=== PATIENT | male | born 1945 | race Caucasian/White ===

== ENCOUNTER 2017-08-03 06:19 | Emergency (ER) | payer OTHER, BC ==
[2017-08-03 07:06] LABS: Absolute Lymphocytes (CBC) 1.3 K/uL (0.7-4.9); Absolute Monocytes 0.6 K/uL (0.1-1.3); Basophils % 0.4 % (0-1.3); Eosinophils % 2.1 % (0-4.4); Hematocrit 41.9 % (39.6-49.0); Lymphocytes % 26.2 % (15.3-44.8); MCH 31.2 pg (27.0-35.0); MCV 92.3 fL (80-100); Monocytes % 11.9 % (3.3-12.3); RBC Red Blood Cell Count 4.54 M/uL (4.33-5.43)
[2017-08-03 07:08] LABS: Protime INR 0.91
--- NOTE | 2017-08-03 08:28 | RAD REPORT ---
EXAM DESCRIPTION: RAD - Chest Single View - 08/03/2017 8:22 am CLINICAL HISTORY: Shortness of breath. COMPARISON: None. FINDINGS: Portable technique limits examination quality. Emphysematous changes are present throughout the lungs. Post surgical changes are present in the righ t lower lobe. The heart is normal in size. No displaced fractures. IMPRESSION: Prominent COPD.
[2017-08-03 08:39] LABS: Potassium 4.1 mEq/L (3.6-5.0)
[2017-08-03 08:44] LABS: Bilirubin Total 0.5 mg/dL (0.3-1.2); Magnesium 1.8 mg/dL (1.8-2.5); Protein, Total 8.1 g/dL (6.0-8.3)
[2017-08-03 08:45] LABS: Bilirubin Direct 0.1 mg/dL (0-0.2)
[2017-08-03 08:53] LABS: Urine Blood NEGATIVE (NEG); Urine Glucose NEGATIVE (NEG); Urine Protein NEGATIVE (NEG); Urine pH 5.5 (5.0-7.0)
--- NOTE | 2017-08-03 09:12 | RAD REPORT ---
EXAM DESCRIPTION: CT - Chest For Pe Angio - 08/03/2017 9:02 am CLINICAL HISTORY: Chest pain. Shortness of breath COMPARISON: Recent chest radiograph. TECHNIQUE: CT angiogram of the pulmonary arteries was performed with MIP. All CT scans are performed using dose optimization technique as appropriate and may include automated exposure control or mA/KV adjustment according to patient size. FINDINGS: No evidence of pulmonary thromboembolism. No acute aortic finding demonstrated. The lungs are mildly emphysematous but clear. Postsurgical changes are present inferior right lung. No significant pericardial or pleural fluid. No concerning bony finding. IMPRESSION: No evidence of pulmonary thromboembolism. COPD.
--- NOTE | 2017-08-03 09:43 | ER ---
Nurse's Notes [facility] Name: Fredi Barth Age: 72 yrs Sex: Male : 1945 Arrival Date: 08/03/2017 Time: 06:20 Bed 5 Private MD: Diagnosis: Cardiac arrhythmia, unspecified Presentation: 08/03 06:20 Presenting complaint: Patient states: that he woke up at 0400 with irregular heart fc rate. Also having shortness of breath which is normal for him. Denies any nausea or vomiting. Took bp at home and it was 118/86. Transition of care: patient was not received from another setting of care. Onset of symptoms was August 03, 2017 at 04:00. Initial Sepsis Screen: Does the patient meet any 2 criteria? HR > 90 bpm. Yes Does the patient have a suspected source of infection? No. Patient's initial sepsis screen is negative. Care prior to arrival: Medication(s) given: Coreg 12.5 mg at 0600. 06:20 Method Of Arrival: Wheelchair fc 06:20 Acuity: PHYLLIS 2 fc Historical: - Allergies: 06:39 hydrocodone; fc - Home Meds: 06:39 Coreg 25 mg Oral tab 1 tab 2 times per day [Active]; tylenol 500 mg twice a day fc [Active]; Co Q-10 oral oral daily [Active]; Vitamin D Oral daily [Active]; Probiotic oral oral daily [Active]; Nexium 40 mg Oral cpDR 1 cap once daily [Active]; - PMHx: 06:39 Atrial Fib; COPD; Cancer, Lung; Hypertension; GERD; Sjogren's syndrome; fc - PSHx: 06:39 lung surg to remove cancer; abd surg; fc - Immunization history:: Last tetanus immunization: unknown. - Social history:: Smoking status: Patient/guardian denies using tobacco. Screenin:20 Abuse screen: Denies threats or abuse. Nutritional screening: No deficits noted. fc Tuberculosis screening: No symptoms or risk factors identified. Fall Risk None identified. Assessment: 06:46 General: Appears in no apparent distress. comfortable, Behavior is calm, cooperative, tl2 appropriate for age. Pain: Denies pain. Neuro: Level of Consciousness is awake, alert, obeys commands, Oriented to person, place, time, situation. Cardiovascular: Reports mild mid sternal chest discomfort, states, "It just doesn't feel right". Respiratory: Airway is patent Respiratory effort is even, unlabored, Respiratory pattern is regular, symmetrical, Breath sounds are clear bilaterally. Denies shortness of breath. GI: No signs and/or symptoms were reported involving the gastrointestinal system. : No signs and/or symptoms were reported regarding the genitourinary system. Derm: Skin is pink, warm \\T\\ dry. 06:48 Pain: Pain began 3 hours ago. tl2 07:00 Reassessment: Patient appears in no apparent distress at this time. Patient and/or sg family updated on plan of care and expected duration. Pain level reassessed. Patient is alert, oriented x 3, equal unlabored respirations, skin warm/dry/pink. pt encouraged to remain in the bed, strict bed rest, pt educated on reasons behind the need for strict bed rest, pt stated understanding. 07:00 Pain: Pain does not radiate. sg 08:30 Reassessment: Patient appears in no apparent distress at this time. Patient and/or sg family updated on plan of care and expected duration. Pain level reassessed. Patient is alert, oriented x 3, equal unlabored respirations, skin warm/dry/pink. pt requesting to walk to the restroom, more education provided on the need for strict bed rest, pt stated understanding, pt requesting to go to the restroom. pt ambulatory to the ER restroom and back into bed, will continue to monitor. 08:30 Reassessment: pt reports " i forgot to tell the docotor that i took a unasym last sg night.". 08:48 Reassessment: pt and pt requesting something to eat, pt encouraged to remain NPO sg until all testing is completed, awaiting the blood work prior to having the CT scan, pt stated understanding, pt stated understanding, pt remains on monitors, no new orders received at this time, pt remains strict bed rest. 09:20 Reassessment: Patient appears in no apparent distress at this time. Patient and/or sg family updated on plan of care and expected duration. Pain level reassessed. Patient is alert, oriented x 3, equal unlabored respirations, skin warm/dry/pink. awaiting a CT scan results at this time, pt cardiac rhythm noted to be Sinus Rhythm at this time, Varun HAAS notified, ordered repeat EKG Patient states feeling better. Patient states symptoms have improved. Vital Signs: 06:20 BP 165 / 111; Pulse 130; Resp 20; Temp 97.7(O); Pulse Ox 97% on R/A; Weight 112.49 kg fc (R); Height 6 ft. 2 in. (187.96 cm) (R); Pain 0/10; 08:13 BP 117 / 77; Pulse 135; Resp 18; Pulse Ox 98% on R/A; sg 09:26 BP 131 / 92; Pulse 70; Resp 13; Pulse Ox 96% on R/A; tw2 06:20 Body Mass Index 31.84 (112.49 kg, 187.96 cm) fc 08:13 varun HAAS notified of vital signs sg Vitals: 06:46 Cardiac Rhythm Assessment Sinus tach. tl2 09:30 Cardiac Rhythm Assessment Sinus rhythm. sg ED Course: 06:20 Patient arrived in ED. ds1 06:20 Arm band placed on Patient placed in an exam room, on a stretcher. fc 06:20 Patient has correct armband on for positive identification. Placed in gown. Bed in low fc position. Call light in reach. printer maintainer on. Pulse ox on. NIBP on. 06:20 Patient maintains SpO2 saturation greater than 95% on room air. fc 06:29 [facility]. jr8 06:29 Sumeet Harkins MD is Attending Physician. jr8 06:30 EKG done, by ED staff, reviewed by Varun HAAS. fc 06:34 Triage completed. fc 06:46 Inserted saline lock: 20 gauge in left antecubital area, using aseptic technique. Blood tl2 collected. 07:10 Artis Justice, RN is Primary Nurse. sg 08:22 XRAY Chest (1 view) In Process Unspecified. EDMS 08:56 CT completed. Patient tolerated procedure well. Patient moved to CT via stretcher. vr Patient moved back from CT. 09:02 CT Chest For PE Angio In Process Unspecified. EDMS 09:08 Patient moved back from CT. sg 09:34 EKG done, by ict help desk technician. reviewed by Varun HAAS Repeat EKG. at1 09:42 Adeel Hull MD is Referral Physician. jr8 09:45 No provider procedures requiring assistance completed. IV discontinued, intact, sg bleeding controlled, No redness/swelling at site. Pressure dressing applied, IV d/c'd by watershed tender Leena. Administered Medications: No medications were administered Outcome: 09:42 Discharge ordered by MD. grider 09:48 Discharged to home ambulatory, with family. 09:48 Condition: good 09:48 Discharge instructions given to patient, Instructed on discharge instructions, follow up and referral plans. safety practices, Demonstrated understanding of instructions, follow-up care. 09:51 Patient left the ED. iw Signatures: Dispatcher [employer] EDArtis Alves, RN RN sg Carla Tavarez, RN RN Naz Jaramillo ds1 Leeann Holder, RN RN iw Noreen Tadeo Josh, PA PA jr8 gonzales, Amanda, lap machine tender EKG Tat1 Carlita Phillips RN RN tw2 Ila Quiroga RN RN tl2
--- NOTE | 2017-08-03 09:43 | EDPHYS ---
Physician Documentation [facility] Name: Fredi Barth Age: 72 yrs Sex: Male : 1945 Arrival Date: 08/03/2017 Time: 06:20 Bed 5 Private MD: ED Physician Sumeet Harkins HPI: 08/03 07:49 This 72 yrs old Male presents to ER via Wheelchair with complaints of jr8 Irregular Pulse. 07:49 The patient presents with a history of heart racing. Context: The symptoms occur at jr8 rest. Onset: The symptoms/episode began/occurred acutely, today. Duration: The patient or guardian reports a single episode, that is still ongoing. Modifying factors: The symptoms are aggravated by nothing. The symptoms are alleviated by nothing. Associated signs and symptoms: Pertinent positives: SOB. Severity of symptoms: At their worst the symptoms were moderate in the emergency department the symptoms are unchanged. It is unknown whether or not the patient has had similar symptoms in the past. The patient has not recently seen a physician. Stated that he has history of atrial fibrillation. Started to feel heart race this morning. Though it may be his atrial fib coming back again. Had not had an episode in a few years. Had chemical cardioversion previously for the arrhythmia . Historical: - Allergies: 06:39 hydrocodone; fc - Home Meds: 06:39 Coreg 25 mg Oral tab 1 tab 2 times per day [Active]; tylenol 500 mg twice a day fc [Active]; Co Q-10 oral oral daily [Active]; Vitamin D Oral daily [Active]; Probiotic oral oral daily [Active]; Nexium 40 mg Oral cpDR 1 cap once daily [Active]; - PMHx: 06:39 Atrial Fib; COPD; Cancer, Lung; Hypertension; GERD; Sjogren's syndrome; fc - PSHx: 06:39 lung surg to remove cancer; abd surg; fc - Immunization history:: Last tetanus immunization: unknown. - Social history:: Smoking status: Patient/guardian denies using tobacco. ROS: 07:49 Eyes: Negative for injury, pain, redness, and discharge, ENT: Negative for injury, jr8 pain, and discharge, Neck: Negative for injury, pain, and swelling, Abdomen/GI: Negative for abdominal pain, nausea, vomiting, diarrhea, and constipation, Back: Negative for injury and pain, MS/Extremity: Negative for injury and deformity, Skin: Negative for injury, rash, and discoloration, Neuro: Negative for headache, weakness, numbness, tingling, and seizure. 07:49 Cardiovascular: Positive for palpitations, Negative for chest pain, edema, orthopnea, paroxysmal nocturnal dyspnea. 07:49 Respiratory: Positive for shortness of breath, Negative for cough, dyspnea on exertion, hemoptysis, orthopnea, pleurisy, sputum production, wheezing. Exam: 07:49 Eyes: Pupils equal round and reactive to light, extra-ocular motions intact. Lids and jr8 lashes normal. Conjunctiva and sclera are non-icteric and not injected. Cornea within normal limits. Periorbital areas with no swelling, redness, or edema. ENT: Nares patent. No nasal discharge, no septal abnormalities noted. Tympanic membranes are normal and external auditory canals are clear. Oropharynx with no redness, swelling, or masses, exudates, or evidence of obstruction, uvula midline. Mucous membranes moist. Neck: Trachea midline, no thyromegaly or masses palpated, and no cervical lymphadenopathy. Supple, full range of motion without nuchal rigidity, or vertebral point tenderness. No Meningismus. Respiratory: Lungs have equal breath sounds bilaterally, clear to auscultation and percussion. No rales, rhonchi or wheezes noted. No increased work of breathing, no retractions or nasal flaring. Abdomen/GI: Soft, non-tender, with normal bowel sounds. No distension or tympany. No guarding or rebound. No evidence of tenderness throughout. Back: No spinal tenderness. No costovertebral tenderness. Full range of motion. Skin: Warm, dry with normal turgor. Normal color with no rashes, no lesions, and no evidence of cellulitis. MS/ Extremity: Pulses equal, no cyanosis. Neurovascular intact. Full, normal range of motion. Neuro: Awake and alert, GCS 15, oriented to person, place, time, and situation. Cranial nerves II-XII grossly intact. Motor strength 5/5 in all extremities. Sensory grossly intact. Cerebellar exam normal. Normal gait. 07:49 Cardiovascular: Rate: tachycardic, Rhythm: regular, Pulses: Pulses are 2+ in right radial artery and left radial artery. Heart sounds: normal, normal S1and S2, no S3 or S4, no murmur, no rub, no gallop, Edema: is not appreciated, JVD: is not appreciated. Vital Signs: 06:20 BP 165 / 111; Pulse 130; Resp 20; Temp 97.7(O); Pulse Ox 97% on R/A; Weight 112.49 kg fc (R); Height 6 ft. 2 in. (187.96 cm) (R); Pain 0/10; 08:13 BP 117 / 77; Pulse 135; Resp 18; Pulse Ox 98% on R/A; sg 09:26 BP 131 / 92; Pulse 70; Resp 13; Pulse Ox 96% on R/A; tw2 06:20 Body Mass Index 31.84 (112.49 kg, 187.96 cm) 08:13 pierre HAAS notified of vital signs MDM: 06:29 Patient medically screened. 8 09:40 Data reviewed: vital signs, nurses notes, lab test result(s), EKG, radiologic studies, [facility] CT scan, plain films, and as a result, I will discharge patient. Data interpreted: Pulse oximetry: on room air is 96 %. Interpretation: normal. Counseling: I had a detailed discussion with the patient and/or guardian regarding: the historical points, exam findings, and any diagnostic results supporting the discharge/admit diagnosis, lab results, radiology results, the need for outpatient follow up, a battery charger, to return to the emergency department if symptoms worsen or persist or if there are any questions or concerns that arise at home. ED course: Patient auto converted from arrhythmia earlier. Suspected maybe 2:1 aflutter vs unspecified tachycardia. Will see battery charger this week for f/u. To come back if worse . 08/03 06:40 Order name: Basic Metabolic Panel; Complete Time: 08:50 08/03 06:40 Order name: BNP; Complete Time: 07:31 08/03 06:40 Order name: CBC with Diff; Complete Time: 07:13 08/03 06:40 Order name: LFT's; Complete Time: 08:50 08/03 06:40 Order name: Magnesium; Complete Time: 08:50 08/03 06:40 Order name: PT-INR; Complete Time: 07:19 08/03 06:40 Order name: Ptt, Activated; Complete Time: 07:19 08/03 06:40 Order name: Troponin (emerg Dept Use Only); Complete Time: 07:19 08/03 06:40 Order name: XRAY Chest (1 view); Complete Time: 08:31 08/03 06:40 Order name: EKG; Complete Time: 06:41 08/03 06:40 Order name: Cardiac monitoring; Complete Time: 06:42 08/03 06:40 Order name: DD; Complete Time: 07:19 08/03 08:38 Order name: Urine Dipstick--Ancillary (enter results); Complete Time: 08:58 08/03 08:46 Order name: CT Chest For PE Angio; Complete Time: 09:15 08/03 06:40 Order name: EKG - Nurse/Tech; Complete Time: 06:42 08/03 06:40 Order name: IV Saline Lock; Complete Time: 06:42 08/03 06:40 Order name: Labs collected and sent; Complete Time: 06:42 08/03 06:40 Order name: O2 Per Protocol; Complete Time: 06:42 08/03 06:40 Order name: O2 Sat Monitoring; Complete Time: 06:42 08/03 06:40 Order name: Urine Dipstick-Ancillary (obtain specimen); Complete Time: 08:43 jr8 Administered Medications: No medications were administered Disposition: 08/03/17 09:42 Discharged to Home. Impression: Cardiac arrhythmia, unspecified. - Condition is Stable. - Discharge Instructions: Atrial Fibrillation, Palpitations. - Medication Reconciliation Form, Thank You Letter, Antibiotic Education, Prescription Opioid Use form. - Follow up: Adeel Hull MD; When: Today; Reason: Recheck today's complaints, Continuance of care, Re-evaluation by your physician. - Problem is new. - Symptoms have improved. Addendum: 08/07/2017 21:30 Co-signature as Attending Physician, Sumeet Harkins MD. g s Signatures: Dispatcher [employer] EDMS Carla Tavarez RN RN fc Williams, Irene, RN RN iw Roszak, Josh, WALDO PA jr8 Sumeet Harkins MD MD
--- NOTE | 2017-08-03 12:56 | EKG ---
Test Date: 2017-08-03 Test Time: 06:30:06 Equity Director: JOHNATHON MEASUREMENT RESULTS: Intervals: Rate: 130 NJ: 208 QRSD: 78 QT: 286 QTc: 420 Higden: P: NJ: 208 QRS: 21 T: 58 INTERPRETIVE STATEMENTS: Sinus tachycardia Otherwise normal ECG Compared to ECG 10/18/2010 00:35:23 Sinus rhythm no longer present Electronically Signed On 08-03-17 12:55:35 CDT by Parish Avery
--- NOTE | 2017-08-03 12:56 | EKG ---
Test Date: 2017-08-03 Test Time: 09:18:40 Rattle Leak And Squeak Repairer: MY MEASUREMENT RESULTS: Intervals: Rate: 67 MO: 168 QRSD: 80 QT: 380 QTc: 401 [place]: P: 46 MO: 168 QRS: 5 T: 61 INTERPRETIVE STATEMENTS: Normal sinus rhythm Normal ECG Compared to ECG 08/03/2017 06:30:06 Sinus tachycardia no longer present Electronically Signed On 08-03-17 12:55:20 CDT by Parish Avery
== END 2017-08-03 09:51 | disposition home or self-care (01) ==
LOC: ER 06:19
DX: I49.9 Cardiac arrhythmia, unspecified (principal); I10 Essential (primary) hypertension; I48.91 Unspecified atrial fibrillation; Z85.118 Personal history of other malignant neoplasm of bronchus and lung
CPT/HCPCS: 36415; 71045; 71275; 80048; 80076; 81003; 83735; 83880; 84484; 85025; 85379; 85610; 85730; 93005 ×2; 99285; Q9967

== ENCOUNTER 2020-02-12 02:07 | Emergency (ER) | payer OTHER, BC ==
--- OUTSIDE RECORDS SUMMARY | 2020-02-12 02:09 | XMS REPORT | Continuity of Care Document ---
:1945 Author Organization [facility] t Address [address] [place] [address] [place] [id number] Care Team Providers Name Role Phone APOLONIA SINHA Primary Care Physician Unavailable Yao MICHAEL Attending Clinician Unavailable Payers Payer Name Policy Type Policy Number Effective Date Expiration Date S emma MEDICARE PART A [id number] 2008 AND B 00:00:00 [place] P[place] POS [id number] 2015 00:00:00 Problems This patient has no known problems. Allergies, Adverse Reactions, Alerts This patient has no known allergies or adverse reactions. Medications This patient has no known medications. Vital Signs Vital Name Observation Time Observation Value Comments Source WEIGHT 2020-01-20 13:05:00 112.8 kg Procedures This patient has no known procedures. Encounters Start End Encounter Admission Attending Care Care Encounter Source Date/Time Date/Time Type Type Clinicians Facility Department ID 2020-01-20 2020-01-20 Outpatient KARLO MICHAEL MDA ESTEFANI [id number] 07:46:39 23:59:00 ROSLYN beard 2020-01-20 2020-01-20 Outpatient KARLO MICHAEL MDA MDA [id number] 07:46:09 23:59:00 ROSLYN Sahaers o n 2020-01-20 2020-01-20 Outpatient KARLO MICHAEL MDA MDA [id number] 11:08:10 16:44:09 ROSLYN Sahaers o kisha 2015-10-12 2015-10-12 Outpatient KARLO MICHAEL MDA MDA [id number] 09:39:22 15:03:47 ROSLYN Sahaers o n Results This patient has no known results.
[2020-02-12] MEDS ORDERED: LABETALOL 20 MG/4ML SYRINGE IV ONE (02:59)
[2020-02-12] MEDS ORDERED: cloNIDine HCL 0.1 MG TAB ONE (03:09)
--- NOTE | 2020-02-12 05:01 | EDPHYS ---
Physician Documentation [facility] Name: Fredi Barth Age: 74 yrs Sex: Male : 1945 Arrival Date: 02/12/2020 Time: 02:13 Bed 17 Private MD: ED Physician Gerardo Ulrich HPI: 02/11 02:39 This 74 yrs old Male presents to ER via Ambulatory with complaints of High pkl Blood Pressure. 02:39 Onset: The symptoms/episode began/occurred yesterday. Associated signs and symptoms: pkl The patient has no apparent associated signs or symptoms. Historical: - Allergies: 02: HYDROCODONE; - Home Meds: : Coreg 25 mg Oral tab 1 tab 2 times per day [Active]; Co Q-10 Oral daily [Active]; wh Probiotic Oral daily [Active]; Vitamin D Oral daily [Active]; Famotidine Oral [Active]; - PMHx: 02:29 Atrial Fib; Cancer, Lung; COPD; GERD; Hypertension; Sjogren's Syndrome; - PSHx: 02: Lung Surgery; - Immunization history:: Adult Immunizations not up to date. - Social history:: Smoking status: Patient/guardian denies using. ROS: 02:39 Eyes: Negative for injury, pain, redness, and discharge, ENT: Negative for injury, pkl pain, and discharge, Neck: Negative for injury, pain, and swelling, Cardiovascular: Negative for chest pain, palpitations, and edema, Respiratory: Negative for shortness of breath, cough, wheezing, and pleuritic chest pain, Abdomen/GI: Negative for abdominal pain, nausea, vomiting, diarrhea, and constipation, Back: Negative for injury and pain, : Negative for injury, bleeding, discharge, and swelling, MS/Extremity: Negative for injury and deformity, Skin: Negative for injury, rash, and discoloration, Neuro: Negative for headache, weakness, numbness, tingling, and seizure. Exam: 02:39 Head/Face: Normocephalic, atraumatic. Eyes: Pupils equal round and reactive to light, pkl extra-ocular motions intact. Lids and lashes normal. Conjunctiva and sclera are non-icteric and not injected. Cornea within normal limits. Periorbital areas with no swelling, redness, or edema. ENT: Nares patent. No nasal discharge, no septal abnormalities noted. Tympanic membranes are normal and external auditory canals are clear. Oropharynx with no redness, swelling, or masses, exudates, or evidence of obstruction, uvula midline. Mucous membranes moist. Neck: Trachea midline, no thyromegaly or masses palpated, and no cervical lymphadenopathy. Supple, full range of motion without nuchal rigidity, or vertebral point tenderness. No Meningismus. Chest/axilla: Normal chest wall appearance and motion. Nontender with no deformity. No lesions are appreciated. Cardiovascular: Regular rate and rhythm with a normal S1 and S2. No gallops, murmurs, or rubs. Normal PMI, no JVD. No pulse deficits. Respiratory: Lungs have equal breath sounds bilaterally, clear to auscultation and percussion. No rales, rhonchi or wheezes noted. No increased work of breathing, no retractions or nasal flaring. Abdomen/GI: Soft, non-tender, with normal bowel sounds. No distension or tympany. No guarding or rebound. No evidence of tenderness throughout. Back: No spinal tenderness. No costovertebral tenderness. Full range of motion. Skin: Warm, dry with normal turgor. Normal color with no rashes, no lesions, and no evidence of cellulitis. MS/ Extremity: Pulses equal, no cyanosis. Neurovascular intact. Full, normal range of motion. Neuro: Awake and alert, GCS 15, oriented to person, place, time, and situation. Cranial nerves II-XII grossly intact. Motor strength 5/5 in all extremities. Sensory grossly intact. Cerebellar exam normal. Normal gait. Vital Signs: 02:24 BP 207 / 104; Pulse 72; Resp 18; Temp 98.0; Pulse Ox 98% on R/A; Weight 107.95 kg; wh Height 6 ft. 2 in. (187.96 cm); 02:33 BP 193 / 97; Pulse 67; wh 02:45 BP 185 / 88; Pulse 69; wh 03:00 BP 184 / 93; Pulse 63; wh 03:15 BP 178 / 84; Pulse 59; wh 03:30 BP 158 / 83; Pulse 57; wh 03:45 BP 147 / 80; Pulse 59; wh 04:45 BP 129 / 69; Pulse 57; Resp 18; Pulse Ox 95% on R/A; wh 02:24 Body Mass Index 30.56 (107.95 kg, 187.96 cm) MDM: 02:17 Patient medically screened. pkl 04:57 Data reviewed: vital signs, nurses notes. ED course: Patient feeling better. Advised to pkl follow with PCP/ Gas Well Pumper in 2 to 3 days. To return if necessary. Patient understood instructions. 02/11 02:38 Order name: Saline Lock; Complete Time: 02:44 pkl Administered Medications: 02:56 Not Given (Physician Discretion): Trandate 20 mg IVP once; Over 2 minutes 02:58 Drug: cloNIDine 0.2 mg Route: PO; 05:00 Follow up: Response: No adverse reaction; Blood pressure is lowered Disposition: 02/12/20 05:00 Discharged to Home. Impression: Uncontrolled hypertension. - Condition is Stable. - Prescriptions for Clonidine 0.2 mg Oral Tablet - take 1 tablet by ORAL route every 12 hours; 30 tablet. - Medication Reconciliation Form, Thank You Letter, Antibiotic Education, Prescription Opioid Use form. - Follow up: Private Physician; When: 2 - 3 days; Reason: Re-evaluation by your physician. - Problem is new. - Symptoms have improved. Signatures: Gerardo Ulrich MD MD pk Dimitri Nicole Corrections: (The following items were deleted from the chart) 05:07 05:00 02/12/2020 05:00 Discharged to Home. Impression: Uncontrolled hypertension. Condition is Stable. Forms are Medication Reconciliation Form, Thank You Letter, Antibiotic Education, Prescription Opioid Use. Follow up: Private Physician; When: 2 - 3 days; Reason: Re-evaluation by your physician. Problem is new. Symptoms have improved. pkl
--- NOTE | 2020-02-12 05:01 | ER ---
Nurse's Notes [facility] [place] Name: Fredi Barth Age: 74 yrs Sex: Male : 1945 Arrival Date: 02/12/2020 Time: 02:13 Bed 17 Private MD: Diagnosis: Uncontrolled hypertension Presentation: 02/11 02:24 Chief complaint: Patient states: C/O uncontrolled high blood pressure x 2 days despite wh taking medicine. Pt states Hx of Abdominal Aortic Aneurysm and needs to control blood pressure. Pt denies chest pain or any other symptoms. Coronavirus screen: Client denies travel out of the [place] in the last 14 days. At this time, the client does not indicate any symptoms associated with coronavirus-19. Ebola Screen: Patient negative for fever greater than or equal to 101.5 degrees Fahrenheit, and additional compatible Ebola Virus Disease symptoms Patient denies exposure to infectious person. Initial Sepsis Screen: Does the patient meet any 2 criteria? No. Patient's initial sepsis screen is negative. Does the patient have a suspected source of infection? No. Patient's initial sepsis screen is negative. Risk Assessment: Do you want to hurt yourself or someone else? Patient reports no desire to harm self or others. Onset of symptoms was February 12, 2020. 02:24 Method Of Arrival: Ambulatory 02:24 Acuity: PHYLLIS 3 Historical: - Allergies: 02: HYDROCODONE; - Home Meds: Coreg 25 mg Oral tab 1 tab 2 times per day [Active]; Co Q-10 Oral daily [Active]; Probiotic Oral daily [Active]; Vitamin D Oral daily [Active]; Famotidine Oral [Active]; - PMHx: 02: Atrial Fib; Cancer, Lung; COPD; GERD; Hypertension; Sjogren's Syndrome; - PSHx: 02: Lung Surgery; - Immunization history:: Adult Immunizations not up to date. - Social history:: Smoking status: Patient/guardian denies using. Screenin: Abuse screen: Denies threats or abuse. Denies injuries from another. Nutritional screening: No deficits noted. Tuberculosis screening: No symptoms or risk factors identified. Fall Risk None identified. Assessment: 02: General: Appears in no apparent distress. Behavior is calm, cooperative, appropriate for age. Pain: Denies pain. Neuro: Level of Consciousness is awake, alert, obeys commands, Oriented to person, place, time, situation, Appropriate for age. Cardiovascular: Capillary refill < 3 seconds. Respiratory: Airway is patent Respiratory effort is even, unlabored, Respiratory pattern is regular, symmetrical. GI: Abdomen is flat, non-distended. : No signs and/or symptoms were reported regarding the genitourinary system. EENT: No signs and/or symptoms were reported regarding the EENT system. Derm: Skin is intact, is healthy with good turgor, Skin is pink, warm \T\ dry. normal. Musculoskeletal: Circulation, motion, and sensation intact. 03:47 Reassessment: Patient appears in no apparent distress at this time. No changes from previously documented assessment. Patient and/or family updated on plan of care and expected duration. Pain level reassessed. Patient is alert, oriented x 3, equal unlabored respirations, skin warm/dry/pink. MD at bedside explaining POC. 04:59 Reassessment: Patient appears in no apparent distress at this time. Patient and/or family updated on plan of care and expected duration. Pain level reassessed. Patient is alert, oriented x 3, equal unlabored respirations, skin warm/dry/pink. Vital Signs: 02:24 BP 207 / 104; Pulse 72; Resp 18; Temp 98.0; Pulse Ox 98% on R/A; Weight 107.95 kg; Height 6 ft. 2 in. (187.96 cm); 02:33 BP 193 / 97; Pulse 67; 02:45 BP 185 / 88; Pulse 69; 03:00 BP 184 / 93; Pulse 63; wh 03:15 BP 178 / 84; Pulse 59; wh 03:30 BP 158 / 83; Pulse 57; 03:45 BP 147 / 80; Pulse 59; wh 04:45 BP 129 / 69; Pulse 57; Resp 18; Pulse Ox 95% on R/A; wh 02:24 Body Mass Index 30.56 (107.95 kg, 187.96 cm) ED Course: 02:13 Patient arrived in ED. cl3 02:15 Dimitri Nicole is Primary Nurse. wh 02:17 Gerardo Ulrich MD is Attending Physician. pkl 02:26 Triage completed. wh 02:29 Arm band placed on right wrist. 02:30 Patient has correct armband on for positive identification. Placed in gown. Bed in low wh position. Call light in reach. Side rails up X 1. Pulse ox on. NIBP on. 02:45 Inserted saline lock: 20 gauge in right antecubital area, using aseptic technique. 05:00 No provider procedures requiring assistance completed. IV discontinued, intact, bleeding controlled, No redness/swelling at site. Administered Medications: 02:56 Not Given (Physician Discretion): Trandate 20 mg IVP once; Over 2 minutes 02:58 Drug: cloNIDine 0.2 mg Route: PO; 05:00 Follow up: Response: No adverse reaction; Blood pressure is lowered Outcome: 05:00 Discharge ordered by . sarah 05:06 Discharged to home ambulatory, with family. 05:06 Condition: stable 05:06 Discharge instructions given to patient, family, Instructed on discharge instructions, follow up and referral plans. medication usage, POC Demonstrated understanding of instructions, follow-up care, medications, POC Prescriptions given X 1. 05:07 Patient left the ED. Signatures: Gerardo Ulrich MD MD pkl [place], Winsy Harsh Alejandre cl3 Corrections: (The following items were deleted from the chart) 02:33 02:24 Chief complaint: Patient states: C/O uncontrolled high blood pressure since yesterday despite taking medicine. Pt states Hx of Abdominal Aortic Aneurysm and needs to control blood pressure. Pt denies chest pain or any other symptoms 03:49 03:47 Reassessment: Patient appears in no apparent distress at this time. No changes from previously documented assessment. Patient and/or family updated on plan of care and expected duration. Pain level reassessed. Patient is alert, oriented x 3, equal unlabored respirations, skin warm/dry/pink.
[2020-02-12 05:16] VITALS: TEMP 98
[2020-02-12 05:24] VITALS: BP 129/69; O2SAT 95
== END 2020-02-12 05:07 | disposition home or self-care (01) ==
LOC: ER 02:07
DX: I10 Essential (primary) hypertension (principal); J44.9 Chronic obstructive pulmonary disease, unspecified; I48.91 Unspecified atrial fibrillation; Z85.118 Personal history of other malignant neoplasm of bronchus and lung; Z88.5 Allergy status to narcotic agent
CPT/HCPCS: 99284

== ENCOUNTER 2021-01-19 04:30 | Inpatient (IN) | payer OTHER, BC ==
[2021-01-19 05:20] LABS: Absolute Lymphocytes (CBC) 1.4 K/uL (0.7-4.9); Basophils % 0.8 % (0-1.3); Hematocrit 38.8 % (39.6-49.0); Lymphocytes % 29.1 % (15.3-44.8); MPV 8.8 fL (7.6-11.3); RBC Red Blood Cell Count 4.05 M/uL (4.33-5.43)
[2021-01-19 05:21] LABS: Protime INR 1.48
[2021-01-19] MEDS ORDERED: METOPROLOL TARTRATE 5 MG/5 ML INJ IV ONE (05:33)
[2021-01-19] MEDS ORDERED: NA CHLORIDE 0.9% 1,000 ML ONE (05:33)
[2021-01-19 05:39] LABS: ALT/SGPT 21 U/L (12-78); AST/SGOT 23 U/L (15-37); Albumin 3.8 g/dL (3.4-5.0); Alkaline Phosphatase 102 U/L (45-117); BUN Blood Urea Nitrogen 16 mg/dL (7-18); Bicarbonate 27 mmol/L (21-32); Bilirubin Direct 0.1 mg/dL (0-0.2); Bilirubin Total 0.2 mg/dL (0.2-1.0); Glucose Level 128 mg/dL (74-106); Magnesium 2.2 mg/dL (1.8-2.4); NT PRO-BNP 355 pg/mL (<450); Protein, Total 8.1 g/dL (6.4-8.2); Sodium Level 137 mmol/L (136-145); Troponin (Emerg Dept Use Only) < 0.02 ng/mL (0.0-0.045)
--- NOTE | 2021-01-19 07:08 | EDPHYS ---
Physician Documentation [facility] Name: Fredi Barth Age: 75 yrs Sex: Male : 1945 Arrival Date: 01/19/2021 Time: 04:32 Bed 7 Private MD: ED Physician Bigg Valdez HPI: 01/19 05:08 This 75 yrs old Male presents to ER via Wheelchair with complaints of ma2 Irregular Pulse. 05:08 The patient presents with a history of irregular heart beat. Onset: The ma2 symptoms/episode began/occurred gradually, 1 hour(s) ago. Associated signs and symptoms: Pertinent negatives: fever, nausea, syncope, near-syncope, unusual stressors. Severity of symptoms: At their worst the symptoms were mild in the emergency department the symptoms are unchanged. The patient has not experienced similar symptoms in the past. Patient took Xarelto 30 minutes ago, takes Coreg and . Historical: - Allergies: 04:55 HYDROCODONE; df1 - Home Meds: 04:55 famotidine 40 mg oral tab 1 tab once daily [Active]; Coreg 12.5 mg oral tab 1 tab 2 df1 times per day [Active]; clonidine HCl 0.2 mg Oral tab 1 tab once daily [Active]; famotidine 10 mg Oral tab 1 tab once daily [Active]; Crestor 5 mg oral tab 1 tab once daily [Active]; xeralto 20 mg po daily daily [Active]; losartan 100 mg oral tab 1 tab once daily [Active]; - PMHx: 04:55 Atrial Fib; Cancer, Lung; COPD; GERD; Hypertension; Sjogren's Syndrome; radiation; df1 - PSHx: 04:55 ablation for afib; lung surgery x 3; df1 - Immunization history:: Adult Immunizations not up to date, Client reports having NOT received the Covid vaccine. Pneumococcal vaccine is up to date, Flu vaccine is not up to date. - Social history:: Smoking status: Patient denies any tobacco usage or history of. - Family history:: not pertinent. ROS: 05:08 Constitutional: Negative for fever, chills, and weight loss. ma2 05:08 All other systems are negative. Exam: 05:08 Constitutional: This is a well developed, well nourished patient who is awake, alert, ma2 and in no acute distress. Head/Face: Normocephalic, atraumatic. Eyes: Pupils equal round and reactive to light, extra-ocular motions intact. Lids and lashes normal. Conjunctiva and sclera are non-icteric and not injected. Cornea within normal limits. Periorbital areas with no swelling, redness, or edema. ENT: Nares patent. No nasal discharge, no septal abnormalities noted. Tympanic membranes are normal and external auditory canals are clear. Oropharynx with no redness, swelling, or masses, exudates, or evidence of obstruction, uvula midline. Mucous membranes moist. Neck: Trachea midline, no thyromegaly or masses palpated, and no cervical lymphadenopathy. Supple, full range of motion without nuchal rigidity, or vertebral point tenderness. No Meningismus. Chest/axilla: Normal chest wall appearance and motion. Nontender with no deformity. No lesions are appreciated. Cardiovascular: tachycardia rate and r afib on ekg,, with a normal S1 and S2. No gallops, murmurs, or rubs. Normal PMI, no JVD. No pulse deficits. Respiratory: Lungs have equal breath sounds bilaterally, clear to auscultation and percussion. No rales, rhonchi or wheezes noted. No increased work of breathing, no retractions or nasal flaring. Abdomen/GI: Soft, non-tender, with normal bowel sounds. No distension or tympany. No guarding or rebound. No evidence of tenderness throughout. Back: No spinal tenderness. No costovertebral tenderness. Full range of motion. Skin: Warm, dry with normal turgor. Normal color with no rashes, no lesions, and no evidence of cellulitis. MS/ Extremity: Pulses equal, no cyanosis. Neurovascular intact. Full, normal range of motion. Neuro: Awake and alert, GCS 15, oriented to person, place, time, and situation. Cranial nerves II-XII grossly intact. Motor strength 5/5 in all extremities. Sensory grossly intact. Cerebellar exam normal. Normal gait. Vital Signs: 04:53 BP 124 / 96; Pulse 152; Resp 20; Temp 98.2; Pulse Ox 98% on R/A; Weight 111.13 kg; df1 Height 6 ft. 2 in. (187.96 cm); Pain 2/10; 05:30 BP 97 / 67; Pulse 102; Resp 18; Pulse Ox 99% on R/A; Pain 0/10; wg 06:03 BP 89 / 54; Pulse 101; Resp 18; Pulse Ox 100% ; Pain 0/10; wg 06:18 BP 99 / 81; Pulse 106; Resp 18; Pulse Ox 99% on R/A; Pain 0/10; wg 06:33 BP 97 / 69; Pulse 86; Resp 18; Pulse Ox 97% on R/A; Pain 0/10; wg 07:00 BP 120 / 88; Pulse 121; Resp 18; Pulse Ox 97% on R/A; Pain 0/10; wg 04:53 Body Mass Index 31.46 (111.13 kg, 187.96 cm) df1 MDM: 04:52 Patient medically screened. ma2 05:08 Differential diagnosis: arrythmia, dehydration, stress disorder, afib rvr. ma2 07:06 Data reviewed: vital signs, nurses notes, EMS record. Counseling: I had a detailed ma2 discussion with the patient and/or guardian regarding: the historical points, exam findings, and any diagnostic results supporting the discharge/admit diagnosis, the presence of at least one elevated blood pressure reading (>120/80) during this emergency department visit, the need for further work-up and treatment in the hospital. Response to treatment: the patient's symptoms have markedly improved after treatment. 01/19 04:48 Order name: Basic Metabolic Panel; Complete Time: 05:56 em 01/19 04:48 Order name: CBC with Diff; Complete Time: 05:56 em 01/19 04:48 Order name: LFT's; Complete Time: 05:56 em 01/19 04:48 Order name: Magnesium; Complete Time: 05:56 em 01/19 04:48 Order name: NT PRO-BNP; Complete Time: 05:56 em 01/19 04:48 Order name: PT-INR; Complete Time: 05:56 em 01/19 04:48 Order name: Troponin (emerg Dept Use Only); Complete Time: 05:56 em 01/19 04:48 Order name: XRAY Chest (1 view); Complete Time: 19:12 em 01/19 07:11 Order name: Troponin I; Complete Time: 19:12 EDMS 01/19 07:37 Order name: COVID-19 : Document "Date of Symptom Onset" if Symptomatic. bd 01/19 08:30 Order name: CORONAVIRUS EDMS 01/19 09:27 Order name: SARS-COV-2 RT PCR; Complete Time: 19:12 EDMS 01/19 04:48 Order name: EKG; Complete Time: 04:49 em 01/19 04:48 Order name: Cardiac monitoring; Complete Time: 05:00 em 01/19 04:48 Order name: EKG - Nurse/Tech; Complete Time: 05:00 em 01/19 04:48 Order name: IV Saline Lock; Complete Time: 05:00 em 01/19 04:48 Order name: Labs collected and sent; Complete Time: 05:00 em 01/19 04:48 Order name: O2 Per Protocol; Complete Time: 05:00 em 01/19 04:48 Order name: O2 Sat Monitoring; Complete Time: 05:01 em 01/19 07:11 Order name: CONS Physician Consult EDMS 01/19 07:11 Order name: Regular; Complete Time: 19:47 EDMS 01/19 07:11 Order name: EKG Electrocardiogram; Complete Time: 19:47 EDMS 01/19 07:11 Order name: EKG Electrocardiogram; Complete Time: 19:47 EDMS Administered Medications: 05:14 Drug: Metoprolol 5 mg Route: IVP; Site: right forearm; 20:01 Follow up: Response: Other bc5 05:14 Drug: NS 0.9% 1000 ml Route: IV; Rate: 1 bolus; Infused Over: 30 mins; Site: right forearm; 20:01 Follow up: IV Status: Completed infusion; IV Intake: 1000ml bc5 05:59 Drug: NS 0.9% 1000 ml Route: IV; Rate: 1 bolus; Infused Over: 30 mins; Site: right forearm; 20:01 Follow up: IV Status: Completed infusion; IV Intake: 1000ml bc5 07:30 Drug: Sotalol 80 mg Route: PO; aa5 20:02 Follow up: Response: No adverse reaction bc5 Disposition Summary: 01/19/21 07:07 Hospitalization Ordered Hospitalization Status: Inpatient Admission ma2 Provider: Rustam Levin Condition: Stable ma2 Problem: new ma2 Symptoms: are unchanged ma2 Bed/Room Type: Standard [facility] Location: Telemetry/MedSurg (Inpatient)(01/19/21 20:34) bb Room Assignment: 230(01/19/21 20:34) james Diagnosis - Persistent atrial fibrillation - with tachycardia ma2 Discharge Instructions: - Discharge Summary Sheet Forms: - Medication Reconciliation Form ma2 - SBAR form Signatures: Dispatcher [employer] Gilberto Batista RN RN Moon Irby RN RN Aline Green RN RN aa5 Bigg Valdez MD MD or2 Suhas Goncalves RN wg Furlich, Dawn df1 Chanelle Johnson RN 5 Corrections: (The following items were deleted from the chart) 07:54 07:07 Telemetry/MedSurg (Inpatient) [facility] aa5 07:54 07:07 [facility] aa5 20:34 07:[address] [facility] ER HOLD aa5 bb 20:34 07:54 ERHOLD- aa5
--- NOTE | 2021-01-19 07:08 | ER ---
Nurse's Notes [facility] Name: Fredi Barth Age: 75 yrs Sex: Male : 1945 Arrival Date: 01/19/2021 Time: 04:32 Bed 7 Private MD: Diagnosis: Persistent atrial fibrillation-with tachycardia Presentation: 01/19 04:53 Chief complaint: Patient states: palpatations. Coronavirus screen: Vaccine status: df1 Patient reports being unvaccinated. Client denies travel out of the [place] in the last 14 days. At this time, the client does not indicate any symptoms associated with coronavirus-19. The client reports previous COVID testing was negative. Date of collection: July 2020. Ebola Screen: Patient negative for fever greater than or equal to 101.5 degrees Fahrenheit, and additional compatible Ebola Virus Disease symptoms Patient denies exposure to infectious person. Patient denies travel to an Ebola-affected area in the 21 days before illness onset. Initial Sepsis Screen: Does the patient meet any 2 criteria? No. Patient's initial sepsis screen is negative. Does the patient have a suspected source of infection? No. Patient's initial sepsis screen is negative. Risk Assessment: Do you want to hurt yourself or someone else? Patient reports no desire to harm self or others. Onset of symptoms was January 19, 2021 at 03:00. 04:53 Method Of Arrival: Wheelchair df1 04:53 Acuity: PHYLLIS 3 df1 05:01 Note Pt states woke up at 0300 today c/o palpitations and 2/10 head ache. Pt took df1 Xeralto, Clonidine and tylenol. Prior to this even, last Xeralto taken 01/01/21. No follow up since cardiac ablation in July 2020. Denies SOB, N, V, sweating, CP. Triage Assessment: 05:00 General: Appears in no apparent distress. Behavior is calm, cooperative. Pain: df1 Complains of pain in scalp Pain currently is 2 out of 10 on a pain scale. Cardiovascular: Reports palpitations, Rhythm is atrial fibrillation with rapid ventricular response. Historical: - Allergies: 04:55 HYDROCODONE; df1 - Home Meds: 04:55 famotidine 40 mg oral tab 1 tab once daily [Active]; Coreg 12.5 mg oral tab 1 tab 2 df1 times per day [Active]; clonidine HCl 0.2 mg Oral tab 1 tab once daily [Active]; famotidine 10 mg Oral tab 1 tab once daily [Active]; Crestor 5 mg oral tab 1 tab once daily [Active]; xeralto 20 mg po daily daily [Active]; losartan 100 mg oral tab 1 tab once daily [Active]; - PMHx: 04:55 Atrial Fib; Cancer, Lung; COPD; GERD; Hypertension; Sjogren's Syndrome; radiation; df1 - PSHx: 04:55 ablation for afib; lung surgery x 3; df1 - Immunization history:: Adult Immunizations not up to date, Client reports having NOT received the Covid vaccine. Pneumococcal vaccine is up to date, Flu vaccine is not up to date. - Social history:: Smoking status: Patient denies any tobacco usage or history of. - Family history:: not pertinent. Screenin:03 Abuse screen: Denies threats or abuse. Nutritional screening: No deficits noted. df1 Tuberculosis screening: No symptoms or risk factors identified. Fall Risk None identified. Assessment: 05:02 Pain: Complains of pain in chest Pain began gradually. Cardiovascular: Reports wg palpitations, Denies diaphoresis, nausea, shortness of breath, vomiting. Respiratory: No deficits noted. GI: No deficits noted. 05:04 Pain: Pain does not radiate. df1 05:30 Reassessment: Patient appears in no apparent distress at this time. Patient is alert, wg oriented x 3, equal unlabored respirations, skin warm/dry/pink. Pt states the palpitation feeling has subsided following the IV medication. Rate in the low 100's. Patient states feeling better. 06:01 Reassessment: BP in the 90's. Dr. Valdez requested 1L NS Bolus. Pt states he is wg feeling well. 07:00 Reassessment: Patient appears in no apparent distress at this time. No changes from wg previously documented assessment. Patient is alert, oriented x 3, equal unlabored respirations, skin warm/dry/pink. Patient states feeling better. Vital Signs: 04:53 BP 124 / 96; Pulse 152; Resp 20; Temp 98.2; Pulse Ox 98% on R/A; Weight 111.13 kg; df1 Height 6 ft. 2 in. (187.96 cm); Pain 2/10; 05:30 BP 97 / 67; Pulse 102; Resp 18; Pulse Ox 99% on R/A; Pain 0/10; wg 06:03 BP 89 / 54; Pulse 101; Resp 18; Pulse Ox 100% ; Pain 0/10; wg 06:18 BP 99 / 81; Pulse 106; Resp 18; Pulse Ox 99% on R/A; Pain 0/10; wg 06:33 BP 97 / 69; Pulse 86; Resp 18; Pulse Ox 97% on R/A; Pain 0/10; wg 07:00 BP 120 / 88; Pulse 121; Resp 18; Pulse Ox 97% on R/A; Pain 0/10; wg 04:53 Body Mass Index 31.46 (111.13 kg, 187.96 cm) df1 Vitals: 05:02 Cardiac Rhythm Assessment Atrial fibrillation. wg 06:03 Cardiac Rhythm Assessment Atrial fibrillation. ED Course: 04:32 Patient arrived in ED. bp1 04:52 Bigg Valdez MD is Attending Physician. ma2 04:55 Triage completed. df1 05:01 Basic Metabolic Panel Sent. wg 05:01 CBC with Diff Sent. wg 05:01 LFT's Sent. wg 05:01 Magnesium Sent. wg 05:01 NT PRO-BNP Sent. wg 05:01 PT-INR Sent. wg 05:01 Troponin (emerg Dept Use Only) Sent. wg 05:01 Inserted saline lock: 20 gauge in right forearm, using aseptic technique. wg 05:03 Patient maintains SpO2 saturation greater than 95% on room air. df1 05:03 Patient has correct armband on for positive identification. Placed in gown. Bed in low df1 position. Call light in reach. Side rails up X 1. Adult w/ patient. plastic sheeting cutter on. Pulse ox on. NIBP on. 05:05 Arm band placed on right wrist. df1 05:25 XRAY Chest (1 view) In Process Unspecified. EDMS 06:59 Suhas Goncalves, NIURKA is Primary Nurse. wg 07:07 Rustam Levin MD is Hospitalizing Provider. ma2 07:30 Patient admitted, IV remains in place. aa5 19:45 CORONAVIRUS Sent. bc5 20:00 COVID-19 : Document "Date of Symptom Onset" if Symptomatic. Sent. cw2 20:03 No provider procedures requiring assistance completed. bc5 Administered Medications: 05:14 Drug: Metoprolol 5 mg Route: IVP; Site: right forearm; 20:01 Follow up: Response: Other bc5 05:14 Drug: NS 0.9% 1000 ml Route: IV; Rate: 1 bolus; Infused Over: 30 mins; Site: right wg forearm; 20:01 Follow up: IV Status: Completed infusion; IV Intake: 1000ml bc5 05:59 Drug: NS 0.9% 1000 ml Route: IV; Rate: 1 bolus; Infused Over: 30 mins; Site: right wg forearm; 20:01 Follow up: IV Status: Completed infusion; IV Intake: 1000ml bc5 07:30 Drug: Sotalol 80 mg Route: PO; aa5 20:02 Follow up: Response: No adverse reaction bc5 Intake: 20:01 IV: 1000ml; Total: 1000ml. bc5 20:01 IV: 1000ml; Total: 2000ml. bc5 Outcome: 07:07 Decision to Hospitalize by Provider. ma2 07:30 Admitted to ER Hold. Please see [facility] for further documentation. aa5 07:30 Condition: stable aa5 07:30 Discharge instructions given to patient, significant other, Instructed on the need for admit, Demonstrated understanding of instructions. 21:33 Patient left the ED. 5 Signatures: Dispatcher [employer] Aline Mayo, RN RN Bigg Díaz MD MD ma2 Gretta Hsu Liam, RN Chanelle Johnson RN RN bc5 Antonina Rahman df1 Aashish Holder RN RN cw2
--- NOTE | 2021-01-19 07:33 | RAD REPORT ---
EXAM DESCRIPTION: RAD - Chest Single View - 01/19/2021 5:25 am CLINICAL HISTORY: CHEST PAIN COMPARISON: Portable July 2017 TECHNIQUE: AP portable chest image was obtained 01/19/2021 5:25 am . FINDINGS: Lung volumes are low accentuating a chronic interstitial lung pattern. This could mask ear ly interstitial edema or infiltrate. No focal consolidation or mass identifiable. Heart size is damian l with normal upper lobe vasculature. Pericardial fat pads are present. No measurable pleural effusio n and no pneumothorax. No acute bone finding. Resection of the right seventh rib again noted. No acut e aortic findings suspected. IMPRESSION: Chronic interstitial lung pattern accentuated by shallow inspiration. No focal consolidation or mass. Severity of chronic disease can mask early interstitial edema or infi ltrate.
[2021-01-19] MEDS ORDERED: SOTALOL HCL 80 MG TAB ONE ×2 (07:43→18:33)
[2021-01-19] MEDS ORDERED: ASPIRIN 81 MG CHEWABLE TABLET ONE (07:54)
[2021-01-19 08:14] VITALS: BMI 31.4
[2021-01-19] MEDS ORDERED: INFLUENZA VACCINE (for 6+ mo) 0.5 ML DOSE IMVAC ONE (09:00)
[2021-01-19] MEDS ORDERED: ASPIRIN EC 81 MG TAB PO SCH (09:00)
[2021-01-19] MEDS: ACETAMINOPHEN 325 MG TABLET PO PRN ×2 (13:10→18:55)
[2021-01-19] MEDS ORDERED: ACETAMINOPHEN 325 MG TABLET ONE ×2 (13:37→18:33)
--- NOTE | 2021-01-19 16:43 | EKG ---
Test Date: 2021-01-19 Test Time: 09:43:34 Manager Legal: JENNIFER MEASUREMENT RESULTS: Intervals: Rate: 63 [place]: 182 QRSD: 84 QT: 412 QTc: 421 [place]: P: 59 [place]: 182 QRS: 46 T: 71 INTERPRETIVE STATEMENTS: Normal sinus rhythm Normal ECG Compared to ECG 08/03/2017 09:18:40 No significant changes Electronically Signed On 01-19-21 16:42:37 CDT by Guy Kenyon
[2021-01-19] MEDS: SOTALOL HCL 80 MG TAB PO SCH (17:54)
[2021-01-19] MEDS: FAMOTIDINE 20 MG TAB PO SCH ×2 (18:00→21:34)
[2021-01-19] MEDS ORDERED: SOTALOL HCL 80 MG TAB PO ONE (18:00)
[2021-01-19] MEDS ORDERED: FAMOTIDINE 20 MG TAB ONE (18:33)
--- NOTE | 2021-01-19 21:07 | P.SSS ---
Patient History Date of Service: 01/19/21 Reason for admission: PALPITATIONS History of Present Illness: MR. TERRELL HAS A FIB BY HISTORY WHO HAD ABLATION A FEW MONTHS AGO. HE ALSO HAS LUNG CANCER HISTORY. HE HAS RAPID A FIB SINCE LAST NIGHT. HE REPORTS TO ER. THEY GAVE HIM METOPROLOL IV WITH NO HELP BUT AFTER I TALKED TO THEM- I ASEKD FOR BETAPACE AND HE CONVERETED TO SINUS RHYTHM IN A FEW HOURS. HE HAS TO STAY IN HOSPITAL FOR 3 DOSES AND HE CAN GO HOME IN AM. HE TOOK HIS XARELTO ONE DOSE THIS AM AT HOME. HE WILL FU WITH DR. SINHA. HIS HISTORY IS FOLLOWING. Benign hypertension [I10 (401.1)] 2018 Sjogren's disease [M35.00 (710.2) 0.4, 710.2] 2018 Munoz's esophagus [K22.70 (530.85)] 2018 Atrial fibrillation [I48.91 (427.31) 0.3] ABLATION. DR. DAMON. ABLATION. DR. DAMON. 2018 AA (aortic aneurysm) [I71.9 (441.9) 0.3] Last addressed: Never 3.6 CM. 3.6 CM. 2018 Inguinal hernia [K40.90 (550.90)] 2018 COPD (chronic obstructive pulmonary disease) [J44.9 (496) 0.3] 2018 Carotid bruit [R09.89 (785.9)] 30% L. DR SINHA. 30% L. DR SINHA. 2018 Chronic constipation [K59.09 (564.00)] 2019 Hiatal hernia [K44.9 (553.3)] 2019 B12 deficiency [E53.8 (266.2)] 2020 AAA (abdominal aortic aneurysm) [I71.4 (441.4) 0.3] Last addressed: Never 4.[address] SINHA 4.[address] 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 0.7] Last addressed: Never MD ELISABETH BARBER Allergies hydrocodone Allergy (Verified 01/19/21 07:55) Unknown Home Medications: Carvedilol [Coreg] 12.5 mg PO BID 01/19/21 Clonidine HCl [Catapres*] 0.2 mg PO DAILY 01/19/21 Famotidine 40 mg PO DAILY 01/19/21 Losartan Potassium 100 mg PO DAILY 01/19/21 Rivaroxaban [Xarelto] 20 mg PO DAILY 01/19/21 Rosuvastatin Calcium [Crestor] 5 mg PO DAILY 01/19/21 - Past Medical/Surgical History Has patient received pneumonia vaccine in the past: Yes -: A-fib -: Lung CA -: COPD -: GERD -: HTN -: Sjogren's Syndrome -: Radiation Therapy -: Heart Ablation -: Lung SX x 3 - Social History Smoking Status: Former smoker Physical Examination - Vital Signs Temperature: 97.9 F Blood Pressure: 122/61 Pulse: 58 Respirations: 16 Pulse Ox (%): 99 - Physical Exam General: Alert, In no apparent distress HEENT: Atraumatic, PERRLA, Mucous membr. moist/pink, EOMI, Sclerae nonicteric Neck: Supple, 2+ carotid pulse no bruit, No LAD, Without JVD or thyroid abnormality Respiratory: Clear to auscultation bilaterally, Normal air movement Cardiovascular: Irregular heart rate/rhythm (IN AM ABOUT 120 PER MIN.) Gastrointestinal: Normal bowel sounds, No tenderness Musculoskeletal: No tenderness Integumentary: No rashes Neurological: Normal gait, Normal speech, Normal strength at 5/5 x4 extr, Normal tone, Normal affect Lymphatics: No axilla or inguinal lymphadenopathy - Studies Laboratory Data (last 24 hrs) 01/19/21 04:55: PT 17.1 H, INR 1.48 01/19/21 04:55: WBC 4.90, Hgb 13.1 L, Hct 38.8 L, Plt Count 178 01/19/21 04:55: Sodium 137, Potassium 4.0, BUN 16, Creatinine 1.27, Glucose 128 H, Magnesium 2.2, Total Bilirubin 0.2, AST 23, ALT 21, Alkaline Phosphatase 102 - Diagnosis (Problem(s)) (1) Rapid atrial fibrillation Current Visit: Yes Status: Acute Plan: HE CONVERTED INTO SINUS RHYTHM. HE WILL GO HOME ON . WILL STOP COREG CONTINUE SOTALOL. CONTINUE XARELTO. FU WITH HIS [facility] DOCTOR. (2) Metastatic sarcoma to lung Current Visit: Yes Status: Acute Plan: MANAGED BY [facility]. (3) HTN (hypertension) Current Visit: Yes Status: Acute (4) Sjogren syndrome with inflammatory arthritis Current Visit: Yes Status: Acute - Disposition Disposition: ROUTINE DISCHARGE
[2021-01-20] MEDS: ACETAMINOPHEN 325 MG TABLET PO PRN (00:25)
[2021-01-20] MEDS: cloNIDine HCL 0.1 MG TAB PO SCH ×2 (00:38→09:00)
[2021-01-20] MEDS: SOTALOL HCL 80 MG TAB PO SCH (06:00)
[2021-01-20 06:15] LABS: Absolute Lymphocytes (CBC) 1.3 K/uL (0.7-4.9); Basophils % 0.5 % (0-1.3); Hematocrit 33.5 % (39.6-49.0); Lymphocytes % 30.6 % (15.3-44.8); MPV 8.5 fL (7.6-11.3); RBC Red Blood Cell Count 3.48 M/uL (4.33-5.43)
[2021-01-20 06:30] LABS: Potassium 4.7 mmol/L (3.5-5.1)
--- NOTE | 2021-01-20 08:26 | ECHO ---
HEIGHT: 6 ft 2 in WEIGHT: 245 lb 0 oz DATE OF STUDY: 01/19/[address]: Guy Kenyon MD 2-DIMENSIONAL: YES M.MODE: YES DOPPLER: YES COLOR FLOW: YES TDS: YES PORTABLE: DEFINITY: BUBBLE STUDY: DIAGNOSIS: ATRIAL FIBRILLATION CARDIAC HISTORY: CATHERIZATION: SURGERY: PROSTHETIC VALVE: PACEMAKER: MEASUREMENTS (cm) DIASTOLIC (NORMALS) SYSTOLIC (NORMALS) IVSd (0.6-1.2) LA Diam (1.9-4.0) LVEF 64% LVIDd (3.5-5.7) LVIDs (2.0-3.5) %FS % LVPWd (0.6-1.2) Ao Diam 2.6 (2.0-3.7) 2 DIMENSIONAL ASSESSMENT: RIGHT ATRIUM: NORMAL LEFT ATRIUM: NORMAL RIGHT VENTRICLE: NORMAL LEFT VENTRICLE: NORMAL TRICUSPID VALVE: NORMAL MITRAL VALVE: NORMAL PULMONIC VALVE: NORMAL AORTIC VALVE: NORMAL PERICARDIAL EFFUSION: NONE AORTIC ROOT: NORMAL LEFT VENTRICULAR WALL MOTION: NORMAL DOPPLER/COLOR FLOW: MILD TRICUSPID REGURGITATION. COMMENTS: ATRIAL FIBRILLATION. NORMAL LEFT VENTRICULAR SIZE AND FUNCTION. NO THROMBUS. NORMAL LEFT ATRIAL SIZE. TECHNOLOGIST: TAYE REYEZ
[2021-01-20 08:53] VITALS: O2SAT 92
[2021-01-20] MEDS ORDERED: RIVAROXABAN 20 MG TABLET PO SCH (09:00)
[2021-01-20] MEDS ORDERED: FAMOTIDINE 20 MG TAB PO SCH (09:00)
[2021-01-20] MEDS ORDERED: ROSUVASTATIN 10 MG TAB PO SCH (09:00)
[2021-01-20] MEDS ORDERED: RIVAROXABAN 10 MG TABLET PO SCH (09:00)
[2021-01-20] MEDS ORDERED: LOSARTAN POTASSIUM 50 MG TABLET PO SCH (09:00)
[2021-01-20] MEDS ORDERED: PNEUMOCOCCAL VACCINE 0.5 ML IMVAC ONE (10:00)
[2021-01-20 12:33] VITALS: BP 120/80; TEMP 97
--- NOTE | 2021-01-21 16:35 | CON ---
Date of Consultation: 01/19/2021 The patient admitted with atrial fibrillation, rapid ventricular response on 01/19/2021. History Of Present Illness: Mr. Barth is a 75-year-old. Has seen Dr. Hull and Jeannine in the [facility] for atrial fibrillation. He actually had an ablation approximately 6 months ago, but he comes in with rapid ventricular response. Dr. Levin has already put on Betapace 80 mg b.i.d. IN the past, ap parently has been taking amiodarone, but that was stopped, the patient does not know why. He is stil l in atrial fibrillation right now, rate is 110. No cardiac symptoms at this point. He denies any c hest pain, shortness of breath, nausea, vomiting, diaphoresis, PND, orthopnea, pedal edema, or syncop e. Past Medical History: Include atrial fibrillation, lung cancer, COPD, gastroesophageal reflux diseas e, hypertension, and Sjogren syndrome. Review of Systems: Negative. Social History: Negative. Family History: Negative. Medications: At home include Coreg, clonidine, Crestor, Xarelto, losartan, and Pepcid. Physical Examination: General: He was in no acute distress. Vital Signs: Stable. Atrial fibrillation at a rate of 111. HEENT: Negative. Neck: Supple. No bruit. Chest: Clear. Cardiac: Revealed atrial fibrillation. Abdomen: Benign. Extremities: Revealed no clubbing, cyanosis, or edema. Diagnostic Data: Fairly unremarkable except for his atrial fibrillation. Impression And Plan: Recurrent atrial fibrillation, status post failed ablation. I agree with sotal ol 80 b.i.d. Continue his Xarelto. Continue his Coreg and clonidine for his hypertension as well as losartan. We will continue his Crestor for his dyslipidemia and his Pepcid for the gastroesophageal reflux disease. His lung cancer seems to be stable at this point, although he has had 4 surgeries. He has chronic obstructive pulmonary disease that is fairly stable and controlled. We will see what the sotalol does. He will need to have 3 doses before he goes home. Hopefully, he will convert . I f his atrial fibrillation is not converted, we will consider a direct current cardioversion. TAY/JONA Voice ID: [id number] Report ID: [id number]
== END 2021-01-20 13:14 | disposition home or self-care (01) | DRG 310 ==
LOC: ER 04:30 → ERHOLD 07:08 → 2ND 20:40
PROVIDERS: ADMIT Internal Medicine; ATTEND Internal Medicine
DX: I48.91 Unspecified atrial fibrillation (principal); I10 Essential (primary) hypertension; M35.00 Sjogren syndrome, unspecified; J44.9 Chronic obstructive pulmonary disease, unspecified; K21.9 Gastro-esophageal reflux disease without esophagitis; E78.5 Hyperlipidemia, unspecified; Z85.118 Personal history of other malignant neoplasm of bronchus and lung; Z20.822 Contact with and (suspected) exposure to COVID-19
CPT/HCPCS: 36415; 71045; 80048; 80076; 83735; 83880; 84484; 85025; 85610; 93005; 93306; 96361; 96374; 99285; J7030; U0003

== ENCOUNTER 2021-12-23 11:08 | Emergency (ER) | payer OTHER, BC ==
--- OUTSIDE RECORDS SUMMARY | 2021-12-23 11:11 | XMS REPORT | Continuity of Care Document ---
:1945 Author Organization [facility] t Address [address] [place]. [address] [place] [address] Care Team Providers Name Role Phone [phone] Primary Care Physician Unavailable SYSTEM, PROVIDER NOT IN Attending Clinician Unavailable YAIMA CA Attending Clinician Unavailable STEPHEN DO Attending Clinician Unavailable ARELY ARROYO Attending Clinician Unavailable YANA ORTIZ Attending Clinician Unavailable TERI FORMAN Attending Clinician Unavailable ANNY ARNDT Attending Clinician Unavailable PETE AYALA Attending Clinician Unavailable ROSLYN MICHAEL Attending Clinician Unavailable KULWINDER RAVI Attending Clinician Unavailable ALAN MULLER Attending Clinician Unavailable ARLENE MONTERROSO Attending Clinician Unavailable Sumeet Paez Attending Clinician Unavailable Adeel Hull Attending Clinician Unavailable YANA ORTIZ Admitting Clinician Unavailable Payers Payer Name Policy Type Policy Number Effective Date Expiration Date Ubaldo carter MEDICARE PART A [id number] 2008 AND B 00:00:00 [place] POS [id number] 2015 00:00:00 Problems This patient has no known problems. Allergies, Adverse Reactions, Alerts Allergy Allergy Status Severity Reaction(s) Onset Inactive Treating Comm ents Source Name Type Date Date Clinician hydrocod DA [facility]: [address] hydrocod DA Active U [facility] 08-[facility] 00:00: [address] hydrocod DA Active U 2019-04 [facility] 04-[facility] 00:00: [address] hydrocod DA Active U DIZZINESS 2019-04 [facility] 04-[facility] 00:00: [address] HYDROCOD DRUG Active Other KAMAR INGREDI 10-10 Anderso 00:00: n 00 HYDROCOD DRUG Active Other KAMAR INGREDI 10-10 Anderso 00:00: n 00 HYDROCOD DRUG Active Other MD KAMAR INGREDI 10-10 Anderso 00:00: n 00 HYDROCOD DRUG Active Other KAMAR INGREDI 10-10 Anderso 00:00: n 00 Medications This patient has no known medications. Vital Signs Vital Name Observation Time Observation Value Comments Source WEIGHT 2020-01-20 13:05:00 112.8 kg Procedures This patient has no known procedures. Encounters Start End Encounter Admission Attending Care Care Encounter Source Date/Time Date/Time Type Type Clinicians Facility Department ID 2021-05-19 Outpatient MDA MDA [id number] 17:41:03 Anderso n 2021-05-19 Outpatient MDA MDA [id number] 17:41:03 Anderso n 2021-05-19 Outpatient MDA MDA [id number] 17:41:03 Anderso n 2021-02-23 Outpatient [facility], MDA MDA [id number] 12:36:46 PROVIDER Lenin beard 2021-10-20 2021-10-20 Outpatient KARLO CA MDA MDA [id number] 08:52:46 09:47:28 YAIMA beard 2021-10-19 2021-10-19 Outpatient EL YASHAHLAANCHIL ESTEFANI MDA [id number] 09:01:57 09:01:57 STEPHEN Cardona 2021-06-16 2021-06-16 Outpatient KARLO CA MDA MDA [id number] 09:08:21 10:16:24 YAIMA beard 2021-06-15 2021-06-15 Outpatient KARLO ARROYO MDA MDA [id number] 08:04:58 08:04:58 ARELY gonzalez n 2021-06-15 2021-06-15 Outpatient [facility], MDA MDA [id number] 07:54:25 07:56:08 ARELY gonzalez n 2021-04-19 2021-04-19 Outpatient KARLO ORTIZ, MDA MDA [id number] 09:04:25 11:13:15 YANA gonzalez n 2021-04-19 2021-04-19 Outpatient ANGEL, MDA MDA [id number] 07:52:32 07:52:32 YANA gonzalez n 2021-03-17 2021-03-19 Inpatient ANGEL, MDA Thoracic [id number] 09:01:00 17:32:00 YANA gonzalez n 2021-03-14 2021-03-14 Outpatient DICKSON, MDA MDA [id number] 10:03:22 23:59:00 TERI Leo so n 2021-03-14 2021-03-14 Outpatient DICKSON, MDA MDA [id number] 10:53:08 15:15:28 TERI Leo so n 2021-03-14 2021-03-14 Outpatient DICKSON, MDA MDA [id number] 13:13:00 13:13:00 TERI Leo so n 2021-03-08 2021-03-08 Outpatient HAIR, MDA MDA [id number] 10:07:12 23:59:00 BRAEDEN Lamas n 2021-03-08 2021-03-08 Outpatient DICKSON, MDA MDA [id number] 09:53:11 12:10:38 TERI ogden n 2021-03-01 2021-03-01 [facility] [id number] 10:00:00 23:59:00 PETE gonzalez n 2021-03-01 2021-03-01 Outpatient ANGEL, MDA MDA [id number] 08:14:04 11:07:13 YANA gonzalez n 2021-02-17 2021-02-17 Outpatient CA, MDA MDA [id number] 08:38:33 09:43:02 KARLYCAROGeorge SahaLenin o kisha 2021-02-08 2021-02-08 Outpatient EL NEELAPU, MDA MDA [id number] 07:17:54 07:17:54 ROSLYN Phelps o kisha 2021-01-28 2021-01-28 Outpatient EL MDA MDA [id number] 11:13:15 23:59:00 Lenin o kisha 2021-01-28 2021-01-28 Outpatient EL MDA MDA [id number] MD 10:56:08 11:12:00 Lenin o kisha 2021-01-28 2021-01-28 Outpatient EL KULWINDER RAVI MDA MDA [id number] 09:00:00 10:55:00 Lenin o kisha 2021-01-27 2021-01-27 Outpatient EL ALAN MULLER MDA MDA [id number] 13:14:05 23:59:00 Lenin o kisha 2021-01-27 2021-01-27 Outpatient EL MDA MDA [id number] 10:27:52 13:13:00 Lenin o kisha 2021-01-27 2021-01-27 Outpatient EL MDA MDA [id number] MD 10:27:37 10:37:38 Lenin o kisha 2021-01-27 2021-01-27 Outpatient EL MDA MDA [id number] MD 10:09:42 10:09:42 Elnin o kisha 2021-01-18 2021-01-18 Outpatient EL NEELAPU, MDA MDA [id number] 12:51:35 14:28:50 ROSLYN Phelps o kisha 2021-01-17 2021-01-17 Outpatient EL MONTERROSO, MDA MDA [id number] MD 11:41:31 23:59:00 MIGUEL-EMERY Sahae rso n 2021-01-17 2021-01-17 Outpatient EL MONTERROSO, MDA MDA [id number] 11:39:21 11:40:00 MIGUEL-EMERY Domenic rso n 2020-08-03 2020-08-03 Outpatient Jeannine, [facility] [id number] [facility] 12:00:00 12:00:00 Sumeet [id number] [facility] 2020-02-28 2020-02-28 Outpatient NIXON Hull [id number] [id number] [facility] 07:00:00 07:00:00 Adeel [id number] [facility] 2020-01-20 2020-01-20 Outpatient KARLO MICHAEL MDA MDA [id number] 07:46:39 23:59:00 SATTVA Lenin o n 2020-01-20 2020-01-20 Outpatient KARLO MICHAEL MDA MDA [id number] 07:46:09 23:59:00 SATTVA Lenin o n 2020-01-20 2020-01-20 Outpatient KARLO MICHAEL MDA MDA [id number] 11:08:10 16:44:09 SATTVA Lenin o n 2015-10-12 2015-10-12 Outpatient KARLO MICHAEL MDA MDA [id number] 09:39:22 15:03:47 SATTVA Lenin o n Results Test Description Test Time Test Comments Results Result Comments Source COMPREHENSIVE METABOLIC PANEL 2020-08-04 07:35:00 Test Item Value Reference Range Interpretation Comme nts SODIUM (test code = NA) 134 MMOL/L 137-145 L POTASSIUM (test code = K) 4.4 MMOL/L 3.5-5.1 N CHLORIDE (test code = CL) 104 MMOL/L 98-107 N CARBON DIOXIDE (test code 23 MMOL/L 22-30 N = CO2) ANION GAP (test code = 11 MMOL/L 14-24 L GAP) GLUCOSE (test code = GLU) 164 MG/DL 74-106 H BLOOD UREA NITROGEN (test 16 MG/DL 9-20 N code = BUN) GLOMERULAR FILTRATION RATE > 60 R eporting units: ml/min/1.73 m2 (test code = GFR) (Modified MDRD Formula)Reference Range: > or = 6 0 ml/min/1.73 m2 CREATININE (test code = 0.90 MG/DL 0.66-1.25 CREAT) TOTAL PROTEIN (test code = 7.1 G/DL 6.2-7.6 N O rtho Clinical Diagnostic has made PROT) us aware of new information regarding the potential i nterference ofEltrombopag ( a bone marrow stimulant used to treatthrombocyt onmenia and aplastic anemia) with sp ecific assayson the Vitros 5600 of which Total Protein is one of those assays performed in our lab.Interfe rence testing performed at [facility] determined thatEltrombopag does interfere with Vitros Total Pr otein asfollowsEltrom bopag Interference for Vitros Prod uct Total Protein:======= Eltrombopag Max Observed Avg. BiasConcentrati on Concentration Concentration== = 2.5 mg/dl 6.0 g/dl +0.41 +0.34 3.5 mg/dl 6.0 g/dl +0.50 +0.45 5 mg/dl 6.0 g/dl +0.73 +0.65 2.5 mg/dl 8.0 g/dl +0.44 +0.4 1 3.5 mg/dl 8.0 g/dl +0.55 +0.52 5 m g/dl 8.0 g/dl +0.86 +0.77 ALBUMIN (test code = ALB) 3.7 G/DL 3.5-5.0 N CALCIUM (test code = CA) 8.4 MG/DL 8.4-10.2 N BILIRUBIN TOTAL (test code 0.3 MG/DL 0.2-1.3 N E ltrombopag Interference for Vitros = BILT) Product TBil, BuBc: Assay Eltrombopag Mary Kate lyte/ Max Observed Avg. Bias Pearl ntration Concentration Concentration== =TBil 7mg/dl TB il/ 1.2mg/dl +0.23mg.dl +0.2 0mg/dlBuBc 3.5mg/dl Bu/0.8mg/dl +0. 25mg/dl +0.24mg/dlBuBc 7 mg/dl Bu/14.2mg/dl +0.38mg/dl +0.2 5mg/dlBuBc 5mg/dl Bc/0mg/dl +0.25 mg/dl +0.15mg/dlBuBc 3.5mg/dl Bc/2.8 mg/dl +0.25mg/dl +0.23mg/dl SGOT/AST (test code = AST) 29 UNITS/L 17-59 N SGPT/ALT (test code = ALT) 16 UNITS/L <50 ALKALINE PHOSPHATASE (test 64 UNITS/L 38-126 N code = ALKP) CBC W/AUTO [id number] 06:45:00 Test Item Value Reference Range Interpretation Comments WHITE BLOOD CELL (test code = 7.2 K/MM3 3.8-9.8 N WBC) RED BLOOD CELL (test code = 3.62 M/MM3 3.95-5.67 L RBC) HEMOGLOBIN (test code = HGB) 11.6 G/DL 12.4-16.7 L HEMATOCRIT (test code = HCT) 36.6 % 35.9-49.5 N MEAN CELL VOLUME (test code = 101 fL 81.7-96.1 H MCV) MEAN CELL HGB (test code = MCH) 32.0 pg 27.6-33.2 N MEAN CELL HGB CONCETRATION 31.7 % 32.9-35.5 L (test code = MCHC) RED CELL DISTRIBUTION WIDTH 13.7 % 12.1-15.2 N (test code = RDW) PLATELET COUNT (test code = 115 K/MM3 129-368 L PLT) MEAN PLATELET VOLUME (test code 10.5 fl 7.4-10.4 H = MPV) NEUTROPHIL % (test code = NT%) 80.2 % 43-75 H IMMATURE GRANULOCYTE % (test 0.6 % 0.0-2.0 N code = IG%) LYMPHOCYTE % (test code = LY%) 14.8 % 14-44 N MONOCYTE % (test code = MO%) 4.3 % 4-13 N EOSINOPHIL % (test code = EO%) 0.0 % 0-6 N BASOPHIL % (test code = BA%) 0.1 % 0-2 N NUCLEATED RBC % (test code = 0.0 % 0-1.0 N NRBC%) NEUTROPHIL # (test code = NT#) 5.76 K/mm3 2.0-7.6 N IMMATURE GRANULOCYTE # (test 0.04 x10 3/uL 0-0.03 H code = IG#) LYMPHOCYTE # (test code = LY#) 1.06 K/mm3 1.0-3.8 N MONOCYTE # (test code = MO#) 0.31 K/mm3 0.1-0.8 N EOSINOPHIL # (test code = EO#) 0.00 K/mm3 0.0-0.2 N BASOPHIL # (test code = BA#) 0.01 K/mm3 0.0-0.2 N NUCLEATED RBC # (test code = 0.00 K/mm3 0.0-0.1 N NRBC#) BASIC METABOLIC [id number] 12:38:00 Test Item Value Reference Range Interpretation Comments SODIUM (test code = 139 MMOL/L 137-145 N NA) POTASSIUM (test code = 5.2 MMOL/L 3.5-5.1 H K) CHLORIDE (test code = 103 MMOL/L 98-107 N CL) CARBON DIOXIDE (test 32 MMOL/L 22-30 H code = CO2) GLUCOSE (test code = 100 MG/DL 74-106 N GLU) BLOOD UREA NITROGEN 13 MG/DL 9-20 N (test code = BUN) GLOMERULAR FILTRATION > 60 Report ing units: RATE (test code = GFR) ml/mi n/1.73 m2 (Modified MDRD Formula)Referen ce Range: > or = 6 0 ml/min/1.73 m2 CREATININE (test code 1.10 MG/DL 0.66-1.25 N = CREAT) CALCIUM (test code = 9.3 MG/DL 8.4-10.2 N CA) RECOLLECTION NEEDED ON 08/03/20 AT 1129 BY [id number]: HEMOLYZEDNOTIFIED PATIENT CARE STAFF:[id number] 12:38:00 Test Item Value Reference Range Interpretation Comments MAGNESIUM (test code = MAG) 2.1 MG/DL 1.6-2.3 N RECOLLECTION NEEDED ON 08/03/20 AT 1129 BY [id number]: HEMOLYZEDNOTIFIED PATIENT CARE STAFF:MOONPROTHROMBIN [id number] 11:21:00 Test Item Value Reference Range Interpretation Comments PROTHROMBIN TIME PATIENT 11.1 9.5-12.7 N (test code = PTP) INTERNATIONAL NORMAL RATIO 1.0 0.86-1.14 N T he INR is to be used (test code = INR) only for m onitoring oral anticoagulantth erapy. INDICATION INR VALUE ------- ------- -----1. Prophylaxis, de ep venous thrombos is, including high risk surgery. 2.0 - 3.0 2. Prophylaxis, de ep venous thrombos is, hip surgery, treatm ent for deep venous thr ombosis or pulmonary prevention of s ystemic embolism in pat ients with valvular h eart disease, atrial fibrillation, t issue heart valve, or acute myocardial infa rction. 2.0 - 3.0 3. Mechanical pros thesis heart valves, recurrent syste elvin embolism. 3.0 - 4.5 Comments to Mathematics Faculty Member: WILL BRING SPECIMAN TO THE LABPTT [id number] 11:21:00 Test Item Value Reference Range Interpretation Comments PTT ACTIVATED (test code = APTT) 29.5 SECONDS 25.1-36.5 N Comments to Mathematics Faculty Member: WILL BRING SPECIMAN TO THE LABCBC W/AUTO DIFF 2020-08-03 11:10:00 Test Item Value Reference Range Interpretation Comments WHITE BLOOD CELL (test code = 4.6 K/MM3 3.8-9.8 N WBC) RED BLOOD CELL (test code = 3.82 M/MM3 3.95-5.67 L RBC) HEMOGLOBIN (test code = HGB) 12.2 G/DL 12.4-16.7 L HEMATOCRIT (test code = HCT) 38.4 % 35.9-49.5 N MEAN CELL VOLUME (test code = 101 fL 81.7-96.1 H MCV) MEAN CELL HGB (test code = MCH) 31.9 pg 27.6-33.2 N MEAN CELL HGB CONCETRATION 31.8 % 32.9-35.5 L (test code = MCHC) RED CELL DISTRIBUTION WIDTH 14.0 % 12.1-15.2 N (test code = RDW) PLATELET COUNT (test code = 140 K/MM3 129-368 N PLT) MEAN PLATELET VOLUME (test code 10.6 fl 7.4-10.4 H = MPV) NEUTROPHIL % (test code = NT%) 57.9 % 43-75 N IMMATURE GRANULOCYTE % (test 0.0 % 0.0-2.0 N code = IG%) LYMPHOCYTE % (test code = LY%) 29.1 % 14-44 N MONOCYTE % (test code = MO%) 10.1 % 4-13 N EOSINOPHIL % (test code = EO%) 2.0 % 0-6 N BASOPHIL % (test code = BA%) 0.9 % 0-2 N NUCLEATED RBC % (test code = 0.0 % 0-1.0 N NRBC%) NEUTROPHIL # (test code = NT#) 2.65 K/mm3 2.0-7.6 N IMMATURE GRANULOCYTE # (test 0.00 x10 3/uL 0-0.03 N code = IG#) LYMPHOCYTE # (test code = LY#) 1.33 K/mm3 1.0-3.8 N MONOCYTE # (test code = MO#) 0.46 K/mm3 0.1-0.8 N EOSINOPHIL # (test code = EO#) 0.09 K/mm3 0.0-0.2 N BASOPHIL # (test code = BA#) 0.04 K/mm3 0.0-0.2 N NUCLEATED RBC # (test code = 0.00 K/mm3 0.0-0.1 N NRBC#) COVID 19 Asymptomatic IH [id number] 10:22:00 Test Item Value Reference Range Interpretation Comments COVID 19 NEGATIVE Negative "Negative resul ts from Asymptomatic IH AG patients with symptom (test code = onset beyondfiv e days, COVNONPUIAG) should be treat ed as presumptive, andconfirmation with a molecular assay , if necessary forpa tient management may be performed. Nega tive results do notr ule out COVID-19 and sh ould not be used as the sole basisfor treatm ent or patient managem ent decisions, includinginfect ion control decisio ns. Negative result s should beconsidered in the context of a pa tients recent exposure s,history, and the presenc e of clinical signs and symptomsconsist ent with COVID-19.This t est detects both vi able andnon-viable S ARS-CoV and SARS CoV-2. Test performance dep endson the amount of virus (antigen) in the sample." BASIC METABOLIC [id number] 05:44:00 Test Item Value Reference Range Interpretation Comments SODIUM (test code = 138 MMOL/L 137-145 N NA) POTASSIUM (test code = 4.5 MMOL/L 3.5-5.1 N K) CHLORIDE (test code = 101 MMOL/L 98-107 N CL) CARBON DIOXIDE (test 32 MMOL/L 22-30 H code = CO2) GLUCOSE (test code = 109 MG/DL 74-106 H GLU) BLOOD UREA NITROGEN 16 MG/DL 9-20 N (test code = BUN) GLOMERULAR FILTRATION > 60 Report ing units: RATE (test code = GFR) ml/mi n/1.73 m2 (Modified MDRD Formula)Referen ce Range: > or = 6 0 ml/min/1.73 m2 CREATININE (test code 1.10 MG/DL 0.66-1.25 N = CREAT) CALCIUM (test code = 9.5 MG/DL 8.4-10.2 N CA) LIPID PROFILE (CORONARY RISK)2020-02-28 05:44:00 Test Item Value Reference Range Interpretation Comments TRIGLYCERIDES (test 111 MG/DL TRIGLYCE RIDES code = TRIG) REFERENCE RANGE:Normal: < 150 mg/dLBorderline High: 150-199 mg/dLHi gh: 200-499 mg/dLVe ry High: >=500 mg/ dL CHOLESTEROL (test code 119 MG/DL <200 = CHOL) HDL CHOLESTEROL (test 38 MG/DL 40-59 L code = HDL) LIPOPROTEIN LDL (test 48 MG/DL 0-99 N OPTI MAL.........<100 code = LDL) mg/dLNEAR OPTIMAL/ABOVE OPTIMAL........ .100-12 9 mg/dL BORDERL INE HIGH.........13 0-159 mg/dL HIGH.........16 0-189 mg/dL VERY HIGH.........>/ = 190 mg/dL [id number] 05:44:00 Test Item Value Reference Range Interpretation Comments MAGNESIUM (test code = MAG) 2.1 MG/DL 1.6-2.3 N PROTHROMBIN [id number] 05:34:00 Test Item Value Reference Range Interpretation Comments PROTHROMBIN TIME 11.7 SECONDS 9.4-12.5 N PATIENT (test code = PTP) INTERNATIONAL NORMAL 1.1 The INR is to be RATIO (test code = used only for INR) monitoring oral anticoagulantth erap y. INDICATION I NR VALUE ---- ---- ---- -------1. Prophylaxis, de ep venous thrombos is, including high risk surgery. 2.0 - 3.0 2. Prophylaxis, deep venous thrombosis, hip surgery, treatm ent for deep venous thrombosis or pulmonary prevention of systemic emboli sm in patients wit h valvular heart disease, atrial fibrillation, tissue heart va lve, or acute myocar dial infarction. 2.0 - 3.0 3. Food Technician al prosthesis hear t valves, recurre nt systemic emboli sm. 3.0 - 4.5 PTT [id number] 05:34:00 Test Item Value Reference Range Interpretation Comments PTT ACTIVATED (test code = APTT) 32.4 SECONDS 25.1-36.5 N BASIC METABOLIC [id number] 05:33:00 Test Item Value Reference Range Interpretation Comments SODIUM (test code = 138 MMOL/L 137-145 N NA) POTASSIUM (test code = 4.5 MMOL/L 3.5-5.1 N K) CHLORIDE (test code = 101 MMOL/L 98-107 N CL) CARBON DIOXIDE (test 32 MMOL/L 22-30 H code = CO2) GLUCOSE (test code = 109 MG/DL 74-106 H GLU) BLOOD UREA NITROGEN 16 MG/DL 9-20 N (test code = BUN) GLOMERULAR FILTRATION > 60 Report ing units: RATE (test code = GFR) ml/mi n/1.73 m2 (Modified MDRD Formula)Referen ce Range: > or = 6 0 ml/min/1.73 m2 CREATININE (test code 1.10 MG/DL 0.66-1.25 N = CREAT) CALCIUM (test code = 9.5 MG/DL 8.4-10.2 N CA) LIPID PROFILE (CORONARY RISK)2020-02-28 05:33:00 Test Item Value Reference Range Interpretation Comments TRIGLYCERIDES (test 111 MG/DL TRIGLYCE RIDES code = TRIG) REFERENCE RANGE:Normal: < 150 mg/dLBorderline High: 150-199 mg/dLHi gh: 200-499 mg/dLVe ry High: >=500 mg/ dL CHOLESTEROL (test code 119 MG/DL <200 = CHOL) HDL CHOLESTEROL (test 38 MG/DL 40-59 L code = HDL) LIPOPROTEIN LDL (test MG/DL 0-99 code = LDL) [id number] 05:33:00 Test Item Value Reference Range Interpretation Comments MAGNESIUM (test code = MAG) 2.1 MG/DL 1.6-2.3 N BASIC METABOLIC [id number] 05:32:00 Test Item Value Reference Range Interpretation Comments SODIUM (test code = 138 MMOL/L 137-145 N NA) POTASSIUM (test code = 4.5 MMOL/L 3.5-5.1 N K) CHLORIDE (test code = 101 MMOL/L 98-107 N CL) CARBON DIOXIDE (test 32 MMOL/L 22-30 H code = CO2) GLUCOSE (test code = 109 MG/DL 74-106 H GLU) BLOOD UREA NITROGEN 16 MG/DL 9-20 N (test code = BUN) GLOMERULAR FILTRATION > 60 Report ing units: RATE (test code = GFR) ml/mi n/1.73 m2 (Modified MDRD Formula)Referen ce Range: > or = 6 0 ml/min/1.73 m2 CREATININE (test code 1.10 MG/DL 0.66-1.25 N = CREAT) CALCIUM (test code = MG/DL 8.7-9.7 CA) LIPID PROFILE (CORONARY RISK)2020-02-28 05:32:00 Test Item Value Reference Range Interpretation Comments TRIGLYCERIDES (test 111 MG/DL TRIGLYCE RIDES code = TRIG) REFERENCE RANGE:Normal: < 150 mg/dLBorderline High: 150-199 mg/dLHi gh: 200-499 mg/dLVe ry High: >=500 mg/ dL CHOLESTEROL (test code 119 MG/DL <200 = CHOL) HDL CHOLESTEROL (test MG/DL 40-59 code = HDL) LIPOPROTEIN LDL (test MG/DL 0-99 code = LDL) [id number] 05:32:00 Test Item Value Reference Range Interpretation Comments MAGNESIUM (test code = MAG) MG/DL 1.6-2.3 BASIC METABOLIC [id number] 05:29:00 Test Item Value Reference Range Interpretation Comments SODIUM (test code = NA) 138 MMOL/L 137-145 N POTASSIUM (test code = K) 4.5 MMOL/L 3.5-5.1 N CHLORIDE (test code = CL) 101 MMOL/L 98-107 N CARBON DIOXIDE (test code = CO2) MMOL/L 22-30 GLUCOSE (test code = GLU) MG/DL 74-106 BLOOD UREA NITROGEN (test code = MG/DL 9-20 BUN) GLOMERULAR FILTRATION RATE (test code = GFR) CREATININE (test code = CREAT) MG/DL 0.66-1.25 CALCIUM (test code = CA) MG/DL 8.7-9.7 LIPID PROFILE (CORONARY RISK)2020-02-28 05:29:00 Test Item Value Reference Range Interpretation Comments TRIGLYCERIDES (test code = TRIG) MG/DL CHOLESTEROL (test code = CHOL) MG/DL <200 HDL CHOLESTEROL (test code = HDL) MG/DL 40-59 LIPOPROTEIN LDL (test code = LDL) MG/DL 0-99 [id number] 05:29:00 Test Item Value Reference Range Interpretation Comments MAGNESIUM (test code = MAG) MG/DL 1.6-2.3 CBC W/AUTO [id number] 05:22:00 Test Item Value Reference Range Interpretation Comments WHITE BLOOD CELL (test code = 6.4 K/MM3 3.8-9.8 N WBC) RED BLOOD CELL (test code = 4.26 M/MM3 3.95-5.67 N RBC) HEMOGLOBIN (test code = HGB) 13.6 G/DL 12.4-16.7 N HEMATOCRIT (test code = HCT) 42.5 % 35.9-49.5 N MEAN CELL VOLUME (test code = 100 fL 81.7-96.1 H MCV) MEAN CELL HGB (test code = MCH) 31.9 pg 27.6-33.2 N MEAN CELL HGB CONCETRATION 32.0 % 32.9-35.5 L (test code = MCHC) RED CELL DISTRIBUTION WIDTH 13.7 % 12.1-15.2 N (test code = RDW) PLATELET COUNT (test code = 150 K/MM3 129-368 N PLT) MEAN PLATELET VOLUME (test code 10.3 fl 7.4-10.4 N = MPV) NEUTROPHIL % (test code = NT%) 65.2 % 43-75 N IMMATURE GRANULOCYTE % (test 0.2 % 0.0-2.0 N code = IG%) LYMPHOCYTE % (test code = LY%) 22.8 % 14-44 N MONOCYTE % (test code = MO%) 9.4 % 4-13 N EOSINOPHIL % (test code = EO%) 1.9 % 0-6 N BASOPHIL % (test code = BA%) 0.5 % 0-2 N NUCLEATED RBC % (test code = 0.0 % 0-1.0 N NRBC%) NEUTROPHIL # (test code = NT#) 4.19 K/mm3 2.0-7.6 N IMMATURE GRANULOCYTE # (test 0.01 x10 3/uL 0-0.03 N code = IG#) LYMPHOCYTE # (test code = LY#) 1.46 K/mm3 1.0-3.8 N MONOCYTE # (test code = MO#) 0.60 K/mm3 0.1-0.8 N EOSINOPHIL # (test code = EO#) 0.12 K/mm3 0.0-0.2 N BASOPHIL # (test code = BA#) 0.03 K/mm3 0.0-0.2 N NUCLEATED RBC # (test code = 0.00 K/mm3 0.0-0.1 N NRBC#) COVID 19 Asymptomatic IH [id number] 04:51:00 Test Item Value Reference Range Interpretation Comments COVID 19 NEGATIVE Negative "Negative resul ts from Asymptomatic IH AG patients with symptom (test code = onset beyondfiv e days, COVNONPUIAG) should be treat ed as presumptive, andconfirmation with a molecular assay , if necessary forpa tient management may be performed. Nega tive results do notr ule out COVID-19 and sh ould not be used as the sole basisfor treatm ent or patient managem ent decisions, includinginfect ion control decisio ns. Negative result s should beconsidered in the context of a pa tients recent exposure s,history, and the presenc e of clinical signs and symptomsconsist ent with COVID-19.This t est detects both vi able andnon-viable S ARS-CoV and SARS CoV-2. Test performance dep endson the amount of virus (antigen) in the sample."
--- NOTE | 2021-12-23 13:47 | RAD REPORT ---
EXAM DESCRIPTION: Jennie Single View12/23/2021 1:31 pm CLINICAL HISTORY: Chest pain COMPARISON: 2020 FINDINGS: Postsurgical changes right lung. Lungs are hyperaerated. Chronic changes in right lung. The lungs appear clear of acute infiltrate. The heart is normal size IMPRESSION: No acute abnormalities displayed
[2021-12-23 14:11] LABS: Absolute Lymphocytes (CBC) 1.4 K/uL (0.7-4.9); Hematocrit 41.1 % (39.6-49.0); MCV 95.7 fL (80-100); MPV 8.2 fL (7.6-11.3)
[2021-12-23 14:25] LABS: Potassium 4.8 mmol/L (3.5-5.1); Troponin High Sensitivity 18.2 pg/mL (<58.9)
--- NOTE | 2021-12-23 14:34 | ER ---
Nurse's Notes [facility] Name: Fredi Barth Age: 76 yrs Sex: Male : 1945 Arrival Date: 12/23/2021 Time: 11:09 Bed 26 Private MD: Rustam Levin V Diagnosis: Palpitations Presentation: 12/23 11:15 Chief complaint: Patient states: I think I am having an AFIB episode. I woke up at 0345 bm7 this morning with palpitations and took my sotalol and laid back down. When I woke up I still felt the same way and I called my cocktail lounge manager and he said to come here. Coronavirus screen: At this time, the client does not indicate any symptoms associated with coronavirus-19. Ebola Screen: No symptoms or risks identified at this time. Initial Sepsis Screen: Does the patient meet any 2 criteria? No. Patient's initial sepsis screen is negative. Does the patient have a suspected source of infection? No. Patient's initial sepsis screen is negative. Risk Assessment: Do you want to hurt yourself or someone else? Patient reports no desire to harm self or others. Onset of symptoms. Onset of symptoms was December 23, 2021 at 03:45. Care prior to arrival: Medication(s) given: Sotalol 0920. 11:15 Method Of Arrival: Ambulatory bm7 11:22 Acuity: PHYLLIS 3 bm7 Triage Assessment: 11:18 General: Appears in no apparent distress. comfortable, Behavior is calm, cooperative, bm7 appropriate for age. Pain: Denies pain. EENT: No deficits noted. No signs and/or symptoms were reported regarding the EENT system. Neuro: No deficits noted. Level of Consciousness is awake, alert, obeys commands, Oriented to person, place, time, situation, Critical Care Physician are equal bilaterally Moves all extremities. Gait is steady, Speech is normal, Facial symmetry appears normal, Denies dizziness, headache. Cardiovascular: Reports palpitations, Chest pain is denied. Respiratory: No deficits noted. Denies shortness of breath at rest, on exertion. GI: No deficits noted. No signs and/or symptoms were reported involving the gastrointestinal system. : No deficits noted. No signs and/or symptoms were reported regarding the genitourinary system. Derm: No deficits noted. No signs and/or symptoms reported regarding the dermatologic system. Musculoskeletal: No deficits noted. No signs and/or symptoms reported regarding the musculoskeletal system. Historical: - Allergies: 11:18 HYDROCODONE; bm7 - Home Meds: 11:18 clonidine HCl 0.2 mg Oral tab 1 tab once daily [Active]; Coreg 12.5 mg Oral tab 1 tab 2 bm7 times per day [Active]; Crestor 5 mg Oral tab 1 tab once daily [Active]; famotidine 40 mg Oral tab 1 tab once daily [Active]; famotidine 10 mg Oral tab 1 tab once daily [Active]; losartan 100 mg Oral tab 1 tab once daily [Active]; xeralto 20 mg po daily daily [Active]; - PMHx: 11:18 Atrial Fib; Cancer, Lung; COPD; GERD; Hypertension; radiation; Sjogren's Syndrome; bm7 - PSHx: 11:18 ablation for afib; lung surgery x 3; bm7 - Immunization history:: Adult Immunizations up to date, Client reports having NOT received the Covid vaccine. - Social history:: Smoking status: Patient denies any tobacco usage or history of. Screenin:15 Abuse screen: Denies threats or abuse. Denies injuries from another. Nutritional hb screening: No deficits noted. Tuberculosis screening: No symptoms or risk factors identified. Fall Risk None identified. Assessment: 13:30 General: Appears in no apparent distress. hb Vital Signs: 11:15 BP 145 / 82; Pulse 70; Resp 18; Temp 97.0(TE); Pulse Ox 100% on R/A; Weight 106.59 kg; 7 Height 6 ft. 2 in. (187.96 cm); Pain 0/10; 11:15 Body Mass Index 30.17 (106.59 kg, 187.96 cm) 7 ED Course: 11:09 Patient arrived in ED. rg4 11:09 Rustam Levin MD is Private Physician. rg4 11:18 Arm band placed on right wrist. EKG completed in triage. Results shown to . bm7 11:24 Triage completed. bm7 13:11 Richard Stephens is PHCP. jl9 13:11 Shreyas Ye MD is Attending Physician. jl9 13:21 Sabiha Brooks, NIURKA is Primary Nurse. hb 13:33 XRAY Chest (1 view) In Process Unspecified. EDMS 14:00 Inserted saline lock: 20 gauge in left forearm, using aseptic technique. Blood kc6 collected. 14:01 Basic Metabolic Panel Sent. kc6 14:01 CBC with Diff Sent. kc6 14:01 Troponin HS Sent. kc6 14:15 Patient has correct armband on for positive identification. hb 15:10 No provider procedures requiring assistance completed. IV discontinued, intact, hb bleeding controlled, No redness/swelling at site. Administered Medications: No medications were administered Medication: 14:15 VIS not applicable for this client. hb Outcome: 14:33 Discharge ordered by . mary ellen 15:10 Discharged to home ambulatory, with significant other. hb 15:10 Condition: stable hb 15:10 Discharge instructions given to patient, significant other, Instructed on discharge instructions, follow up and referral plans. medication usage, Demonstrated understanding of instructions, follow-up care, medications. 15:14 Patient left the ED. hb Signatures: Dispatcher [employer] EDCA Sabiha Brooks RN RN Bhakti Gaitan 4 Gretta Lala, Richard Howell RN9 Hali Coleman kc6
--- NOTE | 2021-12-23 14:34 | EDPHYS ---
Physician Documentation [facility] Name: Fredi Barth Age: 76 yrs Sex: Male : 1945 Arrival Date: 12/23/2021 Time: 11:09 Bed 26 Private MD: Rustam Levin V ED Physician Shreyas Ye HPI: 12/23 14:30 This 76 yrs old Male presents to ER via Ambulatory with complaints of jl9 Palpitations. Patient reports that he started getting palpitations last night, history of a fib. Patient called his managed services consultant and took his medication as directed and the palpitations resolved. Patient reports feeling better and just wants to be evaluated. . 14:30 Onset: The symptoms/episode began/occurred this morning. Modifying factors: The jl9 symptoms are aggravated by. Associated signs and symptoms: The patient has no apparent associated signs or symptoms. 14:32 The patient has experienced a previous episode. jl9 Historical: - Allergies: 11:18 HYDROCODONE; bm7 - Home Meds: 11:18 clonidine HCl 0.2 mg Oral tab 1 tab once daily [Active]; Coreg 12.5 mg Oral tab 1 tab 2 bm7 times per day [Active]; Crestor 5 mg Oral tab 1 tab once daily [Active]; famotidine 40 mg Oral tab 1 tab once daily [Active]; famotidine 10 mg Oral tab 1 tab once daily [Active]; losartan 100 mg Oral tab 1 tab once daily [Active]; xeralto 20 mg po daily daily [Active]; - PMHx: 11:18 Atrial Fib; Cancer, Lung; COPD; GERD; Hypertension; radiation; Sjogren's Syndrome; bm7 - PSHx: 11:18 ablation for afib; lung surgery x 3; bm7 - Immunization history:: Adult Immunizations up to date, Client reports having NOT received the Covid vaccine. - Social history:: Smoking status: Patient denies any tobacco usage or history of. ROS: 14:32 Constitutional: Negative for fever, chills, and weight loss, Eyes: Negative for injury, jl9 pain, redness, and discharge, ENT: Negative for injury, pain, and discharge, Neck: Negative for injury, pain, and swelling. 14:32 Cardiovascular: Negative for chest pain, palpitations, and edema, Respiratory: Negative for shortness of breath, cough, wheezing, and pleuritic chest pain, Abdomen/GI: Negative for abdominal pain, nausea, vomiting, diarrhea, and constipation, Back: Negative for injury and pain, : Negative for injury, bleeding, discharge, and swelling, MS/Extremity: Negative for injury and deformity, Skin: Negative for injury, rash, and discoloration, Neuro: Negative for headache, weakness, numbness, tingling, and seizure, Psych: Negative for depression, anxiety, suicide ideation, homicidal ideation, and hallucinations, Allergy/Immunology: Negative for hives, rash, and allergies, Endocrine: Negative for neck swelling, polydipsia, polyuria, polyphagia, and marked weight changes, Hematologic/Lymphatic: Negative for swollen nodes, abnormal bleeding, and unusual bruising. 14:32 Cardiovascular: Positive for Exam: 14:32 Constitutional: This is a well developed, well nourished patient who is awake, alert, jl9 and in no acute distress. Head/Face: Normocephalic, atraumatic. Eyes: Pupils equal round and reactive to light, extra-ocular motions intact. Lids and lashes normal. Conjunctiva and sclera are non-icteric and not injected. Cornea within normal limits. Periorbital areas with no swelling, redness, or edema. ENT: Mucous membranes moist. Neck: Trachea midline, no thyromegaly or masses palpated, and no cervical lymphadenopathy. Supple, full range of motion without nuchal rigidity, or vertebral point tenderness. No Meningismus. Chest/axilla: Normal chest wall appearance and motion. Nontender with no deformity. No lesions are appreciated. Cardiovascular: Regular rate and rhythm with a normal S1 and S2. No gallops, murmurs, or rubs. Normal PMI, no JVD. No pulse deficits. Respiratory: Lungs have equal breath sounds bilaterally, clear to auscultation and percussion. No rales, rhonchi or wheezes noted. No increased work of breathing, no retractions or nasal flaring. Abdomen/GI: Soft, non-tender, with normal bowel sounds. No distension or tympany. No guarding or rebound. No evidence of tenderness throughout. Back: No spinal tenderness. No costovertebral tenderness. Full range of motion. Skin: Warm, dry with normal turgor. Normal color with no rashes, no lesions, and no evidence of cellulitis. MS/ Extremity: Pulses equal, no cyanosis. Neurovascular intact. Full, normal range of motion. Neuro: Awake and alert, GCS 15, oriented to person, place, time, and situation. Cranial nerves II-XII grossly intact. Motor strength 5/5 in all extremities. Sensory grossly intact. Cerebellar exam normal. Normal gait. Psych: Awake, alert, with orientation to person, place and time. Behavior, mood, and affect are within normal limits. Vital Signs: 11:15 BP 145 / 82; Pulse 70; Resp 18; Temp 97.0(TE); Pulse Ox 100% on R/A; Weight 106.59 kg; bm7 Height 6 ft. 2 in. (187.96 cm); Pain 0/10; 11:15 Body Mass Index 30.17 (106.59 kg, 187.96 cm) 7 MDM: 13:11 Patient medically screened. [facility] 14:32 Data reviewed: vital signs, nurses notes. Test interpretation: by ED physician or [facility] midlevel provider: ECG, NSR. Counseling: I had a detailed discussion with the patient and/or guardian regarding: the historical points, exam findings, and any diagnostic results supporting the discharge/admit diagnosis, lab results, radiology results, the need for outpatient follow up, to return to the emergency department if symptoms worsen or persist or if there are any questions or concerns that arise at home. 12/23 13:17 Order name: Basic Metabolic Panel; Complete Time: 14:30 12/23 13:17 Order name: CBC with Diff; Complete Time: 14:17 12/23 13:17 Order name: Troponin HS; Complete Time: 14:30 12/23 13:17 Order name: XRAY Chest (1 view); Complete Time: 14:17 12/23 13:17 Order name: EKG; Complete Time: 13:17 12/23 13:17 Order name: Cardiac monitoring; Complete Time: 14:12/23 13:17 Order name: EKG - Nurse/Tech; Complete Time: 14:12/23 13:17 Order name: IV Saline Lock; Complete Time: 14:12/23 13:17 Order name: Labs collected and sent; Complete Time: 14:12/23 13:17 Order name: O2 Per Protocol; Complete Time: 14:01 jl9 12/23 13:17 Order name: O2 Sat Monitoring; Complete Time: 14:01 Administered Medications: No medications were administered Disposition Summary: 12/23/21 14:33 Discharge Ordered Location: Home jl9 Condition: Stable jl9 Diagnosis - Palpitations jl9 Followup: jl9 - With: Private Physician - When: 1 - 2 days - Reason: Recheck today's complaints, Continuance of care, Re-evaluation by your physician Discharge Instructions: - Discharge Summary Sheet jl9 - Atrial Fibrillation jl9 - Palpitations jl9 Forms: - Medication Reconciliation Form jl9 - Thank You Letter jl9 - Antibiotic Education jl9 - Prescription Opioid Use jl9 Signatures: Dispatcher [employer] Gretta Kc, NIURKA RN Richard Rubio jl9
[2021-12-23 15:50] VITALS: BP 145/82; TEMP 97; O2SAT 100
--- NOTE | 2021-12-26 15:11 | EKG ---
Test Date: 2021-12-23 Test Time: 11:19:47 Templer Head: CARY MEASUREMENT RESULTS: Intervals: Rate: 68 VT: 158 QRSD: 78 QT: 384 QTc: 408 [place]: P: 75 VT: 158 QRS: 41 T: 83 INTERPRETIVE STATEMENTS: Normal sinus rhythm Normal ECG Compared to ECG 01/19/2021 09:43:34 No significant changes Electronically Signed On 12-26-21 15:09:50 CDT by Christian Israel
== END 2021-12-23 15:14 | disposition home or self-care (01) ==
LOC: ER 11:08
DX: R00.2 Palpitations (principal); I10 Essential (primary) hypertension; I48.91 Unspecified atrial fibrillation; Z79.01 Long term (current) use of anticoagulants; Z85.118 Personal history of other malignant neoplasm of bronchus and lung; Z88.5 Allergy status to narcotic agent
CPT/HCPCS: 36415; 71045; 80048; 84484; 85025; 93005; 99283

== ENCOUNTER 2022-01-06 09:30 | Emergency (ER) | payer OTHER, BC ==
--- OUTSIDE RECORDS SUMMARY | 2022-01-06 09:35 | XMS REPORT | Continuity of Care Document ---
:1945 Author Organization [facility] t Address [address] [place]. [address] [place] [id number] Care Team Providers Name Role Phone [phone] Primary Care Physician Unavailable SYSTEM, PROVIDER NOT [...] Expiration Date Ubaldo carter MEDICARE PART A [id number] 2008 AND B 00:00:00 [place] PPO POS [id number] 2015 00:00:00 Problems This patient has no known problems. Allergies, Adverse Reactions, Alerts Allergy Allergy Status Severity Reaction(s) Onset Inactive Treating Comm ents Source Name Type Date Date Clinician hydrocod DA [facility] U [facility]: [address] hydrocod DA Active U [facility]ZZ[facility] 08[facility] 00:00: [address] hydrocod DA Active U 2019-04 [facility] 04-[facility]:00: [address] hydrocod DA Active U DIZZINESS 2019-04 [facility] 04-[facility] 00:00: [address] HYDROCOD DRUG Active Other KAMAR INGREDI 10-10 Anderso 00:00: n 00 HYDROCOD DRUG Active Other KAMAR INGREDI 10-10 Anderso 00:00: n 00 HYDROCOD DRUG Active Other MD AKMAR INGREDI 10-10 Anderso 00:00: n 00 HYDROCOD [...] Facility Department ID 2021-05-19 Outpatient MDA MDA [id number] 17:41:03 Anderso n 2021-05-19 Outpatient MDA MDA [id number] 17:41:03 Anderso n 2021-05-19 Outpatient MDA MDA [id number] 17:41:03 Anderso n 2021-02-23 Outpatient [facility], MDA MDA [id number] 12:36:46 PROVIDER Lenin beard 2021-10-20 2021-10-20 Outpatient KARLO CA MDA MDA [id number] 08:52:46 09:47:28 YAIMA beard 2021-10-19 2021-10-19 Outpatient EL YASHAHLAANCHIL ESTEFANI MDA [id number] 09:01:57 09:01:57 STEPHEN Cardona 2021-06-16 2021-06-16 Outpatient KARLO CA MDA MDA [id number] 09:08:21 10:16:24 YAIMA beard 2021-06-15 2021-06-15 Outpatient KARLO ARROYO MDA MDA [id number] 08:04:58 08:04:58 ARELY gonzalez n 2021-06-15 2021-06-15 Outpatient [facility], MDA MDA [id number] 07:54:25 07:56:08 ARELY gonzalez n 2021-04-19 2021-04-19 Outpatient KARLO ORTIZ, MDA MDA [id number] 09:04:25 11:13:15 YANA gonzalez n 2021-04-19 2021-04-19 Outpatient ANGEL, MDA MDA [id number] 07:52:32 07:52:32 YANA gonzalez n 2021-03-17 2021-03-19 Inpatient ANGEL, MDA Thoracic [id number] 09:01:00 17:32:00 YANA gonzalez n 2021-03-14 2021-03-14 Outpatient DICKSON, MDA MDA [id number] 10:03:22 23:59:00 TERI Leo so n 2021-03-14 2021-03-14 Outpatient DICKSON, MDA MDA [id number] 10:53:08 15:15:28 TERI Leo so n 2021-03-14 2021-03-14 Outpatient DICKSON, MDA MDA [id number] 13:13:00 13:13:00 TERI Leo so n 2021-03-08 2021-03-08 Outpatient HAIR, MDA MDA [id number] 10:07:12 23:59:00 BRAEDEN Lamas n 2021-03-08 2021-03-08 Outpatient DICKSON, MDA MDA [id number] 09:53:11 12:10:38 TERI ogden n 2021-03-01 2021-03-[address] [facility] MDA [id number] 10:00:00 23:59:00 PETE gonzalez n 2021-03-01 2021-03-01 Outpatient ANGEL, MDA MDA [id number] 08:14:04 11:07:13 YANA gonzalez n 2021-02-17 2021-02-17 Outpatient CA, MDA MDA [id number] 08:38:33 09:43:02 KARLYLORI Lenin o kisha 2021-02-08 2021-02-08 Outpatient EL NEELAPU, MDA MDA [id number] MD 07:17:54 07:17:54 ROSLYN Phelps o kisha 2021-01-28 2021-01-28 Outpatient EL MDA MDA [id number] 11:13:15 23:59:00 Lenin o kisha 2021-01-28 2021-01-28 Outpatient EL MDA MDA [id number] MD 10:56:08 11:12:00 Lenin o kisha 2021-01-28 2021-01-28 Outpatient EL KULWINDER RAVI MDA MDA [id number] 09:00:00 10:55:00 Lenin o kisha 2021-01-27 2021-01-27 Outpatient EL ALAN MULLER MDA MDA [id number] MD 13:14:05 23:59:00 Lenin o kisha 2021-01-27 2021-01-27 Outpatient EL MDA MDA [id number] 10:27:52 13:13:00 Lenin o kisha 2021-01-27 2021-01-27 Outpatient EL MDA MDA [id number] MD 10:27:37 10:37:38 Lenin o kisha 2021-01-27 2021-01-27 Outpatient EL MDA MDA [id number] MD 10:09:42 10:09:42 Lenin o kisha 2021-01-18 2021-01-18 Outpatient EL NEELAPU, MDA MDA [id number] 12:51:35 14:28:50 ROSLYN Phelps o kisha 2021-01-17 2021-01-17 Outpatient EL MONTERROSO, MDA MDA [id number] MD 11:41:31 23:59:00 MIGUEL-EMERY Sahae rso n 2021-01-17 2021-01-17 Outpatient EL MONTERROSO, MDA MDA [id number] MD 11:39:21 11:40:00 MIGUEL-EMERY Domenic rso n 2020-08-03 2020-08-03 Outpatient Jeannine HCAWU SURG [id number] 12:00:00 12:00:[address] [place] [address] 2020-02-28 2020-02-28 Outpatient NIXON Hull [facility] [id number] [facility] 07:00:00 07:00:00 Adeel [facility] 2020-01-20 2020-01-20 Outpatient KARLO MICHAEL MDA MDA [id number] 07:46:39 23:59:00 SATTVA Lenin o n 2020-01-20 2020-01-20 Outpatient KARLO MICHAEL MDA MDA [id number] 07:46:09 23:59:00 SATTVA Lenin o n 2020-01-20 2020-01-20 Outpatient KARLO MICHAEL MDA MDA [id number] 11:08:10 16:44:09 SATTVA Lenin o n 2015-10-12 2015-10-12 Outpatient KARLO MICHAEL MDA MDA [id number] 09:39:22 15:03:47 SATTVA Lenin o n Results [...] aplastic anemia) with sp ecific assayson the [employer] 5600 of which Total Protein is one of those assays performed in our lab.Interfe rence [facility] determined thatEltrombopag does interfere with Vitros Total [...] 38-126 N code = ALKP) CBC W/AUTO [id number] 06:45:00 Test Item Value Reference Range Interpretation [...] 0.00 K/mm3 0.0-0.1 N NRBC#) BASIC METABOLIC [id number] 12:38:00 Test Item Value Reference Range Interpretation [...] RECOLLECTION NEEDED ON 08/03/20 AT 1129 BY [id number]: HEMOLYZEDNOTIFIED PATIENT CARE STAFF:[id number] 12:38:00 Test Item Value Reference Range Interpretation Comments MAGNESIUM (test code = MAG) 2.1 MG/DL 1.6-2.3 N RECOLLECTION NEEDED ON 08/03/20 AT 1129 BY [id number]: HEMOLYZEDNOTIFIED PATIENT CARE STAFF:MOONPROTHROMBIN [id number] 11:21:00 Test Item Value Reference Range Interpretation [...] elvin embolism. 3.0 - 4.5 Comments to Nitrating Acid Mixer: WILL BRING SPECIMAN TO THE LABPTT [id number] 11:21:00 Test Item Value Reference Range Interpretation Comments PTT ACTIVATED (test code = APTT) 29.5 SECONDS 25.1-36.5 N Comments to Nitrating Acid Mixer: WILL BRING SPECIMAN TO THE LABCBC W/AUTO [...] 0.0-0.1 N NRBC#) COVID 19 Asymptomatic IH [id number] 10:22:00 Test Item Value Reference Range Interpretation [...] virus (antigen) in the sample." BASIC METABOLIC [id number] 05:44:00 Test Item Value Reference Range Interpretation [...] LIPOPROTEIN LDL (test 48 MG/DL 0-99 N OPTIM AL.........<100 code = LDL) mg/dLNEAR OPTIMAL/ABOVE OPTIMAL........ .100-12 9 mg/dL BORDERL INE HIGH.........13 0-159 mg/dL HIGH.........16 0-189 mg/dL VERY HIGH.........>/ = 190 mg/dL [id number] 05:44:00 Test Item Value Reference Range Interpretation Comments MAGNESIUM (test code = MAG) 2.1 MG/DL 1.6-2.3 N PROTHROMBIN [id number] 05:34:00 Test Item Value Reference Range Interpretation [...] myocar dial infarction. 2.0 - 3.0 3. Vocational Services Specialist al prosthesis hear t valves, recurre nt systemic emboli sm. 3.0 - 4.5 PTT [id number] 05:34:00 Test Item Value Reference Range Interpretation Comments PTT ACTIVATED (test code = APTT) 32.4 SECONDS 25.1-36.5 N BASIC METABOLIC [id number] 05:33:00 Test Item Value Reference Range Interpretation [...] LDL (test MG/DL 0-99 code = LDL) [id number] 05:33:00 Test Item Value Reference Range Interpretation Comments MAGNESIUM (test code = MAG) 2.1 MG/DL 1.6-2.3 N BASIC METABOLIC [id number] 05:32:00 Test Item Value Reference Range Interpretation [...] LDL (test MG/DL 0-99 code = LDL) [id number] 05:32:00 Test Item Value Reference Range Interpretation Comments MAGNESIUM (test code = MAG) MG/DL 1.6-2.3 BASIC METABOLIC [id number] 05:29:00 Test Item Value Reference Range Interpretation [...] LDL (test code = LDL) MG/DL 0-99 [id number] 05:29:00 Test Item Value Reference Range Interpretation Comments MAGNESIUM (test code = MAG) MG/DL 1.6-2.3 CBC W/AUTO [id number] 05:22:00 Test Item Value Reference Range Interpretation [...] 0.0-0.1 N NRBC#) COVID 19 Asymptomatic IH [id number] 04:51:00 Test Item Value Reference Range Interpretation [...]
[2022-01-06 10:24] LABS: Absolute Lymphocytes (CBC) 1.2 K/uL (0.7-4.9); Hematocrit 39.3 % (39.6-49.0); Lymphocytes % 22.1 % (15.3-44.8); MCV 95.2 fL (80-100); MPV 7.9 fL (7.6-11.3); RBC Red Blood Cell Count 4.12 M/uL (4.33-5.43)
[2022-01-06 10:25] LABS: Protime INR 0.99
[2022-01-06 10:57] LABS: Albumin 3.6 g/dL (3.4-5.0); Bilirubin Total 0.4 mg/dL (0.2-1.0); Potassium 4.3 mmol/L (3.5-5.1); Troponin High Sensitivity 12.3 pg/mL (<58.9)
--- NOTE | 2022-01-06 11:17 | ER ---
Nurse's Notes [facility] Name: Fredi Barth Age: 76 yrs Sex: Male : 1945 Arrival Date: 01/06/2022 Time: 09:33 Bed 9 Private MD: Rustam Levin V Diagnosis: Palpitations Presentation: 01/06 09:33 Chief complaint: Patient states: I take sotalol and I have a history of AFIb. I started bm7 having palpitations this morning. Coronavirus screen: At this time, the client does not indicate any symptoms associated with coronavirus-19. Ebola Screen: No symptoms or risks identified at this time. Initial Sepsis Screen: Does the patient meet any 2 criteria? No. Patient's initial sepsis screen is negative. Does the patient have a suspected source of infection? No. Patient's initial sepsis screen is negative. Risk Assessment: Do you want to hurt yourself or someone else? Patient reports no desire to harm self or others. Onset of symptoms was January 06, 2022. 09:33 Method Of Arrival: Wheelchair bm7 09:33 Acuity: PHYLLIS 2 bm7 Triage Assessment: 09:36 General: Appears in no apparent distress. comfortable, Behavior is calm, cooperative, bm7 appropriate for age. Pain: Denies pain. EENT: No deficits noted. No signs and/or symptoms were reported regarding the EENT system. Neuro: No deficits noted. Cardiovascular: Reports palpitations, Denies shortness of breath, Heart tones S1 S2 present Chest pain is denied. Respiratory: No deficits noted. GI: No deficits noted. No signs and/or symptoms were reported involving the gastrointestinal system. : No deficits noted. No signs and/or symptoms were reported regarding the genitourinary system. Derm: No deficits noted. No signs and/or symptoms reported regarding the dermatologic system. Musculoskeletal: No deficits noted. No signs and/or symptoms reported regarding the musculoskeletal system. Historical: - Allergies: 09:36 HYDROCODONE; bm7 - Home Meds: :36 clonidine HCl 0.2 mg Oral tab 1 tab once daily [Active]; Coreg 12.5 mg Oral tab 1 tab 2 bm7 times per day [Active]; Crestor 5 mg Oral tab 1 tab once daily [Active]; famotidine 40 mg Oral tab 1 tab once daily [Active]; famotidine 10 mg Oral tab 1 tab once daily [Active]; losartan 100 mg Oral tab 1 tab once daily [Active]; xeralto 20 mg po daily daily [Active]; - PMHx: 09:36 Atrial Fib; Cancer, Lung; COPD; GERD; Hypertension; radiation; Sjogren's Syndrome; bm7 - PSHx: 09:36 ablation for afib; lung surgery x 3; bm7 - Immunization history:: Adult Immunizations up to date, Client reports having NOT received the Covid vaccine. - Social history:: Smoking status: Patient denies any tobacco usage or history of. Screenin:55 Abuse screen: Denies threats or abuse. Nutritional screening: No deficits noted. bm7 Tuberculosis screening: No symptoms or risk factors identified. Fall Risk None identified. Assessment: 09:55 Reassessment: No changes from previously documented assessment. bm7 Vital Signs: 09:33 BP 183 / 87; Pulse 65; Resp 16; Temp 97.5(TE); Pulse Ox 100% on R/A; Weight 106.59 kg bm7 (R); Height 6 ft. 2 in. (187.96 cm); Pain 0/10; 09:33 Body Mass Index 30.17 (106.59 kg, 187.96 cm) bm7 ED Course: 09:33 Patient arrived in ED. rg4 09:33 Rustam Levin MD is Private Physician. rg4 09:36 Triage completed. bm7 09:36 Arm band placed on right wrist. bm7 09:42 [facility] jl9 09:42 Simeon Shepherd MD is Attending Physician. jl9 09:49 EKG done, by ED staff, reviewed by Richard Stephens. 3 09:55 No apparent distress. Resting quietly. Awaiting lab results, Awaiting radiology results.bm7 09:55 Patient has correct armband on for positive identification. Placed in gown. Side rails bm7 up X 1. Adult w/ patient. Client placed on continuous cardiac and pulse oximetry monitoring. NIBP monitoring applied. transition coach on. Warm blanket given. 09:55 Patient maintains SpO2 saturation greater than 95% on room air. bm7 10:10 Initial lab(s) drawn, by oh, sent to lab. 3 11:53 Leeann Holder, RN is Primary Nurse. iw Administered Medications: No medications were administered Medication: 09:55 VIS not applicable for this client. bm7 Outcome: 11:17 Discharge ordered by MD. hyde 12:04 Patient left the ED. ld1 Signatures: Leeann Holder, RN RN Bhakti Orozco 4 Ely Pratt 3 Gretta Lala RN RN 7 Adriana Gonzales RN RN jann1 Richard Stephens
--- NOTE | 2022-01-06 11:17 | EDPHYS ---
Physician Documentation [facility] Name: Fredi Barth Age: 76 yrs Sex: Male : 1945 Arrival Date: 01/06/2022 Time: 09:33 Bed 9 Private MD: Rustam Levin V ED Physician Simeon Shepherd HPI: 01/06 10:17 This 76 yrs old Male presents to ER via Wheelchair with complaints of jl9 Palpitations earlier this morning. Patient reports taking a dose of stalol [employer] at ED. Patient asymptomatic now. Patient had similar episode 2 weeks ago. . 10:17 The patient presents with a history of heart racing. Context: The symptoms occur during jl9 sleep. Onset: The symptoms/episode began/occurred this morning. Duration: The patient or guardian reports a single episode, that lasted 60 second(s). Modifying factors: The symptoms are aggravated by nothing. The symptoms are alleviated by nothing. Associated signs and symptoms: The patient has no apparent associated signs or symptoms. Severity of symptoms: in the emergency department the symptoms have resolved. The patient has experienced a previous episode. Historical: - Allergies: 09:36 HYDROCODONE; bm7 - Home Meds: 09:36 clonidine HCl 0.2 mg Oral tab 1 tab once daily [Active]; Coreg 12.5 mg Oral tab 1 tab 2 bm7 times per day [Active]; Crestor 5 mg Oral tab 1 tab once daily [Active]; famotidine 40 mg Oral tab 1 tab once daily [Active]; famotidine 10 mg Oral tab 1 tab once daily [Active]; losartan 100 mg Oral tab 1 tab once daily [Active]; xeralto 20 mg po daily daily [Active]; - PMHx: 09:36 Atrial Fib; Cancer, Lung; COPD; GERD; Hypertension; radiation; Sjogren's Syndrome; bm7 - PSHx: 09:36 ablation for afib; lung surgery x 3; bm7 - Immunization history:: Adult Immunizations up to date, Client reports having NOT received the Covid vaccine. - Social history:: Smoking status: Patient denies any tobacco usage or history of. ROS: 10:20 Constitutional: Negative for fever, chills, and weight loss, Eyes: Negative for injury, jl9 pain, redness, and discharge, ENT: Negative for injury, pain, and discharge, Neck: Negative for injury, pain, and swelling. 10:20 Respiratory: Negative for shortness of breath, cough, wheezing, and pleuritic chest pain, Abdomen/GI: Negative for abdominal pain, nausea, vomiting, diarrhea, and constipation, Back: Negative for injury and pain, : Negative for injury, bleeding, discharge, and swelling, MS/Extremity: Negative for injury and deformity, Skin: Negative for injury, rash, and discoloration, Neuro: Negative for headache, weakness, numbness, tingling, and seizure, Psych: Negative for depression, anxiety, suicide ideation, homicidal ideation, and hallucinations, Allergy/Immunology: Negative for hives, rash, and allergies, Endocrine: Negative for neck swelling, polydipsia, polyuria, polyphagia, and marked weight changes, Hematologic/Lymphatic: Negative for swollen nodes, abnormal bleeding, and unusual bruising. 10:20 Cardiovascular: Positive for palpitations. Exam: 10:20 Constitutional: This is a well developed, well nourished patient who is awake, alert, jl9 and in no acute distress. Head/Face: Normocephalic, atraumatic. Eyes: Pupils equal round and reactive to light, extra-ocular motions intact. Lids and lashes normal. Conjunctiva and sclera are non-icteric and not injected. Cornea within normal limits. Periorbital areas with no swelling, redness, or edema. ENT: Mucous membranes moist. Neck: Trachea midline, no thyromegaly or masses palpated, and no cervical lymphadenopathy. Supple, full range of motion without nuchal rigidity, or vertebral point tenderness. No Meningismus. Chest/axilla: Normal chest wall appearance and motion. Nontender with no deformity. No lesions are appreciated. Cardiovascular: Regular rate and rhythm with a normal S1 and S2. No gallops, murmurs, or rubs. Normal PMI, no JVD. No pulse deficits. Respiratory: Lungs have equal breath sounds bilaterally, clear to auscultation and percussion. No rales, rhonchi or wheezes noted. No increased work of breathing, no retractions or nasal flaring. Abdomen/GI: Soft, non-tender, with normal bowel sounds. No distension or tympany. No guarding or rebound. No evidence of tenderness throughout. Back: No spinal tenderness. No costovertebral tenderness. Full range of motion. Skin: Warm, dry with normal turgor. Normal color with no rashes, no lesions, and no evidence of cellulitis. MS/ Extremity: Pulses equal, no cyanosis. Neurovascular intact. Full, normal range of motion. Neuro: Awake and alert, GCS 15, oriented to person, place, time, and situation. Cranial nerves II-XII grossly intact. Motor strength 5/5 in all extremities. Sensory grossly intact. Cerebellar exam normal. Normal gait. Psych: Awake, alert, with orientation to person, place and time. Behavior, mood, and affect are within normal limits. Vital Signs: 09:33 BP 183 / 87; Pulse 65; Resp 16; Temp 97.5(TE); Pulse Ox 100% on R/A; Weight 106.59 kg bm7 (R); Height 6 ft. 2 in. (187.96 cm); Pain 0/10; 09:33 Body Mass Index 30.17 (106.59 kg, 187.96 cm) bm7 MDM: 09:42 Patient medically screened. jl9 10:20 Data reviewed: vital signs, nurses notes. jl9 10:45 Test interpretation: by ED physician or midlevel provider: ECG. jl9 11:15 Counseling: I had a detailed discussion with the patient and/or guardian regarding: the jl9 historical points, exam findings, and any diagnostic results supporting the discharge/admit diagnosis, lab results, the need for outpatient follow up, a ward helper, to return to the emergency department if symptoms worsen or persist or if there are any questions or concerns that arise at home, Patient agrees to follow up [facility] with his ward helper. . 01/06 10:20 Order name: Comprehensive Metabolic Panel [facility] 01/06 10:20 Order name: Troponin High Sensitivity [facility] 01/06 10:20 Order name: NT PRO-BNP [facility] 01/06 10:20 Order name: Magnesium [facility] 01/06 10:20 Order name: CBC with Automated Diff; Complete Time: 10:39 [facility] 01/06 10:20 Order name: Protime (+INR); Complete Time: 10:39 [facility] 01/06 09:41 Order name: EKG; Complete Time: 11:44 snw 01/06 09:41 Order name: Cardiac monitoring; Complete Time: 09:47 snw 01/06 09:41 Order name: EKG - Nurse/Tech; Complete Time: 09:48 snw 01/06 09:41 Order name: IV Saline Lock; Complete Time: 09:55 snw 01/06 09:41 Order name: Labs collected and sent; Complete Time: 09:55 snw 01/06 09:41 Order name: O2 Per Protocol; Complete Time: 09:48 snw 01/06 09:41 Order name: O2 Sat Monitoring; Complete Time: 09:48 snw Administered Medications: No medications were administered Disposition: 16:32 Co-signature as Attending Physician, Simeon Shepherd MD. rn Disposition Summary: 01/06/22 11:17 Discharge Ordered Location: Home jl9 Condition: Stable jl9 Diagnosis - Palpitations jl9 Followup: jl9 - With: Private Physician - When: 1 - 2 days - Reason: Recheck today's complaints, Continuance of care, Re-evaluation by your physician Discharge Instructions: - Discharge Summary Sheet jl9 - Palpitations, [id number] jl9 - Atrial Fibrillation, [id number] jl9 Forms: - Medication Reconciliation Form jl9 - Thank You Letter jl9 - Antibiotic Education jl9 - Prescription Opioid Use jl9 Signatures: Dispatcher [employer] EDMS Vicki Prabhakar, SALES ENGINEER ACCOUNT MANAGER-C SALES ENGINEER ACCOUNT MANAGER-Csnw Simeon Shepherd MD MD rn McCarthy, Brittany, RN RN bm7 Linares, John jl9 Corrections: (The following items were deleted from the chart) 11:04 09:49 Chest Single View ordered. EDMS EDMS 11:15 10:17 This 76 yrs old Male presents to ER via Wheelchair with complaints of jl9 Palpitations earlier this morning. Patient reports taking a dose of stalol [employer] at ED. Patient asymptomatic now. . jl9 11:52 11:44 Chest Single View+[email or web address] ordered. EDMS EDMS
[2022-01-06 13:42] LABS: Thyroid Stimulating Hormone 1.63 uIU/mL (0.360-3.740)
[2022-01-07 20:43] VITALS: BP 183/87; TEMP 97.5; O2SAT 100
--- NOTE | 2022-01-09 14:15 | EKG ---
Test Date: 2022-01-06 Test Time: 09:47:03 Switchboard Inspector: LEENA MEASUREMENT RESULTS: Intervals: Rate: 68 AK: 168 QRSD: 84 QT: 396 QTc: 421 [place]: P: 68 AK: 168 QRS: 37 T: 83 INTERPRETIVE STATEMENTS: Normal sinus rhythm Normal ECG Compared to ECG 12/23/2021 11:19:47 No significant changes Electronically Signed On 01-09-22 14:11:21 CDT by Christian Israel
== END 2022-01-06 12:04 | disposition home or self-care (01) ==
LOC: ER 09:30
DX: R00.2 Palpitations (principal); I48.91 Unspecified atrial fibrillation; Z79.01 Long term (current) use of anticoagulants; Z88.5 Allergy status to narcotic agent
CPT/HCPCS: 36415; 80053; 83735; 83880; 84443; 84484; 85025; 85610; 93005; 99284

== ENCOUNTER 2022-06-25 18:36 | Inpatient (IN) | payer OTHER, BC ==
--- OUTSIDE RECORDS SUMMARY | 2022-06-25 18:40 | XMS REPORT | Continuity of Care Document ---
:1945 Author Organization [facility] t Address [address] [place] [address] Care Team Providers Name Role Phone [phone] Primary Care Physician Unavailable SYSTEM, PROVIDER NOT IN Attending Clinician Unavailable YANA ORTIZ Attending Clinician Unavailable PETE AYALA Attending Clinician Unavailable DRAKE ALVARENGA Attending Clinician Unavailable YAIMA CA Attending Clinician Unavailable VALERIE JAMES Attending Clinician Unavailable ROSLYN MICHAEL Attending Clinician Unavailable STEPHEN DO Attending Clinician Unavailable ARELY ARROYO Attending Clinician Unavailable TERI FORMAN Attending Clinician Unavailable ANNY ARNDT Attending Clinician Unavailable KULWINDER RAVI Attending Clinician Unavailable ALAN MULLER Attending Clinician Unavailable ARLENE MONTERROSO Attending Clinician Unavailable Sumeet Paez Attending Clinician Unavailable Adeel Hull Attending Clinician Unavailable YANA ORTIZ Admitting Clinician Unavailable Payers Payer Name Policy Type Policy Number Effective Date Expiration Date S emma MEDICARE PART A [id number] 2008 AND B 00:00:00 [place] POS [id number] 2015 00:00:00 Problems This patient has no known problems. Allergies, Adverse Reactions, Alerts Allergy Allergy Status Severity Reaction(s) Onset Inactive Treating Comm ents Source Name Type Date Date Clinician HYDRALAZ Drug Active High Sob 2023-0 MD INE Class 3-11 Anderso ANALOGUE 00:00: n S 00 HYDRALAZ Drug Active High Sob 2023-0 MD INE Class 3-11 Anderso ANALOGUE 00:00: n S 00 HYDRALAZ Drug Active High Sob 2023-0 MD INE Class 3-11 Anderso ANALOGUE 00:00: n S 00 HYDRALAZ Drug Active High Sob 2023-0 MD INE Class 3-11 Anderso ANALOGUE 00:00: n S 00 HYDRALAZ Drug Active High Sob 2023-0 MD INE Class 3-11 Anderso ANALOGUE 00:00: n S 00 HYDRALAZ Drug Active High Sob 2023-0 MD INE Class 3-11 Anderso ANALOGUE 00:00: n S 00 HYDRALAZ Drug Active High Sob 2023-0 MD INE Class 3-11 Anderso ANALOGUE 00:00: n S 00 HYDRALAZ Drug Active High Sob 2023-0 MD INE Class 3-11 Anderso ANALOGUE 00:00: n S 00 HYDRALAZ Drug Active High Sob 2023-0 MD INE Class 3-11 Anderso ANALOGUE 00:00: n S 00 HYDRALAZ Drug Active High Sob 2023-0 MD INE Class 3-11 Anderso ANALOGUE 00:00: n S 00 HYDRALAZ Drug Active High Sob 2023-0 MD INE Class 3-11 Anderso ANALOGUE 00:00: n S 00 HYDRALAZ Drug Active High Sob 2023-0 MD INE Class 3-11 Anderso ANALOGUE 00:00: n S 00 HYDRALAZ Drug Active High Sob 2023-0 MD INE Class 3-11 Anderso ANALOGUE 00:00: n S 00 HYDRALAZ Drug Active High Sob 2023-0 MD INE Class 3-11 Anderso ANALOGUE 00:00: n S 00 HYDRALAZ Drug Active High Sob 2023-0 MD INE Class 3-11 Anderso ANALOGUE 00:00: n S 00 HYDRALAZ Drug Active High Sob 2023-0 MD INE Class 3-11 Anderso ANALOGUE 00:00: n S 00 HYDRALAZ Drug Active High Sob 2023-0 MD INE Class 3-11 Anderso ANALOGUE 00:00: n S 00 HYDRALAZ Drug Active High Sob 2023-0 MD INE Class 3-11 Anderso ANALOGUE 00:00: n S 00 HYDRALAZ Drug Active High Sob 2023-0 MD INE Class 3-11 Anderso ANALOGUE 00:00: n S 00 HYDRALAZ Drug Active High Sob 2023-0 MD INE Class 3-11 Anderso ANALOGUE 00:00: n S 00 HYDRALAZ Drug Active High Sob 2023-0 MD INE Class 3-11 Anderso ANALOGUE 00:00: n S 00 HYDRALAZ Drug Active High Sob 2023-0 MD INE Class 3-11 Anderso ANALOGUE 00:00: n S 00 HYDRALAZ Drug Active High Sob 2023-0 MD INE Class 3-11 Anderso ANALOGUE 00:00: n S 00 HYDRALAZ Drug Active High Sob 2023-0 MD INE Class 3-11 Anderso ANALOGUE 00:00: n S 00 HYDRALAZ Drug Active High Sob 2023-0 MD INE Class 3-11 Anderso ANALOGUE 00:00: n S 00 HYDRALAZ Drug Active High Sob 2023-0 MD INE Class 3-11 Anderso ANALOGUE 00:00: n S 00 hydrocod DA [facility] U 2020-0 [facility]: [address] hydrocod DA Active U DIZZINESS 2020-0 [facility] 08[facility]:00: [address] hydrocod DA Active U 2020-1 [facility] 04-28 00:00: [address] hydrocod DA Active U DIZZINESS 2020-1 [facility] 04-28 00:00: [address] HYDROCOD DRUG Active Other 2015- MD ONE INGREDI 10-10 Anderso 00:00: n 00 HYDROCOD DRUG Active Other 2015- MD ONE INGREDI 10-10 Anderso 00:00: n 00 HYDROCOD DRUG Active Other 2015- MD ONE INGREDI 10-10 Anderso 00:00: n 00 HYDROCOD DRUG Active Other 2015- MD ONE INGREDI 10-10 Anderso 00:00: n 00 HYDROCOD DRUG Active Other 2015- MD ONE INGREDI 10-10 Anderso 00:00: n 00 HYDROCOD DRUG Active Other 2015- MD ONE INGREDI 10-10 Anderso 00:00: n 00 HYDROCOD DRUG Active Other 2015- MD ONE INGREDI 6-27 Anderso 00:00: n 00 HYDROCOD DRUG Active Other 2015- MD ONE INGREDI 6-27 Anderso 00:00: n 00 HYDROCOD DRUG Active Other 2015-0 MD ONE INGREDI 6-27 Anderso 00:00: n 00 HYDROCOD DRUG Active Other 2015-0 MD ONE INGREDI 6-27 Anderso 00:00: n 00 HYDROCOD DRUG Active Other 2015- MD ONE INGREDI 6-27 Anderso 00:00: n 00 HYDROCOD DRUG Active Other 2015- MD ONE INGREDI 6-27 Anderso 00:00: n 00 HYDROCOD DRUG Active Other 2015- MD ONE INGREDI 6-27 Anderso 00:00: n 00 HYDROCOD DRUG Active Other 2015- MD ONE INGREDI 6-27 Anderso 00:00: n 00 HYDROCOD DRUG Active Other 2015- MD ONE INGREDI 627 Anderso 00:00: n 00 HYDROCOD DRUG Active Other 2015- MD ONE INGREDI 627 Anderso 00:00: n 00 HYDROCOD DRUG Active Other 2015- MD ONE INGREDI 627 Anderso 00:00: n 00 HYDROCOD DRUG Active Other 2015- MD ONE INGREDI 627 Anderso 00:00: n 00 HYDROCOD DRUG Active Other 2015- MD ONE INGREDI 6-27 Anderso 00:00: n 00 HYDROCOD DRUG Active Other 2015-0 MD ONE INGREDI 627 Anderso 00:00: n 00 HYDROCOD DRUG Active Other 2015- MD ONE INGREDI 627 Anderso 00:00: n 00 HYDROCOD DRUG Active Other 2015- MD ONE INGREDI 627 Anderso 00:00: n 00 HYDROCOD DRUG Active Other 2015-0 MD ONE INGREDI 6-27 Anderso 00:00: n 00 HYDROCOD DRUG Active Other 2015- MD ONE INGREDI 6-27 Anderso 00:00: n 00 HYDROCOD DRUG Active Other 2015- MD ONE INGREDI 6-27 Anderso 00:00: n 00 HYDROCOD DRUG Active Other 2015-0 MD ONE INGREDI 6-27 Anderso 00:00: n 00 HYDROCOD DRUG Active Other 2015- MD ONE INGREDI 6-27 Anderso 00:00: n 00 HYDROCOD DRUG Active Other 2015-0 MD ONE INGREDI 6-27 Anderso 00:00: n 00 HYDROCOD DRUG Active Other 2015-0 MD ONE INGREDI 6-27 Anderso 00:00: n 00 HYDROCOD DRUG Active Other 2015- MD ONE INGREDI 6-27 Anderso 00:00: n 00 HYDROCOD DRUG Active Other 2015-0 MD ONE INGREDI 6-27 Anderso 00:00: n 00 HYDROCOD DRUG Active Other 2015- MD ONE INGREDI 6-27 Anderso 00:00: n 00 HYDROCOD DRUG Active Other 2015- MD ONE INGREDI 6-27 Anderso 00:00: n 00 HYDROCOD DRUG Active Other 2015- MD ONE INGREDI 6-27 Anderso 00:00: n 00 HYDROCOD DRUG Active Other 2015- MD ONE INGREDI 6-27 Anderso 00:00: n 00 HYDROCOD DRUG Active Other 2015- MD ONE INGREDI 627 Anderso 00:00: n 00 HYDROCOD DRUG Active Other 2015- MD ONE INGREDI 627 Anderso 00:00: n 00 HYDROCOD DRUG Active Other 2015- MD ONE INGREDI 627 Anderso 00:00: n 00 HYDROCOD DRUG Active Other 2015- MD ONE INGREDI 627 Anderso 00:00: n 00 HYDROCOD DRUG Active Other 2015- MD ONE INGREDI 6-27 Anderso 00:00: n 00 HYDROCOD DRUG Active Other 2015-0 MD ONE INGREDI 6-27 Anderso 00:00: n 00 HYDROCOD DRUG Active Other 2015- MD ONE INGREDI 627 Anderso 00:00: n 00 HYDROCOD DRUG Active Other 2015- MD ONE INGREDI 6-27 Anderso 00:00: n 00 HYDROCOD DRUG Active Other 2015- MD ONE INGREDI 6-27 Anderso 00:00: n 00 HYDROCOD DRUG Active Other 2015- MD ONE INGREDI 6-27 Anderso 00:00: n 00 HYDROCOD DRUG Active Other 2015- MD ONE INGREDI 6-27 Anderso 00:00: n 00 HYDROCOD DRUG Active Other 2015- MD ONE INGREDI 6-27 Anderso 00:00: n 00 HYDROCOD DRUG Active Other 2015- MD ONE INGREDI 6-27 Anderso 00:00: n 00 HYDROCOD DRUG Active Other 2015-0 MD ONE INGREDI 6-27 Anderso 00:00: n 00 HYDROCOD DRUG Active Other 2015-0 MD ONE INGREDI 6-27 Anderso 00:00: n 00 HYDROCOD DRUG Active Other 2015-0 MD ONE INGREDI 6-27 Anderso 00:00: n 00 HYDROCOD DRUG Active Other 2015-0 MD ONE INGREDI 6-27 Anderso 00:00: n 00 HYDROCOD DRUG Active Other 2015- MD ONE INGREDI 6-27 Anderso 00:00: n 00 HYDROCOD DRUG Active Other 2015- MD ONE INGREDI 6-27 Anderso 00:00: n 00 HYDROCOD DRUG Active Other 2015- MD ONE INGREDI 6-27 Anderso 00:00: n 00 HYDROCOD DRUG Active Other 2015- MD ONE INGREDI 6-27 Anderso 00:00: n 00 HYDROCOD DRUG Active Other 2015- MD ONE INGREDI 6-27 Anderso 00:00: n 00 HYDROCOD DRUG Active Other 2015- MD ONE INGREDI 6-27 Anderso 00:00: n 00 HYDROCOD DRUG Active Other 2015-0 MD ONE INGREDI 6-27 Anderso 00:00: n 00 HYDROCOD DRUG Active Other 2015- MD ONE INGREDI 6-27 Anderso 00:00: n 00 HYDROCOD DRUG Active Other 2015-0 MD ONE INGREDI 6-27 Anderso 00:00: n 00 HYDROCOD DRUG Active Other 2015-0 MD ONE INGREDI 6-27 Anderso 00:00: n 00 HYDROCOD DRUG Active Other 2015- MD ONE INGREDI 6-27 Anderso 00:00: n 00 HYDROCOD DRUG Active Other 2015-0 MD ONE INGREDI 6-27 Anderso 00:00: n 00 HYDROCOD DRUG Active Other 2015-0 MD ONE INGREDI 6-27 Anderso 00:00: n 00 HYDROCOD DRUG Active Other 2015- MD ONE INGREDI 6-27 Anderso 00:00: n 00 HYDROCOD DRUG Active Other 2015- MD ONE INGREDI 6-27 Anderso 00:00: n 00 HYDROCOD DRUG Active Other 2015- MD ONE INGREDI 6-27 Anderso 00:00: n 00 HYDROCOD DRUG Active Other 2015- MD ONE INGREDI 6-27 Anderso 00:00: n 00 HYDROCOD DRUG Active Other 2015-0 MD ONE INGREDI 6-27 Anderso 00:00: n 00 HYDROCOD DRUG Active Other 2015-0 MD ONE INGREDI 6-27 Anderso 00:00: n 00 HYDROCOD DRUG Active Other 2015-0 MD ONE INGREDI 6-27 Anderso 00:00: n 00 HYDROCOD DRUG Active Other 2015-0 MD ONE INGREDI 6-27 Anderso 00:00: n 00 HYDROCOD DRUG Active Other 2015- MD ONE INGREDI 6-27 Anderso 00:00: n 00 HYDROCOD DRUG Active Other 2015-0 MD ONE INGREDI 6-27 Anderso 00:00: n 00 HYDROCOD DRUG Active Other 2015- MD ONE INGREDI 6-27 Anderso 00:00: n 00 HYDROCOD DRUG Active Other 2015- MD ONE INGREDI 6-27 Anderso 00:00: n 00 HYDROCOD DRUG Active Other 2015- MD ONE INGREDI 6-27 Anderso 00:00: n 00 HYDROCOD DRUG Active Other 2015- MD ONE INGREDI 627 Anderso 00:00: n 00 HYDROCOD DRUG Active Other 2015-0 MD ONE INGREDI 627 Anderso 00:00: n 00 HYDROCOD DRUG Active Other 2015- MD ONE INGREDI 6-27 Anderso 00:00: n 00 HYDROCOD DRUG Active Other 2015- MD ONE INGREDI 6-27 Anderso 00:00: n 00 HYDROCOD DRUG Active Other 2015-0 MD ONE INGREDI 6-27 Anderso 00:00: n 00 HYDROCOD DRUG Active Other 2015- MD ONE INGREDI 6-27 Anderso 00:00: n 00 HYDROCOD DRUG Active Other 2015-0 MD ONE INGREDI 6-27 Anderso 00:00: n 00 HYDROCOD DRUG Active Other 2015- MD ONE INGREDI 6-27 Anderso 00:00: n 00 HYDROCOD DRUG Active Other 2015- MD ONE INGREDI 6-27 Anderso 00:00: n 00 HYDROCOD DRUG Active Other 2015-0 MD ONE INGREDI 6-27 Anderso 00:00: n 00 HYDROCOD DRUG Active Other 2015-0 MD ONE INGREDI 6-27 Anderso 00:00: n 00 HYDROCOD DRUG Active Other 2015- MD ONE INGREDI 6-27 Anderso 00:00: n 00 HYDROCOD DRUG Active Other 2015-0 MD ONE INGREDI 6-27 Anderso 00:00: n 00 HYDROCOD DRUG Active Other 2015-0 MD ONE INGREDI 6-27 Anderso 00:00: n 00 HYDROCOD DRUG Active Other 2015-0 MD ONE INGREDI 6-27 Anderso 00:00: n 00 HYDROCOD DRUG Active Other 2015- MD ONE INGREDI 6-27 Anderso 00:00: n 00 HYDROCOD DRUG Active Other 2015- MD ONE INGREDI 6-27 Anderso 00:00: n 00 HYDROCOD DRUG Active Other 2015- MD ONE INGREDI 6-27 Anderso 00:00: n 00 HYDROCOD DRUG Active Other 2015- MD ONE INGREDI 6-27 Anderso 00:00: n 00 HYDROCOD DRUG Active Other 2015- MD ONE INGREDI 6-27 Anderso 00:00: n 00 HYDROCOD DRUG Active Other 2015- MD ONE INGREDI 6-27 Anderso 00:00: n 00 HYDROCOD DRUG Active Other 2015- MD ONE INGREDI 6-27 Anderso 00:00: n 00 HYDROCOD DRUG Active Other 2015-0 MD ONE INGREDI 6-27 Anderso 00:00: n 00 HYDROCOD DRUG Active Other 2015- MD ONE INGREDI 6-27 Anderso 00:00: n 00 HYDROCOD DRUG Active Other 2015- MD ONE INGREDI 6-27 Anderso 00:00: n 00 HYDROCOD DRUG Active Other 2015-0 MD ONE INGREDI 6-27 Anderso 00:00: n 00 HYDROCOD DRUG Active Other 2015- MD ONE INGREDI 6-27 Anderso 00:00: n 00 HYDROCOD DRUG Active Other 2015-0 MD ONE INGREDI 6-27 Anderso 00:00: n 00 HYDROCOD DRUG Active Other 2015- MD ONE INGREDI 6-27 Anderso 00:00: n 00 HYDROCOD DRUG Active Other 2015- MD ONE INGREDI 6-27 Anderso 00:00: n 00 HYDROCOD DRUG Active Other 2015-0 MD ONE INGREDI 6-27 Anderso 00:00: n 00 HYDROCOD DRUG Active Other 2015- MD ONE INGREDI 6-27 Anderso 00:00: n 00 HYDROCOD DRUG Active Other 2015- MD ONE INGREDI 6-27 Anderso 00:00: n 00 HYDROCOD DRUG Active Other 2015- MD ONE INGREDI 6-27 Anderso 00:00: n 00 HYDROCOD DRUG Active Other 2015-0 MD ONE INGREDI 6-27 Anderso 00:00: n 00 HYDROCOD DRUG Active Other 2015-0 MD ONE INGREDI 6-27 Anderso 00:00: n 00 HYDROCOD DRUG Active Other 2015- MD ONE INGREDI 6-27 Anderso 00:00: n 00 HYDROCOD DRUG Active Other 2015- MD ONE INGREDI 6-27 Anderso 00:00: n 00 HYDROCOD DRUG Active Other 2015- MD ONE INGREDI 6-27 Anderso 00:00: n 00 HYDROCOD DRUG Active Other 2015- MD ONE INGREDI 6-27 Anderso 00:00: n 00 HYDROCOD DRUG Active Other 2015- MD ONE INGREDI 6-27 Anderso 00:00: n 00 HYDROCOD DRUG Active Other 2015- MD ONE INGREDI 6-27 Anderso 00:00: n 00 HYDROCOD DRUG Active Other 2015- MD ONE INGREDI 6-27 Anderso 00:00: n 00 HYDROCOD DRUG Active Other 2015- MD ONE INGREDI 6-27 Anderso 00:00: n 00 HYDROCOD DRUG Active Other 2015- MD ONE INGREDI 6-27 Anderso 00:00: n 00 HYDROCOD DRUG Active Other 2015-0 MD ONE INGREDI 6-27 Anderso 00:00: n 00 HYDROCOD DRUG Active Other 2015- MD ONE INGREDI 6-27 Anderso 00:00: n 00 HYDROCOD DRUG Active Other 2015- MD ONE INGREDI 6-27 Anderso 00:00: n 00 HYDROCOD DRUG Active Other 2015-0 MD ONE INGREDI 6-27 Anderso 00:00: n 00 HYDROCOD DRUG Active Other 2015- MD ONE INGREDI 6-27 Anderso 00:00: n 00 HYDROCOD DRUG Active Other 2015- MD ONE INGREDI 6-27 Anderso 00:00: n 00 HYDROCOD DRUG Active Other 2015-0 MD ONE INGREDI 6-27 Anderso 00:00: n 00 HYDROCOD DRUG Active Other 2015- MD ONE INGREDI 6-27 Anderso 00:00: n 00 Medications This patient has no known medications. Vital Signs Vital Name Observation Time Observation Value Comments Source WEIGHT 2020-01-20 13:05:00 112.8 kg Procedures This patient has no known procedures. Encounters Start End Encounter Admission Attending Care Care Encounter Source Date/Time Date/Time Type Type Clinicians Facility Department ID 2021-05-19 Outpatient MDA MDA [id number] 17:41:03 Anderso n 2021-05-19 Outpatient MDA MDA [id number] 17:41:03 Anderso n 2021-05-19 Outpatient MDA MDA [id number] 17:41:03 Anderso n 2021-02-23 Outpatient [facility] MDA MDA [id number] 12:36:46 PATRICA beard 2022-06-22 2022-06-25 Inpatient KARLO ORTIZ [facility] [id number] 04:47:00 13:51:00 YANA beard 2022-06-20 2022-06-22 Outpatient [facility] MDA [id number] 15:52:22 13:43:16 PETE beard 2022-06-20 2022-06-20 Outpatient [facility] MDA [id number] 09:22:59 23:59:00 PETE beard 2022-06-20 2022-06-20 [facility] [id number] 12:46:02 15:51:27 DRAKE beard 2022-06-20 2022-06-20 Outpatient [facility] MDA [id number] 12:45:47 15:51:16 PETE beard 2022-06-20 2022-06-20 [facility] [id number] 10:04:21 12:42:48 YANA beard 2022-06-20 2022-06-20 Outpatient [facility] MDA [id number] 08:46:31 09:21:00 PETE beard 2022-05-16 2022-05-16 Outpatient KARLO CA MDA MDA [id number] 09:34:05 10:09:04 YAIMA beard 2022-05-15 2022-05-15 Outpatient KARLO ERIKA, MDA MDA [id number] 10:52:59 23:59:00 VALERIE beard 2022-05-15 2022-05-15 Outpatient KARLO JAMES, MDA MDA [id number] 10:37:08 10:51:00 VALERIE beard 2022-02-14 2022-02-14 Outpatient EL ROBY, MDA MDA [id number] 11:22:14 12:10:10 YAIMA beard 2022-02-14 2022-02-14 Outpatient EL ROSE, MDA MDA [id number] 09:37:26 09:37:26 ROSLYN beard 2022-02-13 2022-02-13 Outpatient EL ROSE, MDA MDA [id number] 09:00:00 23:59:00 ROSLYN beard 2022-02-13 2022-02-13 Outpatient EL ROSE, MDA MDA [id number] 09:29:54 09:29:54 ROSLYN beard 2021-10-20 2021-10-20 Outpatient CA, MDA MDA [id number] 08:52:46 09:47:28 YAIMA beard 2021-10-19 2021-10-19 Outpatient [facility] MDA MDA [id number] 09:01:57 09:01:57 STEPHEN Cardona 2021-06-16 2021-06-16 Outpatient [facility], MDA MDA [id number] 09:08:21 10:16:24 YAIMA beard 2021-06-15 2021-06-15 Outpatient [facility], MDA MDA [id number] 08:04:58 08:04:58 ARELY beard 2021-06-15 2021-06-15 Outpatient [facility], MDA MDA [id number] 07:54:25 07:56:08 ARELY beard 2021-04-19 2021-04-19 Outpatient [facility], MDA MDA [id number] 09:04:25 11:13:15 YANA beard 2021-04-19 2021-04-19 Outpatient EL ANGEL, MDA MDA [id number] 07:52:32 07:52:32 YANA beard 2021-03-17 2021-03-19 Inpatient KARLO ORTIZ, MDA Thoracic [id number] 09:01:00 17:32:00 YANA beard 2021-03-14 2021-03-14 Outpatient EL DICKSON, MDA MDA [id number] 10:03:22 23:59:00 TERI Leo so n 2021-03-14 2021-03-14 Outpatient EL DICKSON, MDA MDA [id number] 10:53:08 15:15:28 TERI Leo so n 2021-03-14 2021-03-14 Outpatient EL DICKSON, MDA MDA [id number] 13:13:00 13:13:00 TERI Leo so n 2021-03-08 2021-03-08 Outpatient EL HAIR, MDA MDA [id number] 10:07:12 23:59:00 BRAEDEN beard 2021-03-08 2021-03-08 Outpatient EL DICKSON, MDA MDA [id number] 09:53:11 12:10:38 TERI Leo so kisha 2021-03-01 2021-03-01 [facility] MDA [id number] 10:00:00 23:59:00 PETE beard 2021-03-01 2021-03-01 Outpatient EL ANGEL, MDA MDA [id number] 08:14:04 11:07:13 YANA beard 2021-02-17 2021-02-17 Outpatient EL ROBY, MDA MDA [id number] 08:38:33 09:43:02 YAIMA beard 2021-02-08 2021-02-08 Outpatient EL ALEC, MDA MDA [id number] 07:17:54 07:17:54 ROSLYN beard 2021-01-28 2021-01-28 Outpatient EL MDA MDA [id number] 11:13:15 23:59:00 Lenin beard 2021-01-28 2021-01-28 Outpatient EL MDA MDA [id number] 10:56:08 11:12:00 Lenin o n 2021-01-28 2021-01-28 Outpatient EL KULWINDER RAVI MDA MDA [id number] 09:00:00 10:55:00 Lenin o kisha 2021-01-27 2021-01-27 Outpatient EL ALAN MULLER MDA MDA [id number] 13:14:05 23:59:00 Lenin o kisha 2021-01-27 2021-01-27 Outpatient EL MDA MDA [id number] MD 10:27:52 13:13:00 Lenin o n 2021-01-27 2021-01-27 Outpatient EL MDA MDA [id number] MD 10:27:37 10:37:38 Lenin o kisha 2021-01-27 2021-01-27 Outpatient EL MDA MDA [id number] 10:09:42 10:09:42 Lenin o kisha 2021-01-18 2021-01-18 Outpatient EL NEELAPU, MDA MDA [id number] 12:51:35 14:28:50 ROSLYN Phelps o kisha 2021-01-17 2021-01-17 Outpatient EL MONTERROSO, MDA MDA [id number] 11:41:31 23:59:00 ARLENE waldropo n 2021-01-17 2021-01-17 Outpatient EL MONTERROSO, MDA MDA [id number] 11:39:21 11:40:00 ARLENE Sheth rso n 2020-08-03 2020-08-03 Outpatient Pepper, [facility] [id number] [facility] 12:00:00 12:00:[address] [facility] 2020-02-28 2020-02-28 Outpatient Dabaghi, [facility] [id number] [facility] 07:00:00 07:00:[address] [facility] 2020-01-20 2020-01-20 Outpatient EL NEELAPU, MDA MDA [id number] 07:46:39 23:59:00 ROSLYN Sahaers o kisha 2020-01-20 2020-01-20 Outpatient EL NEELAPU, MDA MDA [id number] 07:46:09 23:59:00 SATTVA Lenin o n 2020-01-20 2020-01-20 Outpatient KARLO MICHAEL MDA MDA [id number] 11:08:10 16:44:09 SATTVA Lenin o n 2015-10-12 2015-10-12 Outpatient KARLO MICHAEL MDA MDA [id number] 09:39:22 15:03:47 SATTVA Lenin o n Results [...] our lab.Interfe [facility] determined thatEltrombopag does interfere with Vitros [...] 38-126 N code = ALKP) CBC W/AUTO [id number] 06:45:00 Test Item Value Reference Range Interpretation [...] 0.00 K/mm3 0.0-0.1 N NRBC#) BASIC METABOLIC [id number] 12:38:00 Test Item Value Reference Range Interpretation [...] RECOLLECTION NEEDED ON 08/03/20 AT 1129 BY Z.[id number]: HEMOLYZEDNOTIFIED PATIENT CARE STAFF:[id number] 12:38:00 Test Item Value Reference Range Interpretation Comments MAGNESIUM (test code = MAG) 2.1 MG/DL 1.6-2.3 N RECOLLECTION NEEDED ON 08/03/20 AT 1129 BY Z.[email or web address].[id number]: HEMOLYZEDNOTIFIED PATIENT CARE STAFF:MOONPROTHROMBIN [id number] 11:21:00 Test Item Value Reference Range Interpretation [...] elvin embolism. 3.0 - 4.5 Comments to Transportation Refrigeration Technician: WILL BRING SPECIMAN TO THE LABPTT [id number] 11:21:00 Test Item Value Reference Range Interpretation Comments PTT ACTIVATED (test code = APTT) 29.5 SECONDS 25.1-36.5 N Comments to Transportation Refrigeration Technician: WILL BRING SPECIMAN TO THE LABCBC W/AUTO [...] 0.0-0.1 N NRBC#) COVID 19 Asymptomatic IH [id number] 10:22:00 Test Item Value Reference Range Interpretation [...] virus (antigen) in the sample." BASIC METABOLIC [id number] 05:44:00 Test Item Value Reference Range Interpretation [...] 0-189 mg/dL VERY HIGH.........>/ = 190 mg/dL [id number] 05:44:00 Test Item Value Reference Range Interpretation Comments MAGNESIUM (test code = MAG) 2.1 MG/DL 1.6-2.3 N PROTHROMBIN [id number] 05:34:00 Test Item Value Reference Range Interpretation [...] myocar dial infarction. 2.0 - 3.0 3. Bed Teacher al prosthesis hear t valves, recurre nt systemic emboli sm. 3.0 - 4.5 PTT [id number] 05:34:00 Test Item Value Reference Range Interpretation Comments PTT ACTIVATED (test code = APTT) 32.4 SECONDS 25.1-36.5 N BASIC METABOLIC [id number] 05:33:00 Test Item Value Reference Range Interpretation [...] LDL (test MG/DL 0-99 code = LDL) [id number] 05:33:00 Test Item Value Reference Range Interpretation Comments MAGNESIUM (test code = MAG) 2.1 MG/DL 1.6-2.3 N BASIC METABOLIC [id number] 05:32:00 Test Item Value Reference Range Interpretation [...] LDL (test MG/DL 0-99 code = LDL) [id number] 05:32:00 Test Item Value Reference Range Interpretation Comments MAGNESIUM (test code = MAG) MG/DL 1.6-2.3 BASIC METABOLIC [id number] 05:29:00 Test Item Value Reference Range Interpretation [...] LDL (test code = LDL) MG/DL 0-99 [id number] 05:29:00 Test Item Value Reference Range Interpretation Comments MAGNESIUM (test code = MAG) MG/DL 1.6-2.3 CBC W/AUTO [id number] 05:22:00 Test Item Value Reference Range Interpretation [...] 0.0-0.1 N NRBC#) COVID 19 Asymptomatic IH [id number] 04:51:00 Test Item Value Reference Range Interpretation [...]
[2022-06-25] MEDS ORDERED: DIGOXIN 0.25 MG/ML AMP ONE (19:33)
[2022-06-25] MEDS ORDERED: METOPROLOL TARTRATE 5 MG/5 ML INJ IV ONE (19:33)
[2022-06-25] MEDS ORDERED: ASPIRIN 81 MG CHEWABLE TABLET ONE (19:33)
[2022-06-25 19:35] LABS: Absolute Lymphocytes (CBC) 1.1 K/uL (0.7-4.9); Hematocrit 36.9 % (39.6-49.0); Lymphocytes % 19.4 % (15.3-44.8); MCV 95.6 fL (80-100); MPV 9.8 fL (7.6-11.3); RBC Red Blood Cell Count 3.86 M/uL (4.33-5.43)
[2022-06-25] MEDS ORDERED: MAGNESIUM SULFATE 1 gm IVPB 1 GM/100 ML BAG IV ONE (20:14)
[2022-06-25 21:29] LABS: Protime INR 0.95
--- NOTE | 2022-06-25 21:31 | RAD REPORT ---
EXAM DESCRIPTION: RAD - Chest Single View - 06/25/2022 9:10 pm CLINICAL HISTORY: PALPITATIONS Chest pain. COMPARISON: Chest Single View dated 12/23/2021; Chest Single View dated 01/19/2021; Chest Single View d ated 08/03/2017 FINDINGS: Portable technique limits examination quality. Mild interstitial pulmonary edema seen. Right-sided patchy opacity is present in the right lung base laterally, which could be an area of infiltrate. The heart size mildly enlarged.
[2022-06-25] MEDS ORDERED: FAMOTIDINE 20 MG/2 ML VIAL IV ONE (21:35)
[2022-06-25 21:52] LABS: Albumin 3.2 g/dL (3.4-5.0); Bilirubin Direct 0.1 mg/dL (0-0.2); Bilirubin Total 0.3 mg/dL (0.2-1.0); Magnesium 2.7 mg/dL (1.6-2.4); Potassium 4.1 mmol/L (3.5-5.1); Thyroid Stimulating Hormone 1.57 uIU/mL (0.358-3.740); Troponin High Sensitivity 15.6 pg/mL (<58.9)
[2022-06-26] MEDS ORDERED: ONDANSETRON 4 MG/2 ML VIAL IV PRN (01:12)
[2022-06-26] MEDS ORDERED: ACETAMINOPHEN 500 MG TAB PO PRN (01:12)
[2022-06-26] MEDS ORDERED: MORPHINE 4 MG/ML SYR IV PRN (01:12)
[2022-06-26] MEDS: NA CHLORIDE 0.9% 1,000 ML IV SCH ×2 (01:49→11:52)
[2022-06-26] MEDS: DIGOXIN 0.25 MG/ML AMP IV SCH ×2 (01:50→06:10)
[2022-06-26] MEDS ORDERED: MORPHINE 2 MG/ML SYR IV PRN (02:00)
[2022-06-26 02:12] LABS: Absolute Lymphocytes (CBC) 1.3 K/uL (0.7-4.9); Hematocrit 37.5 % (39.6-49.0); Lymphocytes % 20.9 % (15.3-44.8); MCV 95.8 fL (80-100); MPV 8.3 fL (7.6-11.3); RBC Red Blood Cell Count 3.92 M/uL (4.33-5.43)
[2022-06-26 02:14] VITALS: BMI 28.8
[2022-06-26 02:37] LABS: Digoxin Level 0.9 ng/mL (0.80-2.00); Potassium 4.4 mmol/L (3.5-5.1); Troponin High Sensitivity 31.6 pg/mL (<58.9)
[2022-06-26] MEDS ORDERED: SOTALOL HCL 80 MG TAB PO SCH (06:00)
[2022-06-26] MEDS: ACETAMINOPHEN 325 MG TABLET PO PRN ×2 (06:20→11:56)
[2022-06-26] MEDS ORDERED: INFLUENZA VACCINE (for 6+ mo) 0.5 ML DOSE IMVAC ONE (08:00)
[2022-06-26] MEDS ORDERED: ASPIRIN EC 81 MG TAB PO SCH (09:00)
[2022-06-26] MEDS ORDERED: FAMOTIDINE 20 MG/2 ML VIAL IV SCH (09:00)
[2022-06-26 10:15] VITALS: O2SAT 98
[2022-06-26 12:02] VITALS: BP 148/69; TEMP 97.8
--- NOTE | 2022-06-26 13:01 | EKG ---
Test Date: 2022-06-26 Test Time: 09:09:51 Operations Research Group Manager: MY MEASUREMENT RESULTS: Intervals: Rate: 60 DC: 172 QRSD: 86 QT: 434 QTc: 434 [place]: P: 53 DC: 172 QRS: 39 T: 72 INTERPRETIVE STATEMENTS: Normal sinus rhythm Normal ECG Compared to ECG 06/25/2022 17:58:17 Atrial fibrillation no longer present Electronically Signed On 06-26-22 13:00:54 CDT by Christian Israel
--- NOTE | 2022-06-26 13:02 | EKG ---
Test Date: 2022-06-25 Test Time: 17:57:11 Erp Engineer: MIKE MEASUREMENT RESULTS: Intervals: Rate: 129 [place]: QRSD: 70 QT: 320 QTc: 468 [place]: P: [place]: QRS: 37 T: 59 INTERPRETIVE STATEMENTS: Atrial fibrillation with rapid ventricular response Abnormal ECG Compared to ECG 01/06/2022 09:47:03 Sinus rhythm no longer present Electronically Signed On 06-26-22 13:02:06 CDT by Christian Israel
--- NOTE | 2022-06-26 13:02 | EKG ---
Test Date: 2022-06-25 Test Time: 17:58:17 Material Handler Floorperson: MIKE MEASUREMENT RESULTS: Intervals: Rate: 127 ME: QRSD: 78 QT: 280 QTc: 406 [place]: P: ME: QRS: 41 T: 70 INTERPRETIVE STATEMENTS: Atrial fibrillation with rapid ventricular response Abnormal ECG Compared to ECG 06/25/2022 17:57:11 No significant changes Electronically Signed On 06-26-22 13:02:02 CDT by Christian Israel
--- NOTE | 2022-06-26 13:30 | ECHO ---
HEIGHT: 6 ft 3 in WEIGHT: 230 lb 4.8 oz DATE OF STUDY: 06/26/[address]: Shreyas Ye MD 2-DIMENSIONAL: YES M.MODE: YES DOPPLER: YES COLOR FLOW: YES TDS: YES PORTABLE: YES DEFINITY: BUBBLE STUDY: DIAGNOSIS: ATRIAL FIBRILLATION WITH RAPID VENTRICULAR RESPONSE CARDIAC HISTORY: CATHERIZATION: NO SURGERY: NO PROSTHETIC VALVE: NO PACEMAKER: NO MEASUREMENTS (cm) DIASTOLIC (NORMALS) SYSTOLIC (NORMALS) IVSd (0.6-1.2) LA Diam (1.9-4.0) LVEF 60-65% LVIDd (3.5-5.7) LVIDs (2.0-3.5) %FS % LVPWd (0.6-1.2) Ao Diam (2.0-3.7) 2 DIMENSIONAL ASSESSMENT: RIGHT ATRIUM: NORMAL LEFT ATRIUM: NORMAL RIGHT VENTRICLE: NORMAL LEFT VENTRICLE: NORMAL TRICUSPID VALVE: NORMAL MITRAL VALVE: NORMAL PULMONIC VALVE: NORMAL AORTIC VALVE: NORMAL PERICARDIAL EFFUSION: NONE AORTIC ROOT: NORMAL LEFT VENTRICULAR WALL MOTION: NORMAL DOPPLER/COLOR FLOW: NORMAL COMMENTS: 1. NORMAL LEFT VENTRICULAR EJECTION FRACTION 60-65% 2. NORMAL WALL MOTION 3. MODERATE DIASTOLIC DYSFUNCTION TECHNOLOGIST: APARNA JUNIOR
--- NOTE | 2022-06-26 16:10 | CON ---
Date of Consultation: 06/26/2022 Reason For Consultation: Atrial fibrillation. History Of Present Illness: This is a 77-year-old male with past medical history of atrial fibrillat ion, COPD, acid reflux, hypertension, presented with palpitations and was in atrial fibrillation with rapid ventricular response. Given IV digoxin, IV metoprolol, heart rate went down and was started o n sotalol 80 mg twice a day, and he apparently converted to sinus rhythm. He is doing well. No ches t pain or shortness of breath. Past Medical History: As outlined above in the HPI. Medications: Refer to reconciliation sheet for detailed list. Allergies: HYDROCODONE. Family History: No premature coronary artery disease or cancer. Social History: He does not smoke or drink. Does not use any drugs. Review of Systems: All systems reviewed and they were negative except what mentioned in HPI. Physical Examination: Vital Signs: Reviewed. Head and Neck: Pupils are equal, reactive to light. Intact eye movements. No JVD. No cervical lym phadenopathy. Neck is supple. Thyroid is not enlarged. Lungs: Clear to auscultation bilaterally. No rhonchi, wheezing, or crackles. No accessory muscle u se. Heart: Irregular. No extra sounds. Abdomen: Soft, nontender. Bowel sounds positive. No organomegaly. No masses or hernia. No rigidi ty or rebound. Extremities: No clubbing or cyanosis. Intact pulses. Skin: No rash. Neurologic: Alert, awake, oriented x3. No acute focal deficits appreciated. Investigations: Troponins are negative. BUN 14, creatinine 1.03, and hemoglobin 12.6. Assessment And Recommendations: 1.Atrial fibrillation with rapid ventricular response. He is in sinus now; however, continue sotalo l 80 mg twice a day and please put him on Xarelto 20 mg daily for stroke prevention. 2.Hypertension. Blood pressure is acceptable. Continue home medications. The patient can be relea sed from cardiac standpoint and follow up in the office in 4 weeks post discharge. SR/MODL Voice ID: [id number] Report ID: [id number]
--- NOTE | 2022-06-26 16:55 | P.SSS ---
Patient History Date of Service: 06/26/22 Reason for admission: PALPITATIONS History of Present Illness: SALO IS PATIENT WITH MANY MEDICAL ISSUES FOLLOWING, COMES WITH PALPITATIONS. HE HAD LUNG SURGERY FOR SARCOMA AT [facility] AND CAME OUT OF HOSPITAL YESTERDAY BUT AT NIGHT HAD PALPITAIONS AND REPORTS TO THIS OR. HE HAS RAPID A FIB. HE HAD A FIB AT [facility] AND WAS PUT ON STOALOL 40 MG PO BID AND ELIUQIS. WE RAISED TO 80 MG PO BID AND HE IS BACK IN SINUS RHYTHM. HE IS STABLE TO GO HOME AND FU ON OP BASIS. Benign hypertension [I10 (401.1)] 2018 Sjogren's disease [M35.00 (710.2) 0.4, 710.2] 2018 Munoz's esophagus [K22.70 (530.85)] 2018 Atrial fibrillation [I48.91 (427.31) 0.3] ABLATION. DR. DAMON. ABLATION. DR. DAMON. 2018 AA (aortic aneurysm) [I71.9 (441.9) 0.3] 3.6 CM. 3.6 CM. 2018 Inguinal hernia [K40.90 (550.90)] 2018 COPD (chronic obstructive pulmonary disease) [J44.9 (496) 0.3] Last addressed: 01/24/2022 2018 Carotid bruit [R09.89 (785.9)] 30% L. DR SINHA. 30% L. DR SINHA. 2018 Chronic constipation [K59.09 (564.00)] 2019 Hiatal hernia [K44.9 (553.3)] 2019 B12 deficiency [E53.8 (266.2)] 2019 AAA (abdominal aortic aneurysm) [I71.40 (441.4) 0.3] Last addressed: Never 4.[address] SINHA 4.[address] 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 RADIATION I FOOT. FOOT TO LUNG. ELISABETH RECURRENCE 2021, SMALL, CLEAR CELL SRACOMA NO CHEMO. RADIATION I FOOT. FOOT TO LUNG. Allergies hydrocodone Allergy (Verified 01/19/21 07:55) Unknown Home medications list reviewed: Yes Home Medications: Famotidine 40 mg PO BEDTIME 01/19/21 Rosuvastatin Calcium [Crestor] 5 mg PO DAILY 01/19/21 Loratadine [Claritin*] 10 mg PO DAILY 06/26/22 Losartan Potassium 50 mg PO DAILY #90 tab 06/26/22 Sotalol HCl [Betapace*] 80 mg PO BID 6AM 6PM tab 06/26/22 traMADol HCL [Ultram*] 1 tab PO BID PRN 06/26/22 - Past Medical/Surgical History Has patient received pneumonia vaccine in the past: Yes Diabetic: No -: A-fib -: Lung CA -: COPD -: GERD -: HTN -: Sjogren's Syndrome -: Radiation Therapy -: Heart Ablation -: Lung SX x 5 - Social History Smoking Status: Former smoker Alcohol use: No CD- Drugs: No Place of Residence: Home Review of Systems 10-point ROS is otherwise unremarkable General: Weakness, Malaise Physical Examination - Vital Signs Temperature: 97.8 F Blood Pressure: 148/69 Pulse: 56 Respirations: 16 Pulse Ox (%): 95 - Physical Exam General: Alert, In no apparent distress HEENT: Atraumatic, PERRLA, Mucous membr. moist/pink, EOMI, Sclerae nonicteric Neck: Supple, 2+ carotid pulse no bruit, No LAD, Without JVD or thyroid abnormality Respiratory: Clear to auscultation bilaterally, Normal air movement Cardiovascular: Regular rate/rhythm, Normal S1 S2 Gastrointestinal: Normal bowel sounds, No tenderness Musculoskeletal: No tenderness Integumentary: No rashes Neurological: Normal gait, Normal speech, Normal strength at 5/5 x4 extr, Normal tone, Normal affect Lymphatics: No axilla or inguinal lymphadenopathy - Studies Laboratory Data (last 24 hrs) 06/25/22 21:17: PT 10.5, INR 0.95 06/25/22 21:17: Sodium 140, Potassium 4.1, BUN 14, Creatinine 0.97, Glucose 104, Magnesium 2.7 H, Total Bilirubin 0.3, AST 32, ALT 30, Alkaline Phosphatase 104 06/25/22 19:22: WBC 5.70, Hgb 12.4 L, Hct 36.9 L, Plt Count 148 L - Diagnosis (Problem(s)) (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 TREATMENT PROTOCOL IN DETAIL IS AT [facility]. (2) Rapid atrial fibrillation Status: Acute Plan: CONTROLLED NOW. HE SHOULD BE GOING BACK TO [facility]. HE IS ON ELIQUIS 2.5. HE SHOULD BE ON 5 MG BID. - Disposition Disposition: ROUTINE DISCHARGE Condition: FAIR
[2022-06-26] MEDS ORDERED: FAMOTIDINE 20 MG TAB PO SCH (21:00)
--- NOTE | 2022-07-07 17:16 | EDPHYS ---
Physician Documentation [facility] Name: Fredi Barth Age: 77 yrs Sex: Male : 1945 Arrival Date: 06/25/2022 Time: 18:37 Bed 6 Private MD: Rustam Levin V ED Physician Shreyas Ye HPI: 06/25 19:23 This 77 yrs old Male presents to ER via Ambulatory with complaints of Chest nirav Pain, Post Surgical Bleeding. 19:23 The patient or guardian reports chest pain that is located primarily in the substernal nirav area. Onset: this morning, today. The pain does not radiate. Associated signs and symptoms: Pertinent positives: shortness of breath. The chest pain is described as aching. Duration: The patient or guardian reports a single episode, that is still ongoing. Severity of pain: At its worst the pain was mild in the emergency department the pain is unchanged. The patient has not experienced similar symptoms in the past. Historical: - Allergies: 18:52 HYDROCODONE; mb9 - PMHx: 18:52 Atrial Fib; Cancer, Lung; COPD; GERD; Hypertension; Sjogren's Syndrome; radiation; mb9 Aortic Aneurysm; - PSHx: 18:52 ablation for afib; lung aurgery x5; mb9 - Immunization history:: Adult Immunizations up to date. - Social history:: Smoking status: Patient/guardian denies using tobacco, the patient reports quitting approximately 18 years ago. - Family history:: not pertinent. ROS: 19:23 Constitutional: Negative for fever, chills, and weight loss, Eyes: Negative for injury, nirav pain, redness, and discharge, ENT: Negative for injury, pain, and discharge, Neck: Negative for injury, pain, and swelling, Respiratory: Negative for shortness of breath, cough, wheezing, and pleuritic chest pain, Abdomen/GI: Negative for abdominal pain, nausea, vomiting, diarrhea, and constipation, Back: Negative for injury and pain, : Negative for injury, bleeding, discharge, and swelling, MS/Extremity: Negative for injury and deformity, Skin: Negative for injury, rash, and discoloration, Neuro: Negative for headache, weakness, numbness, tingling, and seizure, Psych: Negative for depression, anxiety, suicide ideation, homicidal ideation, and hallucinations, Allergy/Immunology: Negative for hives, rash, and allergies, Endocrine: Negative for neck swelling, polydipsia, polyuria, polyphagia, and marked weight changes, Hematologic/Lymphatic: Negative for swollen nodes, abnormal bleeding, and unusual bruising. 19:23 Cardiovascular: Positive for chest pain, palpitations. Exam: 19:23 Constitutional: This is a well developed, well nourished patient who is awake, alert, nirav and in no acute distress. Head/Face: Normocephalic, atraumatic. Eyes: Pupils equal round and reactive to light, extra-ocular motions intact. Lids and lashes normal. Conjunctiva and sclera are non-icteric and not injected. Cornea within normal limits. Periorbital areas with no swelling, redness, or edema. ENT: Nares patent. No nasal discharge, no septal abnormalities noted. Tympanic membranes are normal and external auditory canals are clear. Oropharynx with no redness, swelling, or masses, exudates, or evidence of obstruction, uvula midline. Mucous membranes moist. Neck: Trachea midline, no thyromegaly or masses palpated, and no cervical lymphadenopathy. Supple, full range of motion without nuchal rigidity, or vertebral point tenderness. No Meningismus. Chest/axilla: Normal chest wall appearance and motion. Nontender with no deformity. No lesions are appreciated. Respiratory: Lungs have equal breath sounds bilaterally, clear to auscultation and percussion. No rales, rhonchi or wheezes noted. No increased work of breathing, no retractions or nasal flaring. Abdomen/GI: Soft, non-tender, with normal bowel sounds. No distension or tympany. No guarding or rebound. No evidence of tenderness throughout. Back: No spinal tenderness. No costovertebral tenderness. Full range of motion. Male : Normal genitalia with no discharge or lesions. Skin: Warm, dry with normal turgor. Normal color with no rashes, no lesions, and no evidence of cellulitis. 19:23 Cardiovascular: Rate: tachycardic, actual rate is 145 bpm, Rhythm: irregularly irregular, Pulses: Pulses are 4+ in bilateral radial, brachial, femoral, popliteal, posterior tibial and and dorsalis pedis arteries.. Heart sounds: normal, Edema: is not appreciated, JVD: is not appreciated. 19:23 ECG was reviewed by the Attending Physician. Vital Signs: 06/24 23:10 BP 154 / 81; Pulse 63; Resp 18; Pulse Ox 98% ; as6 06/25 18:49 BP 131 / 107; Pulse 145; Resp 18; Temp 97.4; Pulse Ox 98% ; Weight 106.59 kg; Height 6 mb9 ft. 2 in. ; Pain 0/10; 19:32 BP 149 / 80; Pulse 127; Resp 18 S; Pulse Ox 98% on R/A; as6 20:19 BP 134 / 94; Pulse 112; Pulse Ox 96% ; ko1 20:22 BP 109 / 82; Pulse 113; ko1 20:23 BP 109 / 82; Pulse 113; Resp 18; Pulse Ox 96% ; ko1 20:53 BP 107 / 81; Pulse 92; vc1 21:28 BP 130 / 82; Pulse 86; Resp 17 S; Pulse Ox 94% on R/A; as6 23:50 BP 139 / 73; Pulse 62; Resp 18; Pulse Ox 99% ; as6 18:49 Body Mass Index 30.17 (106.59 kg, 187.96 cm) mb9 06/25 18:49 Pain Scale: Adult mb9 MDM: 19:01 Patient medically screened. nirav 21:16 Differential diagnosis: abnormal EKG, acute myocardial infarction, anxiety, coronary nirav artery disease chest wall pain, pneumonia, pneumothorax, stable angina, unstable angina. HEART Score: History: Moderately Suspicious (1), ECG: Non specific repolarization disturbance / LBTB / PM (1), Age: > or = 65 years (2), Risk Factors: > or = 3 Risk factors for atherosclerotic disease (2), [Hypercholesterolemia] [Hypertension] [+ Family HX] [Obesity] Troponin: < or = 1 x Normal Limit (0). The patient was given aspirin in the Emergency Department. OSCAR Risk Score: 1 - patient's age is greater or equal to 65 years, 1 - Three or more CAD risk factors, 1- Known CAD. Data reviewed: vital signs, nurses notes, lab test result(s), EKG, radiologic studies, plain films. Management of patient was discussed with the following: Powder Blender And Pourer: DR DAMIAN ASPIRIN ONLY , LOPRESSOR , DIG [place]. Primary Care Provider: DR LEVIN. Test considered but Not performed: CT: CT CHEST. 06/25 19:19 Order name: Basic Metabolic Panel [facility] 06/25 19:19 Order name: CBC with Diff; Complete Time: 21:15 [facility] 06/25 19:19 Order name: LFT's [facility] 06/25 19:19 Order name: Magnesium [facility] 06/25 19:19 Order name: NT PRO-BNP [facility] 06/25 19:19 Order name: PT-INR [facility] 06/25 19:19 Order name: Troponin HS [facility] 06/25 19:32 Order name: Thyroid Stimulating Hormone [facility] 06/25 21:50 Order name: SARS-COV-2 RT PCR [facility] 06/25 19:19 Order name: XRAY Chest (1 view) [facility] 06/25 19:19 Order name: EKG; Complete Time: 19:20 [facility] 06/25 21:30 Order name: CONS Physician Consult [facility] 06/25 18:55 Order name: EKG - Nurse/Tech; Complete Time: 18:55 [facility] 06/25 19:19 Order name: Cardiac monitoring; Complete Time: 19:21 [facility] 06/25 19:19 Order name: IV Saline Lock; Complete Time: 20:23 [facility] 06/25 19:19 Order name: Labs collected and sent; Complete Time: 19:26 [facility] 06/25 19:19 Order name: O2 Per Protocol; Complete Time: 19:21 [facility] 06/25 19:19 Order name: O2 Sat Monitoring; Complete Time: 19:21 [facility] EC:23 Rate is 127 beats/min. Rhythm is irregularly irregular. QRS [place] is Normal. [place] interval nirav is normal. QRS interval is normal. QT interval is normal. No Q waves. T waves are Normal. No ST changes noted. Clinical impression: Atrial Fibrillation and No evidence of ischemia. Interpreted by me. Reviewed by me. Administered Medications: 19:31 Drug: Aspirin PO Chewable Tablet 162 mg Route: PO; as6 19:45 Drug: Digoxin IVP 0.5 mg Route: IVP; Site: right wrist; ko1 19:55 Drug: Metoprolol IVP 5 mg Route: IVP; Site: right wrist; ko1 20:19 Follow up: BP 134 / 94; Pulse 112 bpm; Pulse Ox 96% ko1 20:00 Drug: Metoprolol IVP 5 mg Route: IVP; Site: right wrist; ko1 20:22 Follow up: BP 109 / 82; Pulse 113 bpm ko1 20:21 Drug: Magnesium Sulfate IVPB 1 grams Route: IVPB; Infused Over: 1 hrs; Site: right ko1 wrist; 21:30 Drug: Famotidine IVP 20 mg Route: IVP; Site: right wrist; as6 Disposition Summary: 06/25/22 21:21 Hospitalization Ordered Provider: Rustam Levin cha Condition: Fair nirav Problem: new nirav Symptoms: have improved nirav Bed/Room Type: Standard nirav Hospitalization Status: Observation(06/25/22 22:04) nirav Location: Telemetry/MedSurg (observation)(06/25/22 22:04) nirav Room Assignment: 217(06/25/22 23:31) Diagnosis - Paroxysmal atrial fibrillation - WITH RVR nirav - Chest pain, unspecified nirav Forms: - Medication Reconciliation Form nirav - SBAR form nirav Signatures: Dispatcher [employer] EDMS Mary Joy RN RN mw Anderson, Corey, MD MD cha Slawson, Ashby, RN RN as6 Loyda Cummings RN RN ko1 Monique Aden RN RN mb9 Corrections: (The following items were deleted from the chart) 18:54 18:52 PSHx: lung surgery x 3; mb9 mb9 19:33 19:27 THYROID STIMULAT HORMONE+C.LAB.BRZ ordered. EDMS EDMS 21:49 21:16 SARS-COV-2 Antigen Rapid+I.LAB.BRZ ordered. EDMS EDMS 22:04 21:21 Inpatient Admission nirav nirav 22:04 21:21 Telemetry/MedSurg (Inpatient) nirav nirav 22:04 21:21 nirav nirav 23:31 22:04 nirav cervantes
--- NOTE | 2022-07-07 17:16 | ER ---
Nurse's Notes [facility] Name: Fredi Barth Age: 77 yrs Sex: Male : 1945 Arrival Date: 06/25/2022 Time: 18:37 Bed 6 Private MD: Rustam Levin V Diagnosis: Paroxysmal atrial fibrillation-WITH RVR;Chest pain, unspecified Presentation: 06/25 18:49 Chief complaint: Patient states: "I just got released from [facility] today. My BP was mb9 190/117 at home and I feel pressure in the middle of my chest. It comes and goes. Also, the place where my chest tube was is leaking". Coronavirus screen: Vaccine status: Patient reports being unvaccinated. Ebola Screen: No symptoms or risks identified at this time. Initial Sepsis Screen: Does the patient meet any 2 criteria? No. Patient's initial sepsis screen is negative. Does the patient have a suspected source of infection? No. Patient's initial sepsis screen is negative. Risk Assessment: Do you want to hurt yourself or someone else? Patient reports no desire to harm self or others. Onset of symptoms was June 25, 2022. 18:49 Method Of Arrival: Ambulatory mb9 18:49 Acuity: PHYLLIS 2 mb9 Historical: - Allergies: 18:52 HYDROCODONE; mb9 - PMHx: 18:52 Atrial Fib; Cancer, Lung; COPD; GERD; Hypertension; Sjogren's Syndrome; radiation; mb9 Aortic Aneurysm; - PSHx: 18:52 ablation for afib; lung aurgery x5; mb9 - Immunization history:: Adult Immunizations up to date. - Social history:: Smoking status: Patient/guardian denies using tobacco, the patient reports quitting approximately 18 years ago. - Family history:: not pertinent. Screenin:55 [facility] ED Fall Risk Assessment (Adult) History of falling in the last 3 months, mb9 including since admission No falls in past 3 months (0 pts) Confusion or Disorientation No (0 pts) Intoxicated or Sedated No (0 pts) Impaired Gait No (0 pts) Mobility Assist Device Used No (0 pt) Altered Elimination No (0 pt) Score/Fall Risk Level 0 - 2 = Low Risk Oriented to surroundings, Maintained a safe environment, Educated pt \\T\\ family on fall prevention, incl call for assistance when getting out of bed. Abuse screen: Denies threats or abuse. Nutritional screening: No deficits noted. Tuberculosis screening: No symptoms or risk factors identified. Assessment: 19:32 General: Appears in no apparent distress. Behavior is calm, cooperative. Pain: Denies as6 pain. Neuro: Level of Consciousness is awake, alert, obeys commands, Oriented to person, place, time, situation. Cardiovascular: Reports palpitations, Rhythm is atrial fibrillation with rapid ventricular response. Respiratory: Respiratory effort is even, unlabored. 20:23 Reassessment: Patient and/or family updated on plan of care and expected duration. Pain ko1 level reassessed. Patient is alert, oriented x 3, equal unlabored respirations, skin warm/dry/pink. Patient states symptoms have improved. 22:00 Reassessment: Patient and/or family updated on plan of care and expected duration. Pain vc1 level reassessed. Patient is alert, oriented x 3, equal unlabored respirations, skin warm/dry/pink. Patient states feeling better. 23:00 Reassessment: No changes from previously documented assessment. Patient and/or family vc1 updated on plan of care and expected duration. Pain level reassessed. Patient is alert, oriented x 3, equal unlabored respirations, skin warm/dry/pink. 06/26 00:50 Reassessment: No changes from previously documented assessment. Patient and/or family vc1 updated on plan of care and expected duration. Pain level reassessed. Patient is alert, oriented x 3, equal unlabored respirations, skin warm/dry/pink. Patient denies pain at this time. Patient states feeling better. Patient states symptoms have improved. Vital Signs: 06/24 23:10 BP 154 / 81; Pulse 63; Resp 18; Pulse Ox 98% ; as6 12 18:49 BP 131 / 107; Pulse 145; Resp 18; Temp 97.4; Pulse Ox 98% ; Weight 106.59 kg; Height 6 mb9 ft. 2 in. ; Pain 0/10; 19:32 BP 149 / 80; Pulse 127; Resp 18 S; Pulse Ox 98% on R/A; as6 20:19 BP 134 / 94; Pulse 112; Pulse Ox 96% ; ko1 20:22 BP 109 / 82; Pulse 113; ko1 20:23 BP 109 / 82; Pulse 113; Resp 18; Pulse Ox 96% ; ko1 20:53 BP 107 / 81; Pulse 92; vc1 21:28 BP 130 / 82; Pulse 86; Resp 17 S; Pulse Ox 94% on R/A; as6 23:50 BP 139 / 73; Pulse 62; Resp 18; Pulse Ox 99% ; as6 18:49 Body Mass Index 30.17 (106.59 kg, 187.96 cm) [facility] 03 18:49 Pain Scale: Adult mb9 ED Course: 18:37 Patient arrived in ED. mr 18:37 Rustam Levin MD is Private Physician. mr 18:52 Triage completed. mb9 18:54 Arm band placed on. mb9 19:01 Shreyas Ye MD is Attending Physician. [facility] 19:07 EKG done, by ED staff, reviewed by Shreays Ye MD. mb9 19:31 Aime Sawyer, NIURKA is Primary Nurse. as6 19:31 Placed in gown. Bed in low position. Call light in reach. Side rails up X2. Adult w/ as6 patient. Client placed on continuous cardiac and pulse oximetry monitoring. NIBP monitoring applied. Warm blanket given. PO fluids given. 21:12 XRAY Chest (1 view) In Process Unspecified. EDMS 21:20 Rustam Levin MD is Hospitalizing Provider. nirav 06/26 00:32 Inserted saline lock: 22 gauge in left antecubital area, using aseptic technique. vc1 00:50 No provider procedures requiring assistance completed. Patient did not have IV access vc1 during this emergency room visit. Administered Medications: 06/25 19:31 Drug: Aspirin PO Chewable Tablet 162 mg Route: PO; as6 19:45 Drug: Digoxin IVP 0.5 mg Route: IVP; Site: right wrist; ko1 19:55 Drug: Metoprolol IVP 5 mg Route: IVP; Site: right wrist; ko1 20:19 Follow up: BP 134 / 94; Pulse 112 bpm; Pulse Ox 96% ko1 20:00 Drug: Metoprolol IVP 5 mg Route: IVP; Site: right wrist; ko1 20:22 Follow up: BP 109 / 82; Pulse 113 bpm ko1 20:21 Drug: Magnesium Sulfate IVPB 1 grams Route: IVPB; Infused Over: 1 hrs; Site: right ko1 wrist; 21:30 Drug: Famotidine IVP 20 mg Route: IVP; Site: right wrist; as6 Medication: 19:32 VIS not applicable for this client. as6 Outcome: 21:21 Decision to Hospitalize by Provider. nirav 06/26 00:50 Admitted to Med/surg accompanied by tech, via wheelchair, room 217, Report called to agustín Rosas RN Condition: good Instructed on the need for admit. 00:51 Patient left the ED. [facility] Signatures: Dispatcher [employer] EDShreyas Coleman MD MD cha Rivera, Mary mr Slawson, Ashby, RN RN as6 Nicolle Perez RN RN 1 Loyda Cummings RN RN ko1 Breneman, Mary Beth, RN RN mb9 Corrections: (The following items were deleted from the chart) 06/25 18:54 18:52 PSHx: lung surgery x 3; mb9 mb9 06/26 00:49 06/24 22:50 BP 139 / 73; Pulse 62bpm; Resp 18bpm; Pulse Ox 99%; as6 as6
== END 2022-06-26 14:58 | disposition home or self-care (01) | DRG 310 ==
LOC: ER 18:36 → ERHOLD 21:49 → 2ND 23:51
PROVIDERS: ADMIT Internal Medicine; ATTEND Internal Medicine
DX: I48.91 Unspecified atrial fibrillation (principal); I10 Essential (primary) hypertension; K59.09 Other constipation; J44.9 Chronic obstructive pulmonary disease, unspecified; K21.9 Gastro-esophageal reflux disease without esophagitis; Z88.5 Allergy status to narcotic agent; Z79.01 Long term (current) use of anticoagulants; Z85.118 Personal history of other malignant neoplasm of bronchus and lung; Z79.899 Other long term (current) drug therapy; Z87.891 Personal history of nicotine dependence; Z20.822 Contact with and (suspected) exposure to COVID-19
CPT/HCPCS: 36415; 71045; 80048; 80076; 80162; 83735; 83880; 84443; 84484; 85025; 85610; 93005; 93306; 96374; 96375; 99285; J1160; J3475; J7030; U0003

== ENCOUNTER 2022-08-29 13:42 | Emergency (ER) | payer OTHER, BC ==
--- OUTSIDE RECORDS SUMMARY | 2022-08-29 13:48 | XMS REPORT | Continuity of Care Document ---
:1945 Author Organization [facility] t Address [address] [facility] [address] [place] [address] Care Team Providers Name Role Phone [phone] Primary Care Physician Unavailable SYSTEM, PROVIDER NOT IN Attending Clinician Unavailable YANA ORTIZ Attending Clinician Unavailable CHU COYNE Attending Clinician Unavailable PETE AYALA Attending Clinician [...] Expiration Date Ubaldo carter MEDICARE PART A [id number] 2008 AND B 00:00:00 [place] P[place] POS [id number] 2015 00:00:00 Problems This patient has no [...] n S 00 hydrocod DA [facility]: [address] hydrocod DA Active U DIZZINESS [facility] 08-[facility] 00:00: [address] hydrocod DA Active U 2019-04 [facility] 04-28 00:00: [address] hydrocod DA Active U DIZZINESS 2019-04 [facility] 04-28 00:00: [address] HYDROCOD DRUG Active Other 2015- MD ONE INGREDI 6-27 Anderso 00:00: n 00 HYDROCOD DRUG Active Other MD ONE INGREDI 6-27 Anderso 00:00: n [...] Facility Department ID 2021-05-19 Outpatient MDA MDA [id number] 17:41:03 Anderso n 2021-05-19 Outpatient MDA MDA [id number] 17:41:03 Anderso n 2021-05-19 Outpatient MDA MDA [id number] 17:41:03 Anderso n 2021-02-23 Outpatient [facility], MDA MDA [id number] 12:36:46 PATRICA beard 2022-07-18 2022-07-18 Outpatient KARLO ORTIZ, [facility] MDA [id number] 07:45:36 08:48:52 YANA beard 2022-07-18 2022-07-18 Outpatient [place], MDA MDA [id number] 07:09:56 07:09:56 CHU ogden n 2022-06-22 2022-06-25 [facility] [id number] 04:47:00 13:51:00 YANA beard 2022-06-20 2022-06-22 Outpatient [facility], [facility] MDA [id number] 15:52:22 13:43:16 PETE beard 2022-06-20 2022-06-20 [facility] [id number] 09:22:59 23:59:00 PETE beard 2022-06-20 2022-06-20 Outpatient [facility] MDA [id number] 12:46:02 15:51:27 DRAKE beard 2022-06-20 2022-06-20 [facility] [id number] 12:45:47 15:51:16 PETE beard 2022-06-20 2022-06-20 [facility] [id number] 10:04:21 12:42:48 YANA beard 2022-06-20 2022-06-20 [facility] [id number] 08:46:31 09:21:00 PETE beard 2022-05-162022-05-16 Outpatient EL ROBY, MDA MDA [id number] 09:34:05 10:09:04 YAIMA beard 2022-05-15 2022-05-15 Outpatient EL ERIKA, MDA MDA [id number] 10:52:59 23:59:00 VALERIE beard 2022-05-15 2022-05-15 Outpatient EL ERIKA, MDA MDA [id number] 10:37:08 10:51:00 VALERIE beard 2022-02-14 2022-02-14 Outpatient EL CA, MDA MDA [id number] 11:22:14 12:10:10 YAIMA beard 2022-02-14 2022-02-14 Outpatient EL ROSEPU, MDA MDA [id number] 09:37:26 09:37:26 ROSLYN beard 2022-02-13 2022-02-13 Outpatient EL ROSEPU, MDA MDA [id number] 09:00:00 23:59:00 ROSLYN beard 2022-02-13 2022-02-13 Outpatient EL ROSEPU, MDA MDA [id number] 09:29:54 09:29:54 ROSLYN beard 2021-10-20 2021-10-20 Outpatient EL ROBY, MDA MDA [id number] 08:52:46 09:47:28 YAIMA beard 2021-10-19 2021-10-19 [facility] [id number] 09:01:57 09:01:57 STEPHEN Cardona 2021-06-16 2021-06-16 Outpatient EL CA, MDA MDA [id number] 09:08:21 10:16:24 YAIMA beard 2021-06-15 2021-06-15 Outpatient EL DINA, MDA MDA [id number] 08:04:58 08:04:58 ARELY beard 2021-06-15 2021-06-15 Outpatient EL DINA, MDA MDA [id number] 07:54:25 07:56:08 ARELY gonzalez n 2021-04-19 2021-04-19 Outpatient EL ANGEL, MDA MDA [id number] 09:04:25 11:13:15 YANA gonzalez n 2021-04-19 2021-04-19 Outpatient EL ANGEL, MDA MDA [id number] 07:52:32 07:52:32 YANA gonzalez n 2021-03-17 2021-03-19 Inpatient EL ANGEL, MDA Thoracic [id number] 09:01:00 17:32:00 YANA gonzalez n 2021-03-14 2021-03-14 Outpatient EL DICKSON, MDA MDA [id number] 10:03:22 23:59:00 TERI Leo so n 2021-03-14 2021-03-14 Outpatient EL DICKSON, MDA MDA [id number] 10:53:08 15:15:28 TERI Leo so n 2021-03-14 2021-03-14 Outpatient EL DICKSON, MDA MDA [id number] 13:13:00 13:13:00 TERI Leo so n 2021-03-08 2021-03-08 [facility] MDA [id number] 10:07:12 23:59:00 BRAEDEN Lamas n 2021-03-08 2021-03-08 Outpatient DICKSON, MDA MDA [id number] 09:53:11 12:10:38 TERI Leo so n 2021-03-01 2021-03-01 [facility], MDA MDA [id number] 10:00:00 23:59:00 PETE gonzalez n 2021-03-01 2021-03-01 Outpatient EL ANGEL, MDA MDA [id number] 08:14:04 11:07:13 YANA gonzalez n 2021-02-17 2021-02-17 Outpatient EL ROBY, MDA MDA [id number] 08:38:33 09:43:02 YAIMA gonzalez n 2021-02-08 2021-02-08 Outpatient EL ROSEJEFF, MDA MDA [id number] 07:17:54 07:17:54 ROSLYN Sahaers o n 2021-01-28 2021-01-28 Outpatient EL MDA MDA [id number] 11:13:15 23:59:00 Lenin o n 2021-01-28 2021-01-28 Outpatient EL MDA MDA [id number] MD 10:56:08 11:12:00 Lenin o n 2021-01-28 2021-01-28 Outpatient EL KULWINDER RAVI MDA MDA [id number] 09:00:00 10:55:00 Lenin o n 2021-01-27 2021-01-27 Outpatient EL ALAN MULLER MDA MDA [id number] MD 13:14:05 23:59:00 Lenin o kisha 2021-01-27 2021-01-27 Outpatient EL MDA MDA [id number] MD 10:27:52 13:13:00 Lenin o kisha 2021-01-27 2021-01-27 Outpatient EL MDA MDA [id number] 10:27:37 10:37:38 Lenin o kisha 2021-01-27 2021-01-27 Outpatient EL MDA MDA [id number] MD 10:09:42 10:09:42 Lenin o n 2021-01-18 2021-01-18 Outpatient EL NEELAPU, MDA MDA [id number] 12:51:35 14:28:50 ROSLYN Sahaers o kisha 2021-01-17 2021-01-17 Outpatient EL MONTERROSO, MDA MDA [id number] MD 11:41:31 23:59:00 ARLENE Sahae rso n 2021-01-17 2021-01-17 Outpatient EL MONTERROSO, MDA MDA [id number] 11:39:21 11:40:00 MIGUEL-EMERY Domenic rso n 2020-08-03 2020-08-03 Outpatient Pepper, [facility] [id number] [facility] 12:00:00 12:00:00 Sumeet 02 [facility] 2020-02-28 2020-02-28 Outpatient Dabagsweta, [facility] [id number] [facility] 07:00:00 07:00:00 Adeel 72 [facility] 2020-01-20 2020-01-20 Outpatient KARLO MICHAEL MDA MDA [id number] 07:46:39 23:59:00 SATTVA Lenin o n 2020-01-20 2020-01-20 Outpatient KARLO MICHAEL MDA MDA [id number] 07:46:09 23:59:00 SATTVA Lenin o n 2020-01-20 2020-01-20 Outpatient KARLO MICHAEL MDA MDA [id number] 11:08:10 16:44:09 SATTVA Lenin o n 2015-10-12 2015-10-12 Outpatient KARLO MICHAEL MDA MDA [id number] 09:39:22 15:03:47 SATTVA Elnin o n Results Test Description Test Time [...] our lab.Interfe rence [facility] determined thatEltrombopag does interfere with Vitros [...] 38-126 N code = ALKP) CBC W/AUTO [id number] 06:45:00 Test Item Value Reference Range Interpretation [...] 0.00 K/mm3 0.0-0.1 N NRBC#) BASIC METABOLIC [id number] 12:38:00 Test Item Value Reference Range Interpretation [...] RECOLLECTION NEEDED ON 08/03/20 AT 1129 BY [id number]: HEMOLYZEDNOTIFIED PATIENT CARE STAFF:[id number] 12:38:00 Test Item Value Reference Range Interpretation Comments MAGNESIUM (test code = MAG) 2.1 MG/DL 1.6-2.3 N RECOLLECTION NEEDED ON 08/03/20 AT 1129 BY [id number]: HEMOLYZEDNOTIFIED PATIENT CARE STAFF:MOONPROTHROMBIN [id number] 11:21:00 Test Item Value Reference Range Interpretation [...] elvin embolism. 3.0 - 4.5 Comments to Estimator Project Manager: WILL BRING SPECIMAN TO THE LABPTT [id number] 11:21:00 Test Item Value Reference Range Interpretation Comments PTT ACTIVATED (test code = APTT) 29.5 SECONDS 25.1-36.5 N Comments to Estimator Project Manager: WILL BRING SPECIMAN TO THE LABCBC W/AUTO [...] 0.0-0.1 N NRBC#) COVID 19 Asymptomatic IH [id number] 10:22:00 Test Item Value Reference Range Interpretation [...] virus (antigen) in the sample." BASIC METABOLIC [id number] 05:44:00 Test Item Value Reference Range Interpretation [...] 0-189 mg/dL VERY HIGH.........>/ = 190 mg/dL [id number] 05:44:00 Test Item Value Reference Range Interpretation Comments MAGNESIUM (test code = MAG) 2.1 MG/DL 1.6-2.3 N PROTHROMBIN [id number] 05:34:00 Test Item Value Reference Range Interpretation [...] myocar dial infarction. 2.0 - 3.0 3. Planer Operator / Grader al prosthesis hear t valves, recurre nt systemic emboli sm. 3.0 - 4.5 PTT [id number] 05:34:00 Test Item Value Reference Range Interpretation Comments PTT ACTIVATED (test code = APTT) 32.4 SECONDS 25.1-36.5 N BASIC METABOLIC [id number] 05:33:00 Test Item Value Reference Range Interpretation [...] LDL (test MG/DL 0-99 code = LDL) [id number] 05:33:00 Test Item Value Reference Range Interpretation Comments MAGNESIUM (test code = MAG) 2.1 MG/DL 1.6-2.3 N BASIC METABOLIC [id number] 05:32:00 Test Item Value Reference Range Interpretation [...] LDL (test MG/DL 0-99 code = LDL) [id number] 05:32:00 Test Item Value Reference Range Interpretation Comments MAGNESIUM (test code = MAG) MG/DL 1.6-2.3 BASIC METABOLIC [id number] 05:29:00 Test Item Value Reference Range Interpretation [...] LDL (test code = LDL) MG/DL 0-99 [id number] 05:29:00 Test Item Value Reference Range Interpretation Comments MAGNESIUM (test code = MAG) MG/DL 1.6-2.3 CBC W/AUTO [id number] 05:22:00 Test Item Value Reference Range Interpretation [...] 0.0-0.1 N NRBC#) COVID 19 Asymptomatic IH [id number] 04:51:00 Test Item Value Reference Range Interpretation [...] amount of virus (antigen) in the sample." Notes Date/Time Note Provider Source 2020-08-04 08:04:00-00:00 [facility] ([facility]) Cardiology Progress Note REPORT#:[id number] REPORT STATUS: Signed DATE:08/04/20 TIME: 803 PATIENT: FREDI TERRELL UNIT #: [id number] ROOM/BED: [address] : 43 AGE: 75 SEX: M ATTEND: Wayne Paez MD ADM AUTHOR: Sumeet Paez MD * ALL edits or amendments must be made on the [employer]/computer document * Subjective Chief Complaint: Atrial Flutter Patient reports: No: chest pain, palpitations, shortness of breat h. Objective General VS/I O: 24 hour I O ending at 0700: 08/04 0700 08/03 1900 Intake Total 1450.00 Output Total Balance 1450.00 Intake, IV 1000.00 Intake, Oral 450 Number Voids 3 Vital Signs: Date Time Temp Pulse Resp B/P B/P Pulse O2 O2 F low FiO2 Mean Ox Delivery Rate 08/04 0730 98.1 72 18 121/67 85.2 96 Room air 08/048 98.4 70 18 150/78 101.6 94 Room air 08/032 98.4 81 18 149/79 102.5 95 Room air 08/03 2137 98.2 159/89 112.0 08/03 2101 70 87 08/03 2049 72 87 08/03 2045 70 88 08/04 2043 68 152/82 105.3 89 08/03 2040 69 152/82 105.3 92 08/03 2024 67 89 08/04 2019 65 160/81 107.2 89 08/04 2003 72 160/81 107.2 92 08/03 2001 75 144/83 103.6 89 08/03 1941 69 144/83 103.6 92 08/03 1931 72 89 08/03 1928 72 89 08/038 70 89 08/03 1909 68 89 08/04 1903 69 89 08/03 1901 72 89 08/03 1858 98.1 65 134/77 95.9 87 08/03 185 98.1 69 18 134/77 95.9 95 Nasal cannula 08/03 1858 98.1 69 18 134/77 95.9 95 Nasal cannula 08/03 1850 69 89 08/03 1848 68 147/79 101.7 88 08/03 184 63 147/79 101.7 92 PATIENT WEIGHT: Weight (lb): Weight (oz): Weight (kg): Medications: Active Meds + DC'd Last 24 Hrs Atorvastatin Calcium 10 MG DAILY@2100 PO Cholecalciferol 2,000 UNIT DAILY PO (CKD) Famotidine 40 MG DAILY PO (DC) Loratadine 10 MG DAILY PO Losartan Potassium 100 MG DAILY PO Carvedilol 12.5 MG BID MEALS PO Famotidine 40 MG DAILY PO Carvedilol 12.5 MG BID MEALS PO (DC) Acetaminophen 500 MG Q6H PRN PRN PO Clonidine HCl 0.2 MG Q8H PRN PRN PO Sodium Chloride 1,000 ML ONCE ONE IV (DC) Fentanyl Citrate 0 .STK-MED ONE .ROUTE (DC) Isoproterenol HCl 0 .STK-MED ONE .ROUTE (DC) Sodium Chloride 1,000 ML .STK-MED ONE IV (DC) Sodium Chloride 250 ML .STK-MED ONE IV (DC) Ephedrine Sulfate 0 .STK-MED ONE .ROUTE (DC) Labetalol HCl 0 .STK-MED ONE .ROUTE (DC) Etomidate 0 .STK-MED ONE .ROUTE (DC) Fentanyl Citrate 0 .STK-MED ONE .ROUTE (DC) Propofol 0 .STK-MED ONE .ROUTE (DC) Heparin Sodium 0 .STK-MED ONE .ROUTE (DC) Heparin Sodium/Dextrose 0 .STK-MED ONE IV (DC) Heparin Sodium/Sodium Chloride 500 ML .STK-MED O NE IV (DC) Iopamidol 0 .STK-MED ONE .ROUTE (DC) Lidocaine 0 .STK-MED ONE .ROUTE (DC) Physical Exam General appearance: alert, awake, oriented Head/Eyes: atraumatic, normocephalic ENT: moist mucosal membranes Neck: full range of motion Cardiovascular: CV assessment: regular rate and rhythm Respiratory: clear to auscultation, no distress Lower extremity: LE assessment: no edema Musculoskeletal: full range of motion Neuro/AFTER SCHOOL PROGRAM DIRECTOR: alert, oriented X 3, CN II-XII intact Skin: dry, intact Wound/incision: Location: Bilateral groin Site condition: dressing clean dry Psychiatry: normal affect, normal judgment/insig ht, normal mood Results Findings/Data: Laboratory Tests 08/04 08/03 06 1205 Chemistry Sodium (137 - 145 MMOL/L) 134 L 139 Potassium (3.5 - 5.1 MMOL/L) 4.4 5.2 H Chloride (98 - 107 MMOL/L) 104 103 Carbon Dioxide (22 - 30 MMOL/L) 23 32 H Anion Gap (14 - 24 MMOL/L) 11 L BUN (9 - 20 MG/DL) 16 13 Creatinine (0.66 - 1.25 MG/DL) 0.90 1.10 Glomerular Filtr Rate > 60 > 60 Glucose (74 - 106 MG/DL) 164 H 100 Calcium (8.4 - 10.2 MG/DL) 8.4 9.3 Magnesium (1.6 - 2.3 MG/DL) 2.1 Total Bilirubin (0.2 - 1.3 MG/DL) 0.3 AST (17 - 59 UNITS/L) 29 ALT (<50 UNITS/L) 16 Total Alk Phosphatase (38 - 126 UNITS/L) 64 Total Protein (6.2 - 7.6 G/DL) 7.1 Albumin (3.5 - 5.0 G/DL) 3.7 Laboratory Tests 08/03 1000 Coagulation INR (0.86 - 1.14) 1.0 APTT (25.1 - 36.5 SECONDS) 29.5 PT Patient/Control Mix (9.5 - 12.7) 11.1 Laboratory Tests 08/04 08/03 0624 1000 Hematology WBC (3.8 - 9.8 K/MM3) 7.2 4.6 RBC (3.95 - 5.67 M/MM3) 3.62 L 3.82 L Hgb (12.4 - 16.7 G/DL) 11.6 L 12.2 L Hct (35.9 - 49.5 %) 36.6 38.4 MCV (81.7 - 96.1 fL) 101 H 101 H MCH (27.6 - 33.2 pg) 32.0 31.9 MCHC (32.9 - 35.5 %) 31.7 L 31.8 L RDW (12.1 - 15.2 %) 13.7 14.0 Plt Count (129 - 368 K/MM3) 115 L 140 MPV (7.4 - 10.4 fl) 10.5 H 10.6 H Neut % (Auto) (43 - 75 %) 80.2 H 57.9 Lymph % (Auto) (14 - 44 %) 14.8 29.1 Armstrong % (Auto) (4 - 13 %) 4.3 10.1 Eos % (Auto) (0 - 6 %) 0.0 2.0 Baso % (Auto) (0 - 2 %) 0.1 0.9 Neut # (Auto) (2.0 - 7.6 K/mm3) 5.76 2.65 Lymph # (Auto) (1.0 - 3.8 K/mm3) 1.06 1.33 Armstrong # (Auto) (0.1 - 0.8 K/mm3) 0.31 0.46 Eos # (Auto) (0.0 - 0.2 K/mm3) 0.00 0.09 Baso # (Auto) (0.0 - 0.2 K/mm3) 0.01 0.04 Immature Gran % (0.0 - 2.0 %) 0.6 0.0 Nucleated RBC % (0 - 1.0 %) 0.0 0.0 Nucleated RBCs # (Man) (0.0 - 0.1 K/mm3) 0.00 0 .00 Laboratory Tests 08/03 0950 Serology SARS-CoV-2 Ag (Rapid) (Negative) NEGATIVE Laboratory Tests 08/03 1205 Chemistry Magnesium (1.6 - 2.3 MG/DL) 2.1 Laboratory Tests 08/03 1000 Coagulation APTT (25.1 - 36.5 SECONDS) 29.5 Diagnosis, Assessment Plan Free Text DxA P Notes Free Text DxA P Notes: IMP: Atrial Flutter s/p RFA PLAN: d/c home f/u one week. at 0811 RPT #:[id number] END OF REPORT 2020-08-04 06:13:00-00:00 [id number] [address] PATIENT NAME: FREDI TERRELL ADMIT DATE: 08/03 ACCOUNT NO: [id number] ROOM NO: Z.356 AGE: 75 REPORT TYPE: ELECTROCARDIOGRAM SEX: M ADMITTING PHYSICIAN:Sumeet Paez MD ATTENDING PHYSICIAN:Sumeet Paez MD Order: [id number] Test Reason : aflutter Test Date/Time Stamp: SunAug 04 2020 06:13:33 Blood Pressure : / mmHG Vent. Rate : 067 BPM Atrial Rate : 067 BPM P-R Int : 170 ms QRS Dur : 080 ms QT Int : 398 ms P-R-T Axes : 058 001 080 degree s QTc Int : 420 ms Normal sinus rhythm Normal ECG When compared with ECG of 03-AUG-2020 19:32, No significant change was found Confirmed by ADEEL HULL ([id number]) on 08/04/2020 7:11:21 AM Referred By: Self Referred Confirmed by:ADEEL LEE at 0711 PATIENT NAME: FREDI TERRELL [id number] 2224-04-20 19:32:00-00:00 [id number] [address] PATIENT NAME: FREDI TERRELL ADMIT DATE: 08/03 ACCOUNT NO: [id number] ROOM NO: Z.356 AGE: 75 REPORT TYPE: ELECTROCARDIOGRAM SEX: M ADMITTING PHYSICIAN:Sumeet Paez MD ATTENDING PHYSICIAN:Sumeet Paez MD Order: [id number] Test Reason : Atrial Flutter Test Date/Time Stamp: SunAug 03 2020 19:32:25 Blood Pressure : / mmHG Vent. Rate : 072 BPM Atrial Rate : 072 BPM P-R Int : 168 ms QRS Dur : 084 ms QT Int : 404 ms P-R-T Axes : 063 005 042 degree s QTc Int : 442 ms Normal sinus rhythm Normal ECG When compared with ECG of 03-AUG-2020 11:12, No significant change was found Confirmed by ADEEL HULL ([id number]) on 08/04/2020 7:11:09 AM Referred By: Self Referred Confirmed by:ADEEL LEE at 0711 PATIENT NAME: FREDI TERRELL [id number] 4263-04-20 18:28:00-00:00 [id number] [place] [address] PATIENT NAME: FREDI TERRELL ADMIT DATE: 08/03 ACCOUNT NO: [id number] ROOM NO: Z.356 AGE: 75 REPORT TYPE: CARDIAC CATHETERIZATION REPORT SEX: M ADMITTING PHYSICIAN:Sumeet Paez MD ATTENDING PHYSICIAN:Sumeet Paez MD PROCEDURE DATE: 08/03/2020 PROCEDURES: 1. Comprehensive electrophysiology study with at rial ablation. 2. Left atrial recordings. 3. Three-dimensional interatrial mapping. PREPROCEDURE DIAGNOSIS: Atrial flutter. POSTPROCEDURE DIAGNOSES: 1. Typical isthmus-dependent atrial flutter. 2. Left atrial tachycardia. SENIOR SAS DEVELOPER: Sumeet Paez MD ANESTHESIA: General endotracheal anesthesia. PLASMA CENTER TECHNICIAN: None. PROCEDURE DETAILS: After informed consent was ob tained explaining to the patient the risks, benefits, and alternatives, t he patient was brought to the cardiac catheterization lab in the fasting postabsorptive state. He was prepped and draped in sterile fashio n. After Following induction of general anesthesia, local anesthesia was applied over both f emoral veins with 1% lidocaine. Access to the veins was obtained using modified [place] er technique with a micropuncture kit and ultras ound guidance. A locking 8-Spanish sheath and Frankfort sheath were placed in the right femoral vein over the J-wire. Two 6-Spanish and one 7-Spanish sheath were placed in left femoral vein. All sheaths were aspirated and flushed and connected to h eparinized saline infusion. A 5-Spanish Cournand catheter was advanced via a 6-Spanish eath and placed in the right ventricle. A 6-Spanish Cournand catheter was adva nced via the 7-Spanish sheath and placed in the HIS position. A 5-Fren ch Tonny catheter was advanced via the 6-Spanish sheath and placed in the right atri um. A deflectable decapolar catheter was advanced via th e locking 8-Spanish sheath and placed in the coronary sinus. Program stimulation was performed. Follow ing initial induction of an atrial tachycardia, the HIS catheter was removed and the 7-Spanish sheath was exchanged for an 8-Spanish sheath over the wire. The sheath was aspirated and flushed and connected to heparinized saline infu prakash. An isthmus Duodeca catheter was advanced via the 8-Spanish sheath an d placed around cavotricuspid isthmus in the right atrium. Further program sti mulation was performed. FINDINGS: Counterclockwise, atrial flutter was r eproducibly inducible. The PATIENT NAME: FREDI TERRELL [id number] tachycardia terminated repeatedly prior to entra inment. However, given the patient's baseline outpatient presentation and r ecurrent inducibility of a counterclockwise atrial flutter, a decision was made to proceed with the cavotricuspid isthmus ablation line. A STSF Ther moCool ablation catheter was then advanced via the Frankfort sheath. The cathete r was advanced over the cavotricuspid isthmus and mu ltiple RF applications were made across the isthmus. This resulted in bidirectional block, which was verified by pacing. There appeared to be a small gap a fter the initial appearance of isthmus block. There also appeared to be a small pouch in the medial line. An additional line was created laterally. Bidirectional isthmus block w as verified with differential pacing. Further program stimulation was performe d and an unstable right sided tachycardia transition into a left atrial tachyc ardia, which spontaneously terminated. There is no typical atrial flutter w as inducible, the catheters were removed. The sheaths were aspirated and flushed. The sheaths were removed and hemostasis achieved with local pressure. The patient tolerated the procedure well with no complications. CONCLUSIONS: 1. Successful cavotricuspid isthmus ablation. 2. Transient left atrial tachycardia noted. 3. Estimated blood loss 15 mL. 4. No complications. Dictated By: Sumeet Paez MD WT: CATH:Z.CPS/PEPGR/NTS Conf#: [id number]/DID#: [id number] cc: Adeel Hull MD Authenticated by Sumeet Paez MD On 08/05/19 08:12:37 AM at 0812 PATIENT NAME: FREDI TERRELL [id number] 5297-04-20 11:12:00-00:00 [id number] [place] [id number] PATIENT NAME: FREDI TERRELL ADMIT DATE: 08/03 ACCOUNT NO: [id number] ROOM NO: AGE: 75 REPORT TYPE: ELECTROCARDIOGRAM SEX: M ADMITTING PHYSICIAN: ATTENDING PHYSICIAN:Sumeet Paez MD Order: [id number] Test Reason : PVI Test Date/Time Stamp: SunAug 03 2020 11:12:47 Blood Pressure : / mmHG Vent. Rate : 062 BPM Atrial Rate : 062 BPM P-R Int : 178 ms QRS Dur : 090 ms QT Int : 410 ms P-R-T Axes : 044 052 059 degree s QTc Int : 416 ms Normal sinus rhythm Normal ECG When compared with ECG of 28-FEB-2020 05:36, No significant change was found Confirmed by MD GUERRA ALFREDO TOMAS ([id number]) on 08/03/2020 4:59:07 PM Referred By: Sumeet Paez Confirmed by:RAFA GUERRA MD at 165 PATIENT NAME: FREDI TERRELL [id number] 2464-04-20 11:12:00-00:00 [id number] [place] 6236982 PATIENT NAME: FREDI TERRELL ADMIT DATE: 08/03 ACCOUNT NO: [id number] ROOM NO: AGE: 75 REPORT TYPE: ELECTROCARDIOGRAM SEX: M ADMITTING PHYSICIAN: ATTENDING PHYSICIAN:Sumeet Paez MD Order: [id number] Test Reason : PVI Test Date/Time Stamp: SunAug 03 2020 11:12:47 Blood Pressure : / mmHG Vent. Rate : 062 BPM Atrial Rate : 062 BPM P-R Int : 178 ms QRS Dur : 090 ms QT Int : 410 ms P-R-T Axes : 044 052 059 degree s QTc Int : 416 ms Normal sinus rhythm Normal ECG When compared with ECG of 28-FEB-2020 05:36, No significant change was found Reconfirmed by ADEEL HULL ([id number]) on 1 5:10:40 PM Referred By: Sumeet Paez Confirmed by:ADEEL MOCTEZUMA at 1710 PATIENT NAME: FREDI TERRELL [id number] 0264-11-14 19:54:00-00:00 [id number] [place] [address] PATIENT NAME: FREDI TERRELL ADMIT DATE: 02/28/20 ACCOUNT NO: [id number] ROOM NO: AGE: 74 REPORT TYPE: CONSULTATION REPORT SEX: M ADMITTING PHYSICIAN: ATTENDING PHYSICIAN:Adeel Hull MD CONSULTATION DATE: 02/28/2020 CONSULTING PHYSICIAN: Viet Mark MD CARDIAC SURGERY SERVICE DIAGNOSES: Abdominal aortic aneurysm, hypertensi on, hyperlipidemia, atrial fibrillation, abdominal aortic aneurysm. BRIEF HISTORY: This is a 74- year-old patient, known to Dr. Hull for the last 9 years. The patient has an enlarging abdominal aortic aneurysm of 3.4 to 4.2 cm. The patient had a caroti d duplex imaging that showed less than 50% disease. He also had an echocardiogram, which wa s normal. The patient has very hard to control hypertension. He has hyperlipidemia, atr ial fibrillation, and the patient was brought in for angiogram and evaluat ion for possible renal artery stenosis. The patient has stopped smoking. The patient is now retired. REVIEW OF SYSTEMS: Otherwise, it is negative. No history of hemophilia, coagulopathy, varicose vein stripping or phlebit is. Angiogram was done showing d iffuse enlargement of the abdominal aorta infrarenal about 4.2 cm. No obvious saccular outpouching. I t appears to be relatively uniform in dilation. The patient denies any sym ptoms as far back pain or abdominal pain at this time. PHYSICAL EXAMINATION: GENERAL: Demonstrates well-nourished mal e, in no apparent distress. No carotid bruits. Carotid pulse present. Radial pulse pres ent. CHEST: Clear. HEART: Regular rate and rhythm without murmur. ABDOMEN: Soft, nontender, without mass. EXTREMITIES: Femoral pulse present. Pedal pulse absent. BREASTS AND RECTAL: Not done. NEUROLOGIC: Physiological. ASSESSMENT: Abdominal aortic aneurysm of 4.2 cm. RECOMMENDATIONS: The patient to have followup in [address] angiogram. We can see the patient in followup in 1 year in the office also. Thank you for the consultation. PATIENT NAME: FREDI TERRELL 70 I explained the patient that there is no need fo r surgery according to the size of the aortic aneurysm at this time but to continue to have close followup with Dr. Hull, his clinical writer and myself once a year. Dictated By: Viet Mark MD WT: CON:[id number]/MEKA/YOLANDA Conf#: [id number]/DID#: [id number] Authenticated and Edited by Viet Mark MD On 03/07/20 9:11:08 PM at 2113 PATIENT NAME: FREDI TERRELL 70 2020-02-28 08:35:00-00:00 [id number] [place] [address] PATIENT NAME: FREDI TERRELL ADMIT DATE: 02/28/20 ACCOUNT NO: [id number] ROOM NO: AGE: 74 REPORT TYPE: CARDIAC CATHETERIZATION REPORT SEX: M ADMITTING PHYSICIAN: ATTENDING PHYSICIAN:Adeel Hull MD PROCEDURE DATE: 02/28/2020 CONTRACT ASSOCIATE: Adeel Hull MD. INDICATION FOR THE PROCEDURE: Malignant hyperten prakash and abdominal aortic aneurysm. TITLE OF THE PROCEDURE: 1. Abdominal. 2. Selective bilateral renal angiograms. ESTIMATED BLOOD LOSS: Minimal. COMPLICATIONS: None. CONTRAST: 95 mL. ANESTHESIA: Conscious sedation with Versed and f entanyl and 1% lidocaine for local anesthesia. FINAL DIAGNOSES: A 4.2 cm abdominal aortic aneur ysm that is 9.5 cm in length, it is completely infrarenal, no renal ar colleen stenosis. There is dual supply on the left renal. The recommendation is surgical c onsultation. PROCEDURE IN DETAIL: After informed consent, the patient was brought to the cardiac catheterization lab in a stable fasting nonsedated state. He was prepped and draped in the usual sterile fashion. After conscious sedation, 1% lidocaine was administered to the right common f emoral artery area for local anesthesia. A 6-Spanish sheath was placed in the right common femoral artery using standard techniques and fluoroscopy. After heparinization, abdominal angiogram showed an infraren al abdominal aortic aneurysm of 4.2 cm in width and the length was about 9.5 cm. There is 1 renal ar colleen to the right, 2 to the left, 1 small one, 1 normal size. The selective renal angiogram showed no renal artery stenosis, good perfusion of both kidneys. The aneurysm is not adjacent to the origin of the renal arteries. The right g roin was sealed using Angio-Seal. There were no complications. The pat ient tolerated the procedure well. He will be transferred back to the holding area for observation to be discharged later on today on medical therapy and risk factor modification. He will be seen by Dr. Mark for surgical consult ation. Dictated By: Adeel Hull MD PATIENT NAME: FREDI TERRELL 70 WT: CATH:JANICE/ALEJANDRO/YOLANDA Conf#: [id number]/DID#: [id number] Authenticated by Adeel Hull MD On 02/14 08:50:56 AM at 0851 PATIENT NAME: FREDI TERRELL 70 2020-02-28 05:36:00-00:00 [id number] [address] PATIENT NAME: FREDI TERRELL ADMIT DATE: 02/28/20 ACCOUNT NO: [id number] ROOM NO: AGE: 74 REPORT TYPE: ELECTROCARDIOGRAM SEX: M ADMITTING PHYSICIAN: ATTENDING PHYSICIAN:Adeel Hull MD Order: [id number] Test Reason : ABDOMINAL AORTOGRAM Test Date/Time Stamp: SunFeb 28 2020 05:36:13 Blood Pressure : / mmHG Vent. Rate : 063 BPM Atrial Rate : 063 BPM P-R Int : 170 ms QRS Dur : 088 ms QT Int : 402 ms P-R-T Axes : 069 047 078 degree s QTc Int : 411 ms Normal sinus rhythm Normal ECG No previous ECGs available Confirmed by ADEEL HULL ([id number]) on 02/28/2020 6:07:57 AM Referred By: Adeel Hull Confirmed by:ADEEL LEE at 0608 PATIENT NAME: FREDI TERRELL 70 2020-02-27 16:19:00-00:00 [id number] [place] [id number] PATIENT NAME: FREDI TERRELL ADMIT DATE: 02/28/20 ACCOUNT NO: [id number] ROOM NO: AGE: 74 REPORT TYPE: HISTORY AND PHYSICAL SEX: M ADMITTING PHYSICIAN: ATTENDING PHYSICIAN:Adeel Hull MD PATIENT NAME: FREDI TERRELL ADMIT DATE:02/28/2020 ADMISSION DATE: 02/28/2020 ADMISSION HISTORY AND PHYSICAL CONTRACT ASSOCIATE: Adeel Hull MD REASON FOR ADMISSION: Abdominal angiograms to as sess his abdominal aortic aneurysm and renal arteries prior to planned analisa gical intervention. HISTORY OF PRESENT ILLNESS: Fredi is a 74-year-ol d patient of mine who I have been following in my clinic since 2010. The tang ent has a long history of hypertensive heart disease, paroxysmal atrial fi brillation, hyperlipidemia, paroxysmal supraventricular tachycardia. He was recently found to have a large abdominal aortic aneurysm around 4.2 cm. He is b eing evaluated for possible surgical or percutaneous intervention. He has be en having extremely elevated blood pressure. There is a concern about renal a rtery stenosis in addition to the aneurysm. His aneurysm has grown sin ce 2016 from a 3.4 to 4.2. He recently underwent cardiovascular workup. He had a caroti d Doppler on June 2016, that showed less than 50% disease. He had an echocard iogram on 01/14/2020 that showed normal ejection fraction, mild mitral reg urgitation, hypertensive changes. A nuclear stress test was kenrick ed out on 02/18/2020 that was negative for ischemia. He had recent also Holter monitor that showed no significant arrhythmias. The patient is here today o nly for abdominal angiograms and renal artery angiograms. His hypertension, has been very labile lately and requiring multiple medications. PAST MEDICAL HISTORY: Remarkable for hypertensio n, hyperlipidemia, paroxysmal atrial fibrillation, cardiom egaly, PVCs, dizziness, acid reflux lymphoma/sarcoma emphysema and allergies. PAST SURGICAL HISTORY: He has had foot surgery, leg surgery, lung surgery, parotid gland lymphoma. ALLERGIES: HYDROCODONE CAUSES DIZZINESS. MEDICATIONS: Reviewed and listed. SOCIAL HISTORY: The patient quit smoking years a go. There is no history of alcohol or street drug use. FAMILY HISTORY: Positive for atherosclerotic car diovascular disease. PATIENT NAME: FREDI TERRELL 89 REVIEW OF SYSTEMS: Remarkable for the above. The patient denies any angina. He has dyspnea on mild exert ion. He has insomnia, allergies, dry mouth, asthma, nonspecific abdominal pain, easy bruisability, n onspecific leg pains and dizziness. Rest of the review of system is enclo sed. No acute GI or symptoms. No TIAs or strokes. PHYSICAL EXAMINATION: GENERAL: Reveals a pleasant elderly male, in no acute distress. VITAL SIGNS: Blood pressure 190/80, pulse 58 and regular, respiratory rate 18 and unlabored, and temperature afebrile. HEENT: Head, atraumatic and normocephalic. Eyes and ENT examination within normal for age. NECK: Supple. No jugular venous distention, brui ts, or lymphadenopathy. Normal upstroke. LUNGS: Clear and resonant. HEART: Regular rate and rhythm with II/V I systolic ejection murmur at the left lower sternal border. No gallops. ABDOMEN: Soft. No tenderness, no organomegaly, n o masses or bruits. The abdomen is obese. EXTREMITIES: 2+ distal pulses. No edema, cyanosi s, or clubbing. NEUROLOGIC: Alert and oriented x3. The examinati on appears to be nonfocal. LABORATORY DATA: Pending. Noninvasive cardiovasc ular workup enclosed. IMPRESSION: This is a 74-year-old patient with a bdominal aortic aneurysm that has been enlarging. He has uncontrolled hyperten prakash. He has no active coronary artery disease. No significant carotid disease. He has paroxysmal atrial fibrillation, hyperte nsive heart disease, and paroxysmal supraventricular tachycardia, both have been stable. The patient is here for abdominal angiograms to assess his ane urysm and to assess his renal arteries and decide on intervention on the abdomina l aortic aneurysm. The recommendation is to proceed with the above-mentioned procedures. The risks a nd benefits of the planned procedures were discussed in detail with the pat ient and he is willing to proceed. Rest as per orders. Dictated By: Adeel Hull MD WT: HP:ABBY/ALEJANDRO/YOLANDA Conf#: [id number]/DID#: [id number] Authenticated and Edited by Adeel Hull MD On 02/28/20 6:11:51 AM at 0614 PATIENT NAME: FREDI TERRELL 70
[2022-08-29 14:32] LABS: Hematocrit 40.4 % (39.6-49.0); MCV 96.1 fL (80-100); MPV 8.5 fL (7.6-11.3)
[2022-08-29] MEDS ORDERED: MAGNESIUM SULFATE 1 gm IVPB 1 GM/100 ML BAG IV ONE (14:34)
[2022-08-29] MEDS ORDERED: NA CHLORIDE 0.9% 250 ML ONE (14:34)
[2022-08-29 14:46] LABS: Protime INR 1.07
[2022-08-29 14:52] LABS: ALT/SGPT 27 U/L (16-61); AST/SGOT 21 U/L (15-37); Albumin 3.7 g/dL (3.4-5.0); Alkaline Phosphatase 106 U/L (45-117); BUN Blood Urea Nitrogen 15 mg/dL (7-18); Bicarbonate 32 mEq/L (21-32); Bilirubin Total 0.3 mg/dL (0.2-1.0); Glomerular Filtration Rate 71 ml/min (=/>90); Glucose Level 103 mg/dL (74-106); NT PRO-BNP 1262 pg/mL (<450); Potassium 4.3 mEq/L (3.5-5.1); Protein, Total 8.5 g/dL (6.4-8.2); Sodium Level 133 mEq/L (136-145); Troponin High Sensitivity 15.1 pg/mL (<58.9)
[2022-08-29 14:59] LABS: Bilirubin Direct < 0.1 mg/dL (0-0.2)
[2022-08-29 15:00] LABS: Bilirubin Indirect, Calculated ND mg/dL (0.2-0.8)
--- NOTE | 2022-08-29 15:02 | RAD REPORT ---
EXAM DESCRIPTION: RAD - Chest Single View - 08/29/2022 2:57 pm CLINICAL HISTORY: PALPITATIONS Chest pain. COMPARISON: Chest Single View dated 07/26/2022; Chest Single View dated 06/25/2022; Chest Single View dated 12/23/2021; Chest Single View dated 01/19/2021 FINDINGS: Portable technique limits examination quality. Bilateral pulmonary opacities are noted which are chronic in nature. Small right pleural effusion. Th e heart is normal in size. No displaced fractures. IMPRESSION: No acute intrathoracic process suspected.
--- NOTE | 2022-08-29 15:44 | ER ---
Nurse's Notes [facility] Name: Fredi Barth Age: 77 yrs Sex: Male : 1945 Arrival Date: 08/29/2022 Time: 13:42 Bed 15 Private MD: Diagnosis: Paroxysmal atrial fibrillation Presentation: 08/29 13:56 Chief complaint: Patient states: was sent here for Afib, has hx of afib , at 6 am he iw took 120 sotalol and 20 losartan and 5 eliquis and 1000 tylenol, at 8 am his BP was 162/98 [place]=500 , it was going back and forth and at 0926 139/91 HR 131 and he took 80 mg sotalol, regulated his BP but his pulse was still irregular, at noon BP was 99/73, [place]=500 . He called [facility] and was told to come in , pt feels palpitations, and intermittent SOB , denies chest pain, he's been breaking out in a sweat. Coronavirus screen: At this time, the client does not indicate any symptoms associated with coronavirus-19. Ebola Screen: Patient negative for fever greater than or equal to 101.5 degrees Fahrenheit, and additional compatible Ebola Virus Disease symptoms Patient denies exposure to infectious person. Patient denies travel to an Ebola-affected area in the 21 days before illness onset. No symptoms or risks identified at this time. Risk Assessment: Do you want to hurt yourself or someone else? Patient reports no desire to harm self or others. 13:56 Method Of Arrival: Ambulatory iw 13:56 Acuity: PHYLLIS 3 iw 17:03 Initial Sepsis Screen: Does the patient meet any 2 criteria? No. Patient's initial ld1 sepsis screen is negative. Does the patient have a suspected source of infection? No. Patient's initial sepsis screen is negative. Onset of symptoms was August 29, 2022 at 17:03. Historical: - Allergies: 13:59 HYDRALAZINE; iw 13:59 HYDROCODONE; iw - PMHx: 13:59 aortic aneurysm; Atrial Fib; Cancer, Lung; COPD; GERD; Hypertension; radiation; iw Sjogren's Syndrome; - PSHx: 13:59 ablation for afib; lung aurgery x5; iw - Immunization history:: Adult Immunizations up to date. - Social history:: Smoking status: . - Family history:: not pertinent. - Hospitalizations: : No recent hospitalization is reported. Screenin:45 [facility] ED Fall Risk Assessment (Adult) History of falling in the last 3 months, ld1 including since admission No falls in past 3 months (0 pts). Abuse screen: Denies threats or abuse. Denies injuries from another. Nutritional screening: No deficits noted. Tuberculosis screening: No symptoms or risk factors identified. Assessment: 14:45 General: Appears in no apparent distress. comfortable, Behavior is calm, cooperative, ld1 appropriate for age. Pain: Denies pain. Neuro: Level of Consciousness is awake, alert, obeys commands, Oriented to person, place, time, situation. Cardiovascular: Capillary refill < 3 seconds Patient's skin is warm and dry. Rhythm is atrial fibrillation. Respiratory: Reports shortness of breath on exertion Airway is patent Respiratory effort is even, unlabored. GI: Abdomen is flat, non-distended. : No signs and/or symptoms were reported regarding the genitourinary system. EENT: No signs and/or symptoms were reported regarding the EENT system. Derm: No signs and/or symptoms reported regarding the dermatologic system. Musculoskeletal: No signs and/or symptoms reported regarding the musculoskeletal system. 15:45 Reassessment: Patient appears in no apparent distress at this time. No changes from ld1 previously documented assessment. Patient and/or family updated on plan of care and expected duration. Pain level reassessed. Patient is alert, oriented x 3, equal unlabored respirations, skin warm/dry/pink. 16:15 Reassessment: Patient appears in no apparent distress at this time. No changes from ld1 previously documented assessment. Patient and/or family updated on plan of care and expected duration. Pain level reassessed. Patient is alert, oriented x 3, equal unlabored respirations, skin warm/dry/pink. Pt reports feeling better, converted to sinus rhythm, ERP at bedside discussing care. Patient denies pain at this time. 17:02 Reassessment: Patient appears in no apparent distress at this time. Patient is alert, ld1 oriented x 3, equal unlabored respirations, skin warm/dry/pink. Patient states feeling better. Patient states symptoms have improved. Vital Signs: 13:56 BP 119 / 86; Pulse 128; Resp 18; Temp 98.7; Pulse Ox 100% on R/A; iw 14:45 BP 126 / 78; Pulse 118; Resp 15; Pulse Ox 98% on R/A; Pain 0/10; ld1 16:03 Pulse 65; ld1 16:44 BP 113 / 64; Pulse 69; Resp 18; Pulse Ox 94% on R/A; ld1 14:45 Pain Scale: Adult ld1 ED Course: 13:43 Patient arrived in ED. rg4 13:44 Simeon Shepherd MD is Attending Physician. rn 13:59 Triage completed. iw 14:00 Arm band placed on. iw 14:11 Adriana Chandra, NIURKA is Primary Nurse. ld1 14:25 Inserted saline lock: 20 gauge in right forearm, using aseptic technique. Blood ld1 collected. 14:45 Patient has correct armband on for positive identification. Placed in gown. Bed in low ld1 position. Call light in reach. Side rails up X2. monitoring and evaluation advisor on. Pulse ox on. NIBP on. Door closed. Noise minimized. Warm blanket given. 14:45 No provider procedures requiring assistance completed. ld1 14:59 XRAY Chest (1 view) In Process Unspecified. EDMS 15:42 Rustam Levin MD is Hospitalizing Provider. rn 16:54 Christian Israel MD is Referral Physician. rn 17:03 IV discontinued, intact, bleeding controlled, No redness/swelling at site. ld1 Administered Medications: 14:32 Drug: NS 0.9% IV 250 ml Route: IV; Rate: 1 bolus; Site: right forearm; ld1 14:32 Drug: Magnesium Sulfate IVPB 1 grams Route: IVPB; Infused Over: 1 hrs; Site: right ld1 forearm; 16:03 Not Given (Physician Discretion): amiodarone IVPB 150 mg 100 ml IVPB once over 10 mins; ld1 (mix in D5W) 16:03 Not Given (Physician Discretion): amiodarone IVPB 900 mg, D5W IV 500 ml IVPB at 1 ld1 mg/min continuous; for 6 hrs, then change to 0.5 mg/min Medication: 14:45 VIS not applicable for this client. ld1 Outcome: 15:43 Decision to Hospitalize by Provider. rn 16:55 Discharge ordered by . rn 17:02 Discharged to home ambulatory, with family. ld1 17:02 Condition: stable 17:02 Discharge instructions given to patient, family, Instructed on discharge instructions, follow up and referral plans. Demonstrated understanding of instructions, follow-up care. 17:03 Patient left the ED. ld1 Signatures: Dispatcher [employer] EDLeeann Vazquez, RN Simeon Quispe MD MD rn Garcia, Rubi rg4 Adriana Chandra RN RN ld1
--- NOTE | 2022-08-29 15:44 | EDPHYS ---
Physician Documentation [facility] Name: Fredi Barth Age: 77 yrs Sex: Male : 1945 Arrival Date: 08/29/2022 Time: 13:42 Bed 15 Private MD: ED Physician Simeon Shepherd HPI: 08/29 14:32 This 77 yrs old Male presents to ER via Ambulatory with complaints of Sent By Jhonatan powell Afib. 14:32 The patient presents with a history of irregular heart beat, heart racing. Context: The rn symptoms occur at rest. Onset: The symptoms/episode began/occurred today. Modifying factors: The symptoms are aggravated by light activity, The symptoms are alleviated by rest. Associated signs and symptoms: Pertinent positives: lightheadedness. Severity of symptoms: At their worst the symptoms were moderate in the emergency department the symptoms have improved. The patient has experienced similar episodes in the past. The patient has been recently seen by a physician:. Pt reports palpitations for about 5 hours, has hx of afib, takes sotalol and eliquis, took extra sotalol earlier. Reports felt a little lightheaded earlier, currently feels fast heart rate but no chest pain or dyspnea. Sent by Dr. Israel for further evaluation and rate control. . Historical: - Allergies: 13:59 HYDRALAZINE; iw 13:59 HYDROCODONE; iw - PMHx: 13:59 aortic aneurysm; Atrial Fib; Cancer, Lung; COPD; GERD; Hypertension; radiation; iw Sjogren's Syndrome; - PSHx: 13:59 ablation for afib; lung aurgery x5; iw - Immunization history:: Adult Immunizations up to date. - Social history:: Smoking status: . - Family history:: not pertinent. - Hospitalizations: : No recent hospitalization is reported. ROS: 14:32 Constitutional: Negative for fever, chills, and weight loss, Eyes: Negative for injury, rn pain, redness, and discharge, Neck: Negative for injury, pain, and swelling, Cardiovascular: Negative for chest pain, and edema, Respiratory: Negative for shortness of breath, cough, wheezing, and pleuritic chest pain, Abdomen/GI: Negative for abdominal pain, nausea, vomiting, diarrhea, and constipation, Back: Negative for injury and pain, MS/Extremity: Negative for injury and deformity, Skin: Negative for injury, rash, and discoloration, Neuro: Negative for headache, weakness, numbness, tingling, and seizure. Exam: 14:32 Constitutional: This is a well developed, well nourished patient who is awake, alert, rn and in no acute distress. Head/Face: Normocephalic, atraumatic. Cardiovascular: Tachycardic, irregular Respiratory: No increased work of breathing, no retractions or nasal flaring. Skin: Warm, dry Neuro: Awake and alert, GCS 15 Vital Signs: 13:56 BP 119 / 86; Pulse 128; Resp 18; Temp 98.7; Pulse Ox 100% on R/A; iw 14:45 BP 126 / 78; Pulse 118; Resp 15; Pulse Ox 98% on R/A; Pain 0/10; ld1 16:03 Pulse 65; ld1 16:44 BP 113 / 64; Pulse 69; Resp 18; Pulse Ox 94% on R/A; ld1 14:45 Pain Scale: Adult ld1 MDM: 13:44 Patient medically screened. rn 15:41 Management of patient was discussed with the following: Top Installer: Dr. Israel requests rn hold sotalol, load with amiodarone and start amiodarone drip. . 15:42 Differential diagnosis: arrythmia, dehydration, stress disorder. Data reviewed: vital rn signs, nurses notes, lab test result(s), EKG, radiologic studies, plain films, and as a result, I will admit patient. Consideration of Admission/Observation Patient was admitted/placed on observation. Escalation of care including admission/observation considered. Counseling: I had a detailed discussion with the patient and/or guardian regarding: the historical points, exam findings, and any diagnostic results supporting the discharge/admit diagnosis, lab results, radiology results, the need for further work-up and treatment in the hospital. Response to treatment: the patient's symptoms have mildly improved after treatment, and as a result, I will admit patient. 16:45 ED course: Pt converted back to sinus rhythm prior to initiating amiodarone, observed, rn if continues to remain in sinus will dc home with return precautions. Patient already on eliquis and takes sotalol. Pt has had afib several times in past and currently asymptomatic. Patient wishes to go home. . 08/29 14:14 Order name: Basic Metabolic Panel; Complete Time: 15:03 rn 08/29 14:14 Order name: CBC with Diff; Complete Time: 15: rn 08/29 14:14 Order name: LFT's; Complete Time: 15: rn 08/29 14:14 Order name: NT PRO-BNP; Complete Time: 15:03 rn 08/29 14:14 Order name: PT-INR; Complete Time: 15: rn 08/29 14:14 Order name: Troponin HS; Complete Time: 15: rn 08/29 14:14 Order name: XRAY Chest (1 view); Complete Time: 15:03 rn 08/29 14:14 Order name: EKG; Complete Time: 14:14 rn 08/29 14:14 Order name: Cardiac monitoring; Complete Time: 14:25 rn 08/29 14:14 Order name: EKG - Nurse/Tech; Complete Time: 14:25 rn 08/29 14:14 Order name: IV Saline Lock; Complete Time: 14: rn 08/29 14:14 Order name: Labs collected and sent; Complete Time: 14: rn 08/29 14:14 Order name: O2 Per Protocol; Complete Time: 14: rn 08/29 14:14 Order name: O2 Sat Monitoring; Complete Time: 14:25 rn Administered Medications: 14:32 Drug: NS 0.9% IV 250 ml Route: IV; Rate: 1 bolus; Site: right forearm; ld1 14:32 Drug: Magnesium Sulfate IVPB 1 grams Route: IVPB; Infused Over: 1 hrs; Site: right ld1 forearm; 16:03 Not Given (Physician Discretion): amiodarone IVPB 150 mg 100 ml IVPB once over 10 mins; ld1 (mix in D5W) 16:03 Not Given (Physician Discretion): amiodarone IVPB 900 mg, D5W IV 500 ml IVPB at 1 ld1 mg/min continuous; for 6 hrs, then change to 0.5 mg/min Disposition Summary: 08/29/22 16:55 Discharge Ordered Location: Home(08/29/22 16:55) rn Problem: an acute exacerbation(08/29/22 16:55) rn Symptoms: have improved(08/29/22 16:55) rn Condition: Stable(08/29/22 16:55) rn Diagnosis - Paroxysmal atrial fibrillation rn Followup: rn - With: Christian Israel MD - When: As needed - Reason: Recheck today's complaints, Re-evaluation by your physician Forms: - Medication Reconciliation Form rn - Thank You Letter rn - Antibiotic international representative - Prescription Opioid Use divorce attorney time excluding procedures: 15:42 Critical care time: Bedside Care: 35 minutes, Consultation: 5 minutes. Total time: 40 rn minutes Signatures: Dispatcher [employer] EDLeeann Vazquez RN RN Simeon Paz MD MD rn Sims, Lauren RN RN ld1 Corrections: (The following items were deleted from the chart) 16:54 15:43 Inpatient Admission rn rn 16:54 15:43 Rustam Levin rn rn 16:54 15:43 Telemetry/MedSurg (Inpatient) rn rn 16:54 15:43 Stable rn rn 16:54 15:43 an acute exacerbation rn rn 16:54 15:43 have improved rn rn 16:54 15:43 Standard rn rn 16:54 15:43 rn rn 16:54 15:43 Persistent atrial fibrillation rn rn 16:54 15:43 Tachycardia, unspecified rn rn
[2022-08-29] MEDS ORDERED: D5W 100 ML IV ONE (15:52)
[2022-08-29] MEDS ORDERED: AMIODARONE HCL 150 MG/3 ML INJ IV ONE (15:52)
[2022-08-29] MEDS ORDERED: AMIODARONE HCL 900 MG in Dextrose 5%-Water 482 ML IV SCH (16:00)
[2022-08-29 17:16] VITALS: TEMP 98.7
[2022-08-29 17:20] VITALS: BP 113/64; O2SAT 94
--- NOTE | 2022-08-30 11:46 | EKG ---
Test Date: 2022-08-29 Test Time: 14:26:28 Program Professional: VIKI MEASUREMENT RESULTS: Intervals: Rate: 102 MT: QRSD: 78 QT: 284 QTc: 370 [place]: P: MT: QRS: 13 T: 77 INTERPRETIVE STATEMENTS: Atrial fibrillation with rapid ventricular response Abnormal ECG Compared to ECG 07/26/2022 04:06:32 ST (T wave) deviation no longer present Electronically Signed On 08-30-22 11:44:46 CDT by Guy Kenyon
--- NOTE | 2022-08-31 11:25 | EKG ---
Test Date: 2022-08-29 Test Time: 16:35:43 Courtroom Deputy Or Calendar Clerk: Bernadette WIGGINS MEASUREMENT RESULTS: Intervals: Rate: 63 [place]: 156 QRSD: 78 QT: 428 QTc: 437 [place]: P: 43 [place]: 156 QRS: 16 T: 42 INTERPRETIVE STATEMENTS: Normal sinus rhythm Septal infarct, age undetermined Abnormal ECG Compared to ECG 08/29/2022 14:26:28 Myocardial infarct finding now present Atrial fibrillation no longer present Electronically Signed On 08-31-22 11:20:33 CDT by Guy Kenyon
== END 2022-08-29 17:03 | disposition home or self-care (01) ==
LOC: ER 13:42
DX: I48.0 Paroxysmal atrial fibrillation (principal); Z79.01 Long term (current) use of anticoagulants; I10 Essential (primary) hypertension; Z88.5 Allergy status to narcotic agent; Z88.8 Allergy status to other drugs, medicaments and biological substances
CPT/HCPCS: 93005; 85025; 80048; 36415; 85610; 80076; 84484; 83880; 71045; 96375; 96374; 99285; J3475; J0282; J7050; J7060

== ENCOUNTER 2022-10-12 11:39 | Emergency (ER) | payer OTHER, BC ==
--- OUTSIDE RECORDS SUMMARY | 2022-10-12 11:43 | XMS REPORT | Continuity of Care Document ---
:1945 Author Organization [facility] t Address [address] [place] [address] Care Team Providers Name Role Phone [phone] Primary Care Physician Unavailable SYSTEM, PROVIDER NOT IN Attending Clinician Unavailable MARCO BELL Attending Clinician Unavailable YAIMA CA Attending Clinician Unavailable YANA ORTIZ Attending Clinician Unavailable CHU COYNE Attending Clinician Unavailable PETE AYALA Attending Clinician Unavailable DRAKE ALAVRENGA Attending Clinician Unavailable VALERIE JAMES Attending Clinician [...] Expiration Date Ubaldo carter MEDICARE PART A [id number] 2008 AND B 00:00:00 [place] POS [id number] 2015 00:00:00 Problems This patient has no [...] S 00 HYDRALAZ Drug Active High Sob 2022- MD INE Class 3-11 Anderso ANALOGUE 00:00: n S 00 hydrocod DA Active U [facility] 08[facility]03 00:00: [place] 00 [facility] hydrocod DA Active U DIZZINESS [facility] one 08-03 00:00: [address] hydrocod DA Active U 2019-04 [facility] one 04-28 00:00: [address] hydrocod DA Active U DIZZINESS 2019-04 [facility] one 04-28 00:00: [address] HYDROCOD DRUG Active Other 2015- MD ONE INGREDI 6-27 Anderso 00:00: n 00 HYDROCOD DRUG Active Other 2015- MD ONE INGREDI 627 Anderso 00:00: n 00 HYDROCOD DRUG Active Other 2015- MD ONE INGREDI 627 Anderso 00:00: n 00 HYDROCOD DRUG Active Other MD ONE INGREDI 627 Anderso 00:00: n [...] Facility Department ID 2021-05-19 Outpatient MDA MDA [id number] 17:41:03 Anderso n 2021-05-19 Outpatient MDA MDA [id number] 17:41:03 Anderso n 2021-05-19 Outpatient MDA MDA [id number] 17:41:03 Andyandyo n 2021-02-23 Outpatient [facility], MDA MDA [id number] 12:36:46 PATRICA beard 2022-10-10 2022-10-10 Outpatient KARLO BELL MDA MDA [id number] 14:15:13 14:15:13 MARCO beard 2022-10-10 2022-10-10 Outpatient KARLO CA MDA MDA [id number] 12:17:18 12:17:18 YAIMA beard 2022-10-03 2022-10-03 Outpatient KARLO CA MDA MDA [id number] 11:18:00 12:14:54 YAIMA beard 2022-10-02 2022-10-02 Outpatient KARLO CA MDA MDA [id number] 10:24:48 23:59:00 YAIMA beard 2022-10-02 2022-10-02 Outpatient KARLO CA MDA MDA [id number] 10:10:48 10:23:00 YAIMA beard 2022-07-18 2022-07-18 Outpatient KARLO ORTIZ MDA MDA [id number] 07:45:36 08:48:52 YANA beard 2022-07-18 2022-07-18 Outpatient KARLO COYNE MDA MDA [id number] 07:09:56 07:09:56 CHU beard 2022-06-22 2022-06-25 Inpatient KARLO ORTIZ MDA Thoracic [id number] 04:47:00 13:51:00 YANA beard 2022-06-20 2022-06-22 Outpatient KARLO AYALA MDA MDA [id number] 15:52:22 13:43:16 PETE beard 2022-06-20 2022-06-20 Outpatient KARLO AYALA, MDA MDA [id number] 09:22:59 23:59:00 PETE beard 2022-06-20 2022-06-20 Outpatient KARLO ALVARENGA, MDA MDA [id number] 12:46:02 15:51:27 DRAKE beard 2022-06-20 2022-06-20 Outpatient KARLO AYALA, MDA MDA [id number] 12:45:47 15:51:16 PETE beard 2022-06-20 2022-06-20 Outpatient KARLO ORTIZ, MDA MDA [id number] 10:04:21 12:42:48 YANA beard 2022-06-20 2022-06-20 Outpatient KARLO AYALA, MDA MDA [id number] 08:46:31 09:21:00 PETE beard 2022-05-16 2022-05-16 Outpatient KARLO CA, MDA MDA [id number] 09:34:05 10:09:04 YAIMA beard 2022-05-15 2022-05-15 Outpatient KARLO JAMES, MDA MDA [id number] 10:52:59 23:59:00 VALERIE beard 2022-05-15 2022-05-15 Outpatient KARLO JAMES, MDA MDA [id number] 10:37:08 10:51:00 VALERIE beard 2022-02-14 2022-02-14 Outpatient KARLO CA, MDA MDA [id number] 11:22:14 12:10:10 YAIMA beard 2022-02-14 2022-02-14 Outpatient KRALO MICHAEL, MDA MDA [id number] 09:37:26 09:37:26 ROSLYN beard 2022-02-13 2022-02-13 Outpatient EL MARCO AU, MDA MDA [id number] 09:00:00 23:59:00 ROSLYN beard 2022-02-13 2022-02-13 Outpatient ALEC, MDA MDA [id number] 09:29:54 09:29:54 ROSLYN beard 2021-10-20 2021-10-20 Outpatient CA, MDA MDA [id number] 08:52:46 09:47:28 YAIMA beard 2021-10-19 2021-10-19 Outpatient [facility] MDA MDA [id number] 09:01:57 09:01:57 STEPHEN Cardona so n 2021-06-16 2021-06-16 Outpatient EL [facility], MDA MDA [id number] 09:08:21 10:16:24 YAIMA beard 2021-06-15 2021-06-15 Outpatient [facility], MDA MDA [id number] 08:04:58 08:04:58 ARELY beard 2021-06-15 2021-06-15 Outpatient [facility], MDA MDA [id number] 07:54:25 07:56:08 ARELY beard 2021-04-19 2021-04-19 Outpatient [facility], MDA MDA [id number] 09:04:25 11:13:15 YANA beard 2021-04-19 2021-04-19 Outpatient [facility], MDA MDA [id number] 07:52:32 07:52:32 YANA beard 2021-03-17 2021-03-19 Inpatient ANGEL, MDA Thoracic [id number] 09:01:00 17:32:00 YANA beard 2021-03-14 2021-03-14 Outpatient DICKSON, MDA MDA [id number] 10:03:22 23:59:00 TERI ogden n 2021-03-14 2021-03-14 Outpatient DICKSON, MDA MDA [id number] 10:53:08 15:15:28 TERI beard 2021-03-14 2021-03-14 Outpatient DICKSON, MDA MDA [id number] 13:13:00 13:13:00 TERI ogden n 2021-03-08 2021-03-[address], MDA MDA [id number] 10:07:12 23:59:00 BRAEDEN Lamas n 2021-03-08 2021-03-08 Outpatient EL DICKSON, MDA MDA [id number] MD 09:53:11 12:10:38 TERI Ahmet ogden n 2021-03-01 2021-03-01 Outpatient EL LUCY, MDA MDA [id number] MD 10:00:00 23:59:00 PETE beard 2021-03-01 2021-03-01 Outpatient EL ANGEL, MDA MDA [id number] MD 08:14:04 11:07:13 YANA Phelps o n 2021-02-17 2021-02-17 Outpatient EL ROBY, MDA MDA [id number] MD 08:38:33 09:43:02 YAIMA Phelps o n 2021-02-08 2021-02-08 Outpatient EL ALEC, MDA MDA [id number] MD 07:17:54 07:17:54 ROSLYN Phelps o n 2021-01-28 2021-01-28 Outpatient EL MDA MDA [id number] 11:13:15 23:59:00 Lenin o n 2021-01-28 2021-01-28 Outpatient EL MDA MDA [id number] MD 10:56:08 11:12:00 Lenin o kisha 2021-01-28 2021-01-28 Outpatient EL KULWINDER RAVI MDA MDA [id number] MD 09:00:00 10:55:00 Lenin o kisha 2021-01-27 2021-01-27 Outpatient EL ALAN MULLER MDA MDA [id number] MD 13:14:05 23:59:00 Lenin o n 2021-01-27 2021-01-27 Outpatient EL MDA MDA [id number] MD 10:27:52 13:13:00 Lenin o kisha 2021-01-27 2021-01-27 Outpatient EL MDA MDA [id number] MD 10:27:37 10:37:38 Lenin o kisha 2021-01-27 2021-01-27 Outpatient EL MDA MDA [id number] MD 10:09:42 10:09:42 Lenin o kisha 2021-01-18 2021-01-18 Outpatient EL NESHIRLEYPU, MDA MDA [id number] 12:51:35 14:28:50 SATTVA Lenin o n 2021-01-17 2021-01-17 Outpatient KARLO MONTERROSO, MDA MDA [id number] 11:41:31 23:59:00 MIGUEL-EMERY Domenic rso n 2021-01-17 2021-01-17 Outpatient KARLO MONTERROSO MDA MDA [id number] 11:39:21 11:40:00 MIGUEL-EMERY Domenic rso n 2020-08-03 2020-08-03 Outpatient Pepper, [facility] [id number] [facility] 12:00:00 12:00:00 Sumeet 02 [facility] 2020-02-28 2020-02-28 Outpatient Della, [facility] [id number] [facility] 07:00:00 07:00:00 Adeel 72 [facility] 2020-01-20 2020-01-20 Outpatient KARLO MICHAEL MDA MDA [id number] 07:46:39 23:59:00 SATTBRANDON Sahaers o kisha 2020-01-20 2020-01-20 Outpatient KARLO MICHAEL MDA MDA [id number] 07:46:09 23:59:00 ROSLYN Sahaers o kisha 2020-01-20 2020-01-20 Outpatient KARLO MICHAEL MDA MDA [id number] 11:08:10 16:44:09 ROSLYN Sahaers o kisha 2015-10-12 2015-10-26 Outpatient KARLO MICHAEL MDA MDA [id number] 09:39:22 15:03:47 ROSLYN Phelps o kisha Results Test Description Test Time Test Comments [...] our lab.Interfe rence testing performed [facility] determined thatEltrombopag does interfere with Vitros Total Pr otein asfollowsEltrom bopag Interference for Vitros Prod uct Total Protein:======= Eltrombopag Max Observed Avg. BiasConcentrati on Concentration Concentration== = 2.5 mg/dl 6.0 g/dl +0.41 +0.34 3.5 mg/dl 6.0 g/dl +0.50 +0.45 5 mg/dl 6.0 g/dl +0.73 +0.65 2.5 mg/dl 8.0 g/dl +0.44 +0.4 1 3.5 mg/dl 8.0 g/dl +0.55 +0.52 5 mg/dl 8.0 g/dl +0.86 +0.77 ALBUMIN (test code [...] 38-126 N code = ALKP) CBC W/AUTO [id number] 06:45:00 Test Item Value Reference Range Interpretation [...] 0.00 K/mm3 0.0-0.1 N NRBC#) BASIC METABOLIC [id number] 12:38:00 Test Item Value Reference Range Interpretation [...] RECOLLECTION NEEDED ON 08/03/20 AT 1129 BY Z.LAB.DV3LXGEQK: HEMOLYZEDNOTIFIED PATIENT CARE STAFF:[id number] 12:38:00 Test Item Value Reference Range Interpretation Comments MAGNESIUM (test code = MAG) 2.1 MG/DL 1.6-2.3 N RECOLLECTION NEEDED ON 08/03/20 AT 1129 BY Z.LAB.KF9FIQAHP: HEMOLYZEDNOTIFIED PATIENT CARE STAFF:MOONPROTHROMBIN [id number] 11:21:00 Test Item Value Reference Range Interpretation [...] elvin embolism. 3.0 - 4.5 Comments to Saturation Equipment Operator: WILL BRING SPECIMAN TO THE LABPTT [id number] 11:21:00 Test Item Value Reference Range Interpretation Comments PTT ACTIVATED (test code = APTT) 29.5 SECONDS 25.1-36.5 N Comments to Saturation Equipment Operator: WILL BRING SPECIMAN TO THE LABCBC W/AUTO [...] 0.0-0.1 N NRBC#) COVID 19 Asymptomatic IH [id number] 10:22:00 Test Item Value Reference Range Interpretation [...] virus (antigen) in the sample." BASIC METABOLIC [id number] 05:44:00 Test Item Value Reference Range Interpretation [...] 0-189 mg/dL VERY HIGH.........>/ = 190 mg/dL [id number] 05:44:00 Test Item Value Reference Range Interpretation Comments MAGNESIUM (test code = MAG) 2.1 MG/DL 1.6-2.3 N PROTHROMBIN [id number] 05:34:00 Test Item Value Reference Range Interpretation [...] myocar dial infarction. 2.0 - 3.0 3. Youth Teacher al prosthesis hear t valves, recurre nt systemic emboli sm. 3.0 - 4.5 PTT [id number] 05:34:00 Test Item Value Reference Range Interpretation Comments PTT ACTIVATED (test code = APTT) 32.4 SECONDS 25.1-36.5 N BASIC METABOLIC [id number] 05:33:00 Test Item Value Reference Range Interpretation [...] LDL (test MG/DL 0-99 code = LDL) [id number] 05:33:00 Test Item Value Reference Range Interpretation Comments MAGNESIUM (test code = MAG) 2.1 MG/DL 1.6-2.3 N BASIC METABOLIC [id number] 05:32:00 Test Item Value Reference Range Interpretation [...] LDL (test MG/DL 0-99 code = LDL) [id number] 05:32:00 Test Item Value Reference Range Interpretation Comments MAGNESIUM (test code = MAG) MG/DL 1.6-2.3 BASIC METABOLIC [id number] 05:29:00 Test Item Value Reference Range Interpretation [...] LDL (test code = LDL) MG/DL 0-99 [id number] 05:29:00 Test Item Value Reference Range Interpretation Comments MAGNESIUM (test code = MAG) MG/DL 1.6-2.3 CBC W/AUTO [id number] 05:22:00 Test Item Value Reference Range Interpretation [...] 0.0-0.1 N NRBC#) COVID 19 Asymptomatic IH [id number] 04:51:00 Test Item Value Reference Range Interpretation [...] Notes Date/Time Note Provider Source 2020-08-04 08:04:00-00:00 [facility] ([facility]) Cardiology Progress Note REPORT#:[id number] REPORT STATUS: Signed DATE:08/04/20 TIME: 803 PATIENT: FREDI TERRELL UNIT #: [id number] ROOM/BED: [address] : 43 AGE: 75 SEX: M ATTEND: Wayne Paez MD ADM AUTHOR: Sumeet Paez MD * ALL edits or amendments must be made on the el [employer]/computer document * Subjective Chief Complaint: Atrial Flutter [...] 72 18 121/67 85.2 96 Room air 08/04 0428 98.4 70 18 150/78 101.6 94 Room air 08/032 98.4 81 18 149/79 102.5 95 Room air 08/038 98.2 159/89 112.0 08/03 2101 70 87 08/03 2049 72 87 08/03 2045 70 88 08/04 2043 68 152/82 105.3 89 08/03 2040 69 152/82 105.3 92 08/03 2024 67 89 08/04 2019 65 160/81 107.2 89 08/04 2003 72 160/81 107.2 92 08/03 2001 75 144/83 103.6 89 08/03 194 69 144/83 103.6 92 08/03 193 72 89 08/03 1929 72 89 08/03 1918 70 89 08/03 1910 68 89 08/03 1904 69 89 08/03 1902 72 89 08/03 185 98.1 65 134/77 95.9 87 08/03 1859 98.1 69 18 134/77 95.9 95 Nasal cannula 08/03 185 98.1 69 18 134/77 95.9 95 Nasal cannula 08/03 1850 69 89 08/03 1848 68 147/79 101.7 88 08/03 1841 63 147/79 101.7 92 PATIENT WEIGHT: Weight [...] no edema Musculoskeletal: full range of motion Neuro/HOSPITAL FELLOW: alert, oriented X 3, CN II-XII intact Skin: dry, intact Wound/incision: Location: Bilateral groin Site condition: dressing clean dry Psychiatry: normal affect, normal judgment/insig ht, normal mood Results Findings/Data: Laboratory Tests 08/04 08/03 0624 1205 Chemistry Sodium (137 - 145 MMOL/L) [...] (Auto) (14 - 44 %) 14.8 29.1 Clinton % (Auto) (4 - 13 %) 4.3 10.1 Eos % (Auto) (0 - 6 %) 0.0 2.0 Baso % (Auto) (0 - 2 %) 0.1 0.9 Neut # (Auto) (2.0 - 7.6 K/mm3) 5.76 2.65 Lymph # (Auto) (1.0 - 3.8 K/mm3) 1.06 1.33 Clinton # (Auto) (0.1 - 0.8 K/mm3) 0.31 [...] home f/u one week. at 0811 RPT #:[id number] END OF REPORT 2020-08-04 06:13:00-00:00 [id number] [place] [id number] PATIENT NAME: FREDI TERRELL ADMIT DATE: 08/03 ACCOUNT NO: [id number] ROOM NO: [facility] AGE: 75 REPORT TYPE: ELECTROCARDIOGRAM SEX: M ADMITTING PHYSICIAN:Sumeet Paez MD ATTENDING PHYSICIAN:Sumeet Paez MD Order: [id number] Test Reason : aflutter Test Date/Time Stamp: [...] LEE at 0711 PATIENT NAME: FREDI TERRELL [id number] 5831-04-20 19:32:00-00:00 [id number] [place] [id number] PATIENT NAME: FREDI TERRELL ADMIT DATE: 08/03 ACCOUNT NO: [id number] ROOM NO: [facility] AGE: 75 REPORT TYPE: ELECTROCARDIOGRAM SEX: M ADMITTING PHYSICIAN:Sumeet Paez MD ATTENDING PHYSICIAN:Sumeet Paez MD Order: [id number] Test Reason : Atrial Flutter Test Date/Time [...] LEE at 0711 PATIENT NAME: FREDI TERRELL [id number] 3023-04-20 18:28:00-00:00 [id number] [address] PATIENT NAME: FREDI TERRELL ADMIT DATE: 08/03 ACCOUNT NO: [id number] ROOM NO: [facility] AGE: 75 REPORT TYPE: CARDIAC CATHETERIZATION REPORT SEX: M ADMITTING PHYSICIAN:Sumeet Paez MD ATTENDING PHYSICIAN:Sumeet Paez MD PROCEDURE DATE: 08/03/2020 PROCEDURES: 1. Comprehensive electrophysiology study with at rial ablation. 2. Left atrial recordings. 3. Three-dimensional interatrial mapping. PREPROCEDURE DIAGNOSIS: Atrial flutter. POSTPROCEDURE DIAGNOSES: 1. Typical isthmus-dependent atrial flutter. 2. Left atrial tachycardia. RADIOPHONE OPERATOR: Sumeet Paez MD ANESTHESIA: General endotracheal anesthesia. CLERICAL COORDINATOR: None. PROCEDURE DETAILS: After informed consent was [...] kit and ultras ound guidance. A locking 8-Djiboutian sheath and Mize sheath were placed in the right femoral vein over the J-wire. Two 6-Djiboutian and one 7-Djiboutian sheath were placed in left femoral vein. All sheaths were aspirated and flushed and connected to h eparinized saline infusion. A 5-Djiboutian Cournand catheter was advanced via a 6-Djiboutian sh eath and placed in the right ventricle. A 6-Djiboutian Cournand catheter was adva nced via the 7-Djiboutian sheath and placed in the HIS position. A 5-Fren Tonny catheter was advanced via the 6-Djiboutian sheath and placed in the right atri um. A deflectable decapolar catheter was advanced via th e locking 8-Djiboutian sheath and placed in the coronary sinus. Program stimulation was performed. Follow ing initial induction of an atrial tachycardia, the HIS catheter was removed and the 7-Djiboutian sheath was exchanged for an 8-Djiboutian sheath over the wire. The sheath was aspirated and flushed and connected to heparinized saline infu prakash. An isthmus Duodeca catheter was advanced via the 8-Djiboutian sheath an d placed around cavotricuspid isthmus in the right atrium. Further program sti mulation was performed. FINDINGS: Counterclockwise, atrial flutter was r eproducibly inducible. The PATIENT NAME: FREDI TERRELL [id number] tachycardia terminated repeatedly prior to entra inment. However, given the patient's baseline outpatient presentation and r ecurrent inducibility of a counterclockwise atrial flutter, a decision was made to proceed with the cavotricuspid isthmus ablation line. A STSF Ther moCool ablation catheter was then advanced via the Mize sheath. The cathete r was advanced over [...] inducible, the catheters were removed. The sheaths w ere aspirated and flushed. The sheaths were removed and hemostasis achieved with local pressure. The patient tolerated the procedure well with no complications. CONCLUSIONS: 1. Successful cavotricuspid isthmus ablation. 2. Transient left atrial tachycardia noted. 3. Estimated blood loss 15 mL. 4. No complications. Dictated By: Sumeet Paez MD WT: CATH:Z.CPS/PEPGR/NTS Conf#: [id number]/DID#: [id number] cc: Adeel Hull MD Authenticated by Sumeet Paez MD On 08/05/19 08:12:37 AM at 0812 PATIENT NAME: FREDI TERRELL [id number] 0957-04-20 11:12:00-00:00 [id number] [place] [address] PATIENT NAME: FREDI TERRELL ADMIT DATE: 08/03 ACCOUNT NO: [id number] ROOM NO: AGE: 75 REPORT TYPE: ELECTROCARDIOGRAM SEX: M ADMITTING PHYSICIAN: ATTENDING PHYSICIAN:Sumeet Paez MD Order: [id number] Test Reason : PVI Test Date/Time Stamp: [...] significant change was found Confirmed by MD BELLA, RAFA PHILLIPS ([id number]) on 08/03/2020 4:59:07 PM Referred By: Sumeet Paez Confirmed by:RAFA GUERRA MD at 1659 PATIENT NAME: FREDI TERRELL [id number] 8925-04-20 11:12:00-00:00 [id number] [place] [id number] PATIENT NAME: FREDI TERRELL ADMIT DATE: 08/03 ACCOUNT NO: [id number] ROOM NO: AGE: 75 REPORT TYPE: ELECTROCARDIOGRAM SEX: M ADMITTING PHYSICIAN: ATTENDING PHYSICIAN:Sumeet Paez MD Order: [id number] Test Reason : PVI Test Date/Time Stamp: SunAug 03 2020 11:12:47 Blood Pressure : / mmHG Vent. Rate : 062 BPM Atrial Rate : 062 BPM P-R Int : 178 ms QRS Dur : 090 ms QT Int : 410 ms P-R-T Axes : 044 052 059 degre es QTc Int : 416 ms Normal sinus rhythm Normal ECG When compared with ECG of 28-FEB-2020 05:36, No significant change was found Reconfirmed by ADEEL HULL ([id number]) on 5:10:40 PM Referred By: Sumeet Paez Confirmed by:ADEEL MOCTEZUMA at 1710 PATIENT NAME: FREDI TERRELL [id number] 1058-11-14 19:54:00-00:00 [id number] [place] [id number] PATIENT NAME: FREDI TERRELL ADMIT DATE: 02/28/20 ACCOUNT NO: [id number] ROOM NO: AGE: 74 REPORT TYPE: CONSULTATION [...] stenosis. The patient has stopped smoking. The p atient is now retired. REVIEW OF SYSTEMS: Otherwise, it is negative. No history of hemophilia, coagulopathy, varicose vein stripping or phlebit is. Angiogram was done showing d iffuse enlargement of the abdominal aorta infrarenal about 4.2 cm. No obvious saccular outpouching. I t appears to be relatively uniform in dilation. The patient denies any symp toms as far back pain or abdominal pain [...] have close followup with Dr. Hull, his metals sales representative and myself once a year. Dictated By: Viet Mark MD WT: CON:ABBY/MEKA/YOLANDA Conf#: [id number]/DID#: [id number] Authenticated and Edited by Viet Mark MD On 03/07/20 9:11:08 PM at 2113 PATIENT NAME: FREDI TERERLL 70 2020-02-28 08:35:00-00:00 [id number] [address] PATIENT NAME: FREDI TERRELL ADMIT DATE: 02/28/20 ACCOUNT NO: [id number] ROOM NO: AGE: 74 REPORT TYPE: CARDIAC CATHETERIZATION REPORT SEX: M ADMITTING PHYSICIAN: ATTENDING PHYSICIAN:Adeel Hull MD PROCEDURE DATE: 02/28/2020 AIR CONDITIONING MANAGER: Adeel Hull MD. INDICATION FOR THE PROCEDURE: [...] emoral artery area for local anesthesia. A 6-Djiboutian sheath was placed in the right common [...] [facility] Dictated By: Adeel Hull MD PATIENT NAME: FREDI TERRELL 89 WT: CATH:JANICE/ALEJANDRO/NTS Conf#: [id number]/DID#: [id number] Authenticated by Adeel Hull MD On 02/14 08:50:56 AM at 0851 PATIENT NAME: FREDI TERRELL 70 2020-02-28 05:36:00-00:00 [id number] [place] [address] PATIENT NAME: FREDI TERRELL ADMIT DATE: 02/28/20 ACCOUNT NO: [id number] ROOM NO: AGE: 74 REPORT TYPE: ELECTROCARDIOGRAM SEX: M ADMITTING PHYSICIAN: ATTENDING PHYSICIAN:Adeel Hull MD Order: [id number] Test Reason : ABDOMINAL AORTOGRAM Test Date/Time [...] No previous ECGs available Confirmed by ADEEL UHLL ([id number]) on 02/28/2020 6:07:57 AM Referred By: Adeel Hull Confirmed by:ADEEL MOCTEZUMA at 0608 PATIENT NAME: FREDI TERRELL 70 2020-02-27 16:19:00-00:00 [id number] [place] [id number] PATIENT NAME: FREDI TERRELL ADMIT DATE: 02/28/20 ACCOUNT NO: [id number] ROOM NO: AGE: 74 REPORT TYPE: HISTORY AND PHYSICAL SEX: M ADMITTING PHYSICIAN: ATTENDING PHYSICIAN:Adeel Hull MD PATIENT NAME: FREDI TERRELL ADMIT DATE:02/28/2020 ADMISSION DATE: 02/28/2020 ADMISSION HISTORY AND PHYSICAL AIR CONDITIONING MANAGER: Adeel Hull MD REASON FOR ADMISSION: Abdominal [...] car diovascular disease. PATIENT NAME: FREDI TERRELL 70 REVIEW OF SYSTEMS: Remarkable for the above. [...] By: Adeel Hull MD WT: HP:ABBY/ALEJANDRO/YOLANDA Conf#: [id number]/DID#: [id number] Authenticated and Edited by Adeel Hull MD On 02/28/20 6:11:51 AM at 0614 PATIENT NAME: FREDI TERRELL 70
[2022-10-12] MEDS ORDERED: NA CHLORIDE 0.9% 500 ML ONE (12:15)
[2022-10-12] MEDS ORDERED: MAGNESIUM SULFATE 1 gm IVPB 1 GM/100 ML BAG IV ONE (12:16)
[2022-10-12 12:33] LABS: Absolute Lymphocytes (CBC) 1.2 K/uL (0.7-4.9); Hematocrit 41.4 % (39.6-49.0); MCV 97.7 fL (80-100); MPV 8.7 fL (7.6-11.3); RBC Red Blood Cell Count 4.23 M/uL (4.33-5.43)
[2022-10-12 12:35] LABS: Protime INR 1.13
[2022-10-12 13:02] LABS: Troponin High Sensitivity 13.6 pg/mL (<58.9)
[2022-10-12 13:03] LABS: Potassium 4.6 mEq/L (3.5-5.1)
[2022-10-12] MEDS ORDERED: METOPROLOL TARTRATE 5 MG/5 ML INJ IV ONE (13:04)
--- NOTE | 2022-10-12 13:12 | RAD REPORT ---
EXAM DESCRIPTION: RADChest Single View10/12/2022 1:01 pm CLINICAL HISTORY: PALPITATIONS COMPARISON: Chest Single View dated 08/29/2022; Chest Single View dated 07/26/2022; Chest Single View dated 06/25/2022; Chest Single View dated 12/23/2021; Angio Aorta For Dissection dated 07/26/2022 TECHNIQUE: Portable AP view of the chest. FINDINGS: Chronic bibasilar opacities with postsurgical changes at the right base, stable. No new fo shiv airspace opacities. No pneumothorax or effusion. The cardiomediastinal contours are unremarkable . IMPRESSION: No acute cardiopulmonary process. Stable findings as above.
--- NOTE | 2022-10-12 14:39 | EDPHYS ---
Physician Documentation [facility] Name: Fredi Barth Age: 77 yrs Sex: Male : 1945 Arrival Date: 10/12/2022 Time: 11:39 Bed 19 Private MD: ED Physician Simeon Shepherd HPI: 10/12 12:09 This 77 yrs old Male presents to ER via Ambulatory with complaints of Palpitations - rn afib. 12:09 The patient presents with a history of irregular heart beat, heart racing. Context: The rn symptoms occur at rest. Onset: The symptoms/episode began/occurred this morning. Duration: The patient or guardian reports a single episode, that is still ongoing. Modifying factors: The symptoms are aggravated by nothing. The symptoms are alleviated by nothing. Severity of symptoms: At their worst the symptoms were moderate in the emergency department the symptoms are unchanged. The patient has experienced similar episodes in the past. The patient has not recently seen a physician. Pt reports hx of afib, takes sotalol and eliquis, started to feel palpitations this AM around 0400, took his 0600 dose of sotalol and didn't improve. Due to take his 1200 dose of sotalol but didn't want to take it so came here for eval. Called Dr. arredondo's office but did not return his call, which is another reason he came for eval. No chest pain, no sob. no abd pain. Reports outside recently in heat and feels like could be a little dehydrated. . Historical: - Allergies: 11:52 HYDRALAZINE; ll1 11:52 HYDROCODONE; ll1 - PMHx: 11:52 aortic aneurysm; Atrial Fib; Cancer, Lung; COPD; GERD; Hypertension; radiation; ll1 Sjogren's Syndrome; - PSHx: 11:52 ablation for afib; lung aurgery x5; ll1 - Immunization history:: Adult Immunizations up to date. - Social history:: Smoking status: Patient/guardian denies using tobacco. - Family history:: not pertinent. - Hospitalizations: : No recent hospitalization is reported. ROS: 12:09 Constitutional: Negative for fever, chills, and weight loss, Cardiovascular: Negative rn for chest pain, and edema, Respiratory: Negative for shortness of breath, cough, wheezing, and pleuritic chest pain, Abdomen/GI: Negative for abdominal pain, nausea, vomiting, diarrhea, and constipation, Back: Negative for injury and pain, MS/Extremity: Negative for injury and deformity, Skin: Negative for injury, rash, and discoloration, Neuro: Negative for headache, weakness, numbness, tingling, and seizure. Exam: 12:09 Constitutional: This is a well developed, well nourished patient who is awake, alert, rn and in no acute distress. Head/Face: Normocephalic, atraumatic. Cardiovascular: Tachycardic, irregular Respiratory: No increased work of breathing, no retractions or nasal flaring. Abdomen/GI: soft, non-tender Skin: Warm, dry MS/ Extremity: Pulses equal, no cyanosis. Neurovascular intact. Full, normal range of motion. Equal circumference. Neuro: Awake and alert, GCS 15 14:02 ECG was reviewed by the Attending Physician. rn Vital Signs: 11:53 BP 144 / 82; Pulse 86; Resp 16; Temp 98.2; Pulse Ox 95% ; Pain 0/10; ll1 12:24 BP 144 / 104; Pulse 112; Resp 18; Pulse Ox 97% on R/A; mb9 13:02 BP 110 / 86; Pulse 117; Resp 17; Pulse Ox 98% on R/A; mb9 13:25 BP 108 / 85; Pulse 117; Resp 18; Pulse Ox 99% on R/A; mb9 15:15 BP 112 / 84; Pulse 58; Resp 16; Pulse Ox 100% ; mb9 11:53 Pain Scale: Adult ll1 MDM: 11:50 Patient medically screened. rn 14:37 Differential diagnosis: arrythmia, dehydration, stress disorder. Data reviewed: vital rn signs, nurses notes, lab test result(s), EKG, radiologic studies, plain films, and as a result, I will discharge patient. Consideration of Admission/Observation Escalation of care including admission/observation considered. Counseling: I had a detailed discussion with the patient and/or guardian regarding: the historical points, exam findings, and any diagnostic results supporting the discharge/admit diagnosis, lab results, radiology results, the need for outpatient follow up, to return to the emergency department if symptoms worsen or persist or if there are any questions or concerns that arise at home. Response to treatment: the patient's symptoms have resolved after treatment, the patient's condition has returned to base line, the patient is now symptom free, and as a result, I will discharge patient. Special discussion: I discussed with the patient/guardian in detail that at this point there is no indication for admission to the hospital. It is understood, however, that if the symptoms persist or worsen the patient needs to return immediately for re-evaluation. Based on the history and exam findings, there is no indication for further emergent testing or inpatient evaluation. I discussed with the patient/guardian the need to see the maintenance technician 3rd shift for further evaluation of the symptoms. ED course: Patient now converted back to sinus rhythm. Stable vitals, asymptomatic, will dc home with continuation of current cardiac medication and return precautions.. 10/12 11:58 Order name: Basic Metabolic Panel; Complete Time: 13:04 10/12 11:58 Order name: CBC with Diff; Complete Time: 13:10/12 11:58 Order name: NT PRO-BNP; Complete Time: 13:10/12 11:58 Order name: PT-INR; Complete Time: 13:10/12 11:58 Order name: Troponin HS; Complete Time: 13:04 10/12 11:58 Order name: XRAY Chest (1 view); Complete Time: 13:26 10/12 11:58 Order name: EKG; Complete Time: 11:59 10/12 14:37 Order name: EKG; Complete Time: 14:38 10/12 11:58 Order name: Cardiac monitoring; Complete Time: 12:05 10/12 11:58 Order name: EKG - Nurse/Tech; Complete Time: 12:10/12 11:58 Order name: IV Saline Lock; Complete Time: 12:23 10/12 11:58 Order name: Labs collected and sent; Complete Time: 12:10/12 11:58 Order name: O2 Per Protocol; Complete Time: 12:10/12 11:58 Order name: O2 Sat Monitoring; Complete Time: 12:10/12 14:37 Order name: EKG - Nurse/Tech; Complete Time: 15:15 rn EC:02 Rate is 137 beats/min. Rhythm is irregularly irregular. QRS [place] is Normal. QRS rn interval is normal. QT interval is normal. No Q waves. T waves are Normal. No ST changes noted. Clinical impression: Atrial Fibrillation. Interpreted by me. Reviewed by me. Administered Medications: 12:05 Drug: Sotalol PO 60 mg Route: PO; mb9 13:04 Follow up: Response: No adverse reaction mb9 12:15 Drug: NS 0.9% IV 500 ml Route: IV; Rate: bolus; Site: left antecubital; mb9 13:25 Follow up: IV Status: Completed infusion mb9 12:15 Drug: Magnesium Sulfate IVPB 1 grams Route: IVPB; Infused Over: 1 hrs; Site: left mb9 antecubital; 13:01 Drug: Metoprolol IVP 5 mg Route: IVP; Site: left antecubital; mb9 13:25 Follow up: Response: No adverse reaction mb9 Disposition Summary: 10/12/22 14:38 Discharge Ordered Location: Home rn Problem: chronic rn Symptoms: have improved rn Condition: Stable rn Diagnosis - Paroxysmal atrial fibrillation rn Followup: rn - With: Private Physician - When: As needed - Reason: Recheck today's complaints, Re-evaluation by your physician Discharge Instructions: - Discharge Summary Sheet rn - Atrial Fibrillation rn Forms: - Medication Reconciliation Form rn - Thank You Letter rn - Antibiotic furnace helper - Prescription Opioid Use rn - [email or web address] rn Signatures: Dispatcher [employer] Simeon Lang MD MD rn Lewis, Lynsay, RN RN ll1 Monique Aden, RN RN mb9
--- NOTE | 2022-10-12 14:39 | ER ---
Nurse's Notes [facility] Name: Fredi Barth Age: 77 yrs Sex: Male : 1945 Arrival Date: 10/12/2022 Time: 11:39 Bed 19 Private MD: Diagnosis: Paroxysmal atrial fibrillation Presentation: 10/12 11:53 Chief complaint: Patient states: A fib since 4 am. HR 91-142. Chest heaviness and ll1 fatigue today. Coronavirus screen: Client denies travel out of the [place] in the last 14 days. At this time, the client does not indicate any symptoms associated with coronavirus-19. Ebola Screen: Patient denies travel to an Ebola-affected area in the 21 days before illness onset. Initial Sepsis Screen: Does the patient meet any 2 criteria? No. Patient's initial sepsis screen is negative. Does the patient have a suspected source of infection? No. Patient's initial sepsis screen is negative. Risk Assessment: Do you want to hurt yourself or someone else? Patient reports no desire to harm self or others. Onset of symptoms was October 12, 2022. 11:53 Method Of Arrival: Ambulatory ll1 11:53 Acuity: PHYLLIS 2 ll1 Triage Assessment: 11:56 General: Appears in no apparent distress. Behavior is calm, cooperative, appropriate ll1 for age. General: Reports fatigue for. Pain: Denies pain. Cardiovascular: Reports chest pain, fatigue, palpitations. Historical: - Allergies: 11:52 HYDRALAZINE; ll1 11:52 HYDROCODONE; ll1 - PMHx: 11:52 aortic aneurysm; Atrial Fib; Cancer, Lung; COPD; GERD; Hypertension; radiation; ll1 Sjogren's Syndrome; - PSHx: 11:52 ablation for afib; lung aurgery x5; ll1 - Immunization history:: Adult Immunizations up to date. - Social history:: Smoking status: Patient/guardian denies using tobacco. - Family history:: not pertinent. - Hospitalizations: : No recent hospitalization is reported. Screenin:25 [facility] ED Fall Risk Assessment (Adult) History of falling in the last 3 months, mb9 including since admission No falls in past 3 months (0 pts) Confusion or Disorientation No (0 pts) Intoxicated or Sedated No (0 pts) Impaired Gait No (0 pts) Mobility Assist Device Used No (0 pt) Altered Elimination No (0 pt) Score/Fall Risk Level 0 - 2 = Low Risk Oriented to surroundings, Maintained a safe environment, Educated pt \T\ family on fall prevention, incl call for assistance when getting out of bed. Abuse screen: Denies threats or abuse. Nutritional screening: No deficits noted. Tuberculosis screening: No symptoms or risk factors identified. Assessment: 12:23 General: Appears in no apparent distress. Behavior is calm, cooperative. Neuro: mb9 Maldonado Agitation-Sedation Scale (RASS): 0 - Alert and Calm Level of Consciousness is awake, alert, obeys commands, Oriented to person, place, time, situation, Appropriate for age. Cardiovascular: Reports palpitations, shortness of breath, Heart tones S1 S2 present Patient's skin is warm and dry. Rhythm is atrial fibrillation with rapid ventricular response. Respiratory: Reports shortness of breath at rest Airway is patent Respiratory effort is even, unlabored, Respiratory pattern is regular, symmetrical, Breath sounds are clear bilaterally. GI: Abdomen is round non-distended, Bowel sounds present X 4 quads. Abd is soft and non tender X 4 quads. Patient currently denies nausea. Derm: Skin is pink, warm \T\ dry. Musculoskeletal: Range of motion: intact in all extremities. 13:02 Reassessment: Patient is alert, oriented x 3, equal unlabored respirations, skin mb9 warm/dry/pink. Cardiovascular: Denies chest pain, shortness of breath. Vital Signs: 11:53 BP 144 / 82; Pulse 86; Resp 16; Temp 98.2; Pulse Ox 95% ; Pain 0/10; ll1 12:24 BP 144 / 104; Pulse 112; Resp 18; Pulse Ox 97% on R/A; mb9 13:02 BP 110 / 86; Pulse 117; Resp 17; Pulse Ox 98% on R/A; mb9 13:25 BP 108 / 85; Pulse 117; Resp 18; Pulse Ox 99% on R/A; mb9 15:15 BP 112 / 84; Pulse 58; Resp 16; Pulse Ox 100% ; mb9 11:53 Pain Scale: Adult ll1 ED Course: 11:49 Patient arrived in ED. kc6 11:50 Simeon Shepherd MD is Attending Physician. rn 11:50 Coleman, Hali, RN is Primary Nurse. kc6 11:50 Arm band placed on Patient placed in an exam room, on a stretcher. ll1 11:56 Triage completed. ll1 12:10 Inserted saline lock: 22 gauge in left antecubital area, using aseptic technique. mb9 12:10 EKG done, by ED staff, reviewed by Simeon Shepherd MD. mb9 12:23 Basic Metabolic Panel Sent. mb9 12:23 CBC with Diff Sent. mb9 12:23 NT PRO-BNP Sent. mb9 12:23 PT-INR Sent. mb9 12:23 Troponin HS Sent. mb9 12:25 Primary Nurse role handed off by Hali Coleman RN mb9 12:25 Monique Aden, RN is Primary Nurse. mb9 12:25 Placed in gown. Bed in low position. Call light in reach. Side rails up X 1. Client mb9 placed on continuous cardiac and pulse oximetry monitoring. NIBP monitoring applied. secured entrance monitor on. 12:25 No provider procedures requiring assistance completed. mb9 13:03 XRAY Chest (1 view) In Process Unspecified. EDMS 15:15 IV discontinued, intact, bleeding controlled, No redness/swelling at site. Pressure mb9 dressing applied. Administered Medications: 12:05 Drug: Sotalol PO 60 mg Route: PO; mb9 13:04 Follow up: Response: No adverse reaction mb9 12:15 Drug: NS 0.9% IV 500 ml Route: IV; Rate: bolus; Site: left antecubital; mb9 13:25 Follow up: IV Status: Completed infusion mb9 12:15 Drug: Magnesium Sulfate IVPB 1 grams Route: IVPB; Infused Over: 1 hrs; Site: left mb9 antecubital; 13:01 Drug: Metoprolol IVP 5 mg Route: IVP; Site: left antecubital; mb9 13:25 Follow up: Response: No adverse reaction mb9 Outcome: 14:38 Discharge ordered by . rn 15:15 Discharged to home ambulatory. mb9 15:15 Condition: stable 15:15 Discharge instructions given to patient, Instructed on discharge instructions, follow up and referral plans. Demonstrated understanding of instructions, follow-up care. 15:15 Patient left the ED. mb9 Signatures: Dispatcher [employer] EDMS Simeon Shepherd MD MD rn Lewis, Lynsay, RN RN ll1 Hali Coleman, RN RN kc6 Keiko, Monique Gillespie, RN RN mb9
[2022-10-12 16:09] VITALS: TEMP 98.2
[2022-10-12 16:18] VITALS: BP 112/84; O2SAT 100
--- NOTE | 2022-10-13 08:50 | EKG ---
Test Date: 2022-10-12 Test Time: 12:01:05 Food Prep Worker: LYRIC MEASUREMENT RESULTS: Intervals: Rate: 137 NC: QRSD: 72 QT: 310 QTc: 468 [place]: P: NC: QRS: 33 T: 77 INTERPRETIVE STATEMENTS: Atrial fibrillation with rapid ventricular response Abnormal ECG Compared to ECG 08/29/2022 16:35:43 Sinus rhythm no longer present Myocardial infarct finding no longer present Electronically Signed On 10-13-22 08:48:05 CDT by Christian Israel
--- NOTE | 2022-10-13 08:50 | EKG ---
Test Date: 2022-10-12 Test Time: 14:50:46 Drama Therapist: MB MEASUREMENT RESULTS: Intervals: Rate: 57 DE: 162 QRSD: 84 QT: 440 QTc: 428 [place]: P: 52 DE: 162 QRS: 52 T: 78 INTERPRETIVE STATEMENTS: Sinus bradycardia Nonspecific ST and T wave abnormality Abnormal ECG Compared to ECG 08/29/2022 16:35:43 ST (T wave) deviation now present Sinus rhythm no longer present Myocardial infarct finding no longer present Electronically Signed On 10-13-22 08:47:47 CDT by Christian Israel
== END 2022-10-12 15:15 | disposition home or self-care (01) ==
LOC: ER 11:39
DX: I48.0 Paroxysmal atrial fibrillation (principal); I10 Essential (primary) hypertension; J44.9 Chronic obstructive pulmonary disease, unspecified; Z79.01 Long term (current) use of anticoagulants; Z88.5 Allergy status to narcotic agent; Z88.8 Allergy status to other drugs, medicaments and biological substances
CPT/HCPCS: 96361; 93005 ×2; 85025; 80048; 36415; 85610; 84484; 83880; 71045; 96375; 96374; 99285; J3475; J7040

== ENCOUNTER 2023-03-12 09:40 | Observation (INO) | payer OTHER, BC ==
--- OUTSIDE RECORDS SUMMARY | 2023-03-12 09:46 | XMS REPORT | Continuity of Care Document ---
:1945 Author Organization [facility] t Address [address] [facility] [address] [place] [address] Care Team Providers Name Role Phone [phone] Primary Care Physician Unavailable SYSTEM, PROVIDER NOT IN Attending Clinician Unavailable YAIMA CA Attending Clinician Unavailable ROSLYN MICHAEL Attending Clinician Unavailable ARLENE MONTERROSO Attending Clinician Unavailable MACRO KOVACS Attending Clinician Unavailable TAMY VALDEZ Attending Clinician Unavailable YANA ORTIZ Attending Clinician Unavailable CHU COYNE Attending Clinician Unavailable PETE AYALA Attending Clinician Unavailable DRAKE ALVARENGA Attending Clinician Unavailable VALERIE JAMES Attending Clinician Unavailable STEPHEN DO Attending Clinician Unavailable ARELY ARROYO Attending Clinician Unavailable TERI FOMRAN Attending Clinician Unavailable ANNY ARNDT Attending Clinician Unavailable KULWINDER RAVI Attending Clinician Unavailable ALAN MULLER Attending Clinician Unavailable Sumeet Paez Attending Clinician Unavailable Adeel Hull Attending Clinician Unavailable YANA ORTIZ Admitting Clinician Unavailable Payers Payer Name Policy Type Policy Number Effective Date Expiration Date S ource MEDICARE PART A [id number] 2008 AND B 00:00:00 [place] POS [id number] 2015 00:00:00 Problems This patient has no [...] S 00 HYDRALAZ Drug Active High Sob 2022-0 MD INE Class 3-11 Anderso ANALOGUE 00:00: n S 00 HYDRALAZ Drug Active High Sob 2022-0 MD INE Class 3-11 Anderso ANALOGUE 00:00: n S 00 HYDRALAZ Drug Active High Sob 2022-0 MD INE Class 3-11 Anderso ANALOGUE 00:00: n S 00 HYDRALAZ Drug Active High Sob 2022-0 MD INE Class 3-11 Anderso ANALOGUE 00:00: n S 00 HYDRALAZ Drug Active High Sob 2022-0 MD INE Class 3-11 Anderso ANALOGUE 00:00: n S 00 hydrocod DA [facility]: [address] hydrocod DA Active U [facility] 08[facility] 00:00: [address] hydrocod DA Active U 2019- [facility] 04-[facility] 00:00: [address] hydrocod DA Active U DIZZINESS 2019- [facility] 04-[facility] 00:00: [address] HYDROCOD DRUG Active Other MD ONE INGREDI 627 Anderso 00:00: n 00 HYDROCOD DRUG Active Other MD ONE INGREDI 627 Anderso 00:00: n 00 HYDROCOD DRUG Active Other 2015- MD ONE INGREDI 627 Anderso 00:00: n 00 HYDROCOD DRUG Active Other 2015- MD ONE INGREDI 27 Anderso 00:00: n 00 HYDROCOD DRUG Active [...] 00:00: n 00 HYDROCOD DRUG Active Other 2016-0 MD ONE INGREDI 6-27 Anderso 00:00: n [...] 00:00: n 00 HYDROCOD DRUG Active Other 2016-0 MD ONE INGREDI 6-27 Anderso 00:00: n [...] 00:00: n 00 HYDROCOD DRUG Active Other 2016-0 MD ONE INGREDI 6-27 Anderso 00:00: n [...] 00:00: n 00 HYDROCOD DRUG Active Other 2016-0 MD ONE INGREDI 6-27 Anderso 00:00: n [...] ONE INGREDI 627 Anderso 00:00: n 00 Medications This patient has no known medications. Vital Signs Vital Name Observation Time Observation Value Comments Source WEIGHT 2020-01-20 13:05:00 112.8 kg Procedures This patient has no known procedures. Encounters Start End Encounter Admission Attending Care Care Encounter Source Date/Time Date/Time Type Type Clinicians Facility Department ID 2021-05-19 Outpatient MDA MDA [id number] 17:41:03 Anderso n 2021-05-19 Outpatient MDA MDA [id number] 17:41:03 Anderso n 2021-05-19 Outpatient MDA MDA [id number] 17:41:03 Anderso n 2021-02-23 Outpatient SYSTEM, MDA MDA [id number] 12:36:46 PATRICA beard 2023-02-27 2023-02-27 Outpatient EL CA, MDA MDA [id number] 11:26:05 11:43:35 YAIMA beard 2023-02-27 2023-02-27 Outpatient EL ROSE, MDA MDA [id number] 10:24:09 11:03:48 ROSLYN beard 2023-02-26 2023-02-26 Outpatient EL MONTERROSO, MDA MDA [id number] 09:37:55 23:59:00 MIGUEL-EMERY Domenic rso n 2023-02-26 2023-02-26 Outpatient EL MONTERROSO, MDA MDA [id number] 10:04:38 10:04:38 MIGUEL-EMERY Domenic rso n 2023-01-03 2023-01-03 Outpatient [facility], MDA MDA [id number] 13:20:00 23:59:00 MARCO beard 2023-01-02 2023-01-02 Outpatient EL CA, MDA MDA [id number] 10:27:57 11:02:00 YAIMA beard 2023-01-01 2023-01-01 Outpatient EL CA, MDA MDA [id number] 12:18:01 23:59:00 YAIMA beard 2023-01-01 2023-01-01 Outpatient EL CA, MDA MDA [id number] 11:17:58 11:29:00 YAIMA beard 2022-11-03 2022-11-03 Outpatient EL CA, MDA MDA [id number] 09:10:44 23:59:00 YAIMA beard 2022-11-02 2022-11-02 Outpatient EL [facility], MDA MDA [id number] 13:03:01 23:59:00 TAMY beard 2022-11-02 2022-11-02 Outpatient EL CA, MDA MDA [id number] 10:46:45 13:02:00 YAIMA beard 2022-11-01 2022-11-01 Outpatient EL CA, MDA MDA [id number] 11:44:14 23:59:00 YAIMA beard 2022-10-31 2022-10-31 Outpatient EL CA, MDA MDA [id number] 11:39:08 23:59:00 YAIMA beard 2022-10-30 2022-10-30 Outpatient EL CA, MDA MDA [id number] 11:44:07 23:59:00 YAIMA beard 2022-10-27 2022-10-27 Outpatient EL CA, MDA MDA [id number] 12:40:46 23:59:00 YAIMA beard 2022-10-26 2022-10-26 Outpatient EL JOSÉ MIGUEL, MDA MDA [id number] 12:41:09 23:59:00 TAMY beard 2022-10-26 2022-10-26 Outpatient EL CA, MDA MDA [id number] 11:50:54 12:40:00 YAIMA beard 2022-10-25 2022-10-25 Outpatient EL CA, MDA MDA [id number] 11:49:23 23:59:00 YAIMA beard 2022-10-24 2022-10-24 Outpatient EL CA, MDA MDA [id number] 11:38:51 23:59:00 YAIMA beard 2022-10-23 2022-10-23 Outpatient EL CA, MDA MDA [id number] 11:53:19 23:59:00 YAIMA beard 2022-10-16 2022-10-16 Outpatient EL CA, MDA MDA [id number] 07:15:00 23:59:00 YAIMA beard 2022-10-10 2022-10-10 Outpatient EL DORBER, MDA MDA [id number] 14:15:13 23:59:00 MARCO beard 2022-10-10 2022-10-10 Outpatient EL CA, MDA MDA [id number] 12:17:18 14:14:00 YAIMA beard 2022-10-03 2022-10-03 Outpatient CA, MDA MDA [id number] 11:18:00 12:14:54 YAIMA beard 2022-10-02 2022-10-02 Outpatient EL CA, MDA MDA [id number] 10:24:48 23:59:00 YAIMA beard 2022-10-02 2022-10-02 Outpatient EL CA, MDA MDA [id number] 10:10:48 10:23:00 YAIMA beard 2022-07-18 2022-07-18 Outpatient ANGEL, MDA MDA [id number] 07:45:36 08:48:52 YANA beard 2022-07-18 2022-07-18 Outpatient ST[place]ORD, MDA MDA [id number] 07:09:56 07:09:56 CHU ogden n 2022-06-22 2022-06-25 Inpatient ANGEL, MDA Thoracic [id number] 04:47:00 13:51:00 YANA beard 2022-06-20 2022-06-22 [facility] [id number] 15:52:22 13:43:16 PETE beard 2022-06-20 2022-06-20 [facility] MDA [id number] 09:22:59 23:59:00 PETE beard 2022-06-20 2022-06-20 Outpatient [facility], MDA MDA [id number] 12:46:02 15:51:27 DRAKE beard 2022-06-20 2022-06-20 [facility] MDA [id number] 12:45:47 15:51:16 PETE beard 2022-06-20 2022-06-20 Outpatient ANGEL, MDA MDA [id number] 10:04:21 12:42:48 YANA beard 2022-06-20 2022-06-20 [facility] MDA [id number] 08:46:31 09:21:00 PETE beard 2022-05-16 2022-05-16 Outpatient EL CA, MDA MDA [id number] 09:34:05 10:09:04 YAIMA beard 2022-05-15 2022-05-15 Outpatient EL ERIKA, MDA MDA [id number] 10:52:59 23:59:00 VALERIE beard 2022-05-15 2022-05-15 Outpatient EL JAMES, MDA MDA [id number] 10:37:08 10:51:00 VALERIE beard 2022-02-14 2022-02-14 Outpatient EL CA, MDA MDA [id number] 11:22:14 12:10:10 YAIMA beard 2022-02-14 2022-02-14 Outpatient EL ROSEPU, MDA MDA [id number] 09:37:26 09:37:26 ROSLYN beard 2022-02-13 2022-02-13 Outpatient EL NEELAPU, MDA MDA [id number] 09:00:00 23:59:00 ROSLYN beard 2022-02-13 2022-02-13 Outpatient EL NEELAPU, MDA MDA [id number] 09:29:54 09:29:54 ROSLYN beard 2021-10-20 2021-10-20 Outpatient EL CA, MDA MDA [id number] 08:52:46 09:47:28 YAIMA beard 2021-10-19 2021-10-19 [facility] [id number] 09:01:57 09:01:57 STEPHEN Jacobson 2021-06-16 2021-06-16 Outpatient EL CA, MDA MDA [id number] 09:08:21 10:16:24 YAIMA beard 2021-06-15 2021-06-[address] [facility], MDA MDA [id number] 08:04:58 08:04:58 ARELY beard 2021-06-15 2021-06-[address] [facility], MDA MDA [id number] 07:54:25 07:56:08 ARELY gonzalez n 2021-04-19 2021-04-19 Outpatient ANGEL, MDA MDA [id number] 09:04:25 11:13:15 YANA beard 2021-04-19 2021-04-19 Outpatient ANGEL, MDA MDA [id number] 07:52:32 07:52:32 YANA gonzalez n 2021-03-17 2021-03-19 Inpatient ANGEL, MDA Thoracic [id number] 09:01:00 17:32:00 YANA gonzalez n 2021-03-14 2021-03-14 Outpatient DICKSON, MDA MDA [id number] 10:03:22 23:59:00 TERI Leo so n 2021-03-14 2021-03-14 Outpatient DICKSON, MDA MDA [id number] 10:53:08 15:15:28 TERI Leo so n 2021-03-14 2021-03-14 Outpatient DICKSON, MDA MDA [id number] 13:13:00 13:13:00 TERI Leo so n 2021-03-08 2021-03-[address] [facility], MDA MDA [id number] 10:07:12 23:59:00 BRAEDEN Lamas n 2021-03-08 2021-03-08 Outpatient DICKSON, MDA MDA [id number] 09:53:11 12:10:38 TERI ogden n 2021-03-01 2021-03-01 [facility] MDA MDA [id number] 10:00:00 23:59:00 PETE gonzalez n 2021-03-01 2021-03-01 Outpatient ANGEL, MDA MDA [id number] 08:14:04 11:07:13 YANA beard 2021-02-17 2021-02-17 Outpatient CA, MDA MDA [id number] 08:38:33 09:43:02 YAIMA beard 2021-02-08 2021-02-08 Outpatient EL NEELAPU, MDA MDA [id number] MD 07:17:54 07:17:54 ROSLYN beard 2021-01-28 2021-01-28 Outpatient EL MDA MDA [id number] MD 11:13:15 23:59:00 Lenin o kisha 2021-01-28 2021-01-28 Outpatient EL MDA MDA [id number] MD 10:56:08 11:12:00 Lenin o kisha 2021-01-28 2021-01-28 Outpatient EL KULWINDER RAVI MDA MDA [id number] MD 09:00:00 10:55:00 Lenin o kisha 2021-01-27 2021-01-27 Outpatient EL ALAN MULLER MDA MDA [id number] MD 13:14:05 23:59:00 Lenin o kisha 2021-01-27 2021-01-27 Outpatient EL MDA MDA [id number] MD 10:27:52 13:13:00 Lenin o kisha 2021-01-27 2021-01-27 Outpatient EL MDA MDA [id number] MD 10:27:37 10:37:38 Lenin o kisha 2021-01-27 2021-01-27 Outpatient EL MDA MDA [id number] MD 10:09:42 10:09:42 Lenin o kisha 2021-01-18 2021-01-18 Outpatient EL NEELAPU, MDA MDA [id number] 12:51:35 14:28:50 ROSLYN Phelps o kisha 2021-01-17 2021-01-17 Outpatient EL MONTERROSO, MDA MDA [id number] MD 11:41:31 23:59:00 ARLENE Sahae rso n 2021-01-17 2021-01-17 Outpatient EL MONTERROSO, MDA MDA [id number] MD 11:39:21 11:40:00 MIGUEL-EMERY Domenic rso n 2020-08-03 2020-08-03 Outpatient Jeannine, [facility] [id number] [facility] 12:00:00 12:00:[address] [place] [address] 2020-02-28 2020-02-28 Outpatient Della, [facility] [id number] [facility] 07:00:00 07:00:00 Adeel [address] [facility] 2020-01-20 2020-01-20 Outpatient KARLO MICHAEL MDA MDA [id number] 07:46:39 23:59:00 SATTVA Lenin o n 2020-01-20 2020-01-20 Outpatient KARLO MICHAEL MDA MDA [id number] 07:46:09 23:59:00 SATTVA Lenin o n 2020-01-20 2020-01-20 Outpatient KARLO MICHAEL MDA MDA [id number] 11:08:10 16:44:09 SATTVA Lenin o n 2015-10-12 2015-10-26 Outpatient KARLO MICHAEL MDA MDA [id number] 09:39:22 15:03:47 SATTVA Lenin o n Results [...] our lab.Interfe rence testing [facility] determined thatEltrombopag does interfere with Vitros [...] 38-126 N code = ALKP) CBC W/AUTO [id number] 06:45:00 Test Item Value Reference Range Interpretation [...] 0.00 K/mm3 0.0-0.1 N NRBC#) BASIC METABOLIC [id number] 12:38:00 Test Item Value Reference Range Interpretation [...] RECOLLECTION NEEDED ON 08/03/20 AT 1129 BY [id number]: HEMOLYZEDNOTIFIED PATIENT CARE STAFF:[id number] 12:38:00 Test Item Value Reference Range Interpretation Comments MAGNESIUM (test code = MAG) 2.1 MG/DL 1.6-2.3 N RECOLLECTION NEEDED ON 08/03/20 AT 1129 BY [id number]: HEMOLYZEDNOTIFIED PATIENT CARE STAFF:MOONPROTHROMBIN [id number] 11:21:00 Test Item Value Reference Range Interpretation [...] elvin embolism. 3.0 - 4.5 Comments to Latent Fingerprint Examiner: WILL BRING SPECIMAN TO THE LABPTT [id number] 11:21:00 Test Item Value Reference Range Interpretation Comments PTT ACTIVATED (test code = APTT) 29.5 SECONDS 25.1-36.5 N Comments to Latent Fingerprint Examiner: WILL BRING SPECIMAN TO THE LABCBC W/AUTO [...] 0.0-0.1 N NRBC#) COVID 19 Asymptomatic IH [id number] 10:22:00 Test Item Value Reference Range Interpretation [...] virus (antigen) in the sample." BASIC METABOLIC [id number] 05:44:00 Test Item Value Reference Range Interpretation [...] 0-189 mg/dL VERY HIGH.........>/ = 190 mg/dL [id number] 05:44:00 Test Item Value Reference Range Interpretation Comments MAGNESIUM (test code = MAG) 2.1 MG/DL 1.6-2.3 N PROTHROMBIN [id number] 05:34:00 Test Item Value Reference Range Interpretation [...] myocar dial infarction. 2.0 - 3.0 3. Preschool Teacher al prosthesis hear t valves, recurre nt systemic emboli sm. 3.0 - 4.5 PTT [id number] 05:34:00 Test Item Value Reference Range Interpretation Comments PTT ACTIVATED (test code = APTT) 32.4 SECONDS 25.1-36.5 N BASIC METABOLIC [id number] 05:33:00 Test Item Value Reference Range Interpretation [...] LDL (test MG/DL 0-99 code = LDL) [id number] 05:33:00 Test Item Value Reference Range Interpretation Comments MAGNESIUM (test code = MAG) 2.1 MG/DL 1.6-2.3 N BASIC METABOLIC [id number] 05:32:00 Test Item Value Reference Range Interpretation [...] LDL (test MG/DL 0-99 code = LDL) [id number] 05:32:00 Test Item Value Reference Range Interpretation Comments MAGNESIUM (test code = MAG) MG/DL 1.6-2.3 BASIC METABOLIC [id number] 05:29:00 Test Item Value Reference Range Interpretation [...] LDL (test code = LDL) MG/DL 0-99 [id number] 05:29:00 Test Item Value Reference Range Interpretation Comments MAGNESIUM (test code = MAG) MG/DL 1.6-2.3 CBC W/AUTO [id number] 05:22:00 Test Item Value Reference Range Interpretation [...] 0.0-0.1 N NRBC#) COVID 19 Asymptomatic IH [id number] 04:51:00 Test Item Value Reference Range Interpretation [...] sample." Notes Date/Time Note Provider Source 2020-08-04 08:04:00 [id number]:04:00 [facility] ([facility])Cardiology Progress NoteREPORT#:[id number] REPORT STATUS: SignedDATE:08/04/20 TIME: 0804 PATIENT: FREDI TERRELL UNIT #: [id number]#: [id number] [facility] AGE: 75 SEX: M ATTEND: Sumeet Paez [facility] AUTHOR: Sumeet Paez MD * ALL edits or amendments must be made on the electronic/computer document * SubjectiveChief Complaint:Atrial FlutterPatient reports:No: ches t pain, palpitations, shortness of breath. Objective GeneralVS/I O:24 hour I O ending at 0700: 08/04 0700 08/03 1900 Intake Total 1450.0 0 Output Total Balance 1450.00 Intake, IV 1000.00 Intake, Oral 450 Number Voids 3 Vital Signs: Quinton e Time Temp Pulse Resp B/P B/P Pulse O2 O2 Flow FiO2 Mean Ox Delivery Rate 08/04 0730 98.1 72 18 121/67 85.2 96 Room air 08/05 427 98.4 70 18 150/78 101.6 94 Room air 08/04 2311 98.4 81 18 149/79 102.5 95 Room air 08/03 2137 98.2 159/89 112.0 08/03 2101 70 87 08/03 2049 72 87 08/03 2045 70 88 08/04 2043 68 152/82 105.3 89 08/03 2040 69 152/82 105.3 92 08/03 2024 67 89 08/04 2019 65 160/81 107.2 89 08/04 2003 72 160/81 107.2 92 08/03 2001 75 144/83 103.6 89 08/03 194 1 69 144/83 103.6 92 08/03 193 72 89 08/03 1929 7 2 89 08/03 1918 70 89 08/03 1910 68 89 08/03 1904 69 89 08/03 190 72 89 08/03 185 98.1 65 134/77 95.9 87 08/03 185 98.1 69 18 134/77 95.9 95 Nasal cannula 08/03 185 98.1 69 18 134/77 95.9 95 Nasal cannula 08/03 1850 69 89 08/03 1848 68 147/79 101.7 88 08/03 184 63 147 101.7 92 PATIENT WEIGHT: Weight (lb): Weight (oz): Weight (kg): Medications:Active Meds + DC'd Last 24 HrsAtorvastatin Calcium 10 MG DAILY@2100 PO Cholecalciferol 2,000 UNIT DAILY PO (CKD) Famotidine 40 MG DAILY PO (DC) Loratadine 10 MG DAILY PO Losartan Potassium 100 MG DAILY PO Carvedilol 12.5 MG BID MEALS PO Famotidine 40 MG DAILY PO Carvedilol 12.5 MG BID MEALS PO (DC) Acetaminophen 500 MG Q6H PRN PRN PO Clonidine HC l 0.2 MG Q8H PRN PRN PO Sodium Chloride 1,000 ML ONCE ONE IV (DC) Fentanyl Citrate 0 .STK-MED ONE .ROUTE (DC) Isoproterenol HCl 0 .STK-MED ONE .ROUTE (DC) Sodium Chloride 1,000 ML .STK-MED ON E IV (DC) Sodium Chloride 250 ML .STK-MED ONE IV (DC) Ephedrine Sulfate 0 .STK-MED ONE .ROUTE (DC ) Labetalol HCl 0 .STK-MED ONE .ROUTE (DC) Etomidate 0 .STK-MED ONE .ROUTE (DC) Fentanyl Citrate 0 .STK-MED ONE .ROUTE (DC) Propofol 0 .STK-MED ONE .ROUTE (DC) Heparin Sodium 0 .STK-MED ONE .ROUTE (DC) Heparin Sodium/Dextrose 0 .STK-MED ONE IV (DC) Heparin Sodium/Sodium Chloride 500 ML .STK-MED ONE IV (DC) Iopamidol 0 .STK-MED ONE .ROUTE (DC) Lidocaine 0 .STK-MED ON E .ROUTE (DC) Physical ExamGeneral appearance: alert, awake, orientedHead/Eyes: atraumatic, normocephalicENT: moist mucosal membranesNeck: full range of motionCardiovascular: CV assessment: regular rate and rhythmRespiratory: clear to auscultation, no distressLower extremity: LE assessment: no edemaMusculoskeletal: full range of motionNeuro/AUTO PARTS SALESPERSON: alert, oriented X 3, CN II-XII intactSkin: dry, intactWound/incision: Location:Bilateral groin Site condition: dressin g clean dryPsychiatry: normal affect, normal judgment/insight, normal mood ResultsFindings/Data:Laboratory Tests 08/04 07/16 0 0624 1205 Chemistry Sodium (137 - 145 [...] > 60 > 60 Glucose (74 - 10 6 MG/DL) 164 H 100 Calcium (8.4 - 10.2 MG/DL) 8.4 9.3 Magnesium (1.6 - 2.3 MG/DL) 2.1 Total Bilirubin (0.2 - 1.3 MG/DL) 0.3 AST (17 - 59 UNITS/L) 29 ALT (<50 UNITS/L) 16 Total Alk Phosphatase (38 - 126 UNITS/L) 64 Total Protein (6.2 - 7.6 G/DL) 7.1 Albumin (3.5 - 5.0 G/DL) 3. 7 Laboratory Tests 08/03 1000 Coagulation INR (0.86 - 1.14) 1.0 APTT (25.1 - 36.5 SECONDS) 29. 5 PT Patient/Control Mix (9.5 - 12.7) 11.1 Laboratory Tests 08/04 08/03 0624 1000 Hematology WBC (3.8 - 9.8 K/MM3) 7.2 4.6 RBC (3.95 - 5.67 M/MM3) 3.62 L 3.82 L Hgb (12.4 - 16.7 G/DL) 11.6 L 12.2 L Hct (35.9 - 49.5 %) 36. 6 38.4 MCV (81.7 - 96.1 fL) 101 [...] (Auto) (14 - 44 %) 14.8 29.1 Alpine % (Auto) (4 - 13 %) 4.3 10.1 Eos % (Auto) (0 - 6 % ) 0.0 2.0 Baso % (Auto) (0 - 2 %) 0.1 0.9 Neut # (Auto) (2.0 - 7.6 K/mm3) 5.76 2.65 Lymph # (Auto) (1.0 - 3.8 K/mm3) 1.06 1.33 Alpine # (Auto) (0.1 - 0.8 K/mm3) 0.31 0.46 Eos # (Auto) (0.0 - 0.2 K/mm3) 0.00 0.09 Baso # (Auto) (0.0 - 0.2 K/mm3) 0.01 0.04 Immature Gran % (0.0 - 2.0 %) 0.6 0.0 Nucleated RBC % (0 - 1.0 %) 0.0 0.0 Nucleated RBCs # (Man) (0.0 - 0.1 K/mm3) 0.00 0.00 Laboratory Tests 08/03 0950 Serology SARS-CoV-2 Ag (Rapid) (Negative) NEGATIVE Laboratory Tests 08/03 1205 Chemistry Magnesium (1.6 - 2.3 MG/DL) 2.1 Laboratory Tests 08/03 1000 Coagulation APTT (25.1 - 36.5 SECONDS) 29.5 Diagnosis, Assessment Plan Free Text DxA P NotesFree Text DxA P Notes:IMP: Atrial Flutter s/p RFA PLAN: d/c home f/u one week. at 0811 [facility] #:[id number] OF REPORTPRProgress [id number]:04:00Z.[id number] l able for patient [id number]:11:19 2020-08-04 06:13:00 [id number]:13:[id number] [facility] [place] [address] PATIENT NAME: FREDI TERRELL ADMIT DATE: 08/03/20ACCOUNT NO: [id number] ROOM NO: [facility] AGE: 75 REPORT TYPE: ELECTROCARDIOGRA M SEX: M ADMITTING PHYSICIAN:Sumeet Paez MD ATTENDING PHYSICIAN:Sumeet Paez MD Order:[id number] Reason : aflutter Test Date/Time Stamp:SunAug 04 2020 06:13:33Blood Pressure : / mmHGVent. Rate : 067 BPM Atrial Rate : 067 BPM P-R Int : 170 ms QRS Dur : 080 ms QT Int : 398 ms P-R-T Axes : 058 001 080 degrees QTc Int : 420 ms Normal sinus rhythmNormal ECGWhen compared with ECG of 03-AUG-2020 19:32,No significant change was foundConfirmed by ADEEL HULL ([id number]) on 08/04/2020 7:11:21 AM Referred By: Self Referred Confirmed by:ADEEL HULL at 0711 PATIENT NAME: FREDI TERRELL .[id number] AVAvailable for patient [id number]:11:43 2020-08-03 19:32:00 [id number] [address] [place] [address] PATIENT NAME: FREDI TERRELL ADMIT DATE: 08/03/20ACCOUNT NO: [id number] DOMITILA Hernandez NO: [id number] AGE: 75 REPORT TYPE: ELECTROCARDIOGRAM SEX: M ADMITTING PHYSICIAN:Sumeet Paez MD ATTENDING PHYSICIAN:Sumeet Paez MD Order:[id number] Reason : Atrial Flutter Test Date/Time Stamp:SunAug 03 2020 19:32:25Blood Pressure : / mmHGVent. Rate : 072 BPM Atrial Rate : 072 BPM P-R Int : 168 ms QRS Dur : 084 ms QT Int : 404 ms P-R-T Axes : 06 3 005 042 degrees QTc Int : 442 ms Normal sinus rhythmNormal ECGWhen compared with ECG of 03-AUG-2020 11:12,No significant change was foundConfirmed by ADEEL HULL ([id number]) on 08/04/2020 7:11:09 AM Referred By: Self Referred Confirmed by:ADEEL HULL at 0711 PATIENT NAME: FREDI TERRELL .[id number] AVAvailable for patient [id number]:11:43 2020-08-03 18:28:00 [id number] 066 [facility] [place] [id number] PATIENT NAME: FREDI TERRELL ADMIT DATE: 08/03/20ACCOUNT NO: [id number] DOMITILA Hernandez NO: [id number] AGE: 75 REPORT TYPE: CARDIAC CATHETERIZATION REPORT SEX: M ADMITTING PHYSICIAN:Sumeet Paez MD ATTENDING PHYSICIAN:uSmeet Paez MD [facility] E DATE: 08/03/2020 PROCEDURES:1. Comprehensive electrophysiology study with atrial ablation.2. Left atrial recordings.3. Three-dimensional interatrial mapping. PREPROCEDURE DIAGNOSIS: Atrial flutter. POSTPROCEDURE DIAGNOSES: 1. Typical isthmus-dependent atrial flutter.2. Left atrial tachycardia. MATTRESS PACKER: Sumeet Paez MD ANESTHESIA: General endotracheal anesthesia. SOLDERER FURNACE: None. PROCEDURE DETAILS: After informed consent was obtained explaining to thepatient the risks, benefits, and alternatives , the patient was brought to thecardiac catheterization lab in the fasting postabsorptiv e state. He was preppedand draped in sterile fashion. After Following induction of general anesthesia,local anesthesia was applied over bot h femoral veins with 1% lidocaine. Accessto the veins was obtained using modified Seldinger technique with amicropuncture kit and ultrasound guidance. A locking 8-[place] sheath and [place]heath were placed in the right femoral vein over the J-wire. Two 6-[place] andone 7-[place] sheath were placed in left femoral vein . All sheaths wereaspirated and flushed and connected to heparinized saline infusion. A 5-[place] catheter was advanced via a 6-[place] sheath and placed in the rightventricle . A 6-[place] Cournand catheter was advanced via th e 7-[place] sheathand placed in the HIS position. A 5-[place] Tonny catheter was advanced viathe 6-[place] sheath and placed in the right atrium. A deflectable decapolarcatheter was advanced via the locking 8-[place] sheath and placed in the coronarysinus. Program stimulation was performed . Following initial induction of anatrial tachycardia, the HIS catheter was removed and th e 7-[place] sheath wasexchanged for an 8-[place] sheath over the wire. The sheath was aspirated andflushed and connected to heparinized saline infusion. An isthmus Duodecacatheter was advance d via the 8-[place] sheath and placed around cavotricuspidisthmus in the right atrium. Furthe r program stimulation was performed. FINDINGS: Counterclockwise, atrial flutter was reproducibl y inducible. The PATIENT NAME: FREDI TERRELL tachycardia terminated repeatedly prior to entrainment. However, given thepatient's baseline outpatient presentation an d recurrent inducibility of acounterclockwise atrial flutter, a decision was made to proceed with thecavotricuspid isthmus ablation line. A STSF ThermoCool ablation catheter wasthen advanced via the [place] sheath. The catheter was advanced over thecavotricuspid isthmus and multiple RF applications were made across the isthmus. This resulted in bidirectional block, which was verified by pacing. Thereappeared to b e a small gap after the initial appearance of isthmus block. Therealso appeared to be a small pouch in the medial line. An additional line wascreated laterally. Bidirectional isthmus bloc k was verified with differentialpacing. Further program stimulation was performed and an unstabl e right sidedtachycardia transition into a left atrial tachycardia, which spontaneouslyterminated. There is no typical atrial flutter was inducible, the catheterswere removed. The sheaths were aspirated and flushed. The sheaths were removedand hemostasis achieved with local pressure. The patient tolerated theprocedure well with no complications. CONCLUSIONS:1. Successful cavotricuspid isthmus ablation.2. Transient left atrial tachycardia noted.3. Estimated blood loss 15 mL.4. No complications. Dictated By: Sumeet Paez MD WT: CATH:JANICE/PEPGR/NTSDD: 08/03/2020 18:28:32DT: 08/03/2020 18:49:03Conf#: [id number]/DID#: [id number] cc: Adeel Hull MD Authenticated by Sumeet Paez MD On 08/04/2020 08:12:37 AM at 0812 PATIEN T NAME: FREDI TERRELL [id number]:49:00Z.[id number] a ble for patient fhmsQMVAUDQFULROJH7612-21-34C14:12:58 2020-08-03 11:12:00 [id number] [address] [place] [address] PATIENT NAME: FREDI TERRELL ADMIT DATE: 08/03/20ACCOUNT NO: [id number] ROOM NO: AGE: 75 REPORT TYPE: ELECTROCARDIOGRA M SEX: M ADMITTING PHYSICIAN: ATTENDING PHYSICIAN:Sumeet Paez MD Order:[id number] Reason : PVI Test Date/Time Stamp:SunAug 03 2020 11:12:47Blood Pressure : / mmHGVent. Rate : 062 BPM Atrial Rate : 062 BPM P-R Int : 178 ms QRS Dur : 090 ms QT Int : 410 ms P-R-T Axes : 044 052 059 degrees QTc Int : 416 ms Normal sinus rhythmNormal ECGWhen compared with ECG of 28-FEB-2020 05:36,No significant change was foundConfirmed by MD BELLA, RAFA PHILLIPS ([id number]) on 08/03/2020 4:59:07 PM Referred By: Sumeet Paez Confirmed by:RAFA GUERRA MD at 1659 PATIENT NAME: FREDI TERRELL .[id number] AVAvailable for patient [id number]:59:18 2020-08-03 11:12:00 [id number] [facility] [address] [address] PATIENT NAME: FREDI TERRELL ADMIT DATE: 08/03/20ACCOUNT NO: [id number] DOMITILA Hernandez NO: AGE: 75 REPORT TYPE: ELECTROCARDIOGRAM SEX: M ADMITTING PHYSICIAN: ATTENDING PHYSICIAN:Sumeet Paez MD Order:[id number] Reason : PVI Test Date/Time Stamp:SunAug 03 2020 11:12:47Blood Pressure : / mmHGVent. Rate : 062 BPM Atrial Rate : 062 BPM P-R Int : 178 ms QRS Dur : 090 ms QT Int : 410 ms P-R-T Axes : 044 052 059 degrees QTc Int : 416 ms Normal sinus rhythmNormal ECGWhen compared with ECG of 28-FEB-2020 05:36,No significant change was foundReconfirmed by ADEEL HULL ([id number]) on 08/03/2020 5:10:40 PM Referred By: Sumeet Paez Confirmed by:ADEEL HULL at 1710 PATIENT NAME: FREDI TERRELL .[id number] AVAvailable for patient gjqoYJVGVKSRRZDIEG9083-65-86R46:11:10 2020-02-28 19:54:00 [id number] [address] [facility] [place] [place] [address] PATIENT NAME: FREDI TERRELL ADMIT DATE: 02/28/20ACCOUNT NO: [id number] ROOM NO: AGE: 74 REPORT TYPE: CONSULTATION REPORT SEX: M ADMITTING PHYSICIAN: ATTENDING PHYSICIAN:Adeel Hull MD CONSULTATION DATE: 02/28/2020 CONSULTING PHYSICIAN: Viet Mark MD CARDIAC SURGERY SERVICE DIAGNOSES: Abdominal aortic aneurysm, hypertension, hyperlipidemia, atrialfibrillation, abdominal aortic aneurysm. BRIEF HISTORY: This is a 74-year-old patient, known to Dr. Hull for last9 years. The patient has an enlarging abdominal aortic aneurysm of 3.4 to 4.2cm. The patient had a carotid duplex imaging that showed less than 50% disease. He also had an echocardiogram, which was normal. The patient britt s very hard tocontrol hypertension. He has hyperlipidemia, atrial fibrillation, and thepatient was brought in for angiogram and evaluation for possible renal arterystenosis. e patient has stopped smoking. The patient is now retired. REVIEW OF SYSTEMS: Otherwise, it is negative. No history of hemophilia,coagulopathy, varicose vein stripping or phlebitis. Angiogram was done showing diffuse enlargement of the abdominal aorta infrarenalabout 4.2 cm. No obvious saccular outpouching. It appears to be relativelyuniform in dilation. The patient denie s any symptoms as far back pain orabdominal pain a t this time. PHYSICAL EXAMINATION:GENERAL: Demonstrates well-nourished male, in no apparent distress. No carotidbruits. Carotid pulse present. Radial pulse present.CHEST: Clear.HEART : Regular rate and rhythm without murmur.ABDOMEN: Soft, nontender, without mass.EXTREMITIES: Femoral pulse present. Pedal pulse absent.BREAST S AND RECTAL: Not done.NEUROLOGIC: Physiological. ASSESSMENT: Abdominal aortic aneurysm of 4.2 cm. RECOMMENDATIONS: The patient to have followup in [address] angiogram. Wecan see the patient i n followup in 1 year in the office also. Thank you for the consultation. PATIENT NAME: FREDI TERRELL I explained the patient that there is no need for surgery according to thesize of the aortic aneurysm at this time but to continue to have close followup with Dr. Hull, his senior c developer and myself once a year . Dictated By: Viet Mark MD WT: CON:ZCAYDEN/MEKA/NTSDD: 02/28/2020 19:54:15DT: 02/28/2020 20:42:11Conf#: [id number]/DID#: [id number] Authenticated and Edited by Viet Mark MD On 03/07/20 9:11:08 PM at 2113 PATIENT NAME: FREDI TERRELL :42:00Z.H I [id number] for patient [id number]:13:57 2020-02-28 08:35:00 [id number] [address] [place] [address] PATIENT NAME: FREDI TERRELL ADMIT DATE: 02/28/20ACCOUNT NO: [id number] DOMITILA Hernandez NO: AGE: 74 REPORT TYPE: CARDIAC CATHETERIZATION REPORT SEX: M ADMITTING PHYSICIAN: ATTENDING PHYSICIAN:Adeel Hull MD PROCEDURE DATE: 02/28/2020 SIXTH GRADE TEACHER: Adeel Hull MD. INDICATION FOR THE PROCEDURE: Malignant hypertension and abdominal aorticaneurysm. TITLE OF THE PROCEDURE:1. Abdominal.2. Selective bilateral renal angiograms. ESTIMATED BLOOD LOSS : Minimal. COMPLICATIONS: None. CONTRAST: 95 mL. ANESTHESIA: Conscious sedation with Versed and fentanyl and 1% lidocaine forlocal anesthesia. FINAL DIAGNOSES: A 4.2 cm abdominal aortic aneurysm that is 9.5 cm in length,it is completely infrarenal, no renal artery stenosis. There is dual supply onthe left renal. The recommendation is surgical consultation. PROCEDURE IN DETAIL: After informed consent, the patient was brought to thecardiac catheterizatio n lab in a stable fasting nonsedated state. He wasprepped and draped in the usual sterile fashion. After conscious sedation, 1%lidocaine was administered to the right common femoral artery area for localanesthesia. A 6-[place] sheath was placed in the right common femoral arteryusing standard techniques and fluoroscopy. After heparinization, abdominalangiogram showed an infrarenal abdominal aortic aneurysm of 4.2 c m in width andthe length was about 9.5 cm. There i s 1 renal artery to the right, 2 to theleft, 1 small one, 1 normal size. The selective renal angiogram showed no renalartery stenosis, good perfusion of both kidneys. The aneurysm is not adjacentto the origin of the renal arteries. The right groin was sealed usingAngio-Seal. There were no complications. The patient tolerated the procedurewell. [facility] to bed[facility] later on today on medical therapy and risk facto r modification. Hewill be seen by Dr. Mark for surgical consultation. Dictated By: Adeel Hull MD PATIENT NAME: FREDI TERRELL WT: CATH:JANICE/ALEJANDRO/YOLANDADD: 02/28/2020 08:35:13DT: 02/28/2020 08:43:35Conf#: [id number]/DID#: [id number] Authenticated by Adeel Hull MD On 02/28/2020 08:50:56 AM at 0851 PATIENT NAME: FREDI TERRELL [id number]:43:00Z.[id number] a ble for patient [id number]:51:37 2020-02-28 05:36:00 [id number] [address] [facility] [place] [address] PATIENT NAME: FREDI TERRELL ADMIT DATE: 02/28/20ACCOUNT NO: [id number] DOMITILA Hernandez NO: AGE: 74 REPORT TYPE: ELECTROCARDIOGRAM SEX: M ADMITTING PHYSICIAN: ATTENDING PHYSICIAN:Adeel Hull Order:[id number] Reason : ABDOMINAL AORTOGRAM Test Date/Time Stamp:SunFeb 28 2020 05:36:13Blood Pressure : / mmHGVent. Rate : 063 BPM Atrial Rate : 063 BPM P-R Int : 170 ms QRS Dur : 088 ms QT Int : 402 ms P-R-T Axes : 06 9 047 078 degrees QTc Int : 411 ms Normal sinus rhythmNormal ECGNo previous ECGs availableConfirmed by ADEEL HULL ([id number]) on 02/28/2020 6:07:57 AM Referred By: Adeel Hull Confirmed by:ADEEL HULL at 0608 PATIENT NAME: FREDI TERRELL .[id number] AVAvailable for patient [id number]:08:18 2020-02-27 16:19:00 [id number] [address] [facility] [place] [address] PATIENT NAME: FREDI TERRELL ADMIT DATE: 02/28/20ACCOUNT NO: [id number] DOMITILA Hernandez NO: AGE: 74 REPOR T TYPE: HISTORY AND PHYSICAL SEX: M ADMITTING PHYSICIAN: ATTENDING PHYSICIAN:Adeel Hull PATIENT NAME: FREDI TERRELL ADMIT DATE:02/28/2020ADMISSION DATE: 02/28/2020 ADMISSION HISTORY AND PHYSICAL SIXTH GRADE TEACHER: Adeel Hull MD REASON FOR ADMISSION: Abdomina l angiograms to assess his abdominal aorticaneurys m and renal arteries prior to planned surgical intervention. HISTORY OF PRESENT ILLNESS: Fredi jacobson s a 74-year-old patient of mine who I havebeen following in my clinic since 2010. The patient has a long history ofhypertensive heart disease, paroxysmal atrial fibrillation, hyperlipidemia,paroxysmal supraventricular tachycardia. He was recently found to have a largeabdominal aortic aneurysm around 4.2 cm. He is being evaluated for possiblesurgical or percutaneous intervention. He has been having extremely elevatedblood pressure. There is a concern about renal artery stenosis in addition tothe aneurysm. His aneurysm has grown since 201 7 from a 3.4 to 4.2. He recentlyunderwent cardiovascular workup. He had a carotid Doppler on June 2016, thatshowed less than 50% disease. He had an echocardiogram on 01/14/2020 thatshowe d normal ejection fraction, mild mitral regurgitation, hypertensivechanges. A nuclear stress test was carried out on 02/18/2020 that was negativefor ischemia. He had recent also Holter monitor that showed no significantarrhythmias. The patient is here toda y only for abdominal angiograms and renalartery angiograms. His hypertension, has been very labile lately and requiringmultiple medications. PAST MEDICAL HISTORY: Remarkable for hypertension, hyperlipidemia, paroxysmalatrial fibrillation, cardiomegaly, PVCs, dizziness, aci d reflux lymphoma/sarcomaemphysema and allergies. PAST SURGICAL HISTORY: He has had foot surgery, leg surgery, lung surgery,parotid gland lymphoma . ALLERGIES: HYDROCODONE CAUSES DIZZINESS. MEDICATIONS: Reviewed and listed. SOCIAL HISTORY : The patient quit smoking years ago. There is no history ofalcohol or street drug use. FAMILY HISTORY: Positive for atherosclerotic cardiovascular disease. PATIENT NAME: FREDI TERRELL REVIEW OF SYSTEMS: Remarkable for the above. The patient denies any angina.He has dyspnea on mild exertion. He has insomnia, allergies, dry mouth, asthma,nonspecific abdominal pain, easy bruisability, nonspecific leg pains anddizziness . Rest of the review of system is enclosed. No acute GI or GUsymptoms. No TIAs or strokes. PHYSICAL EXAMINATION:GENERAL: Reveals a pleasant elderly male, in no acute distress.VITAL SIGNS: Blood pressure 190/80, pulse 58 and regular, respiratory rate 18and unlabored, and temperatur e afebrile.HEENT: Head, atraumatic and normocephalic. Eyes and ENT examination withinnormal for age.NECK: Supple. No jugular venous distention, bruits, or lymphadenopathy.Normal upstroke.LUNGS: Clear and resonant.HEART: Regular rate and rhythm with II/ systolic ejection murmur at the leftlower sternal border. No gallops.ABDOMEN: Soft. No tenderness, no organomegaly, no masses or bruits . Theabdomen is obese.EXTREMITIES: 2+ distal pulses. No edema, cyanosis, or clubbing.NEUROLOGIC: Alert and oriented x3. The examination appears to be nonfocal. LABORATORY DATA: Pending. Noninvasive cardiovascular workup enclosed. IMPRESSION: This is a 74-year-old patient with abdominal aortic aneurysm thathas been enlarging. He has uncontrolled hypertension . He has no activecoronary artery disease. No significant carotid disease. He has paroxysmalatrial fibrillation, hypertensive hear t disease, and paroxysmal supraventriculartachycardia, both have been stable. The patient is here for abdominalangiograms to assess his aneurysm and t o assess his renal arteries and decide onintervention on the abdominal aortic aneurysm. The recommendation is to proceedwith the above-mentioned procedures. The risks and benefits of the plannedprocedures were discussed in detail with the patient and he is willing toproceed. Rest as per orders. Dictated By: Gibran Hull MD WT: HP:ABBY/ALEJANDRO/NTSDD: 02/27/2020 16:19:51DT: 02/27/2020 16:49:38Conf#: [id number]/DID#: [id number] and Edited by Adeel Hull MD On 02/28/20 6:11:51 AM at 0614 PATIENT NAME: FREDI TERRELL and physical rzdlaeyoujq2831-58-82J39:49:00Z.[id number] A VAvailable for patient [id number]:14:19
[2023-03-12] MEDS ORDERED: METOPROLOL TAR 25 MG TAB ONE (10:36)
[2023-03-12 10:38] LABS: Absolute Lymphocytes (CBC) 0.9 K/uL (0.7-4.9); Hematocrit 38.3 % (39.6-49.0); Lymphocytes % 20.7 % (15.3-44.8); MCV 99.8 fL (80-100); Platelets 140 thou/uL (152-406); RBC Red Blood Cell Count 3.84 M/uL (4.33-5.43)
[2023-03-12 10:56] LABS: Potassium 4.5 mEq/L (3.5-5.1); Troponin High Sensitivity 11.6 pg/mL (<58.9)
--- NOTE | 2023-03-12 11:09 | RAD REPORT ---
EXAM DESCRIPTION: RAD - Chest Single View - 03/12/2023 10:47 am CLINICAL HISTORY: PALPITATIONS Chest pain. COMPARISON: Chest Single View dated 10/12/2022; Chest Single View dated 08/29/2022; Chest Single View dated 07/26/2022; Chest Single View dated 06/25/2022 FINDINGS: Portable technique limits examination quality. Moderate interstitial pulmonary edema is present. Chronic pleural and parenchymal thickening in the r ight base is unchanged. The heart is mildly enlarged in size. No displaced fractures. IMPRESSION: Mild CHF.
--- NOTE | 2023-03-12 11:21 | P.HP ---
Certification for Inpatient Patient admitted to: Observation With expected LOS: <2 Midnights Patient will require the following post-hospital care: None Practitioner: I am a practitioner with admitting privileges, knowledge of patient current condition, hospital course, and medical plan of care. Services: Services provided to patient in accordance with Admission requirements found in Title 42 Section 412.3 of the Code of Federal Regulations Patient History Date of Service: 03/12/23 Reason for admission: A-fib RVR History of Present Illness: 77-year-old male with a past medical history Sjogren's Syndrome; Hypertension; GERD; COPD; Cancer; Atrial Fib; aortic aneurysm, lung cancer status post chemoradiation presents to the emergency room with rapid heart rate. He reports waking up at 4:30 AM with heart racing. He reports history of A-fib RVR, he reports medication compliance. He reports he is Dr. Israel for cardiology. He denies chest pain, shortness of breath, abdominal pain, dizziness, edema. Plan to admit for A-fib RVR with cardiology to consult. Allergies hydrocodone Allergy (Verified 01/19/21 07:55) Unknown Home Medications: Famotidine 40 mg PO BEDTIME 01/19/21 Rosuvastatin Calcium [Crestor] 5 mg PO DAILY 01/19/21 Loratadine [Claritin*] 10 mg PO DAILY 06/26/22 Losartan Potassium 50 mg PO DAILY #90 tab 06/26/22 Sotalol HCl [Betapace*] 80 mg PO BID 6AM 6PM tab 06/26/22 traMADol HCL [Ultram*] 1 tab PO BID PRN 06/26/22 Apixaban [Eliquis] 5 mg PO BID #60 07/26/22 Sotalol HCl [Betapace*] 120 mg PO BID 6AM 6PM #60 tab 07/26/22 - Past Medical/Surgical History Diabetic: No -: A-fib -: Lung CA -: COPD -: GERD -: HTN -: Sjogren's Syndrome -: Radiation Therapy -: Heart Ablation -: Lung SX x 5 - Social History Alcohol use: No CD- Drugs: No Caffeine use: No Review of Systems Listed HPI Physical Examination - Physical Exam General: Alert, In no apparent distress, Oriented x3 HEENT: Atraumatic Neck: Supple, 2+ carotid pulse no bruit Respiratory: Clear to auscultation bilaterally, Normal air movement Cardiovascular: No edema, Normal pulses Capillary refill: <2 Seconds Gastrointestinal: Normal bowel sounds, Hypoactive Musculoskeletal: No clubbing, No swelling Integumentary: No rashes, No breakdown Neurological: Normal gait, Normal speech, Normal strength at 5/5 x4 extr - Studies Laboratory Data (last 24 hrs) 03/12/23 03/12/23 10:19 10:19 WBC 4.20 L Hgb 13.1 L Hct 38.3 L Plt Count 140 L Sodium 137 Potassium 4.5 BUN 14 Creatinine 1.09 Glucose 114 H Assessment and Plan - Plan Assessment plan A-fib RVR Chronic anticoagulation Cardiology consult, telemetry resume p.o. Betapace, start metoprolol 25 p.o. twice daily EKG A-fib RVR heart rate 121 with PVCs BP 148 / 107; Pulse 123; Resp 18; Temp 97.2; Pulse Ox 100% on R/A; Weight 106.59 kg; Height 6 ft. 2 in Troponin normal 11.6 normocytic anemia 13.1 38.3 no leukocytosis, Kidney function normal, potassium normal History Sjogren's Syndrome Hypertension GERD COPD; Lung cancer status post chemoradiation aortic aneurysm Resume appropriate home meds, Cardiac diet Full code DVT Eliquis Discharge Plan: Home Plan to discharge in: 24 Hours - Advance Directives Does patient have a Living Will: Yes Does patient have a Durable POA for Healthcare: No - Code Status/Comfort Care Code Status: Full Code Physician Review: Patient Assessed, Agree with Above Assessment and Plan Critical Care: No Time Spent Managing Pts Care (In Minutes): 50
--- NOTE | 2023-03-12 11:44 | ER ---
Nurse's Notes [facility] Name: Fredi Barth Age: 77 yrs Sex: Male : 1945 Arrival Date: 03/12/2023 Time: 09:40 Bed 14 Private MD: Rustam Levin V Diagnosis: atrial fibrillation wth rapid ventricular rate Presentation: 03/12 09:48 Chief complaint: Palpitations and mild SOB since 0430 today. Coronavirus screen: At this time, the client does not indicate any symptoms associated with coronavirus-19. Ebola Screen: No symptoms or risks identified at this time. Initial Sepsis Screen: Does the patient meet any 2 criteria? No. Patient's initial sepsis screen is negative. Does the patient have a suspected source of infection? No. Patient's initial sepsis screen is negative. Risk Assessment: Do you want to hurt yourself or someone else? Patient reports no desire to harm self or others. Onset of symptoms was March 12, 2023. 09:48 Method Of Arrival: Ambulatory hb 09:48 Acuity: PHYLLIS 3 hb Historical: - Allergies: 09:50 HYDRALAZINE; hb 09:50 HYDROCODONE; hb - PMHx: 09:50 Sjogren's Syndrome; Hypertension; GERD; COPD; Cancer; Atrial Fib; aortic aneurysm; hb radiation; Cancer; - PSHx: 09:50 ablation for afib; lung aurgery x5; hb - Immunization history:: Adult Immunizations up to date. - Social history:: Smoking status: unknown. Screenin:07 [facility] ED Fall Risk Assessment (Adult) History of falling in the last 3 months, tm6 including since admission No falls in past 3 months (0 pts). Abuse screen: Denies threats or abuse. Denies injuries from another. Nutritional screening: No deficits noted. Tuberculosis screening: No symptoms or risk factors identified. Assessment: 10:07 General: Appears in no apparent distress. Behavior is calm, cooperative. Pain: Denies tm6 pain. Pain does not radiate. Pain began no pain. Neuro: Level of Consciousness is awake, alert, obeys commands, Oriented to person, place, time, situation. Cardiovascular: Reports palpitations, Capillary refill < 3 seconds Patient's skin is warm and dry. Rhythm is atrial fibrillation with rapid ventricular response. Respiratory: Airway is patent Respiratory effort is even, unlabored, Respiratory pattern is regular, symmetrical. GI: Abdomen is round non-distended. : No signs and/or symptoms were reported regarding the genitourinary system. : No signs and/or symptoms were reported regarding the genitourinary system. EENT: No signs and/or symptoms were reported regarding the EENT system. Derm: No signs and/or symptoms reported regarding the dermatologic system. Musculoskeletal: No signs and/or symptoms reported regarding the musculoskeletal system. 11:11 Reassessment: Patient appears in no apparent distress at this time. No changes from tm6 previously documented assessment. Patient and/or family updated on plan of care and expected duration. Pain level reassessed. 12:26 Reassessment: Patient appears in no apparent distress at this time. No changes from tm6 previously documented assessment. Patient and/or family updated on plan of care and expected duration. Pain level reassessed. Vital Signs: 09:48 BP 148 / 107; Pulse 123; Resp 18; Temp 97.2; Pulse Ox 100% on R/A; Weight 106.59 kg; hb Height 6 ft. 2 in. ; Pain 0/10; 10:07 BP 138 / 95; Pulse 116; Resp 13; Pulse Ox 97% on R/A; Pain 0/10; tm6 11:12 BP 118 / 74; Pulse 64; Resp 14; Pulse Ox 97% on R/A; tm6 11:43 BP 111 / 72; Pulse 61; Pulse Ox 98% on R/A; tm6 12:26 BP 106 / 71; Pulse 59; Resp 17; Pulse Ox 97% on R/A; tm6 09:48 Body Mass Index 30.17 (106.59 kg, 187.96 cm) hb 09:48 Pain Scale: Adult hb 10:07 Pain Scale: Adult tm6 ED Course: 09:40 Patient arrived in ED. rg4 09:41 Rustam Levin MD is Private Physician. rg4 09:50 Triage completed. hb 09:50 Edwin Chandra DO is Attending Physician. ms3 09:51 Arm band placed on. hb 10:05 No provider procedures requiring assistance completed. Inserted saline lock: 20 gauge ld1 in left antecubital area, using aseptic technique. Blood collected. 10:07 Rosenda Jones, RN is Primary Nurse. tm6 10:07 Patient has correct armband on for positive identification. Bed in low position. Call tm6 light in reach. Side rails up X2. Provided Education on: need for cardiac monitoring. Client placed on continuous cardiac and pulse oximetry monitoring. NIBP monitoring applied. grocery packer on. Noise minimized. 10:07 Patient maintains SpO2 saturation greater than 95% on room air. tm6 10:49 XRAY Chest (1 view) In Process Unspecified. EDMS 11:42 Bigg Gallegos MD is Hospitalizing Provider. ms3 16:34 Patient admitted, IV remains in place. tm6 Administered Medications: 10:24 Drug: Metoprolol PO 25 mg PO once Route: PO; tm6 Medication: 10:07 VIS not applicable for this client. tm6 Outcome: 11:43 Decision to Hospitalize by Provider. ms3 16:34 Admitted to Med/surg accompanied by tech, room 203, Report called to Chirag BAH tm6 16:34 Condition: stable 16:34 Instructed on the need for admit, 17:08 Patient left the ED. tm6 Signatures: Dispatcher [employer] EDMS Sabiha Brooks RN RN Bhakti Gaitan rg4 Edwin Chandra, DO ms3 Adriana Chandra RN RN ld1 Rosenda Jones RN RN tm6 Corrections: (The following items were deleted from the chart) 09:51 09:50 PMHx: Cancer, Lung; hb hb
--- NOTE | 2023-03-12 11:44 | EDPHYS ---
Physician Documentation [facility] Name: Fredi Barth Age: 77 yrs Sex: Male : 1945 Arrival Date: 03/12/2023 Time: 09:40 Bed 14 Private MD: Rustam Levin V ED Physician Edwin Chandra HPI: 03/12 11:43 This 77 yrs old Male presents to ER via Ambulatory with complaints of Palpitations. ms3 11:43 77-year-old male with past medical history of Sjogren's syndrome, hypertension, GERD, ms3 COPD, cancer, atrial fibrillation, aortic aneurysm presents to the emergency department for palpitations/atrial fibrillation that began at 4:30 AM. Patient states he sees Dr. Israel for cardiology and Dr. Levin is his primary care physician. Patient states he is currently on sotalol 125 mg at 5 AM and 5 PM and 60 mg at 11 AM. Patient denies pain at this time. Patient denies any nausea or vomiting. Historical: - Allergies: 09:50 HYDRALAZINE; hb 09:50 HYDROCODONE; hb - PMHx: 09:50 Sjogren's Syndrome; Hypertension; GERD; COPD; Cancer; Atrial Fib; aortic aneurysm; hb radiation; Cancer; - PSHx: 09:50 ablation for afib; lung aurgery x5; hb - Immunization history:: Adult Immunizations up to date. - Social history:: Smoking status: unknown. ROS: 11:43 Constitutional: Negative for fever, and chills. Neck: Negative for injury, pain, and ms3 swelling, 11:43 Respiratory: Negative for shortness of breath, cough, wheezing, and pleuritic chest pain, Abdomen/GI: Negative for abdominal pain, nausea, vomiting, diarrhea, and constipation, MS/Extremity: Negative for injury and deformity, Skin: Negative for injury, rash, and discoloration, 11:43 Cardiovascular: Positive for palpitations, 11:43 All other systems are negative, Exam: 11:43 Constitutional: This is a well developed, well nourished patient who is awake, alert, ms3 and in no acute distress. Head/Face: Normocephalic, atraumatic. Neck: Trachea midline, no cervical lymphadenopathy. Supple, full range of motion without nuchal rigidity, or vertebral point tenderness. No Meningismus. Chest/axilla: Normal chest wall appearance and motion. Nontender with no deformity. Respiratory: Lungs have equal breath sounds bilaterally, clear to auscultation and percussion. No rales, rhonchi or wheezes noted. No increased work of breathing, no retractions or nasal flaring. Abdomen/GI: Soft, non-tender, with normal bowel sounds. No distension or tympany. No guarding or rebound. No evidence of tenderness throughout. Skin: Warm, dry with normal turgor. Normal color with no rashes, no lesions, and no evidence of cellulitis. 11:43 MS/ Extremity: Pulses equal, no cyanosis. Neurovascular intact. Full, normal range of motion. 11:43 Cardiovascular: Rate: tachycardic, Rhythm: irregularly irregular, Pulses: no pulse deficits are appreciated, Vital Signs: 09:48 BP 148 / 107; Pulse 123; Resp 18; Temp 97.2; Pulse Ox 100% on R/A; Weight 106.59 kg; hb Height 6 ft. 2 in. ; Pain 0/10; 10:07 BP 138 / 95; Pulse 116; Resp 13; Pulse Ox 97% on R/A; Pain 0/10; tm6 11:12 BP 118 / 74; Pulse 64; Resp 14; Pulse Ox 97% on R/A; tm6 11:43 BP 111 / 72; Pulse 61; Pulse Ox 98% on R/A; tm6 12:26 BP 106 / 71; Pulse 59; Resp 17; Pulse Ox 97% on R/A; tm6 09:48 Body Mass Index 30.17 (106.59 kg, 187.96 cm) hb 09:48 Pain Scale: Adult hb 10:07 Pain Scale: Adult tm6 MDM: 10:16 Patient medically screened. ms3 11:43 Differential diagnosis: arrythmia. Data reviewed: vital signs, nurses notes, and as a ms3 result, I will admit patient. Consideration of Admission/Observation Patient was admitted/placed on observation. Management of patient was discussed with the following: Hospitalist: Dr Gallegos. Assistant Produce Manager: Dr Israel- Continue Sotolol regimine and add Metoprolol 25 mg BID. I considered the following discharge prescriptions or medication management in the emergency department Medications were administered in the Emergency Department. See MAR. Independent interpretation of the following test(s) in the Emergency Department EKG: See my EKG interpretation above. Historians other than the Patient: Spouse/Significant Other: . Care significantly affected by the following chronic conditions: Cancer, A Fib. Counseling: I had a detailed discussion with the patient and/or guardian regarding the historical points, exam findings, and any diagnostic results supporting the discharge/admit diagnosis, lab results, radiology results, the need for further work-up and treatment in the hospital. ED course: Discussed necessity for admission per Dr. Israel's recommendations. Patient and his understand agree with plan. All questions were answered. 03/12 10:14 Order name: Basic Metabolic Panel; Complete Time: 10:57 ms3 03/12 10:14 Order name: CBC with Diff; Complete Time: 10:57 ms3 03/12 10:14 Order name: Troponin HS; Complete Time: 10:57 ms3 03/12 10:14 Order name: XRAY Chest (1 view); Complete Time: 11:42 ms3 03/12 10:14 Order name: EKG; Complete Time: 10:15 ms3 03/12 11:20 Order name: CONS Physician Consult EDMS 03/12 10:14 Order name: Cardiac monitoring; Complete Time: 10:18 ms3 03/12 10:14 Order name: EKG - Nurse/Tech; Complete Time: 10:18 ms3 03/12 10:14 Order name: IV Saline Lock; Complete Time: 10:18 ms3 03/12 10:14 Order name: Labs collected and sent; Complete Time: 10:20 ms3 03/12 10:14 Order name: O2 Per Protocol; Complete Time: 10:18 ms3 03/12 10:14 Order name: O2 Sat Monitoring; Complete Time: 10:20 ms3 Administered Medications: 10:24 Drug: Metoprolol PO 25 mg PO once Route: PO; tm6 Disposition Summary: 03/12/23 11:43 Hospitalization Ordered Notes: Hospitalization Status: Inpatient Admission ms3 Provider: Bigg Gallegos ms3 Location: Telemetry/MedSurg (Inpatient) ms3 Condition: Stable ms3 Problem: new ms3 Symptoms: are unchanged ms3 Bed/Room Type: Standard ms3 Room Assignment: 203(03/12/23 16:00) bd Diagnosis - atrial fibrillation wth rapid ventricular rate ms3 Forms: - Medication Reconciliation Form ms3 - SBAR form ms3 - Leadership Thank You Letter ms3 Signatures: Dispatcher [employer] Rachele Munson Heather, NIURKA RN Edwin Chandra, DO ms3 Rosenda Jones RN RN tm6 Corrections: (The following items were deleted from the chart) 09:51 09:50 PMHx: Cancer, Lung; [facility] 16:00 11:43 ms3 bd
[2023-03-12] MEDS ORDERED: ONDANSETRON 4 MG/2 ML VIAL IV PRN (12:31)
[2023-03-12] MEDS ORDERED: ACETAMINOPHEN 500 MG TAB PO PRN (12:31)
[2023-03-12] MEDS: SOTALOL HCL 80 MG TAB PO SCH (17:00)
[2023-03-12] MEDS: METOPROLOL TAR 25 MG TAB PO SCH (17:53)
[2023-03-12] MEDS: TRAMADOL HCL 50 MG TAB PO PRN (17:57)
--- NOTE | 2023-03-12 19:55 | CON ---
Date of Consultation: 03/12/2023 Reason For Consultation: Atrial fibrillation with rapid ventricular response. History Of Present Illness: 77-year-old male, history of hypertension, AFib, COPD, acid reflux, aort ic aneurysm, cancer, presented with palpitation, found to be in AFib with RVR. He is on s otalol 120 mg in the morning and 60 mg at p.m. Despite that, he had an episode with the AFib with RV R. Started him on metoprolol in the emergency room and he converted back to sinus rhythm and he is i n normal sinus rhythm at the present time. Past Medical History: As outlined above in the HPI. Medications: Refer to reconciliation sheet for detailed list. Allergies: HYDROCODONE. Family History: No premature coronary artery disease or cancer. Social History: Does not smoke or drink. Does not use any drugs. Review of Systems: All systems reviewed and they were negative except as mentioned in the HPI. Physical Examination: Vital Signs: Reviewed. Head and Neck: Pupils are equal, reactive to light. Intact eye movements. No JVD. No cervical lym phadenopathy. Neck is supple. Thyroid is not enlarged. Lungs: Clear to auscultation bilaterally. No rhonchi, wheezing, or crackles. No accessory muscle u se. Heart: Regular rate and rhythm. No extra sounds. Abdomen: Soft, nontender. Bowel sounds positive. No organomegaly. No masses or hernia. No rigidi ty or rebound. Extremities: No edema, clubbing, cyanosis. Intact pulses. Skin: No rash or nodule. Neurologic: Alert, awake, oriented x3. No acute focal deficits appreciated. Investigations: BUN is 14, creatinine 1.09, potassium 4.5, and hemoglobin 13.1. Assessment And Recommendations: 1.Atrial fibrillation with rapid ventricular response, responded very well to metoprolol. Continue sotalol at 120 mg twice a day, add metoprolol 25 mg twice a day, and I will plan to use it on an as-n eeded basis in the future. Monitor overnight and repeat an EKG once in sinus rhythm to evaluate his QTc interval. 2.Dyslipidemia. Continue statin. 3.Hypertension. Blood pressure is controlled. Continue home medications. SR/MODL Voice ID: [id number] Report ID: [id number]
[2023-03-12] MEDS ORDERED: HOME MED 1 EA UNK (Famotidine [Famotidine] 40 MG Tablet) PO SCH (21:00)
[2023-03-12] MEDS ORDERED: APIXABAN 5 MG TABLET PO SCH (21:00)
[2023-03-12] MEDS ORDERED: FAMOTIDINE 20 MG TAB PO SCH (21:00)
[2023-03-13] MEDS: TRAMADOL HCL 50 MG TAB PO PRN (05:58)
[2023-03-13] MEDS: SOTALOL HCL 80 MG TAB PO SCH (05:59)
[2023-03-13] MEDS: METOPROLOL TAR 25 MG TAB PO SCH (06:00)
[2023-03-13 06:54] LABS: Albumin 3.4 g/dL (3.4-5.0); Bilirubin Total 0.5 mg/dL (0.2-1.0); Magnesium 2.1 mg/dL (1.6-2.4); Potassium 4.3 mEq/L (3.5-5.1); Protein, Total 7.4 g/dL (6.4-8.2)
[2023-03-13] MEDS ORDERED: LOSARTAN POTASSIUM 50 MG TABLET PO SCH (09:00)
[2023-03-13] MEDS ORDERED: ROSUVASTATIN 5 MG TAB PO SCH (09:00)
[2023-03-13 10:13] VITALS: O2SAT 93
--- NOTE | 2023-03-13 10:47 | P.DS ---
Admission Date: 03/12/23 Discharge Date: 03/13/23 Disposition: ROUTINE DISCHARGE Discharge Condition: GOOD Reason for Admission: A-fib RVR Brief History of Present Illness: 77-year-old male with a past medical history Sjogren's Syndrome; Hypertension; GERD; COPD; Cancer; Atrial Fib; aortic aneurysm, lung cancer status post chemoradiation presents to the emergency room with rapid heart rate. He reports waking up at 4:30 AM with heart racing. He reports history of A-fib RVR, he reports medication compliance. He reports he is Dr. Israel for cardiology. He denies chest pain, shortness of breath, abdominal pain, dizziness, edema. Plan to admit for A-fib RVR with cardiology to consult. - Physical Exam General: Alert, In no apparent distress, Oriented x3 HEENT: Atraumatic Neck: Supple, 2+ carotid pulse no bruit Respiratory: Clear to auscultation bilaterally, Normal air movement Cardiovascular: No edema, Normal pulses Capillary refill: <2 Seconds Gastrointestinal: Normal bowel sounds, Hypoactive Musculoskeletal: No clubbing, No swelling Integumentary: No rashes, No breakdown Neurological: Normal gait, Normal speech, Normal strength at 5/5 x4 extr Hospital Course: A-fib RVR-improved Chronic anticoagulation Cardiology consult, telemetry resume p.o. Betapace, start metoprolol 25 p.o. twice daily,resume sotol 120 po bid per card heart rate controlled on new mediation added. Troponin normal 11.6 normocytic anemia 13.1 38.3 no leukocytosis, Kidney function normal, potassium normal Physician Discharge Instructions: Follow up with cardiology in 7-10 days Start new presciption metoprolol 25 mg twice daily Sotalol 120 mg twice daily per cardiology Vital Signs/Physical Exam: Temp Pulse Resp BP Pulse Ox 97.0 F 57 20 157/70 H 57 L 03/13/23 08:00 03/13/23 08:00 03/13/23 08:00 03/13/23 08:00 03/13/23 08:00 Laboratory Data at Discharge: WBC 4.20 thou/uL (4.3-10.9) L 03/12/23 10:19 Hgb 13.1 g/dL (13.6-17.9) L 03/12/23 10:19 Hct 38.3 % (39.6-49.0) L 03/12/23 10:19 Plt Count 140 thou/uL (152-406) L 03/12/23 10:19 Sodium 136 mEq/L (136-145) 03/13/23 06:21 Potassium 4.3 mEq/L (3.5-5.1) 03/13/23 06:21 BUN 14 mg/dL (7-18) 03/13/23 06:21 Creatinine 1.02 mg/dL (0.70-1.30) 03/13/23 06:21 Glucose 103 mg/dL (74-106) 03/13/23 06:21 Magnesium 2.1 mg/dL (1.6-2.4) 03/13/23 06:21 Total Bilirubin 0.5 mg/dL (0.2-1.0) 03/13/23 06:21 AST 16 U/L (15-37) 03/13/23 06:21 ALT 20 U/L (16-61) 03/13/23 06:21 Alkaline Phosphatase 79 U/L (45-117) 03/13/23 06:21 Home Medications: Famotidine 40 mg PO BEDTIME 01/19/21 Rosuvastatin Calcium [Crestor] 5 mg PO DAILY 01/19/21 Loratadine [Claritin*] 10 mg PO DAILY 06/26/22 Losartan Potassium 50 mg PO DAILY #90 tab 06/26/22 Sotalol HCl [Betapace*] 80 mg PO BID 6AM 6PM tab 06/26/22 traMADol HCL [Ultram*] 1 tab PO BID PRN 06/26/22 Apixaban [Eliquis] 5 mg PO BID #60 07/26/22 Sotalol HCl [Betapace*] 120 mg PO BID 6AM 6PM #60 tab 07/26/22 Physician Discharge Instructions: Physician Discharge Instructions: Follow up with cardiology in 7-10 days Start new presciption metoprolol 25 mg twice daily Sotalol 120 mg twice daily per cardiology -DC IV and DC home -Follow-up with PCP in 1 to 2 weeks -Please call Dr. Gallegos at [phone] if any questions regarding hospital stay -Please call nursing station at [phone] if any nursing or medication questions -Return to the emergency room if symptoms worsen Diet: Low sodium Activity: Fall precautions Followup: Rustam Levin MD [Primary Care Provider] -
[2023-03-13] MEDS ORDERED: SOTALOL HCL 80 MG TAB PO SCH (11:00)
[2023-03-13 13:16] VITALS: BP 152/70; TEMP 97.5
--- NOTE | 2023-03-13 13:37 | PN ---
Date of Progress Note: 03/13/2023 Subjective: Seen by bedside. Doing clinically well. He has remained in sinus rhythm. Review of Systems: No chest pain, shortness of breath, orthopnea, or cough. No nausea, vomiting, or diarrhea. All othe r systems were reviewed, they were negative. Objective: Vital Signs: Reviewed. Head and Neck: Pupils are equal, reactive to light. Intact eye movements. No JVD. No cervical lym phadenopathy. Neck is supple. Thyroid is not enlarged. Lungs: Clear to auscultation bilaterally. No rhonchi, wheezing, or crackles. No accessory muscle u se. Heart: Regular rate and rhythm. No extra sounds. Abdomen: Soft, nontender. Bowel sounds positive. No organomegaly. No masses or hernia. No rigidi ty or rebound. Extremities: No edema, clubbing, or cyanosis. Intact pulses. Skin: No rash or nodule. Neurologic: Alert, awake, oriented x3. No acute focal deficits appreciated. Lymph Nodes: No cervical or axillary lymphadenopathy. Investigations: BUN 14, creatinine 1.02, and hemoglobin 13.1. Assessment And Recommendations: 1.Atrial fibrillation with rapid ventricular response. The addition of metoprolol put him back in s inus rhythm and his heart rate is in the lower 60s. I will continue that and from my perspective, he is okay to be released. Please obtain an EKG to evaluate QTc interval before discharge and to follo w up with me in the office in 1 week. 2.Hypertension. Blood pressure was elevated on admission, improved. We will follow this issue as an outpatient. 3.Dyslipidemia, continue on statin. SR/MODL Voice ID: [id number] Report ID: [id number]
--- NOTE | 2023-03-13 17:27 | P.DS ---
Admission Date: 03/12/23 Discharge Date: 03/13/23 Disposition: ROUTINE DISCHARGE Discharge Condition: GOOD Reason for Admission: A-fib RVR Hospital Course: SALO CAME WITH A FIB AGAIN. HE HAS RECURRENCE DESPITE HIGH DOSE OF SOTALOL. HE DID WELL WITH ADDING SMALL DOSE OF METOPROLOL. HE WILL FU WITH DR. DAMIAN AND ME IN A WEEK. Vital Signs/Physical Exam: Temp Pulse Resp BP Pulse Ox 97.5 F 60 19 152/70 H 98 03/13/23 12:00 03/13/23 12:00 03/13/23 12:00 03/13/23 12:00 03/13/23 12:00 Laboratory Data at Discharge: WBC 4.20 thou/uL (4.3-10.9) L 03/12/23 10:19 Hgb 13.1 g/dL (13.6-17.9) L 03/12/23 10:19 Hct 38.3 % (39.6-49.0) L 03/12/23 10:19 Plt Count 140 thou/uL (152-406) L 03/12/23 10:19 Sodium 136 mEq/L (136-145) 03/13/23 06:21 Potassium 4.3 mEq/L (3.5-5.1) 03/13/23 06:21 BUN 14 mg/dL (7-18) 03/13/23 06:21 Creatinine 1.02 mg/dL (0.70-1.30) 03/13/23 06:21 Glucose 103 mg/dL (74-106) 03/13/23 06:21 Magnesium 2.1 mg/dL (1.6-2.4) 03/13/23 06:21 Total Bilirubin 0.5 mg/dL (0.2-1.0) 03/13/23 06:21 AST 16 U/L (15-37) 03/13/23 06:21 ALT 20 U/L (16-61) 03/13/23 06:21 Alkaline Phosphatase 79 U/L (45-117) 03/13/23 06:21 Home Medications: Rosuvastatin Calcium [Crestor] 5 mg PO DAILY 01/19/21 Loratadine [Claritin*] 10 mg PO DAILY 06/26/22 Losartan Potassium 50 mg PO DAILY #90 tab 06/26/22 Apixaban [Eliquis] 5 mg PO BID #60 07/26/22 Famotidine [Pepcid*] 40 mg PO BEDTIME tab 03/13/23 Metoprolol Tartrate [Lopressor*] 25 mg PO BID 6AM 6PM 14 Days #28 tab 03/13/23 Sotalol HCl [Betapace*] 120 mg PO BID 6AM 6PM #60 tab 03/13/23 New Medications: Sotalol HCl [Betapace*] 120 mg PO BID 6AM 6PM #60 tab Metoprolol Tartrate [Lopressor*] 25 mg PO BID 6AM 6PM 14 Days #28 tab Physician Discharge Instructions: Physician Discharge Instructions: Follow up with cardiology in 7-10 days Start new presciption metoprolol 25 mg twice daily Sotalol 120 mg twice daily per cardiology -DC IV and DC home -Follow-up with PCP in 1 to 2 weeks -Please call Dr. Gallegos at [phone] if any questions regarding hospital stay -Please call nursing station at [phone] if any nursing or medication questions -Return to the emergency room if symptoms worsen Diet: Low sodium Activity: Fall precautions Diet: ADA Activity: Ad macario Followup: Rustam Levin MD [Primary Care Provider] -
--- NOTE | 2023-03-15 15:22 | EKG ---
Test Date: 2023-03-13 Test Time: 12:26:02 Visitor Services Representative: MY MEASUREMENT RESULTS: Intervals: Rate: 58 [place]: 186 QRSD: 94 QT: 450 QTc: 441 [place]: P: 62 GA: 186 QRS: 48 T: 68 INTERPRETIVE STATEMENTS: Sinus bradycardia Otherwise normal ECG Compared to ECG 03/12/2023 09:54:54 No significant changes Electronically Signed On 03-15-23 15:13:49 MACHINIST MATE by Christian Israel
--- NOTE | 2023-03-15 15:28 | EKG ---
Test Date: 2023-03-12 Test Time: 09:54:54 Reliability Technician: Bernadette WIGGINS MEASUREMENT RESULTS: Intervals: Rate: 122 [place]: QRSD: 80 QT: 354 QTc: 504 [place]: P: [place]: QRS: 61 T: 76 INTERPRETIVE STATEMENTS: Undetermined rhythm Otherwise normal ECG Compared to ECG 10/12/2022 14:50:46 Sinus bradycardia no longer present ST (T wave) deviation no longer present Electronically Signed On 03-15-23 15:16:09 ARTIFICIAL PEARL MAKER by Christian Israel
== END 2023-03-13 14:21 | disposition home or self-care (01) ==
LOC: ER 09:40 → ERHOLD 11:26 → 2ND 16:52
PROVIDERS: ADMIT Hospitalist; ATTEND Internal Medicine
DX: I48.11 Longstanding persistent atrial fibrillation (principal); I10 Essential (primary) hypertension; I71.9 Aortic aneurysm of unspecified site, without rupture; K21.9 Gastro-esophageal reflux disease without esophagitis; J44.9 Chronic obstructive pulmonary disease, unspecified; M35.00 Sjogren syndrome, unspecified; E78.5 Hyperlipidemia, unspecified; Z85.118 Personal history of other malignant neoplasm of bronchus and lung; Z79.01 Long term (current) use of anticoagulants; Z88.5 Allergy status to narcotic agent
CPT/HCPCS: 93005 ×2; 85025; 80048; 36415; 83735; 84484; 80053; 71045; 94760 ×2; 99285; G0378 ×4

== ENCOUNTER 2023-03-18 10:51 | Emergency (ER) | payer OTHER, BC ==
--- OUTSIDE RECORDS SUMMARY | 2023-03-18 10:55 | XMS REPORT | Continuity of Care Document ---
:[address] [facility] [place] [place] t Address [address] [place] [address] Care Team Providers Name Role Phone [phone] Primary Care Physician Unavailable SYSTEM, PROVIDER NOT IN Attending Clinician Unavailable YAIMA CA Attending Clinician Unavailable ROSLYN MICHAEL Attending Clinician Unavailable ARLENE MONTERROSO Attending Clinician Unavailable MARCO KOVACS Attending Clinician Unavailable TAMY VALDEZ Attending [...] Expiration Date S ource MEDICARE PART A [id number] 2008 AND B 00:00:00 BS [place] PPO POS [id number] 2015 00:00:00 Problems This patient has no [...] DA [facility]: [address] hydrocod DA Active U DIZZINESS [facility] 08[facility] 00:00: [address] hydrocod DA Active U 2019- [facility] 04[facility] 00:00: [address] hydrocod DA Active U DIZZINESS 2019- [facility] 04-[facility] 00:00: [address] HYDROCOD DRUG Active Other MD ONE [...] Facility Department ID 2021-05-19 Outpatient MDA MDA [id number] 17:41:03 Anderso n 2021-05-19 Outpatient MDA MDA [id number] 17:41:03 Anderso n 2021-05-19 Outpatient MDA MDA [id number] 17:41:03 Anderso n 2021-02-23 Outpatient SYSTEM, MDA MDA [id number] 12:36:46 PATRICA beard 2023-02-27 2023-02-27 Outpatient EL CA, MDA MDA [id number] 11:26:05 11:43:35 YAIMA beard 2023-02-27 2023-02-27 Outpatient EL ROSE, MDA MDA [id number] 10:24:09 11:03:48 ROSLYN beard 2023-02-26 2023-02-26 Outpatient EL MONTERROSO, MDA MDA [id number] 09:37:55 23:59:00 MIGUEL-EMERY Domenic rso n 2023-02-26 2023-02-26 Outpatient EL MONTERROSO, MDA MDA [id number] 10:04:38 10:04:38 MIGUEL-EMERY Domenic rso n 2023-01-03 2023-01-03 Outpatient [facility], MDA MDA [id number] 13:20:00 23:59:00 MARCO beard 2023-01-02 2023-01-02 Outpatient EL CA, MDA MDA [id number] 10:27:57 11:02:00 YAIMA beard 2023-01-01 2023-01-01 Outpatient EL CA, MDA MDA [id number] 12:18:01 23:59:00 YAIMA beard 2023-01-01 2023-01-01 Outpatient EL CA, MDA MDA [id number] 11:17:58 11:29:00 YAIMA beard 2022-11-03 2022-11-03 Outpatient EL CA, MDA MDA [id number] 09:10:44 23:59:00 YAIMA ebard 2022-11-02 2022-11-02 Outpatient EL [facility], MDA MDA [id number] 13:03:01 23:59:00 TAMY beard 2022-11-02 2022-11-02 Outpatient EL CA, MDA MDA [id number] 10:46:45 13:02:00 YAIMA beard 2022-11-01 2022-11-01 Outpatient EL CA, MDA MDA [id number] 11:44:14 23:59:00 YAIMA beard 2022-10-31 2022-10-31 Outpatient EL CA, MDA MDA [id number] 11:39:08 23:59:00 YAIMA beard 2022-10-30 2022-10-30 Outpatient EL CA, MDA MDA [id number] 11:44:07 23:59:00 YAIMA beard 2022-10-27 2022-10-27 Outpatient EL CA, MDA MDA [id number] 12:40:46 23:59:00 YAIMA beard 2022-10-26 2022-10-26 Outpatient EL JOSÉ MIGUEL, MDA MDA [id number] 12:41:09 23:59:00 TAMY beard 2022-10-26 2022-10-26 Outpatient EL CA, MDA MDA [id number] 11:50:54 12:40:00 YAIMA beard 2022-10-25 2022-10-25 Outpatient EL CA, MDA MDA [id number] 11:49:23 23:59:00 YAIMA beard 2022-10-24 2022-10-24 Outpatient EL CA, MDA MDA [id number] 11:38:51 23:59:00 YAIMA beard 2022-10-23 2022-10-23 Outpatient EL CA, MDA MDA [id number] 11:53:19 23:59:00 YAIMA beard 2022-10-16 2022-10-16 Outpatient EL CA, MDA MDA [id number] 07:15:00 23:59:00 YAIMA beard 2022-10-10 2022-10-10 Outpatient EL DORBER, MDA MDA [id number] 14:15:13 23:59:00 MARCO beard 2022-10-10 2022-10-10 Outpatient EL CA, MDA MDA [id number] 12:17:18 14:14:00 YAIMA beard 2022-10-03 2022-10-03 Outpatient CA, MDA MDA [id number] 11:18:00 12:14:54 YAIMA beard 2022-10-02 2022-10-02 Outpatient EL CA, MDA MDA [id number] 10:24:48 23:59:00 YAIMA beard 2022-10-02 2022-10-02 Outpatient EL CA, MDA MDA [id number] 10:10:48 10:23:00 YAIMA beard 2022-07-18 2022-07-18 Outpatient ANGEL, MDA MDA [id number] 07:45:36 08:48:52 YANA beard 2022-07-18 2022-07-18 Outpatient [place], MDA MDA [id number] 07:09:56 07:09:56 CHU goden n 2022-06-22 2022-06-25 Inpatient ANGEL, MDA Thoracic [id number] 04:47:00 13:51:00 YANA beard 2022-06-20 2022-06-22 [facility] [id number] 15:52:22 13:43:16 PETE beard 2022-06-20 2022-06-20 [facility] MDA [id number] 09:22:59 23:59:00 PETE beard 2022-06-20 2022-06-20 Outpatient [facility], MDA MDA [id number] 12:46:02 15:51:27 DRAKE beard 2022-06-20 2022-06-20 [facility] MDA [id number] 12:45:47 15:51:16 PETE beard 2022-06-20 2022-06-20 Outpatient ANGEL, MDA MDA [id number] 10:04:21 12:42:48 YANA beard 2022-06-20 2022-06-20 [facility] MDA [id number] 08:46:31 09:21:00 PETE beard 2022-05-16 2022-05-16 Outpatient EL CA, MDA MDA [id number] 09:34:05 10:09:04 YAIMA beard 2022-05-15 2022-05-15 Outpatient EL ERIKA, MDA MDA [id number] 10:52:59 23:59:00 VALERIE beard 2022-05-15 2022-05-15 Outpatient EL JAMES, MDA MDA [id number] 10:37:08 10:51:00 VALERIE beard 2022-02-14 2022-02-14 Outpatient EL CA, MDA MDA [id number] 11:22:14 12:10:10 YAIMA beard 2022-02-14 2022-02-14 Outpatient EL ROSEPU, MDA MDA [id number] 09:37:26 09:37:26 ROSLYN beard 2022-02-13 2022-02-13 Outpatient EL NEELAPU, MDA MDA [id number] 09:00:00 23:59:00 ROSLYN beard 2022-02-13 2022-02-13 Outpatient EL NEELAPU, MDA MDA [id number] 09:29:54 09:29:54 ROSLYN beard 2021-10-20 2021-10-20 Outpatient EL CA, MDA MDA [id number] 08:52:46 09:47:28 YAIMA beard 2021-10-19 2021-10-19 [facility] [id number] 09:01:57 09:01:57 STEPHEN Jacobson 2021-06-16 2021-06-16 Outpatient EL CA, MDA MDA [id number] 09:08:21 10:16:24 YAIMA beard 2021-06-15 2021-06-[address] [facility], MDA MDA [id number] 08:04:58 08:04:58 ARELY beard 2021-06-15 2021-06-[address] [facility], MDA MDA [id number] 07:54:25 07:56:08 ARELY gonzalez n 2021-04-19 2021-04-19 Outpatient ANGEL, MDA MDA [id number] 09:04:25 11:13:15 YANA beard 2021-04-19 2021-04-19 Outpatient ANGEL, MDA MDA [id number] 07:52:32 07:52:32 YANA gonzalez n 2021-03-17 2021-03-19 Inpatient ANGEL, MDA Thoracic [id number] 09:01:00 17:32:00 YANA gonzalez n 2021-03-14 2021-03-14 Outpatient DICKSON, MDA MDA [id number] 10:03:22 23:59:00 TERI Leo so n 2021-03-14 2021-03-14 Outpatient DICKSON, MDA MDA [id number] 10:53:08 15:15:28 TERI Leo so n 2021-03-14 2021-03-14 Outpatient DICKSON, MDA MDA [id number] 13:13:00 13:13:00 TERI Leo so n 2021-03-08 2021-03-[address] [facility], MDA MDA [id number] 10:07:12 23:59:00 BRAEDEN Lamas n 2021-03-08 2021-03-08 Outpatient DICKSON, MDA MDA [id number] 09:53:11 12:10:38 TERI ogden n 2021-03-01 2021-03-01 [facility] MDA [id number] 10:00:00 23:59:00 PETE gonzalez n 2021-03-01 2021-03-01 Outpatient ANGEL, MDA MDA [id number] 08:14:04 11:07:13 YANA beard 2021-02-17 2021-02-17 Outpatient CA, MDA MDA [id number] 08:38:33 09:43:02 YAIMA beard 2021-02-08 2021-02-08 Outpatient EL NEELAPU, MDA MDA [id number] MD 07:17:54 07:17:54 ROSLYN beard 2021-01-28 2021-01-28 Outpatient EL MDA MDA [id number] MD 11:13:15 23:59:00 Lenin o kisha 2021-01-28 2021-01-28 Outpatient EL MDA MDA [id number] MD 10:56:08 11:12:00 Lenin o kisha 2021-01-28 2021-01-28 Outpatient EL KULWINDER RAVI MDA MDA [id number] MD 09:00:00 10:55:00 Lenin o kisha 2021-01-27 2021-01-27 Outpatient EL ALAN MULLER MDA MDA [id number] MD 13:14:05 23:59:00 Lenin o kisha 2021-01-27 2021-01-27 Outpatient EL MDA MDA [id number] MD 10:27:52 13:13:00 Lenin o kisha 2021-01-27 2021-01-27 Outpatient EL MDA MDA [id number] MD 10:27:37 10:37:38 Lenin o kisha 2021-01-27 2021-01-27 Outpatient EL MDA MDA [id number] MD 10:09:42 10:09:42 Lenin o kisha 2021-01-18 2021-01-18 Outpatient EL NEELAPU, MDA MDA [id number] 12:51:35 14:28:50 ROSLYN Phelps o kisha 2021-01-17 2021-01-17 Outpatient EL MONTERROSO, MDA MDA [id number] MD 11:41:31 23:59:00 ARLENE Sahae rso n 2021-01-17 2021-01-17 Outpatient EL MONTERROSO, MDA MDA [id number] MD 11:39:21 11:40:00 MIGUEL-EMERY Domenic rso n 2020-08-03 2020-08-03 Outpatient Jeannine, [facility] [id number] [facility] 12:00:00 12:00:[address] [place] [address] 2020-02-28 2020-02-28 Outpatient Della, [facility] [id number] [facility] 07:00:00 07:00:00 Adeel [address] [facility] 2020-01-20 2020-01-20 Outpatient KARLO MICHAEL MDA MDA [id number] 07:46:39 23:59:00 SATTVA Lenin o n 2020-01-20 2020-01-20 Outpatient KARLO MICHAEL MDA MDA [id number] 07:46:09 23:59:00 SATTVA Lenin o n 2020-01-20 2020-01-20 Outpatient KARLO MICHAEL MDA MDA [id number] 11:08:10 16:44:09 SATTVA Lenin o n 2015-10-12 2015-10-26 Outpatient KARLO MICHAEL MDA MDA [id number] 09:39:22 15:03:47 SATTVA Lenin o n Results [...] our lab.Interfe rence [facility] determined thatEltrombopag does interfere with Vitros [...] 38-126 N code = ALKP) CBC W/AUTO [id number] 06:45:00 Test Item Value Reference Range Interpretation [...] 0.00 K/mm3 0.0-0.1 N NRBC#) BASIC METABOLIC [id number] 12:38:00 Test Item Value Reference Range Interpretation [...] RECOLLECTION NEEDED ON 08/03/20 AT 1129 BY [id number]: HEMOLYZEDNOTIFIED PATIENT CARE STAFF:MPJKUHMEXBJX1931-04-74 12:38:00 Test Item Value Reference Range Interpretation Comments MAGNESIUM (test code = MAG) 2.1 MG/DL 1.6-2.3 N RECOLLECTION NEEDED ON 08/03/20 AT 1129 BY [id number]: HEMOLYZEDNOTIFIED PATIENT CARE STAFF:MOONPROTHROMBIN [id number] 11:21:00 Test Item Value Reference Range Interpretation [...] elvin embolism. 3.0 - 4.5 Comments to Lead Cargoman: WILL BRING SPECIMAN TO THE LABPTT [id number] 11:21:00 Test Item Value Reference Range Interpretation Comments PTT ACTIVATED (test code = APTT) 29.5 SECONDS 25.1-36.5 N Comments to Lead Cargoman: WILL BRING SPECIMAN TO THE LABCBC W/AUTO [...] 0.0-0.1 N NRBC#) COVID 19 Asymptomatic IH [id number] 10:22:00 Test Item Value Reference Range Interpretation [...] virus (antigen) in the sample." BASIC METABOLIC [id number] 05:44:00 Test Item Value Reference Range Interpretation [...] 0-189 mg/dL VERY HIGH.........>/ = 190 mg/dL [id number] 05:44:00 Test Item Value Reference Range Interpretation Comments MAGNESIUM (test code = MAG) 2.1 MG/DL 1.6-2.3 N PROTHROMBIN [id number] 05:34:00 Test Item Value Reference Range Interpretation [...] myocar dial infarction. 2.0 - 3.0 3. [employer] al prosthesis hear t valves, recurre nt systemic emboli sm. 3.0 - 4.5 PTT [id number] 05:34:00 Test Item Value Reference Range Interpretation Comments PTT ACTIVATED (test code = APTT) 32.4 SECONDS 25.1-36.5 N BASIC METABOLIC [id number] 05:33:00 Test Item Value Reference Range Interpretation [...] LDL (test MG/DL 0-99 code = LDL) [id number] 05:33:00 Test Item Value Reference Range Interpretation Comments MAGNESIUM (test code = MAG) 2.1 MG/DL 1.6-2.3 N BASIC METABOLIC [id number] 05:32:00 Test Item Value Reference Range Interpretation [...] LDL (test MG/DL 0-99 code = LDL) [id number] 05:32:00 Test Item Value Reference Range Interpretation Comments MAGNESIUM (test code = MAG) MG/DL 1.6-2.3 BASIC METABOLIC [id number] 05:29:00 Test Item Value Reference Range Interpretation [...] LDL (test code = LDL) MG/DL 0-99 [id number] 05:29:00 Test Item Value Reference Range Interpretation Comments MAGNESIUM (test code = MAG) MG/DL 1.6-2.3 CBC W/AUTO [id number] 05:22:00 Test Item Value Reference Range Interpretation [...] 0.0-0.1 N NRBC#) COVID 19 Asymptomatic IH [id number] 04:51:00 Test Item Value Reference Range Interpretation [...] Notes Date/Time Note Provider Source 2020-08-04 08:04:00 [id number]:04:00 [facility] ([facility])Cardiology Progress NoteREPORT#:[id number] REPORT STATUS: SignedDATE:08/04/20 TIME: 0804 PATIENT: FREDI TERRELL UNIT #: [id number]#: [id number] [facility] AGE: 75 SEX: M ATTEND: Sumeet Paez [facility] AUTHOR: Sumeet Paez MD * ALL edits [...] LE assessment: no edemaMusculoskeletal: full range of motionNeuro/EXTENSION WORKER: alert, oriented X 3, CN II-XII intactSkin: [...] (Auto) (14 - 44 %) 14.8 29.1 Josephine % (Auto) (4 - 13 %) 4.3 10.1 Eos % (Auto) (0 - 6 % ) 0.0 2.0 Baso % (Auto) (0 - 2 %) 0.1 0.9 Neut # (Auto) (2.0 - 7.6 K/mm3) 5.76 2.65 Lymph # (Auto) (1.0 - 3.8 K/mm3) 1.06 1.33 Josephine # (Auto) (0.1 - 0.8 K/mm3) 0.31 [...] d/c home f/u one week. at 0811 [facility] #:[id number] OF REPORTPRProgress Cbvj5675-72-53R21:04:00Z.TJAT93559073-9724KWKphd l able for patient qlvsHIKNLYYARJHQEE5075-40-06R56:11:19 2020-08-04 06:13:00 [id number]:13:021236-4 [address] [facility] [place] [address] PATIENT NAME: FREDI TERRELL ADMIT DATE: 08/03/20ACCOUNT NO: [id number] ROOM NO: [facility] AGE: 75 REPORT TYPE: ELECTROCARDIOGRA M SEX: M ADMITTING PHYSICIAN:Sumeet Paez MD ATTENDING PHYSICIAN:Sumeet Paez MD Order:[id number] Reason : aflutter Test Date/Time Stamp:SunAug 04 [...] HULL at 0711 PATIENT NAME: FREDI TERRELL .[id number] 2 AVAvailable for patient yyucDXBNJRPGOBNSWN0053-66-91U80:11:43 2020-08-03 19:32:00 [id number]:32:648195-9 [address] [place] [address] PATIENT NAME: FREDI TERRELL ADMIT DATE: 08/03/20ACCOUNT NO: [id number] DOMITILA Hernandez NO: Z.356 AGE: 75 REPORT TYPE: ELECTROCARDIOGRAM SEX: M ADMITTING PHYSICIAN:Sumeet Paez MD ATTENDING PHYSICIAN:Sumeet Paez MD Order:[id number] Reason : Atrial Flutter Test Date/Time Stamp:SunAug [...] HULL at 0711 PATIENT NAME: FREDI TERRELL .[id number] 1 AVAvailable for patient xsrpRXVKSNVCGTDOHG2236-67-86P18:11:43 2020-08-03 18:28:00 [id number]:28:897444-4 [address] [facility] [place] [id number] PATIENT NAME: FREDI TERRELL ADMIT DATE: 08/03/20ACCOUNT NO: [id number] DOMITILA Hernandez NO: Z.356 AGE: 75 REPORT TYPE: CARDIAC CATHETERIZATION REPORT SEX: M ADMITTING PHYSICIAN:Sumeet Paez MD ATTENDING PHYSICIAN:Sumeet Paez MD [facility] E DATE: 08/03/2020 PROCEDURES:1. Comprehensive electrophysiology study with atrial ablation.2. Left atrial recordings.3. Three-dimensional interatrial mapping. PREPROCEDURE DIAGNOSIS: Atrial flutter. POSTPROCEDURE DIAGNOSES: 1. Typical isthmus-dependent atrial flutter.2. Left atrial tachycardia. BREAKDOWN MAN: Sumeet Paez MD ANESTHESIA: General endotracheal anesthesia. SERVICE TESTER: None. PROCEDURE DETAILS: After informed consent was [...] amicropuncture kit and ultrasound guidance. A locking 8-Ethiopian sheath and Baylissheath were placed in the right femoral vein over the J-wire. Two 6-Ethiopian andone 7-Ethiopian sheath were placed in left femoral vein . All sheaths wereaspirated and flushed and connected to heparinized saline infusion. A 5-FrenchCournand catheter was advanced via a 6-Ethiopian sheath and placed in the rightventricle . A 6-Ethiopian Cournand catheter was advanced via th e 7-Ethiopian sheathand placed in the HIS position. A 5-Ethiopian Tonny catheter was advanced viathe 6-Ethiopian sheath and placed in the right atrium. A deflectable decapolarcatheter was advanced via the locking 8-Ethiopian sheath and placed in the coronarysinus. Program stimulation was performed . Following initial induction of anatrial tachycardia, the HIS catheter was removed and th e 7-Ethiopian sheath wasexchanged for an 8-Ethiopian sheath over the wire. The sheath was aspirated andflushed and connected to heparinized saline infusion. An isthmus Duodecacatheter was advance d via the 8-Ethiopian sheath and placed around cavotricuspidisthmus in the [...] ThermoCool ablation catheter wasthen advanced via the Charlotte sheath. The catheter was advanced over thecavotricuspid [...] MD WT: CATH:JANICE/PEPGR/NTSDD: 08/03/2020 18:28:32DT: 08/03/2020 18:49:03Conf#: [id number]/DID#: [id number] cc: Adeel Hull MD Authenticated by Sumeet Paez MD On 08/04/2020 08:12:37 AM at 0812 PATIEN T NAME: FREDI TERRELL Zufu7766-13-47J72:49:00Z.[id number] a ble for patient bwihQAMFWDORIACHBI6648-16-19A71:12:58 2020-08-03 11:12:00 JCitziimpbc491490374909-78-24F42:12:831989-8 [address] [place] [address] PATIENT NAME: FREDI TERRELL ADMIT DATE: 08/03/20ACCOUNT NO: [id number] ROOM NO: AGE: 75 REPORT TYPE: ELECTROCARDIOGRA M SEX: M ADMITTING PHYSICIAN: ATTENDING PHYSICIAN:Sumeet Paez MD Order:[id number] Reason : PVI Test Date/Time Stamp:SunAug 03 [...] MD at 1659 PATIENT NAME: FREDI TERRELL .[id number] 2 AVAvailable for patient vlicJOWRWGRMAWXDOW5960-14-09D61:59:18 2020-08-03 11:12:00 [id number]:12:525675-6 063 [facility] [address] [address] PATIENT NAME: FREDI TERRELL ADMIT DATE: 08/03/20ACCOUNT NO: [id number] DOMITILA Hernandez NO: AGE: 75 REPORT TYPE: ELECTROCARDIOGRAM SEX: M ADMITTING PHYSICIAN: ATTENDING PHYSICIAN:Sumeet Paez MD Order:[id number] Reason : PVI Test Date/Time Stamp:SunAug 03 [...] HULL at 1710 PATIENT NAME: FREDI TERRELL .[id number] 3 AVAvailable for patient uvmbFXBSVSGCIUTLGR6755-60-00B57:11:10 2020-02-28 19:54:00 TVibechztac967868643219-20-05D77:54:530853-1 [address] [facility] [place] [address] PATIENT NAME: FREDI TERRELL ADMIT DATE: 02/28/20ACCOUNT NO: [id number] ROOM NO: AGE: 74 REPORT TYPE: CONSULTATION [...] have close followup with Dr. Hull, his park guard and myself once a year . Dictated By: Viet Mark MD WT: CON:ZCAYDEN/MEKA/NTSDD: 02/28/2020 19:54:15DT: 02/28/2020 20:42:11Conf#: [id number]/DID#: [id number] Authenticated and Edited by Viet Mark MD On 03/07/20 9:11:08 PM at 2113 PATIENT NAME: FREDI TERRELL :42:00Z.H I [id number] for patient yddmDJCWSHAFMKJGLQ8986-75-78G88:13:57 2020-02-28 08:35:00 [id number]:35:640095-9 007 [facility] [place] [address] PATIENT NAME: FREDI TERRELL ADMIT DATE: 02/28/20ACCOUNT NO: [id number] DOMITILA Hernandez NO: AGE: 74 REPORT TYPE: CARDIAC CATHETERIZATION REPORT SEX: M ADMITTING PHYSICIAN: ATTENDING PHYSICIAN:Adeel Hull MD PROCEDURE DATE: 02/28/2020 RENT AND HOUSING INVESTIGATOR: Adeel Hull MD. INDICATION FOR THE PROCEDURE: [...] common femoral artery area for localanesthesia. A 6-Ethiopian sheath was placed in the right common [...] procedurewell. [facility] today [facility] medical therapy and risk facto r modification. Hewill be seen by Dr. Mark for surgical consultation. Dictated By: Adeel Hull MD PATIENT NAME: FREDI TERRELL WT: CATH:JANICE/ALEJANDRO/YOLANDADD: 02/28/2020 08:35:13DT: 02/28/2020 08:43:35Conf#: [id number]/DID#: [id number] Authenticated by Adeel Hull MD On 02/28/2020 08:50:56 AM at 0851 PATIENT NAME: FREDI TERRELL Dhlh1527-27-36U56:43:00Z.[id number] a ble for patient jyrzUYKRBXZRIPHMFB7513-79-60X18:51:37 2020-02-28 05:36:00 [id number]:36:707214-7 002 [facility] [place] [place] [address] PATIENT NAME: FREDI TERRELL ADMIT DATE: 02/28/20ACCOUNT NO: [id number] DOMITILA Hernandez NO: AGE: 74 REPORT TYPE: ELECTROCARDIOGRAM SEX: M ADMITTING PHYSICIAN: ATTENDING PHYSICIAN:Adeel Hull Order:[id number] Reason : ABDOMINAL AORTOGRAM Test Date/Time Stamp:SunFeb [...] HULL at 0608 PATIENT NAME: FREDI TERRELL .[id number] 2 AVAvailable for patient ilicLPSFWVNNDGWGVF3958-45-75H20:08:18 2020-02-27 16:19:00 [id number]:19:382904-8 [address] [facility] [place] [address] PATIENT NAME: FREDI TERRELL ADMIT DATE: 02/28/20ACCOUNT NO: [id number] DOMITILA Hernandez NO: AGE: 74 REPOR T TYPE: HISTORY AND PHYSICAL SEX: M ADMITTING PHYSICIAN: ATTENDING PHYSICIAN:Adeel Hull PATIENT NAME: FREDI TERRELL ADMIT DATE:02/28/2020ADMISSION DATE: 02/28/2020 ADMISSION HISTORY AND PHYSICAL RENT AND HOUSING INVESTIGATOR: Adeel Hull MD REASON FOR ADMISSION: Abdomina [...] MD WT: HP:ABBY/ALEJANDRO/NTSDD: 02/27/2020 16:19:51DT: 02/27/2020 16:49:38Conf#: [id number]/DID#: [id number] and Edited by Adeel Hull MD On 02/28/20 6:11:51 AM at 0614 PATIENT NAME: FREDI TERRELL and physical lmokhbsmzcv6502-51-95Y25:49:00Z.[id number] A VAvailable for patient qeneCJOJVXGFJWYCFN9723-33-41D91:14:19
[2023-03-18 11:20] LABS: Protime INR 1.23
[2023-03-18 11:22] LABS: Absolute Lymphocytes (CBC) 0.8 K/uL (0.7-4.9); Hematocrit 39.7 % (39.6-49.0); MCV 99.7 fL (80-100); MPV 8.6 fL (7.6-11.3); Platelets 154 thou/uL (152-406); RBC Red Blood Cell Count 3.98 M/uL (4.33-5.43)
[2023-03-18] MEDS ORDERED: METOPROLOL TARTRATE 5 MG/5 ML INJ IV ONE (11:28)
[2023-03-18] MEDS ORDERED: SOTALOL HCL 80 MG TAB ONE (11:28)
[2023-03-18] MEDS ORDERED: NA CHLORIDE 0.9% 1,000 ML ONE (11:28)
[2023-03-18] MEDS ORDERED: MAGNESIUM SULFATE 1 gm IVPB 1 GM/100 ML BAG IV ONE (11:28)
--- NOTE | 2023-03-18 12:07 | RAD REPORT ---
EXAM DESCRIPTION: Jennie Single View03/18/2023 11:58 am CLINICAL HISTORY: sob COMPARISON: February 2023 FINDINGS: Mild interstitial lung opacities without change likely chronic The lungs appear clear of acute infiltrate. The heart is mildly enlarged IMPRESSION: No acute abnormalities displayed
[2023-03-18 12:20] LABS: Albumin 3.6 g/dL (3.4-5.0); Bilirubin Direct 0.1 mg/dL (0-0.2); Bilirubin Indirect, Calculated 0.3 mg/dL (0.2-0.8); Bilirubin Total 0.4 mg/dL (0.2-1.0); Magnesium 1.9 mg/dL (1.6-2.4); Potassium 4.7 mEq/L (3.5-5.1); Protein, Total 8.1 g/dL (6.4-8.2); Thyroid Stimulating Hormone 1.55 uIU/mL (0.358-3.740)
[2023-03-18 13:06] LABS: Urine Bilirubin NEGATIVE (Negative); Urine Blood Negative (Negative); Urine Clarity Clear (Clear); Urine Color Colorless (Yellow); Urine Glucose NEGATIVE (Negative); Urine Protein NEGATIVE (Negative); Urine Urobilinogen Normal (Normal); Urine pH 5.5 (5.0-7.0)
--- NOTE | 2023-03-18 13:40 | EDPHYS ---
Physician Documentation [facility] Name: Fredi Barth Age: 77 yrs Sex: Male : 1945 Arrival Date: 03/18/2023 Time: 10:51 Bed 13 Private MD: Rustam Levin V ED Physician Shreyas Ye HPI: 03/18 13:30 This 77 yrs old Male presents to ER via Ambulatory with complaints of Afib. nirav 13:30 The patient presents with a history of irregular heart beat, heart racing. Context: The nirav symptoms occur at rest. Onset: The symptoms/episode began/occurred today, yesterday. Duration: The patient or guardian reports a single episode, that is still ongoing. Modifying factors: The symptoms are aggravated by nothing. The symptoms are alleviated by nothing. Associated signs and symptoms: The patient has no apparent associated signs or symptoms. Severity of symptoms: At their worst the symptoms were mild moderate in the emergency department the symptoms are unchanged. The patient has experienced similar episodes in the past, several times. Historical: - Allergies: 11:01 HYDRALAZINE; hb 11:01 HYDROCODONE; hb - Home Meds: 11:01 losartan 50 mg oral tablet 2 times per day [Active]; sotalol 80 mg Oral tablet 2 times hb per day [Active]; Eliquis 5 mg oral tablet 2 times per day [Active]; metoprolol tartrate 25 mg Oral tablet 2 times per day [Active]; - PMHx: 11:01 aortic aneurysm; Atrial Fib; COPD; GERD; Hypertension; radiation; Sjogren's Syndrome; hb - PSHx: 11:01 ablation for afib; lung aurgery x5; hb ROS: 13:36 Constitutional: Negative for fever, chills, and weight loss, Eyes: Negative for injury, nirav pain, redness, and discharge, ENT: Negative for injury, pain, and discharge, Neck: Negative for injury, pain, and swelling, Respiratory: Negative for shortness of breath, cough, wheezing, and pleuritic chest pain, Abdomen/GI: Negative for abdominal pain, nausea, vomiting, diarrhea, and constipation, Back: Negative for injury and pain, : Negative for injury, bleeding, discharge, and swelling, MS/Extremity: Negative for injury and deformity, Skin: Negative for injury, rash, and discoloration, Neuro: Negative for headache, weakness, numbness, tingling, and seizure, Psych: Negative for depression, anxiety, suicide ideation, homicidal ideation, and hallucinations, Allergy/Immunology: Negative for hives, rash, and allergies, Endocrine: Negative for neck swelling, polydipsia, polyuria, polyphagia, and marked weight changes, Hematologic/Lymphatic: Negative for swollen nodes, abnormal bleeding, and unusual bruising, 13:36 Cardiovascular: Positive for palpitations, Exam: 13:36 Constitutional: This is a well developed, well nourished patient who is awake, alert, nirav and in no acute distress. Head/Face: Normocephalic, atraumatic. Eyes: Pupils equal round and reactive to light, extra-ocular motions intact. Lids and lashes normal. Conjunctiva and sclera are non-icteric and not injected. Cornea within normal limits. Periorbital areas with no swelling, redness, or edema. ENT: Nares patent. No nasal discharge, no septal abnormalities noted. Tympanic membranes are normal and external auditory canals are clear. Oropharynx with no redness, swelling, or masses, exudates, or evidence of obstruction, uvula midline. Mucous membranes moist. Neck: Trachea midline, no thyromegaly or masses palpated, and no cervical lymphadenopathy. Supple, full range of motion without nuchal rigidity, or vertebral point tenderness. No Meningismus. Chest/axilla: Normal chest wall appearance and motion. Nontender with no deformity. No lesions are appreciated. Respiratory: Lungs have equal breath sounds bilaterally, clear to auscultation and percussion. No rales, rhonchi or wheezes noted. No increased work of breathing, no retractions or nasal flaring. Abdomen/GI: Soft, non-tender, with normal bowel sounds. No distension or tympany. No guarding or rebound. No evidence of tenderness throughout. Back: No spinal tenderness. No costovertebral tenderness. Full range of motion. Male : Normal genitalia with no discharge or lesions. Skin: Warm, dry with normal turgor. Normal color with no rashes, no lesions, and no evidence of cellulitis. MS/ Extremity: Pulses equal, no cyanosis. Neurovascular intact. Full, normal range of motion. Neuro: Awake and alert, GCS 15, oriented to person, place, time, and situation. Cranial nerves II-XII grossly intact. Motor strength 5/5 in all extremities. Sensory grossly intact. Cerebellar exam normal. Normal gait. Psych: Awake, alert, with orientation to person, place and time. Behavior, mood, and affect are within normal limits. 13:36 Cardiovascular: Rate: actual rate is 124 bpm, Rhythm: irregularly irregular, Pulses: no pulse deficits are appreciated, Heart sounds: normal, Edema: is not appreciated, JVD: is not appreciated, 13:41 ECG was reviewed by the Attending Physician. nirav 13:41 ECG was reviewed by the Attending Physician. nirav Vital Signs: 11:00 BP 154 / 95; Pulse 135; Resp 18; Temp 97.5(O); Pulse Ox 100% on R/A; Weight 106.59 kg; hb Height 6 ft. 2 in. ; Pain 0/10; 11:20 BP 128 / 82; Pulse 129; Resp 16 S; Pulse Ox 98% on R/A; kc6 11:56 BP 124 / 83; Pulse 59; Resp 18 S; Pulse Ox 95% on R/A; kc6 13:27 BP 128 / 64; Pulse 58; Resp 16 S; Pulse Ox 98% on R/A; kc6 11:00 Body Mass Index 30.17 (106.59 kg, 187.96 cm) hb 11:00 Pain Scale: Adult hb MDM: 11:00 Patient medically screened. nirav 13:37 Differential diagnosis: arrythmia. Data reviewed: vital signs, nurses notes, lab test nirav result(s), EKG, radiologic studies, plain films. Consideration of Admission/Observation Escalation of care including admission/observation considered. I considered the following discharge prescriptions or medication management in the emergency department Medications were administered in the Emergency Department. See MAR. Independent interpretation of the following test(s) in the Emergency Department EKG: See my EKG interpretation above. Test considered but Not performed: CT: cta chest. Care significantly affected by the following chronic conditions: Hypertension, aortic aneurysm, a fib, sjoggrens. Counseling: I had a detailed discussion with the patient and/or guardian regarding the historical points, exam findings, and any diagnostic results supporting the discharge/admit diagnosis, lab results, radiology results, the need for outpatient follow up, for definitive care, a steersman, a family practitioner. 03/18 11:06 Order name: Basic Metabolic Panel; Complete Time: 13:20 nirav 12 11:06 Order name: CBC with Diff; Complete Time: 13:20 nirav 12 11:06 Order name: LFT's; Complete Time: 13:20 nirav 03/18 11:06 Order name: Magnesium; Complete Time: 13:20 nirav 03/18 11:06 Order name: NT PRO-BNP; Complete Time: 13:20 nirav 03/18 11:06 Order name: PT-INR; Complete Time: 13:20 nirav 03/18 11:06 Order name: Troponin HS; Complete Time: 13:20 nirav 03/18 11:06 Order name: TSH; Complete Time: 13:20 [facility] 03/18 11:06 Order name: Urinalysis w/ reflexes; Complete Time: 13:20 [facility] 03/18 11:06 Order name: XRAY Chest (1 view); Complete Time: 13:20 [facility] 03/18 11:06 Order name: EKG; Complete Time: 11:07 nirav 03/18 13:22 Order name: EKG; Complete Time: 13:23 [facility] 03/18 11:06 Order name: Cardiac monitoring; Complete Time: 11:08 [facility] 03/18 11:06 Order name: EKG - Nurse/Tech; Complete Time: 11:08 [facility] 03/18 11:06 Order name: IV Saline Lock; Complete Time: 11:08 [facility] 03/18 11:06 Order name: Labs collected and sent; Complete Time: 11:08 nirav 03/18 11:06 Order name: O2 Per Protocol; Complete Time: 11:08 [facility] 03/18 11:06 Order name: O2 Sat Monitoring; Complete Time: 11: [facility] 03/18 13:22 Order name: EKG - Nurse/Tech; Complete Time: 13:29 [facility] EC:41 Rate is 124 beats/min. Rhythm is irregularly irregular. QRS [place] is Normal. AL interval nirav is normal. QRS interval is normal. QT interval is normal. No Q waves. T waves are Normal. No ST changes noted. Clinical impression: Atrial Fibrillation, Atrial Flutter, and No evidence of ischemia. Interpreted by me. Reviewed by me. 13:41 Rate is 56 beats/min. Rhythm is regular. QRS [place] is Normal. AL interval is normal. QT nirav interval is normal. No Q waves. T waves are Normal. Clinical impression: Sinus bradycardia and No evidence of ischemia. Interpreted by me. Reviewed by me. Administered Medications: 11:19 Drug: Sotalol PO 80 mg PO once Route: PO; kc6 11:45 Follow up: Response: No adverse reaction; Blood pressure is lowered; Cardiac rhythm kc6 changed 11:20 Drug: Magnesium Sulfate IVPB 1 grams IVPB once over 1 hrs Route: IVPB; Infused Over: 1 kc6 hrs; Site: right antecubital; 13:27 Follow up: Response: No adverse reaction; IV Status: Completed infusion; IV Intake: kc6 100ml 11:20 Drug: NS 0.9% IV 1000 ml IV at 1 bolus Per protocol; 1000 mL bolus Route: IV; Rate: 1 kc6 bolus; Site: right antecubital; 13:27 Follow up: Response: No adverse reaction; IV Status: Completed infusion; IV Intake: kc6 1000ml 11:24 Drug: Metoprolol IVP 2.5 mg IVP once; Hold for SBP <100 or HR <60. Route: IVP; Site: kc6 right antecubital; 11:44 Follow up: Response: No adverse reaction; Blood pressure is lowered; Cardiac rhythm kc6 changed 12:24 Not Given (Hemodynamic Parameters): metoprolol2.5 mg IVP once; Hold for SBP <100 or HR kc6 <60. Disposition Summary: 03/18/23 13:40 Discharge Ordered Notes: Location: Home nirav Problem: new nirav Symptoms: have improved nirav Condition: Stable nirav Diagnosis - Paroxysmal atrial fibrillation - with RVR nirav Followup: nirav - With: Rustam Levin MD - When: 2 - 3 days - Reason: Recheck today's complaints, Continuance of care, Re-evaluation by your physician Followup: nirav - With: Christian Israel MD - When: 2 - 3 days - Reason: Recheck today's complaints, Continuance of care, Re-evaluation by your physician Discharge Instructions: - Discharge Summary Sheet nirav - Atrial Fibrillation nirav - Atrial Fibrillation, [id number] nirav Forms: - Medication Reconciliation Form nirav - Thank You Letter nirav - Antibiotic Education nirav - Prescription Opioid Use nirav - Patient Portal Instructions nirav - Leadership Thank You Letter nirav Signatures: Dispatcher [employer] EDMS Ephraim, Shreyas, MD MD nirav Brooks, Sabiha, RN RN hb Coleman, Hali, RN RN kc6
--- NOTE | 2023-03-18 13:40 | ER ---
Nurse's Notes [facility] Name: Fredi Barth Age: 77 yrs Sex: Male : 1945 Arrival Date: 03/18/2023 Time: 10:51 Bed 13 Private MD: Rustam Levin V Diagnosis: Paroxysmal atrial fibrillation-with RVR Presentation: 03/18 11:00 Chief complaint: Palpitations and SOB x 6 hours. Home BP 87/62, HR 128. Hx of AFib hb w/RVR. Coronavirus screen: At this time, the client does not indicate any symptoms associated with coronavirus-19. Ebola Screen: No symptoms or risks identified at this time. Initial Sepsis Screen: Does the patient meet any 2 criteria? HR > 90 bpm. No. Patient's initial sepsis screen is negative. Does the patient have a suspected source of infection? No. Patient's initial sepsis screen is negative. Risk Assessment: Do you want to hurt yourself or someone else? Patient reports no desire to harm self or others. Onset of symptoms was March 18, 2023. 11:00 Method Of Arrival: Ambulatory hb 11:00 Acuity: PHYLLIS 2 hb Historical: - Allergies: 11:01 HYDRALAZINE; hb 11:01 HYDROCODONE; hb - Home Meds: 11:01 losartan 50 mg oral tablet 2 times per day [Active]; sotalol 80 mg Oral tablet 2 times hb per day [Active]; Eliquis 5 mg oral tablet 2 times per day [Active]; metoprolol tartrate 25 mg Oral tablet 2 times per day [Active]; - PMHx: 11:01 aortic aneurysm; Atrial Fib; COPD; GERD; Hypertension; radiation; Sjogren's Syndrome; hb - PSHx: 11:01 ablation for afib; lung aurgery x5; hb Screenin:06 [facility] ED Fall Risk Assessment (Adult) History of falling in the last 3 months, kc6 including since admission No falls in past 3 months (0 pts) Confusion or Disorientation No (0 pts) Intoxicated or Sedated No (0 pts) Impaired Gait No (0 pts) Mobility Assist Device Used No (0 pt) Altered Elimination No (0 pt) Score/Fall Risk Level 0 - 2 = Low Risk. Abuse screen: Denies threats or abuse. Denies injuries from another. Nutritional screening: No deficits noted. Tuberculosis screening: No symptoms or risk factors identified. Assessment: 11:07 General: Appears in no apparent distress. comfortable, Behavior is calm, cooperative, kc6 appropriate for age. Pain: Denies pain. Neuro: Level of Consciousness is awake, alert, obeys commands, Oriented to person, place, time, situation, Appropriate for age. Cardiovascular: Heart tones S1 S2 present Capillary refill < 3 seconds Rhythm is atrial fibrillation with rapid ventricular response Chest pain is denied. Respiratory: Reports shortness of breath on exertion Airway is patent Trachea midline Respiratory effort is even, unlabored, Respiratory pattern is regular, symmetrical. GI: No signs and/or symptoms were reported involving the gastrointestinal system. : No signs and/or symptoms were reported regarding the genitourinary system. EENT: No signs and/or symptoms were reported regarding the EENT system. Derm: No signs and/or symptoms reported regarding the dermatologic system. Skin is intact, is healthy with good turgor, Skin is pink, warm \T\ dry. Musculoskeletal: No signs and/or symptoms reported regarding the musculoskeletal system. Circulation, motion, and sensation intact. Capillary refill < 3 seconds, Range of motion: intact in all extremities. 12:07 Reassessment: Patient appears in no apparent distress at this time. No changes from kc6 previously documented assessment. Patient and/or family updated on plan of care and expected duration. Pain level reassessed. Patient is alert, oriented x 3, equal unlabored respirations, skin warm/dry/pink. 13:07 Reassessment: Patient appears in no apparent distress at this time. No changes from kc6 previously documented assessment. Patient and/or family updated on plan of care and expected duration. Pain level reassessed. Patient is alert, oriented x 3, equal unlabored respirations, skin warm/dry/pink. Vital Signs: 11:00 BP 154 / 95; Pulse 135; Resp 18; Temp 97.5(O); Pulse Ox 100% on R/A; Weight 106.59 kg; hb Height 6 ft. 2 in. ; Pain 0/10; 11:20 BP 128 / 82; Pulse 129; Resp 16 S; Pulse Ox 98% on R/A; kc6 11:56 BP 124 / 83; Pulse 59; Resp 18 S; Pulse Ox 95% on R/A; kc6 13:27 BP 128 / 64; Pulse 58; Resp 16 S; Pulse Ox 98% on R/A; kc6 11:00 Body Mass Index 30.17 (106.59 kg, 187.96 cm) hb 11:00 Pain Scale: Adult hb Vitals: 11:56 Cardiac Rhythm Assessment Sinus armando. kc6 ED Course: 10:52 Patient arrived in ED. rg4 10:53 Rustam Levin MD is Private Physician. rg4 10:58 Hali Coleman, NIURKA is Primary Nurse. kc6 11:00 Shreyas Ye MD is Attending Physician. nirav 11:01 Triage completed. hb 11:03 Arm band placed on. hb 11:06 Inserted saline lock: 20 gauge in right antecubital area, using aseptic technique. kc6 Blood collected. Patient maintains SpO2 saturation greater than 95% on room air. 11:07 Patient has correct armband on for positive identification. Bed in low position. Call kc6 light in reach. Side rails up X2. Adult w/ patient. Client placed on continuous cardiac and pulse oximetry monitoring. NIBP monitoring applied. cardiac monitor on. 12:00 XRAY Chest (1 view) In Process Unspecified. EDMS 12:41 Urinalysis w/ reflexes Sent. kc6 13:39 Rustam Levin MD is Referral Physician. nirav 13:40 Christian Israel MD is Referral Physician. nirav 14:04 No provider procedures requiring assistance completed. IV discontinued, intact, kc6 bleeding controlled, No redness/swelling at site. Pressure dressing applied. Administered Medications: 11:19 Drug: Sotalol PO 80 mg PO once Route: PO; kc6 11:45 Follow up: Response: No adverse reaction; Blood pressure is lowered; Cardiac rhythm kc6 changed 11:20 Drug: Magnesium Sulfate IVPB 1 grams IVPB once over 1 hrs Route: IVPB; Infused Over: 1 kc6 hrs; Site: right antecubital; 13:27 Follow up: Response: No adverse reaction; IV Status: Completed infusion; IV Intake: kc6 100ml 11:20 Drug: NS 0.9% IV 1000 ml IV at 1 bolus Per protocol; 1000 mL bolus Route: IV; Rate: 1 kc6 bolus; Site: right antecubital; 13:27 Follow up: Response: No adverse reaction; IV Status: Completed infusion; IV Intake: kc6 1000ml 11:24 Drug: Metoprolol IVP 2.5 mg IVP once; Hold for SBP <100 or HR <60. Route: IVP; Site: [facility] right antecubital; 11:44 Follow up: Response: No adverse reaction; Blood pressure is lowered; Cardiac rhythm kc6 changed 12:24 Not Given (Hemodynamic Parameters): metoprolol2.5 mg IVP once; Hold for SBP <100 or HR kc6 <60. Medication: 14:05 VIS not applicable for this client. kc6 Intake: 13:27 IV: 100ml; Total: 100ml. kc6 13:27 IV: 1000ml; Total: 1100ml. kc6 Outcome: 13:40 Discharge ordered by MD. gastelum 14:05 Discharged to home ambulatory, with significant other, kc6 14:05 Condition: improved 14:05 Discharge instructions given to patient, Instructed on discharge instructions, follow up and referral plans. Demonstrated understanding of instructions, follow-up care, 14:05 Patient left the ED. kc6 Signatures: Dispatcher [employer] EDShreyas Coleman MD MD cha Baxter, Heather, RN RN Bhakti Gaitan4 Hali Coleman RN RN kc6
[2023-03-18 14:09] VITALS: TEMP 97.5
[2023-03-18 14:14] VITALS: BP 128/64; O2SAT 98
--- NOTE | 2023-03-20 13:35 | EKG ---
Test Date: 2023-03-18 Test Time: 13:30:48 Psychiatric Arnp: SASHA MEASUREMENT RESULTS: Intervals: Rate: 56 W[place]: 174 QRSD: 84 QT: 446 QTc: 430 [place]: P: 67 [place]: 174 QRS: 56 T: 80 INTERPRETIVE STATEMENTS: Sinus bradycardia Otherwise normal ECG Compared to ECG 03/18/2023 10:58:02 Atrial flutter no longer present Electronically Signed On 03-20-23 13:28:32 MANAGER LEGAL by Christian Israel
--- NOTE | 2023-03-20 13:36 | EKG ---
Test Date: 2023-03-18 Test Time: 10:58:02 [employer]en Tank Erector: SASHA MEASUREMENT RESULTS: Intervals: Rate: 124 [place]: QRSD: 74 QT: 314 QTc: 451 [place]: P: [place]: QRS: 30 T: 74 INTERPRETIVE STATEMENTS: Atrial flutter with variable AV block Abnormal ECG Compared to ECG 03/13/2023 12:26:02 Sinus bradycardia no longer present Electronically Signed On 03-20-23 13:28:46 ASTRONOMY PROFESSOR by Christian Israel
== END 2023-03-18 14:05 | disposition home or self-care (01) ==
LOC: ER 10:51
DX: I48.0 Paroxysmal atrial fibrillation (principal); I10 Essential (primary) hypertension; Z79.01 Long term (current) use of anticoagulants; Z88.5 Allergy status to narcotic agent; Z88.8 Allergy status to other drugs, medicaments and biological substances
CPT/HCPCS: 96365; 93005 ×2; 85025; 80048; 36415; 83735; 85610; 80076; 84443; 81003; 84484; 83880; 71045; 96375; 99285; 96366; J3475; J7030

== ENCOUNTER → 2023-04-08 | Emergency (ER) | payer OTHER, BC ==
--- OUTSIDE RECORDS SUMMARY | 2023-04-08 10:05 | XMS REPORT | Continuity of Care Document ---
Author Name Unknown Address [address] [facility] [address] [place] [address] [facility] Address [address] [facility] [address] [place] [address] Care Team Providers Care Lozenge Maker Name Role Phone [id number] Primary Care Physician Unavailab samia FARMER, PROVIDER NOT IN Attending Clinician Unav YAIMA Greene Attending Clinician Unavailable ROSLYN MICHAEL Attending Clinician UnavailARLENE Grider Attending Clinician Unavailable MARCO KOVACS Attending Clinician Unavailable TAMY VALDEZ Attending Clinician Unavailable YANA ORTIZ Attending Clinician Unavailable CHU COYNE Attending Clinician Unavailable PETE AYALA Attending Clinician Unavailable DRAKE ALVARENGA Attending Clinician Unavailable VALERIE JAMES Attending Clinician STEPHEN Negrete Attending Clinician UnavailARELY Ayala Attending Clinician Unavailable TERI FORMAN Attending Clinician Unavailab ANNY Mustafa Attending Clinician Unavail able KULWINDER RAVI Attending Clinician Unavailable ALAN MULLER Attending Clinician Unavailable YANA ORTIZ Admitting Clinician Unavailable Payers Payer Name Policy Type Policy Number Effective Date Expirati on Date Source MEDICARE PART A AND B [id number] 2008 00:00:00 [place] POS [id number] 2015 00:00:00 Allergies, Adverse Reactions, Alerts Allergy Name Allergy Type Status Severity Reaction(s) Onset Date Inactive Date Treating Clinician Comments Source [facility]DR[facility] Drug Class Active High Sob 06-24 00:00: 00 MD Shamar beard HYDRALAZ [facility]E [facility] S Drug Class Active High Sob 06-24 00:00: 00 MD Anderso n HYDRALAZ [facility] S Drug Class Active High Sob 2023-0 3-11 00:00: 00 Anderscarlos n HYDRALAZ [facility] S Drug Class Active High Sob 2023-0 3-11 00:00: 00 Anderen n HYDRALAZ [facility]E [facility] S Drug Class Active High Sob 2023-0 3-11 00:00: 00 Anderen n HYDRALAZ [facility]E [facility] S Drug Class Active High Sob 2023-0 3-11 00:00: 00 Anderen n HYDRALAZ [facility] [place] S Drug Class Active High Sob 2023-0 3-11 00:00: 00 Anderen n HYDRALAZ [facility] S Drug Class Active High Sob 2023-0 3-11 00:00: 00 Anderen n HYDRALAZ [facility] S Drug Class Active High Sob 3-0 3-11 00:00: 00 Anderen beard HYDRALAZ [facility]E [facility] S Drug Class Active High Sob 2023-0 3-11 00:00: 00 Anderen n HYDRALAZ [facility] S Drug Class Active High Sob 3-0 3-11 00:00: 00 Anderen n HYDRALAZ [facility] S Drug Class Active High Sob 3-0 3-11 00:00: 00 Anderen n HYDRALAZ [facility]E [facility] S Drug Class Active High Sob 3-0 3-11 00:00: 00 Anderen beard HYDRALAZ INE [facility] S Drug Class Active High Sob 2023-0 3-11 00:00: 00 Anderen n HYDRALAZ [facility] S Drug Class Active High Sob 2023-0 3-11 00:00: 00 Anderen n HYDRALAZ [facility]E [place] S Drug Class Active High Sob 2023-0 3-11 00:00: 00 Anderen n HYDRALAZ [facility] S Drug Class Active High Sob 2023-0 3-11 00:00: 00 Anderen beard HYDRALAZ [facility]E [facility] S Drug Class Active High Sob 2023-0 3-11 00:00: 00 MD Shamar beard HYDRALAZ INE [facility] S Drug Class Active High Sob 2023-0 3-11 00:00: 00 Anderen beard HYDRALAZ [facility] [place] S Drug Class Active High Sob 2023-0 3-11 00:00: 00 MD Shamar beard HYDRALAZ INE [place] S Drug Class Active High Sob 2023-0 3-11 00:00: 00 Anderen n HYDRALAZ INE [place]UE S Drug Class Active High Sob 2023-0 3-11 00:00: 00 Anderen n HYDRALAZ INE [place] S Drug Class Active High Sob 2023-0 3-11 00:00: 00 Anderen beard HYDRALAZ INE ANALOGUE S Drug Class Active High Sob 2023-0 3-11 00:00: 00 Anderen beard HYDRALAZ INE [place]NALOGUE S Drug Class Active High Sob 2023-0 3-11 00:00: 00 Anderen beard HYDRALAZ INE [place]NALOGUE S Drug Class Active High Sob 2023-0 3-11 00:00: 00 Anderen beard HYDRALAZ INE ANALOGUE S Drug Class Active High Sob 2023-0 3-11 00:00: 00 Anderen beard HYDRALAZ INE [facility]NALOGUE S Drug Class Active High Sob 2023-0 3-11 00:00: 00 MD Shamar beard HYDRALAZ INE ANALOGUE S Drug Class Active High Sob 2023-0 3-11 00:00: 00 MD Shamar beard HYDRALAZ INE ANALOGUE S Drug Class Active High Sob 2023-0 3-11 00:00: 00 MD Shamar beard HYDRALAZ INE ANALOGUE S Drug Class Active High Sob 2023-0 3-11 00:00: 00 MD Shamar beard HYDRALAZ INE ANALOGUE S Drug Class Active High Sob 2023-0 3-11 00:00: 00 MD Shamar beard HYDRALAZ INE ANALOGUE S Drug Class Active High Sob 2023-0 3-11 00:00: 00 MD Shamar beard HYDRALAZ INE ANALOGUE S Drug Class Active High Sob 2023-0 3-11 00:00: 00 Anderen beard HYDRALAZ INE ANALOGUE S Drug Class Active High Sob 2023-0 3-11 00:00: 00 MD Shamar beard HYDRALAZ INE ANALOGUE S Drug Class Active High Sob 2023-0 3-11 00:00: 00 MD Shamar beard HYDRALAZ INE [place]NALOGUE S Drug Class Active High Sob 2023-0 3-11 00:00: 00 MD Shamar beard HYDRALAZ INE ANALOGUE S Drug Class Active High Sob 2023-0 3-11 00:00: 00 MD Anderso n HYDRALAZ INE ANALOGUE S Drug Class Active High Sob 2023-0 3-11 00:00: 00 Anderen n HYDRALAZ INE ANALOGUE S Drug Class Active High Sob 2023-0 3-11 00:00: 00 Anderen n HYDRALAZ INE ANALOGUE S Drug Class Active High Sob 2023-0 3-11 00:00: 00 Anderen n HYDRALAZ INE ANALOGUE S Drug Class Active High Sob 2023-0 3-11 00:00: 00 Anderen n HYDRALAZ INE ANALOGUE S Drug Class Active High Sob 2023-0 3-11 00:00: 00 Anderen n HYDRALAZ INE ANALOGUE S Drug Class Active High Sob 2023-0 3-11 00:00: 00 Anderen n HYDRALAZ INE ANALOGUE S Drug Class Active High Sob 2023-0 3-11 00:00: 00 Anderen n HYDRALAZ INE ANALOGUE S Drug Class Active High Sob 2023-0 3-11 00:00: 00 Anderen n HYDRALAZ INE ANALOGUE S Drug Class Active High Sob 2023-0 3-11 00:00: 00 Anderen n HYDRALAZ INE ANALOGUE S Drug Class Active High Sob 2023-0 3-11 00:00: 00 Anderen n HYDRALAZ INE ANALOGUE S Drug Class Active High Sob 2023-0 3-11 00:00: 00 Anderen beard HYDRALAZ INE ANALOGUE S Drug Class Active High Sob 2023-0 3-11 00:00: 00 Anderen n HYDRALAZ INE ANALOGUE S Drug Class Active High Sob 2023-0 3-11 00:00: 00 Anderen n HYDRALAZ INE ANALOGUE S Drug Class Active High Sob 2023-0 3-11 00:00: 00 Anderen n HYDRALAZ INE ANALOGUE S Drug Class Active High Sob 2023-0 3-11 00:00: 00 Anderen beard HYDRALAZ INE ANALOGUE S Drug Class Active High Sob 2023-0 3-11 00:00: 00 Anderen beard HYDRALAZ INE ANALOGUE S Drug Class Active High Sob 2023-0 3-11 00:00: 00 MD Shamar beard HYDRALAZ INE ANALOGUE S Drug Class Active High Sob 2023-0 3-11 00:00: 00 Anderen n HYDRALAZ INE ANALOGUE S Drug Class Active High Sob 2023-0 3-11 00:00: 00 Anderscarlos n HYDRALAZ INE ANALOGUE S Drug Class Active High Sob 2023-0 3-11 00:00: 00 Anderen n HYDRALAZ INE ANALOGUE S Drug Class Active High Sob 2023-0 3-11 00:00: 00 Anderen n HYDRALAZ INE [place]NALOG[facility] S Drug Class Active High Sob 2023-0 3-11 00:00: 00 Anderen beard HYDRALAZ INE ANALOG[facility] S Drug Class Active High Sob 2023-0 3-11 00:00: 00 Anderen n HYDRALAZ INE ANALOGUE S Drug Class Active High Sob 2023-0 3-11 00:00: 00 Anderen beard HYDRALAZ INE ANALOGUE S Drug Class Active High Sob 2023-0 3-11 00:00: 00 Anderen n HYDRALAZ INE ANALOGUE S Drug Class Active High Sob 2023-0 3-11 00:00: 00 Anderen n HYDRALAZ INE ANALOGUE S Drug Class Active High Sob 2023-0 3-11 00:00: 00 Anderen n HYDRALAZ INE ANALOGUE S Drug Class Active High Sob 2023-0 3-11 00:00: 00 Anderen beard HYDRALAZ INE ANALOGUE S Drug Class Active High Sob 2023-0 3-11 00:00: 00 Anderen beard HYDRALAZ INE ANALOGUE S Drug Class Active High Sob 2023-0 3-11 00:00: 00 Anderen n HYDRALAZ INE ANALOGUE S Drug Class Active High Sob 2023-0 3-11 00:00: 00 Anderen n HYDRALAZ INE ANALOGUE S Drug Class Active High Sob 2023-0 3-11 00:00: 00 Anderscarlos n HYDRALAZ INE ANALOGUE S Drug Class Active High Sob 2023-0 3-11 00:00: 00 Anderen n HYDRALAZ INE ANALOGUE S Drug Class Active High Sob 2023-0 3-11 00:00: 00 Anderen beard HYDRALAZ INE ANALOGUE S Drug Class Active High Sob 2023-0 3-11 00:00: 00 Anderen beard HYDRALAZ INE ANALOGUE S Drug Class Active High Sob 2023-0 3-11 00:00: 00 Anderscarlos n HYDRALAZ INE ANALOGUE S Drug Class Active High Sob 2023-0 3-11 00:00: 00 Anderscarlos n HYDRALAZ INE ANALOGUE S Drug Class Active High Sob 2023-0 3-11 00:00: 00 Anderscarlos n HYDRALAZ INE ANALOGUE S Drug Class Active High Sob 2023-0 3-11 00:00: 00 Anderen n HYDRALAZ INE ANALOGUE S Drug Class Active High Sob 2023-0 3-11 00:00: 00 Anderen n HYDRALAZ INE ANALOGUE S Drug Class Active High Sob 2023-0 3-11 00:00: 00 Anderscarlos n HYDRALAZ INE ANALOGUE S Drug Class Active High Sob 2023-0 3-11 00:00: 00 Anderen n HYDRALAZ INE ANALOGUE S Drug Class Active High Sob 2023-0 3-11 00:00: 00 Anderscarlos n HYDRALAZ INE ANALOGUE S Drug Class Active High Sob 2023-0 3-11 00:00: 00 Anderen n HYDRALAZ INE ANALOGUE S Drug Class Active High Sob 2023-0 3-11 00:00: 00 Anderen n HYDRALAZ INE ANALOGUE S Drug Class Active High Sob 2023-0 3-11 00:00: 00 Anderen n HYDRALAZ INE ANALOGUE S Drug Class Active High Sob 2023-0 3-11 00:00: 00 Anderen n HYDRALAZ INE ANALOGUE S Drug Class Active High Sob 2023-0 3-11 00:00: 00 Anderen n HYDRALAZ INE ANALOGUE S Drug Class Active High Sob 2023-0 3-11 00:00: 00 Anderen n HYDRALAZ INE ANALOGUE S Drug Class Active High Sob 2023-0 3-11 00:00: 00 Anderscarlos n HYDRALAZ INE ANALOGUE S Drug Class Active High Sob 2023-0 3-11 00:00: 00 Anderen beard HYDRALAZ INE ANALOGUE S Drug Class Active High Sob 2023-0 3-11 00:00: 00 Anderen beard HYDRALAZ INE ANALOGUE S Drug Class Active High Sob 2023-0 3-11 00:00: 00 Anderen beard HYDRALAZ INE ANALOGUE S Drug Class Active High Sob 2023-0 3-11 00:00: 00 Anderscarlos n HYDRALAZ INE ANALOGUE S Drug Class Active High Sob 2023-0 3-11 00:00: 00 Anderscarlos n HYDRALAZ INE ANALOGUE S Drug Class Active High Sob 2023-0 3-11 00:00: 00 Anderen n HYDRALAZ INE ANALOGUE S Drug Class Active High Sob 2023-0 3-11 00:00: 00 Anderen n HYDRALAZ INE ANALOGUE S Drug Class Active High Sob 2023-0 3-11 00:00: 00 Anderen beard HYDRALAZ INE ANALOGUE S Drug Class Active High Sob 2023-0 3-11 00:00: 00 Anderen n HYDRALAZ INE ANALOGUE S Drug Class Active High Sob 2023-0 3-11 00:00: 00 Anderen beard HYDRALAZ INE ANALOGUE S Drug Class Active High Sob 2023-0 3-11 00:00: 00 Anderen n HYDRALAZ INE ANALOGUE S Drug Class Active High Sob 2023-0 3-11 00:00: 00 Anderen n HYDRALAZ INE ANALOGUE S Drug Class Active High Sob 2023-0 3-11 00:00: 00 Anderen n HYDRALAZ INE ANALOGUE S Drug Class Active High Sob 2023-0 3-11 00:00: 00 Anderen beard HYDRALAZ INE ANALOGUE S Drug Class Active High Sob 2023-0 3-11 00:00: 00 Anderen n HYDRALAZ INE ANALOGUE S Drug Class Active High Sob 2023-0 3-11 00:00: 00 Anderen n HYDRALAZ INE ANALOGUE S Drug Class Active High Sob 2023-0 3-11 00:00: 00 Anderen beard HYDRALAZ INE ANALOGUE S Drug Class Active High Sob 2023-0 3-11 00:00: 00 Anderen n HYDRALAZ INE ANALOGUE S Drug Class Active High Sob 2023-0 3-11 00:00: 00 Anderen n HYDRALAZ INE ANALOGUE S Drug Class Active High Sob 2023-0 3-11 00:00: 00 Anderen beard HYDRALAZ INE ANALOGUE S Drug Class Active High Sob 2023-0 3-11 00:00: 00 Anderen beard HYDRALAZ INE ANALOGUE S Drug Class Active High Sob 2023-0 3-11 00:00: 00 Anderscarlos n HYDRALAZ INE ANALOGUE S Drug Class Active High Sob 2023-0 3-11 00:00: 00 Anderen n HYDRALAZ INE ANALOGUE S Drug Class Active High Sob 2023-0 3-11 00:00: 00 Anderen n HYDRALAZ INE ANALOGUE S Drug Class Active High Sob 2023-0 3-11 00:00: 00 Anderen n HYDRALAZ INE ANALOGUE S Drug Class Active High Sob 2023-0 3-11 00:00: 00 Anderen n HYDRALAZ INE ANALOGUE S Drug Class Active High Sob 2023-0 3-11 00:00: 00 Anderen beard HYDRALAZ INE ANALOGUE S Drug Class Active High Sob 2023-0 3-11 00:00: 00 Anderen beard HYDRALAZ INE ANALOGUE S Drug Class Active High Sob 2023-0 3-11 00:00: 00 Anderen beard HYDRALAZ INE ANALOGUE S Drug Class Active High Sob 3-0 3-11 00:00: 00 Anderen beard HYDRALAZ INE ANALOGUE S Drug Class Active High Sob 2023-0 3-11 00:00: 00 Anderen n HYDRALAZ INE ANALOGUE S Drug Class Active High Sob 2023-0 3-11 00:00: 00 Anderen beard HYDRALAZ INE ANALOGUE S Drug Class Active High Sob 2023-0 3-11 00:00: 00 Anderen beard HYDRALAZ INE ANALOGUE S Drug Class Active High Sob 2023-0 3-11 00:00: 00 Anderen n HYDRALAZ INE ANALOGUE S Drug Class Active High Sob 2023-0 3-11 00:00: 00 Anderen beard HYDRALAZ INE ANALOGUE S Drug Class Active High Sob 2023-0 3-11 00:00: 00 Anderen n HYDRALAZ INE ANALOGUE S Drug Class Active High Sob 2023-0 3-11 00:00: 00 MD Shamar beard HYDRALAZ INE [place]NALOGUE S Drug Class Active High Sob 2023-0 3-11 00:00: 00 Anderen beard HYDRALAZ INE [facility]NALOGUE S Drug Class Active High Sob 2023-0 3-11 00:00: 00 MD Shamar beard HYDRALAZ INE [facility]NALOGUE S Drug Class Active High Sob 311 00:00: 00 MD Shamar beard HYDRALAZ INE ANALOGUE S Drug Class Active High Sob 311 00:00: 00 MD Shamar beard HYDROCOD ONE DRUG INGREDI Active Other 10-10 00:00: 00 MD Shamar beard HYDROCOD ONE DRUG INGREDI Active Other 10-10 00:00: 00 MD Shamar beard HYDROCOD ONE DRUG INGREDI Active Other 10-10 00:00: 00 MD Shamar beard HYDROCOD ONE DRUG INGREDI Active Other 10-10 00:00: 00 MD Shamar beard HYDROCOD ONE DRUG INGREDI Active Other 10-10 00:00: 00 MD Shamar beard HYDROCOD ONE DRUG INGREDI Active Other 10-10 00:00: 00 MD Shamar beard HYDROCOD ONE DRUG INGREDI Active Other 10-10 00:00: 00 MD Shamar beard HYDROCOD ONE DRUG INGREDI Active Other 10-10 00:00: 00 MD Shamar beard HYDROCOD ONE DRUG INGREDI Active Other 10-10 00:00: 00 MD Shamar beard HYDROCOD ONE DRUG INGREDI Active Other 10-10 00:00: 00 MD Shamar beard HYDROCOD ONE DRUG INGREDI Active Other 10-10 00:00: 00 MD Shamar beard HYDROCOD ONE DRUG INGREDI Active Other 10-10 00:00: 00 MD Shamar beard HYDROCOD ONE DRUG INGREDI Active Other 10-10 00:00: 00 MD Shamar beard HYDROCOD ONE DRUG INGREDI Active Other 10-10 00:00: 00 MD Shamar beard HYDROCOD ONE DRUG INGREDI Active Other 10-10 00:00: 00 MD Shamar beard HYDROCOD ONE DRUG INGREDI Active Other 10-10 00:00: 00 MD Shamar beard HYDROCOD ONE DRUG INGREDI Active Other 10-10 00:00: 00 MD Shamar beard HYDROCOD ONE DRUG INGREDI Active Other 10-10 00:00: 00 MD Shamar beard HYDROCOD ONE DRUG INGREDI Active Other 10-10 00:00: 00 MD Shamar beard HYDROCOD ONE DRUG INGREDI Active Other 10-10 00:00: 00 MD Shamar beard HYDROCOD ONE DRUG INGREDI Active Other 10-10 00:00: 00 MD Shamar beard HYDROCOD ONE DRUG INGREDI Active Other 10-10 00:00: 00 MD Shamar beard HYDROCOD ONE DRUG INGREDI Active Other 10-10 00:00: 00 MD Shamar beard HYDROCOD ONE DRUG INGREDI Active Other 10-10 00:00: 00 MD Shamar beard HYDROCOD ONE DRUG INGREDI Active Other 10-10 00:00: 00 MD Shamar beard HYDROCOD ONE DRUG INGREDI Active Other 10-10 00:00: 00 MD Shamar beard HYDROCOD ONE DRUG INGREDI Active Other 10-10 00:00: 00 MD Shamar beard HYDROCOD ONE DRUG INGREDI Active Other 10-10 00:00: 00 MD Shamar beard HYDROCOD ONE DRUG INGREDI Active Other 10-10 00:00: 00 MD Shamar beard HYDROCOD ONE DRUG INGREDI Active Other 10-10 00:00: 00 MD Shamar beard HYDROCOD ONE DRUG INGREDI Active Other 10-10 00:00: 00 MD Shamar beard HYDROCOD ONE DRUG INGREDI Active Other 10-10 00:00: 00 MD Shamar beard HYDROCOD ONE DRUG INGREDI Active Other 10-10 00:00: 00 MD Shamar beard HYDROCOD ONE DRUG INGREDI Active Other 10-10 00:00: 00 MD Shamar beard HYDROCOD ONE DRUG INGREDI Active Other 10-10 00:00: 00 MD Shamar beard HYDROCOD ONE DRUG INGREDI Active Other 10-10 00:00: 00 MD Shamar beard HYDROCOD ONE DRUG INGREDI Active Other 10-10 00:00: 00 MD Shamar beard HYDROCOD ONE DRUG INGREDI Active Other 10-10 00:00: 00 MD Shamar beard HYDROCOD ONE DRUG INGREDI Active Other 10-10 00:00: 00 MD Shamar beard HYDROCOD ONE DRUG INGREDI Active Other 10-10 00:00: 00 MD Shamar beard HYDROCOD ONE DRUG INGREDI Active Other 10-10 00:00: 00 MD Shamar beard HYDROCOD ONE DRUG INGREDI Active Other 10-10 00:00: 00 MD Shamar beard HYDROCOD ONE DRUG INGREDI Active Other 10-10 00:00: 00 MD Shamar beard HYDROCOD ONE DRUG INGREDI Active Other 10-10 00:00: 00 MD Shamar beard HYDROCOD ONE DRUG INGREDI Active Other 10-10 00:00: 00 MD Shamar beard HYDROCOD ONE DRUG INGREDI Active Other 10-10 00:00: 00 MD Shamar beard HYDROCOD ONE DRUG INGREDI Active Other 10-10 00:00: 00 MD Shamar beard HYDROCOD ONE DRUG INGREDI Active Other 10-10 00:00: 00 MD Shamar beard HYDROCOD ONE DRUG INGREDI Active Other 10-10 00:00: 00 MD Shamar beard HYDROCOD ONE DRUG INGREDI Active Other 10-10 00:00: 00 MD Shamar beard HYDROCOD ONE DRUG INGREDI Active Other 10-10 00:00: 00 MD Shamar beard HYDROCOD ONE DRUG INGREDI Active Other 10-10 00:00: 00 MD Shamar beard HYDROCOD ONE DRUG INGREDI Active Other 10-10 00:00: 00 MD Shamar beard HYDROCOD ONE DRUG INGREDI Active Other 10-10 00:00: 00 MD Shamar beard HYDROCOD ONE DRUG INGREDI Active Other 10-10 00:00: 00 MD Shamar beard HYDROCOD ONE DRUG INGREDI Active Other 10-10 00:00: 00 MD Shamar beard HYDROCOD ONE DRUG INGREDI Active Other 10-10 00:00: 00 MD Shamar beard HYDROCOD ONE DRUG INGREDI Active Other 10-10 00:00: 00 MD Shamar beard HYDROCOD ONE DRUG INGREDI Active Other 10-10 00:00: 00 MD Shamar beard HYDROCOD ONE DRUG INGREDI Active Other 10-10 00:00: 00 MD Shamar beard HYDROCOD ONE DRUG INGREDI Active Other 10-10 00:00: 00 MD Shamar beard HYDROCOD ONE DRUG INGREDI Active Other 10-10 00:00: 00 MD Shamar beard HYDROCOD ONE DRUG INGREDI Active Other 10-10 00:00: 00 MD Shamar beard HYDROCOD ONE DRUG INGREDI Active Other 10-10 00:00: 00 MD Shamar beard HYDROCOD ONE DRUG INGREDI Active Other 10-10 00:00: 00 MD Shamar beard HYDROCOD ONE DRUG INGREDI Active Other 10-10 00:00: 00 MD Shamar beard HYDROCOD ONE DRUG INGREDI Active Other 10-10 00:00: 00 MD Shamar beard HYDROCOD ONE DRUG INGREDI Active Other 10-10 00:00: 00 MD Shamar beard HYDROCOD ONE DRUG INGREDI Active Other 10-10 00:00: 00 MD Shamar beard HYDROCOD ONE DRUG INGREDI Active Other 10-10 00:00: 00 MD Shamar beard HYDROCOD ONE DRUG INGREDI Active Other 10-10 00:00: 00 MD Shamar beard HYDROCOD ONE DRUG INGREDI Active Other 10-10 00:00: 00 MD Shamar beard HYDROCOD ONE DRUG INGREDI Active Other 10-10 00:00: 00 MD Shamar beard HYDROCOD ONE DRUG INGREDI Active Other 10-10 00:00: 00 MD Shamar beard HYDROCOD ONE DRUG INGREDI Active Other 10-10 00:00: 00 MD Shamar beard HYDROCOD ONE DRUG INGREDI Active Other 10-10 00:00: 00 MD Shamar beard HYDROCOD ONE DRUG INGREDI Active Other 10-10 00:00: 00 MD Shamar beard HYDROCOD ONE DRUG INGREDI Active Other 10-10 00:00: 00 MD Shamar beard HYDROCOD ONE DRUG INGREDI Active Other 10-10 00:00: 00 MD Shamar beard HYDROCOD ONE DRUG INGREDI Active Other 10-10 00:00: 00 MD Shamar beard HYDROCOD ONE DRUG INGREDI Active Other 10-10 00:00: 00 MD Shamar beard HYDROCOD ONE DRUG INGREDI Active Other 10-10 00:00: 00 MD Shamar beard HYDROCOD ONE DRUG INGREDI Active Other 10-10 00:00: 00 MD Shamar beard HYDROCOD ONE DRUG INGREDI Active Other 10-10 00:00: 00 MD Shamar beard HYDROCOD ONE DRUG INGREDI Active Other 10-10 00:00: 00 MD Shamar beard HYDROCOD ONE DRUG INGREDI Active Other 10-10 00:00: 00 MD Shamar beard HYDROCOD ONE DRUG INGREDI Active Other 10-10 00:00: 00 MD Shamar beard HYDROCOD ONE DRUG INGREDI Active Other 10-10 00:00: 00 MD Shamar beard HYDROCOD ONE DRUG INGREDI Active Other 10-10 00:00: 00 MD Shamar beard HYDROCOD ONE DRUG INGREDI Active Other 10-10 00:00: 00 MD Shamar beard HYDROCOD ONE DRUG INGREDI Active Other 10-10 00:00: 00 MD Shamar beard HYDROCOD ONE DRUG INGREDI Active Other 10-10 00:00: 00 MD Shamar beard HYDROCOD ONE DRUG INGREDI Active Other 10-10 00:00: 00 MD Shamar beard HYDROCOD ONE DRUG INGREDI Active Other 10-10 00:00: 00 MD Shamar beard HYDROCOD ONE DRUG INGREDI Active Other 10-10 00:00: 00 MD Shamar beard HYDROCOD ONE DRUG INGREDI Active Other 10-10 00:00: 00 MD Shamar beard HYDROCOD ONE DRUG INGREDI Active Other 10-10 00:00: 00 MD Shamar beard HYDROCOD ONE DRUG INGREDI Active Other 10-10 00:00: 00 MD Shamar beard HYDROCOD ONE DRUG INGREDI Active Other 10-10 00:00: 00 MD Shamar beard HYDROCOD ONE DRUG INGREDI Active Other 10-10 00:00: 00 MD Shamar beard HYDROCOD ONE DRUG INGREDI Active Other 10-10 00:00: 00 MD Shamar beard HYDROCOD ONE DRUG INGREDI Active Other 10-10 00:00: 00 MD Shamar beard HYDROCOD ONE DRUG INGREDI Active Other 10-10 00:00: 00 MD Shamar beard HYDROCOD ONE DRUG INGREDI Active Other 10-10 00:00: 00 MD Shamar beard HYDROCOD ONE DRUG INGREDI Active Other 10-10 00:00: 00 MD Shamar beard HYDROCOD ONE DRUG INGREDI Active Other 10-10 00:00: 00 MD Shamar beard HYDROCOD ONE DRUG INGREDI Active Other 10-10 00:00: 00 MD Shamar beard HYDROCOD ONE DRUG INGREDI Active Other 10-10 00:00: 00 MD Shamar beard HYDROCOD ONE DRUG INGREDI Active Other 10-10 00:00: 00 MD Shamar beard HYDROCOD ONE DRUG INGREDI Active Other 10-10 00:00: 00 MD Shamar beard HYDROCOD ONE DRUG INGREDI Active Other 10-10 00:00: 00 MD Shamar beard HYDROCOD ONE DRUG INGREDI Active Other 10-10 00:00: 00 MD Shamar beard HYDROCOD ONE DRUG INGREDI Active Other 10-10 00:00: 00 MD Shamar beard HYDROCOD ONE DRUG INGREDI Active Other 10-10 00:00: 00 MD Shamar beard HYDROCOD ONE DRUG INGREDI Active Other 10-10 00:00: 00 MD Shamar beard HYDROCOD ONE DRUG INGREDI Active Other 10-10 00:00: 00 MD Shamar beard HYDROCOD ONE DRUG INGREDI Active Other 10-10 00:00: 00 MD Shamar beard HYDROCOD ONE DRUG INGREDI Active Other 10-10 00:00: 00 MD Shamar beard HYDROCOD ONE DRUG INGREDI Active Other 10-10 00:00: 00 MD Shamar beard HYDROCOD ONE DRUG INGREDI Active Other 10-10 00:00: 00 MD Shamar beard HYDROCOD ONE DRUG INGREDI Active Other 10-10 00:00: 00 MD Shamar beard HYDROCOD ONE DRUG INGREDI Active Other 10-10 00:00: 00 MD Shamar beard HYDROCOD ONE DRUG INGREDI Active Other 10-10 00:00: 00 MD Shamar beard HYDROCOD ONE DRUG INGREDI Active Other 10-10 00:00: 00 MD Shamar beard HYDROCOD ONE DRUG INGREDI Active Other 10-10 00:00: 00 MD Shamar beard HYDROCOD ONE DRUG INGREDI Active Other 10-10 00:00: 00 MD Shamar beard HYDROCOD ONE DRUG INGREDI Active Other 10-10 00:00: 00 MD Shamar beard HYDROCOD ONE DRUG INGREDI Active Other 10-10 00:00: 00 MD Shamar beard HYDROCOD ONE DRUG INGREDI Active Other 10-10 00:00: 00 MD Shamar beard HYDROCOD ONE DRUG INGREDI Active Other 10-10 00:00: 00 MD Shamar beard HYDROCOD ONE DRUG INGREDI Active Other 10-10 00:00: 00 MD Shamar beard HYDROCOD ONE DRUG INGREDI Active Other 10-10 00:00: 00 MD Shamar beard HYDROCOD ONE DRUG INGREDI Active Other 10-10 00:00: 00 MD Shamar beard HYDROCOD ONE DRUG INGREDI Active Other 10-10 00:00: 00 MD Shamar beard HYDROCOD ONE DRUG INGREDI Active Other 10-10 00:00: 00 MD Shamar baerd HYDROCOD ONE DRUG INGREDI Active Other 10-10 00:00: 00 MD Shamar beard HYDROCOD ONE DRUG INGREDI Active Other 10-10 00:00: 00 MD Shamar beard HYDROCOD ONE DRUG INGREDI Active Other 10-10 00:00: 00 MD Shamar beard HYDROCOD ONE DRUG INGREDI Active Other 10-10 00:00: 00 MD Shamar beard HYDROCOD ONE DRUG INGREDI Active Other 10-10 00:00: 00 MD Shamar beard HYDROCOD ONE DRUG INGREDI Active Other 10-10 00:00: 00 MD Shamar beard HYDROCOD ONE DRUG INGREDI Active Other 10-10 00:00: 00 MD Shamar beard HYDROCOD ONE DRUG INGREDI Active Other 10-10 00:00: 00 MD Shamar beard HYDROCOD ONE DRUG INGREDI Active Other 10-10 00:00: 00 MD Shamar beard HYDROCOD ONE DRUG INGREDI Active Other 10-10 00:00: 00 MD Shamar beard HYDROCOD ONE DRUG INGREDI Active Other 10-10 00:00: 00 MD Shamar beard HYDROCOD ONE DRUG INGREDI Active Other 10-10 00:00: 00 MD Shamar beard HYDROCOD ONE DRUG INGREDI Active Other 10-10 00:00: 00 MD Shamar beard HYDROCOD ONE DRUG INGREDI Active Other 10-10 00:00: 00 MD Shamar beard HYDROCOD ONE DRUG INGREDI Active Other 10-10 00:00: 00 MD Shamar beard HYDROCOD ONE DRUG INGREDI Active Other 10-10 00:00: 00 MD Shamar beard HYDROCOD ONE DRUG INGREDI Active Other 10-10 00:00: 00 MD Shamar beard HYDROCOD ONE DRUG INGREDI Active Other 10-10 00:00: 00 MD Shamar beard HYDROCOD ONE DRUG INGREDI Active Other 10-10 00:00: 00 MD Shamar beard HYDROCOD ONE DRUG INGREDI Active Other 10-10 00:00: 00 MD Shamar beard HYDROCOD ONE DRUG INGREDI Active Other 10-10 00:00: 00 MD Shamar beard HYDROCOD ONE DRUG INGREDI Active Other 10-10 00:00: 00 MD Shamar beard HYDROCOD ONE DRUG INGREDI Active Other 10-10 00:00: 00 MD Shamar beard HYDROCOD ONE DRUG INGREDI Active Other 10-10 00:00: 00 MD Shamar beard HYDROCOD ONE DRUG INGREDI Active Other 10-10 00:00: 00 MD Shamar beard HYDROCOD ONE DRUG INGREDI Active Other 10-10 00:00: 00 MD Shamar beard HYDROCOD ONE DRUG INGREDI Active Other 10-10 00:00: 00 MD Shamar beard HYDROCOD ONE DRUG INGREDI Active Other 10-10 00:00: 00 MD Shamar beard HYDROCOD ONE DRUG INGREDI Active Other 10-10 00:00: 00 MD Shamar beard HYDROCOD ONE DRUG INGREDI Active Other 10-10 00:00: 00 MD Shamar beard HYDROCOD ONE DRUG INGREDI Active Other 10-10 00:00: 00 MD Shamar beard HYDROCOD ONE DRUG INGREDI Active Other 10-10 00:00: 00 MD Shamar beard HYDROCOD ONE DRUG INGREDI Active Other 10-10 00:00: 00 MD Shamar beard HYDROCOD ONE DRUG INGREDI Active Other 10-10 00:00: 00 MD Shamar beard HYDROCOD ONE DRUG INGREDI Active Other 10-10 00:00: 00 MD Shamar beard HYDROCOD ONE DRUG INGREDI Active Other 10-10 00:00: 00 MD Shamar beard HYDROCOD ONE DRUG INGREDI Active Other 10-10 00:00: 00 MD Shamar beard HYDROCOD ONE DRUG INGREDI Active Other 10-10 00:00: 00 MD Shamar beard HYDROCOD ONE DRUG INGREDI Active Other 10-10 00:00: 00 MD Shamar beard HYDROCOD ONE DRUG INGREDI Active Other 10-10 00:00: 00 MD Shamar beard HYDROCOD ONE DRUG INGREDI Active Other 10-10 00:00: 00 MD Shamar beard HYDROCOD ONE DRUG INGREDI Active Other 10-10 00:00: 00 MD Shamar beard HYDROCOD ONE DRUG INGREDI Active Other 10-10 00:00: 00 MD Shamar beard HYDROCOD ONE DRUG INGREDI Active Other 10-10 00:00: 00 MD Shamar beard HYDROCOD ONE DRUG INGREDI Active Other 10-10 00:00: 00 MD Shamar beard HYDROCOD ONE DRUG INGREDI Active Other 10-10 00:00: 00 MD Shamar beard HYDROCOD ONE DRUG INGREDI Active Other 10-10 00:00: 00 MD Shamar beard HYDROCOD ONE DRUG INGREDI Active Other 10-10 00:00: 00 MD Shamar beard HYDROCOD ONE DRUG INGREDI Active Other 10-10 00:00: 00 MD Shamar beard HYDROCOD ONE DRUG INGREDI Active Other 10-10 00:00: 00 MD Shamar beard HYDROCOD ONE DRUG INGREDI Active Other 10-10 00:00: 00 MD Shamar beard HYDROCOD ONE DRUG INGREDI Active Other 10-10 00:00: 00 MD Shamar beard HYDROCOD ONE DRUG INGREDI Active Other 10-10 00:00: 00 MD Shamar beard HYDROCOD ONE DRUG INGREDI Active Other 10-10 00:00: 00 MD Shamar beard HYDROCOD ONE DRUG INGREDI Active Other 10-10 00:00: 00 MD Shamar beard HYDROCOD ONE DRUG INGREDI Active Other 10-10 00:00: 00 MD Shamar beard HYDROCOD ONE DRUG INGREDI Active Other 10-10 00:00: 00 MD Shamar beard HYDROCOD ONE DRUG INGREDI Active Other 10-10 00:00: 00 MD Shamar beard HYDROCOD ONE DRUG INGREDI Active Other 10-10 00:00: 00 MD Shamar beard HYDROCOD ONE DRUG INGREDI Active Other 10-10 00:00: 00 MD Shamar beard HYDROCOD ONE DRUG INGREDI Active Other 10-10 00:00: 00 MD Shamar beard HYDROCOD ONE DRUG INGREDI Active Other 10-10 00:00: 00 MD Shamar beard HYDROCOD ONE DRUG INGREDI Active Other 10-10 00:00: 00 MD Shamar beard HYDROCOD ONE DRUG INGREDI Active Other 10-10 00:00: 00 MD Shamar beard HYDROCOD ONE DRUG INGREDI Active Other 10-10 00:00: 00 MD Shamar beard HYDROCOD ONE DRUG INGREDI Active Other 10-10 00:00: 00 MD Shamar beard HYDROCOD ONE DRUG INGREDI Active Other 10-10 00:00: 00 MD Shamar beard HYDROCOD ONE DRUG INGREDI Active Other 10-10 00:00: 00 MD Shamar beard HYDROCOD ONE DRUG INGREDI Active Other 10-10 00:00: 00 MD Shamar beard HYDROCOD ONE DRUG INGREDI Active Other 10-10 00:00: 00 MD Shamar beard HYDROCOD ONE DRUG INGREDI Active Other 10-10 00:00: 00 MD Shamar beard HYDROCOD ONE DRUG INGREDI Active Other 10-10 00:00: 00 MD Shamar beard HYDROCOD ONE DRUG INGREDI Active Other 10-10 00:00: 00 MD Shamar beard HYDROCOD ONE DRUG INGREDI Active Other 10-10 00:00: 00 MD Shamar beard HYDROCOD ONE DRUG INGREDI Active Other 10-10 00:00: 00 MD Shamar beard HYDROCOD ONE DRUG INGREDI Active Other 10-10 00:00: 00 MD Shamar beard HYDROCOD ONE DRUG INGREDI Active Other 10-10 00:00: 00 MD Shamar beard HYDROCOD ONE DRUG INGREDI Active Other 10-10 00:00: 00 MD Shamar beard HYDROCOD ONE DRUG INGREDI Active Other 10-10 00:00: 00 MD Shamar beard HYDROCOD ONE DRUG INGREDI Active Other 10-10 00:00: 00 MD Shamar beard HYDROCOD ONE DRUG INGREDI Active Other 10-10 00:00: 00 MD Shamar beard HYDROCOD ONE DRUG INGREDI Active Other 10-10 00:00: 00 MD Shamar beard HYDROCOD ONE DRUG INGREDI Active Other 10-10 00:00: 00 MD Shamar beard HYDROCOD ONE DRUG INGREDI Active Other 10-10 00:00: 00 MD Shamar beard HYDROCOD ONE DRUG INGREDI Active Other 10-10 00:00: 00 MD Shamar beard HYDROCOD ONE DRUG INGREDI Active Other 10-10 00:00: 00 MD Shamar beard HYDROCOD ONE DRUG INGREDI Active Other 10-10 00:00: 00 MD Shamar beard HYDROCOD ONE DRUG INGREDI Active Other 10-10 00:00: 00 MD Shamar beard HYDROCOD ONE DRUG INGREDI Active Other 10-10 00:00: 00 MD Shamar beard HYDROCOD ONE DRUG INGREDI Active Other 10-10 00:00: 00 MD Shamar beard HYDROCOD ONE DRUG INGREDI Active Other 10-10 00:00: 00 MD Shamar beard HYDROCOD ONE DRUG INGREDI Active Other 10-10 00:00: 00 MD Shamar beard HYDROCOD ONE DRUG INGREDI Active Other 10-10 00:00: 00 MD Shamar beard HYDROCOD ONE DRUG INGREDI Active Other 10-10 00:00: 00 MD Shamar beard HYDROCOD ONE DRUG INGREDI Active Other 10-10 00:00: 00 MD Shamar beard HYDROCOD ONE DRUG INGREDI Active Other 10-10 00:00: 00 MD Shamar beard HYDROCOD ONE DRUG INGREDI Active Other 10-10 00:00: 00 MD Shamar beard HYDROCOD ONE DRUG INGREDI Active Other 10-10 00:00: 00 MD Shamar beard HYDROCOD ONE DRUG INGREDI Active Other 10-10 00:00: 00 MD Shamar beard Vital Signs Vital Name Observation Time Observation Value Comments Ubaldo carter WEIGHT 2020-01-20 13:05:00 112.8 kg Encounters Start Date/Time End Date/Time Encounter Type Admission Type Attending [facility] Facility Care Department Encounter ID Source 2021-05-19 17:41:03 Outpatient MDA MDA [id number] MD Shamar beard 2021-05-19 17:41:03 Outpatient MDA MDA [id number] MD Shamar beard 2021-05-19 17:41:03 Outpatient MDA MDA [id number] MD Shamar beard 2021-02-23 12:36:46 Outpatient SYSTEM, PROVIDER MDA MDA [id number] MD Shamar beard 2023-02-27 11:26:05 2023-02-27 11:43:35 Outpatient YAIMA JACKSON MDA MDA [id number] MD Shamar beard 2023-02-27 10:24:09 2023-02-27 11:03:48 Outpatient EL ROSLYN MICHAEL MDA MDA [id number] MD Shamar beard 2023-02-26 09:37:55 2023-02-26 23:59:00 Outpatient ARLENE LAWSON MDA MDA [id number] MD Shamar beard 2023-02-26 10:04:38 2023-02-26 10:04:38 Outpatient ARLENE LAWSON MDA MDA [id number] MD Shamar ebard 2023-01-03 13:20:00 2023-01-03 23:59:00 [id number] 10:27:57 2023-01-02 11:02:00 [id number] 12:18:01 2023-01-01 23:59:00 Outpatient EL KATRIN CAA [id number] [facility] 11:17:58 2023-01-01 11:29:00 Outpatient EL KATRIN CAA MDA [id number] [facility] 2022-11-03 09:10:44 2022-11-03 23:59:00 Outpatient EL KATRIN CAA MDA [id number] [facility] 2022-11-02 13:03:01 2022-11-02 23:59:00 Outpatient EL TAMY VALDEZ MDA MDA [id number] [facility] 2022-11-02 10:46:45 2022-11-02 13:02:00 Outpatient EL KATRIN CAA MDA [facility] [id number] [facility]22-11-01 11:44:14 2022-11-01 23:59:00 Outpatient EL YAIMA CA MDA [facility] [id number] [facility] 2022-10-31 11:39:08 2022-10-31 23:59:00 Outpatient EL KATRIN CAA MDA [facility] [id number] [facility] 2022-10-30 11:44:07 2022-10-30 23:59:00 Outpatient EL KATRIN CAA MDA [facility] [id number] [facility] 2022-10-27 12:40:46 2022-10-27 23:59:00 Outpatient EL KATRIN CAA MDA [facility] [id number] [facility] 2022-10-26 12:41:09 2022-10-26 23:59:00 Outpatient EL TAMY VALDEZ MDA [facility] [id number] [facility] 2022-10-26 11:50:54 2022-10-26 12:40:00 Outpatient EL YAIMA CA MDA [facility] [id number] [facility] 2022-10-25 11:49:23 2022-10-25 23:59:00 Outpatient EL YAIMA CA MDA [facility] [id number] [facility] 2022-10-24 11:38:51 2022-10-24 23:59:00 Outpatient EL KATRIN CAA MDA [facility] [id number] [facility] 2022-10-23 11:53:19 2022-10-23 23:59:00 Outpatient EL KATRIN CAA MDA [facility] [id number] [facility] 2022-10-16 07:15:00 2022-10-16 23:59:00 Outpatient EL [facility]AIMA CA MDA [facility] [id number] [facility] 2022-10-10 14:15:13 2022-10-10 23:59:00 Outpatient EL MARCO BELL MDA MDA [id number] [facility] 2022-10-10 12:17:18 2022-10-10 14:14:00 Outpatient EL YAIMA CA MDA MDA [id number] [facility] 2022-10-03 11:18:00 2022-10-03 12:14:54 Outpatient EL [facility]AIMA CA MDA [facility] [id number] [facility] 2022-10-02 10:24:48 2022-10-02 23:59:00 Outpatient EL KATRIN CAA MDA [facility] [id number] [facility] 2022-10-02 10:10:48 2022-10-02 10:23:00 Outpatient EL KATRIN CAA MDA MDA [id number] MD Shamar beard 2022-07-18 07:45:36 2022-07-18 08:48:52 Outpatient EL YANA ORTIZ MDA MDA [id number] MD Shamar beard 2022-07-18 07:09:56 2022-07-18 07:09:56 Outpatient EL CHU COYNE MDA MDA [id number] [facility] 2022-06-22 04:47:00 2022-06-25 13:51:00 Inpatient KARLO BAEZAANGELYANA TURNER MDA Thoracic Bailee [id number] [facility] 2022-06-20 15:52:22 2022-06-22 13:43:16 Outpatient PETE KEITH MDA MDA [id number] [facility] 2022-06-20 09:22:59 2022-06-20 23:59:00 Outpatient PETE KEITH MDA MDA [id number] [facility] 2022-06-20 12:46:02 2022-06-20 15:51:27 Outpatient DRAKE ZEPEDA MDA MDA [id number] [facility] 2022-06-20 12:45:47 2022-06-20 15:51:16 Outpatient PETE KEITH MDA MDA [id number] [facility] 2022-06-20 10:04:21 2022-06-20 12:42:48 Outpatient KARLO KUYANA MORALES MDA MDA [id number] [facility] 2022-06-20 08:46:31 2022-06-20 09:21:00 Outpatient PETE KEITH MDA [facility] [id number] [facility] 2022-05-16 09:34:05 2022-05-16 10:09:04 Outpatient YAIMA JACKSON MDA MDA [id number] [facility] 2022-05-15 10:52:59 2022-05-15 23:59:00 Outpatient VALERIE VAZQUEZ MDA MDA [id number] [facility] 2022-05-15 10:37:08 2022-05-15 10:51:00 Outpatient VALERIE VAZQUEZ MDA MDA [id number] MD Shamar beard 2022-02-14 11:22:14 2022-02-14 12:10:10 Outpatient YAIMA JACKSON MDA [facility] [id number] [facility] 2022-02-14 09:37:26 2022-02-14 09:37:26 Outpatient ROSLYN CROWE MDA MDA [id number] MD Shamar beard 2022-02-13 09:00:00 2022-02-13 23:59:00 Outpatient EL ROSLYN MICHAEL MDA MDA [id number] MD Shamar beard 2022-02-13 09:29:54 2022-02-13 09:29:54 Outpatient EL ROSLYN MICHAEL MDA MDA [id number] MD Shamar beard 2021-10-20 08:52:46 2021-10-20 09:47:28 Outpatient EL YAIMA CA MDA MDA [id number] MD Shamar beard 2021-10-19 09:01:57 2021-10-19 09:01:57 Outpatient EL STEPHEN LARRY MDA MDA [id number] MD Shamar beard 2021-06-16 09:08:21 2021-06-16 10:16:24 Outpatient YAIMA JACKSON MDA MDA [id number] MD Shamar beard 2021-06-15 08:04:58 2021-06-15 08:04:58 Outpatient KARLO BALLESTEROSDINA ARELY MDA MDA [id number] MD Shamar beard 2021-06-15 07:54:25 2021-06-15 07:56:08 Outpatient KARLO ARROYO ARELY MDA MDA [id number] MD Shamar beard 2021-04-19 09:04:25 2021-04-19 11:13:15 Outpatient YANA KAUFMAN MDA MDA [id number] MD Shamar beard 2021-04-19 07:52:32 2021-04-19 07:52:32 Outpatient YANA KAUFMAN MDA MDA [id number] MD Shamar beard 2021-03-17 09:01:00 2021-03-19 17:32:00 Inpatient YANA KAUFMAN MDA Thoracic Bailee [id number] MD Shamar beard 2021-03-14 10:03:22 2021-03-14 23:59:00 Outpatient TERI MENDOZA MDA MDA [id number] MD Shamar beard 2021-03-14 10:53:08 2021-03-14 15:15:28 Outpatient EL TERI FORMAN MDA MDA [id number] MD Shamar beard 2021-03-14 13:13:00 2021-03-14 13:13:00 Outpatient EL DICKSON TEIR MDA MDA [id number] MD Shamar beard 2021-03-08 10:07:12 2021-03-08 23:59:00 Outpatient EL BRAEDEN ARNDT MDA MDA [id number] MD Shamar beard 2021-03-08 09:53:11 2021-03-08 12:10:38 Outpatient EL DICKSON TERI MDA MDA [id number] MD Shamar beard 2021-03-01 10:00:00 2021-03-01 23:59:00 Outpatient EL PETE AYALA MDA MDA [id number] MD Shamar beard 2021-03-01 08:14:04 2021-03-01 11:07:13 Outpatient EL YANA ORTIZ MDA MDA [id number] MD Shamar beard 2021-02-17 08:38:33 2021-02-17 09:43:02 Outpatient EL CA, KARLYLORI MDA MDA [id number] MD Shamar beard 2021-02-08 07:17:54 2021-02-08 07:17:54 Outpatient EL ROSEJEFF IVANANURAG MDA MDA [id number] MD Shamar beard 2021-01-28 11:13:15 2021-01-28 23:59:00 Outpatient EL MDA MDA [id number] MD Shamar beard 2021-01-28 10:56:08 2021-01-28 11:12:00 Outpatient EL MDA MDA [id number] MD Shamar beard 2021-01-28 09:00:00 2021-01-28 10:55:00 Outpatient EL KULWINDER RAVI MDA MDA [id number] MD Shamar beard 2021-01-27 13:14:05 2021-01-27 23:59:00 Outpatient EL ALAN MULLER MDA MDA [id number] MD Shamar beard 2021-01-27 10:27:52 2021-01-27 13:13:00 Outpatient EL MDA MDA [id number] MD Shamar beard 2021-01-27 10:27:37 2021-01-27 10:37:38 Outpatient EL MDA MDA [id number] MD Shamar beard 2021-01-27 10:09:42 2021-01-27 10:09:42 Outpatient EL MDA MDA [id number] MD Shamar beard 2021-01-18 12:51:35 2021-01-18 14:28:50 Outpatient EL NESHIRLEYPU, SATTVA MDA MDA [id number] MD Shamar beard 2021-01-17 11:41:31 2021-01-17 23:59:00 Outpatient EL JAMEL MONTERROSOO-EMERY MDA MDA [id number] MD Shamar beard 2021-01-17 11:39:21 2021-01-17 11:40:00 Outpatient EL LOC MIGUEL-EMERY MDA MDA [id number] MD Shamar beard 2020-01-20 07:46:39 2020-01-20 23:59:00 Outpatient EL NESHIRLEYPU, SATTVA MDA MDA [id number] MD Shamar beard 2020-01-20 07:46:09 2020-01-20 23:59:00 Outpatient EL NEELAPU, SATTVA MDA MDA [id number] MD Shamar beard 2020-01-20 11:08:10 2020-01-20 16:44:09 Outpatient EL NESHIRLEYPU, SATTVA MDA MDA [id number] MD Shamar beard 2015-10-12 09:39:22 2015-10-26 15:03:47 Outpatient EL NESHIRLEYPU, SATTVA MDA MDA [id number] MD Shamar beard
--- NOTE | 2023-04-08 11:16 | RAD REPORT ---
EXAM DESCRIPTION: RADChest Single View04/08/2023 11:08 am CLINICAL HISTORY: afib COMPARISON: Chest Single View dated 03/18/2023; Chest Single View dated 03/12/2023; Chest Single View dated 10/12/2022; Chest Single View dated 08/29/2022 TECHNIQUE: Portable AP view of the chest. FINDINGS: Stable postsurgical changes in the right lower lung. 7 mm left basal nodule, stable. No ne w focal airspace opacities. No pneumothorax or effusion. The cardiomediastinal contours are unremark able. IMPRESSION: No acute cardiopulmonary process. Stable findings as above.
--- NOTE | 2023-04-08 11:55 | EDPHYS ---
Physician Documentation [facility] Name: Fredi Barth Age: 78 yrs Sex: Male : 1945 Arrival Date: 04/08/2023 Time: 10:00 Bed 7 Private MD: ED Physician Jayjay Fuentes HPI: 04/08 10:26 This 78 yrs old Male presents to ER via Ambulatory with complaints of AFIB -since 2AM. rt 10:26 Patient presents to the ED with atrial fibrillation with rapid rate. States that this rt started about 2 AM. Heart rate is noted to be in the 120s to 130s. States that he is due to take his sotalol, did take an extra metoprolol earlier today. He denies any specific complaints at this time, symptoms are moderate in severity, no other aggravating or getting factors.. Historical: - Allergies: 10:15 HYDRALAZINE; jl7 10:15 HYDROCODONE; jl7 - Home Meds: 10:41 loratadine 10 mg oral tablet once [Active]; Vitamin D3 oral [Active]; aa5 probiotic/prebiotic [Active]; tramadol 50 mg Oral tablet [Active]; sotalol 120 mg Oral tablet 2 times per day [Active]; sotalol 80 mg Oral tablet at 11am [Active]; famotidine 40 mg Oral tablet [Active]; Eliquis 10mg oral tablet once [Active]; rosuvastatin 5 mg oral tablet daily [Active]; losartan 50 mg oral tablet once [Active]; metoprolol tartrate 25 mg Oral tablet 2 times per day [Active]; - PMHx: 10:15 aortic aneurysm; Atrial Fib; COPD; GERD; Hypertension; radiation; Sjogren's Syndrome; jl7 10:41 GERD; aa5 - PSHx: 10:15 ablation for afib; lung aurgery x5; jl7 - Immunization history:: Adult Immunizations unknown. - Social history:: Smoking status: Patient denies any tobacco usage or history of. - Family history:: not pertinent. ROS: 10:26 Constitutional: Negative for fever, chills, and weight loss, Cardiovascular: Negative rt for chest pain, palpitations, and edema, Respiratory: Negative for shortness of breath, cough, wheezing, and pleuritic chest pain, Abdomen/GI: Negative for abdominal pain, nausea, vomiting, diarrhea, and constipation, Skin: Negative for injury, rash, and discoloration, Neuro: Negative for headache, weakness, numbness, tingling, and seizure, Psych: Negative for depression, anxiety, suicide ideation, homicidal ideation, and hallucinations, Exam: 10:26 Constitutional: This is a well developed, well nourished patient who is awake, alert, rt and in no acute distress. Head/Face: Normocephalic, atraumatic. Chest/axilla: Normal chest wall appearance and motion. Nontender with no deformity. No lesions are appreciated. Cardiovascular: Regular rate and rhythm with a normal S1 and S2. No gallops, murmurs, or rubs. Normal PMI, no JVD. No pulse deficits. Respiratory: Lungs have equal breath sounds bilaterally, clear to auscultation and percussion. No rales, rhonchi or wheezes noted. No increased work of breathing, no retractions or nasal flaring. Abdomen/GI: Soft, non-tender, with normal bowel sounds. No distension or tympany. No guarding or rebound. No evidence of tenderness throughout. Skin: Warm, dry with normal turgor. Normal color with no rashes, no lesions, and no evidence of cellulitis. MS/ Extremity: Pulses equal, no cyanosis. Neurovascular intact. Full, normal range of motion. Neuro: Awake and alert, GCS 15, oriented to person, place, time, and situation. Cranial nerves II-XII grossly intact. Motor strength 5/5 in all extremities. Sensory grossly intact. Cerebellar exam normal. Normal gait. Psych: Awake, alert, with orientation to person, place and time. Behavior, mood, and affect are within normal limits. 10:26 ECG was reviewed by the Attending Physician. Vital Signs: 10:13 BP 155 / 112; Pulse 125; Resp 17; Temp 97.7; Pulse Ox 100% ; jl7 10:22 Pulse 69; Resp 18 S; Pulse Ox 97% on R/A; aa5 10:38 BP 118 / 79; Pulse 68; Resp 17 S; Pulse Ox 97% on R/A; aa5 11:15 BP 122 / 74; Pulse 67; Resp 16 S; Pulse Ox 98% on R/A; aa5 MDM: 10:05 Patient medically screened. rt 12:44 Differential Diagnosis A-fib, a flutter. Data reviewed: vital signs, nurses notes, EKG, rt radiologic studies. Consideration of Admission/Observation Escalation of care including admission/observation considered. Patient's symptoms have resolved with his home dose of sotalol, no further workup indicated. I considered the following discharge prescriptions or medication management in the emergency department Patient took his own sotalol medicine in the ED. Independent interpretation of the following test(s) in the Emergency Department X-Ray: My interpretation is No edema seen on interpretation of x-ray images. Test considered but Not performed: Labs: Patient refuses IV stick, labs. Understands risks, has decision-making capacity. Care significantly affected by the following chronic conditions: Hypertension. Counseling: I had a detailed discussion with the patient and/or guardian regarding the historical points, exam findings, and any diagnostic results supporting the discharge/admit diagnosis, lab results, radiology results, the need for outpatient follow up, to return to the emergency department if symptoms worsen or persist or if there are any questions or concerns that arise at home. Response to treatment: the patient's symptoms have resolved after treatment. 04/08 10:15 Order name: XRAY Chest (1 view); Complete Time: 11:17 rt 04/08 10:15 Order name: EKG; Complete Time: 10:16 rt 04/08 10:15 Order name: Cardiac monitoring; Complete Time: 10:16 rt 04/08 10:15 Order name: EKG - Nurse/Tech; Complete Time: 10:16 rt 04/08 10:15 Order name: O2 Per Protocol; Complete Time: 10:16 rt 04/08 10:15 Order name: O2 Sat Monitoring; Complete Time: 10:16 rt EC: Rate is 133 beats/min. Rhythm is irregularly irregular, A fib with No ectopy, Rapid rt ventricular response. QRS [place] is Normal. QRS interval is normal. QT interval is normal. No Q waves. T waves are Normal. No ST changes noted. Interpreted by me. Administered Medications: 10:55 CANCELLED (in error): metoprolol5 mg IVP once; Hold for SBP <100 or HR <60. rt Disposition Summary: 04/08/23 11:54 Discharge Ordered Notes: Location: Home rt Problem: new rt Symptoms: have improved rt Condition: Stable rt Diagnosis - Atrial fibrillation with rapid ventricular rate rt Followup: rt - With: Private Physician - When: 2 - 3 days - Reason: Discharge Instructions: - Discharge Summary Sheet rt - Atrial Fibrillation rt Forms: - Medication Reconciliation Form rt - Thank You Letter rt - Antibiotic Education rt - Prescription Opioid Use rt - Patient Portal Instructions rt - Leadership Thank You Letter rt Signatures: Dispatcher [employer] Aline Mayo RN RN aa5 Vivian Pang RN RN jl7 Jayjay Fuentes MD MD rt Corrections: (The following items were deleted from the chart) 10:55 10:51 Metoprolol IVP 5 mg IVP once; Hold for SBP <100 or HR <60. ordered. rt rt 12:12 10:15 IV Saline Lock ordered. rt aa5 12:12 10:15 Labs collected and sent ordered. rt aa5
--- NOTE | 2023-04-08 11:55 | ER ---
Nurse's Notes [facility] Name: Fredi Barth Age: 78 yrs Sex: Male : 1945 Arrival Date: 04/08/2023 Time: 10:00 Bed 7 Private MD: Diagnosis: Atrial fibrillation with rapid ventricular rate Presentation: 04/08 10:13 Chief complaint: Patient states: HR all over the place since 0200 this morning. jl7 Coronavirus screen: At this time, the client does not indicate any symptoms associated with coronavirus-19. Ebola Screen: No symptoms or risks identified at this time. Initial Sepsis Screen: Does the patient meet any 2 criteria? No. Patient's initial sepsis screen is negative. Does the patient have a suspected source of infection? No. Patient's initial sepsis screen is negative. Risk Assessment: Do you want to hurt yourself or someone else? Patient reports no desire to harm self or others. Onset of symptoms was April 08, 2023. 10:13 Method Of Arrival: Ambulatory jl 10:13 Acuity: PHYLLIS 2 jl7 Historical: - Allergies: 10:15 HYDRALAZINE; jl7 10:15 HYDROCODONE; jl7 - Home Meds: 10:41 loratadine 10 mg oral tablet once [Active]; Vitamin D3 oral [Active]; aa5 probiotic/prebiotic [Active]; tramadol 50 mg Oral tablet [Active]; sotalol 120 mg Oral tablet 2 times per day [Active]; sotalol 80 mg Oral tablet at 11am [Active]; famotidine 40 mg Oral tablet [Active]; Eliquis 10mg oral tablet once [Active]; rosuvastatin 5 mg oral tablet daily [Active]; losartan 50 mg oral tablet once [Active]; metoprolol tartrate 25 mg Oral tablet 2 times per day [Active]; - PMHx: 10:15 aortic aneurysm; Atrial Fib; COPD; GERD; Hypertension; radiation; Sjogren's Syndrome; jl7 10:41 GERD; aa5 - PSHx: 10:15 ablation for afib; lung aurgery x5; jl7 - Immunization history:: Adult Immunizations unknown. - Social history:: Smoking status: Patient denies any tobacco usage or history of. - Family history:: not pertinent. Screenin:15 [facility] ED Fall Risk Assessment (Adult) History of falling in the last 3 months, aa5 including since admission No falls in past 3 months (0 pts) Confusion or Disorientation No (0 pts) Intoxicated or Sedated No (0 pts) Impaired Gait No (0 pts) Mobility Assist Device Used No (0 pt) Altered Elimination No (0 pt) Score/Fall Risk Level 0 - 2 = Low Risk Oriented to surroundings, Maintained a safe environment, Educated pt \T\ family on fall prevention, incl call for assistance when getting out of bed. Abuse screen: Denies threats or abuse. Nutritional screening: No deficits noted. Tuberculosis screening: No symptoms or risk factors identified. Assessment: 10:15 Reassessment: Pt just took Sotalol 80mg PO from home medications now, MD aware. . aa5 10:15 General: Appears comfortable, Behavior is calm, cooperative. Pain: Denies pain. Neuro: aa5 Level of Consciousness is awake, alert, obeys commands, Oriented to person, place, time, situation. Cardiovascular: Reports palpitations, HR is 133bpm Heart tones S1 S2 present Rhythm is atrial fibrillation with rapid ventricular response. Respiratory: Airway is patent Respiratory effort is even, unlabored, Respiratory pattern is regular, symmetrical, Breath sounds are clear bilaterally. GI: Abdomen is round non-distended. : No signs and/or symptoms were reported regarding the genitourinary system. EENT: No signs and/or symptoms were reported regarding the EENT system. Derm: Skin is pink, warm \T\ dry. Musculoskeletal: Range of motion: intact in all extremities. 10:20 Reassessment: Pt currently refusing IV and blood draw at this time, was notified. . aa5 10:23 Reassessment: Patient is alert, oriented x 3, equal unlabored respirations, skin aa5 warm/dry/pink. Cardiovascular: Rhythm is sinus rhythm. 10:23 Reassessment: Warm blankets provided for comfort. . aa5 10:29 Reassessment: Pt continues to be NSR at 68 bpm on monitor, MD aware. . aa5 11:00 Reassessment: Patient is alert, oriented x 3, equal unlabored respirations, skin aa5 warm/dry/pink. Cardiovascular: Rhythm is sinus rhythm. 12:15 Reassessment: Patient is alert, oriented x 3, equal unlabored respirations, skin aa5 warm/dry/pink. Vital Signs: 10:13 BP 155 / 112; Pulse 125; Resp 17; Temp 97.7; Pulse Ox 100% ; jl7 10:22 Pulse 69; Resp 18 S; Pulse Ox 97% on R/A; aa5 10:38 BP 118 / 79; Pulse 68; Resp 17 S; Pulse Ox 97% on R/A; aa5 11:15 BP 122 / 74; Pulse 67; Resp 16 S; Pulse Ox 98% on R/A; aa5 ED Course: 10:02 Patient arrived in ED. im 10:03 Jayjay Fuentes MD is Attending Physician. rt 10:07 Aline Shin RN is Primary Nurse. aa5 10:15 Triage completed. jl7 10:15 Arm band placed on right wrist. jl7 10:15 Patient has correct armband on for positive identification. Placed in gown. Bed in low aa5 position. Call light in reach. Side rails up X2. Adult w/ patient. Client placed on continuous cardiac and pulse oximetry monitoring. NIBP monitoring applied. 10:15 EKG done, by ED staff, reviewed by Jayjay Fuentes MD. aa5 11:10 XRAY Chest (1 view) In Process Unspecified. EDMS 12:15 No provider procedures requiring assistance completed. Patient did not have IV access aa5 during this emergency room visit. Administered Medications: 10:55 CANCELLED (in error): metoprolol5 mg IVP once; Hold for SBP <100 or HR <60. rt Medication: 12:15 VIS not applicable for this client. aa5 Outcome: 11:54 Discharge ordered by . rt 12:15 Discharged to home ambulatory, with significant other, aa5 12:15 Condition: stable 12:15 Discharge instructions given to patient, significant other, Instructed on discharge instructions, follow up and referral plans. Demonstrated understanding of instructions, follow-up care, 12:20 Patient left the ED. jl7 Signatures: Dispatcher [employer] EDMS Aline Shin, RN RN aa5 Vivian Pang RN RN jl7 Jayjay Fuentes MD MD rt Carolyn Patel im
[2023-04-08 13:01] VITALS: TEMP 97.7; O2SAT 97
[2023-04-08 13:07] VITALS: BP 118/79
== END ==
LOC: ER 10:00
DX: I48.20 Chronic atrial fibrillation, unspecified (principal); I10 Essential (primary) hypertension; Z88.5 Allergy status to narcotic agent; Z88.8 Allergy status to other drugs, medicaments and biological substances
CPT/HCPCS: 71045; 93005; 99283

== ENCOUNTER 2023-04-13 10:18 | Inpatient (IN) | payer OTHER, BC ==
--- OUTSIDE RECORDS SUMMARY | 2023-04-13 10:23 | XMS REPORT | Continuity of Care Document ---
Author Name Unknown Address [address] [place] [address] [facility] Address [address] [place] [address] Care Team Providers Care Tailor [employer] Name Role Phone [phone] Primary Care Physician Unavailab samia FARMER, PROVIDER [...] Date Source MEDICARE PART A AND B [id number] 2008 00:00:00 [place] PPO POS [id number] 2015 00:00:00 Allergies, Adverse Reactions, Alerts Allergy [...] Sob 2023-0 3-11 00:00: 00 MD Shamar baerd HYDRALAZ INE ANALOGUE S Drug Class Active [...] Active Other 10-10 00:00: 00 MD Shamar ebard HYDROCOD ONE DRUG INGREDI Active Other 10-10 [...] End Date/Time Encounter Type Admission Type Attending [facility] Facility Care Department Encounter ID Source 2021-05-19 17:41:03 Outpatient MDA MDA [id number] MD Shamar beard 2021-05-19 17:41:03 Outpatient MDA MDA [id number] MD Shamar beadr 2021-05-19 17:41:03 Outpatient MDA MDA [id number] MD Shamar beard 2021-02-23 12:36:46 Outpatient SYSTEM, PROVIDER MDA MDA [id number] MD Shamar beard 2023-02-27 11:26:05 2023-02-27 11:43:35 Outpatient YAIMA JACKSON MDA MDA [id number] MD Shamar beard 2023-02-27 10:24:09 2023-02-27 11:03:48 Outpatient EL ROSLYN MICHAEL MDA MDA [id number] MD Shamar beard 2023-02-26 09:37:55 2023-02-26 23:59:00 Outpatient ARLENE LAWSON MDA MDA [id number] MD Shamar beard 2023-02-26 10:04:38 2023-02-26 10:04:38 Outpatient ARLENE LAWSON MDA MDA [id number] MD Shamar beard 2023-01-03 13:20:00 2023-01-03 23:59:00 [id number] 10:27:57 2023-01-02 11:02:00 [id number]-01 12:18:01 2023-01-01 23:59:00 [facility] KATRIN CAA [id number] [facility]01 11:17:58 2023-01-01 11:29:00 Outpatient [facility] KATRIN CAA [facility] [id number] [facility] 2022-11-03 09:10:44 2022-11-03 23:59:00 Outpatient EL KATRIN CAA [facility] [id number] [facility] 2022-11-02 13:03:01 2022-11-02 23:59:00 Outpatient EL TAMY VALDEZ MDA MDA [id number] [facility] n 2022-11-02 10:46:45 2022-11-02 13:02:00 Outpatient EL KATRIN CAA MDA [facility] [id number] [facility] 2022-11-01 11:44:14 2022-11-01 23:59:00 Outpatient EL YAIMA CA MDA [facility] [id number] [facility] 2022-10-31 11:39:08 2022-10-31 23:59:00 Outpatient EL KATRIN CAA [facility] [id number] [facility] 2022-10-30 11:44:07 2022-10-30 23:59:00 Outpatient EL KATRIN CAA MDA [facility] [id number] [facility] 2022-10-27 12:40:46 2022-10-27 23:59:00 Outpatient EL KATRIN CAA MDA [facility] [id number] [facility] 2022-10-26 12:41:09 2022-10-26 23:59:00 Outpatient EL TAMY VALDEZ [facility] [id number] [facility] 2022-10-26 11:50:54 2022-10-26 12:40:00 Outpatient EL YAIMA CA MDA [facility] [id number] [facility] 2022-10-25 11:49:23 2022-10-25 23:59:00 Outpatient EL [facility]AIMA CA [facility] [id number] [facility] 2022-10-24 11:38:51 2022-10-24 23:59:00 Outpatient EL KATRIN CAA [facility] [id number] [facility] 2022-10-23 11:53:19 2022-10-23 23:59:00 Outpatient EL KTARIN CAA MDA [facility] [id number] [facility] 2022-10-16 07:15:00 2022-10-16 23:59:00 Outpatient [facility]AIMA CA [facility] [id number] [facility] 2022-10-10 14:15:13 2022-10-10 23:59:00 Outpatient EL MARCO BELL [facility] [id number] [facility] 2022-10-10 12:17:18 2022-10-10 14:14:00 Outpatient EL YAIMA CA MDA [facility] [id number] [facility] 2022-10-03 11:18:00 2022-10-03 12:14:54 Outpatient EL [facility]AIMA CA MDA [facility] [id number] [facility] 2022-10-02 10:24:48 2022-10-02 23:59:00 Outpatient EL KATRIN CAA MDA [facility] [id number] [facility] 2022-10-02 10:10:48 2022-10-02 10:23:00 Outpatient EL KATRIN CAA MDA MDA [id number] MD Shamar beard 2022-07-18 07:45:36 2022-07-18 08:48:52 Outpatient EL YANA ORTIZ MDA MDA [id number] MD Shamar beard 2022-07-18 07:09:56 2022-07-18 07:09:56 Outpatient EL CHU COYNE [facility] [id number] [facility] 2022-06-22 04:47:00 2022-06-25 13:51:00 Inpatient KARLO BAEZAANGELYANA TURNER MDA Thoracic Bailee [id number] [facility] 2022-06-20 15:52:22 2022-06-22 13:43:16 Outpatient PETE KEITH [facility] [id number] [facility] 2022-06-20 09:22:59 2022-06-20 23:59:00 Outpatient PETE KEITH [facility] [id number] [facility] 2022-06-20 12:46:02 2022-06-20 15:51:27 Outpatient DRAKE ZEPEDA MDA [facility] [id number] [facility] 2022-06-20 12:45:47 2022-06-20 15:51:16 Outpatient PETE KEITH [facility] [id number] [facility] 2022-06-20 10:04:21 2022-06-20 12:42:48 Outpatient KARLO KUYANA MORALES MDA [facility] [id number] [facility] 2022-06-20 08:46:31 2022-06-20 09:21:00 Outpatient PETE KEITH [facility] [id number] [facility] 2022-05-16 09:34:05 2022-05-16 10:09:04 Outpatient YAIMA JACKSON [facility] [id number] [facility] 2022-05-15 10:52:59 2022-05-15 23:59:00 Outpatient VALERIE VAZQUEZ MDA MDA [id number] [facility] 2022-05-15 10:37:08 2022-05-15 10:51:00 Outpatient VALERIE VAZQUEZ MDA MDA [id number] MD Shamar beard 2022-02-14 11:22:14 2022-02-14 12:10:10 Outpatient [facility]AIMA JACKSON [facility] [id number] [facility] 2022-02-14 09:37:26 2022-02-14 09:37:26 Outpatient ROSLYN CROWE MDA MDA [id number] MD Shamar beard 2022-02-13 09:00:00 2022-02-13 23:59:00 Outpatient EL ROSLYN MICHAEL MDA MDA [id number] MD Shamar beard 2022-02-13 09:29:54 2022-02-13 09:29:54 Outpatient EL ROSLYN MICHAEL MDA MDA [id number] MD Shamar beard 2021-10-20 08:52:46 2021-10-20 09:47:28 Outpatient EL YAIMA CA MDA MDA [id number] MD Shamar beard 2021-10-19 09:01:57 2021-10-19 09:01:57 Outpatient EL STEPHEN LARRY MDA MDA [id number] MD Shmaar beard 2021-06-16 09:08:21 2021-06-16 10:16:24 Outpatient YAIMA JACKSON MDA MDA [id number] MD Shamar beard 2021-06-15 08:04:58 2021-06-15 08:04:58 Outpatient KARLO BALLESTEROSDINA ARELY MDA MDA [id number] MD Shamar beard 2021-06-15 07:54:25 2021-06-15 07:56:08 Outpatient KARLO ARROYO ARELY MDA MDA [id number] MD Shamar beard 2021-04-19 09:04:25 2021-04-19 11:13:15 Outpatient YANA KAUFMAN MDA MDA [id number] MD Shamar beard 2021-04-19 07:52:32 2021-04-19 07:52:32 Outpatient YANA KAUFMAN MDA MDA [id number] MD Shamar beard 2021-03-17 09:01:00 2021-03-19 17:32:00 Inpatient YANA KAUFMAN MDA Thoracic Bailee [id number] MD Shamar beard 2021-03-14 10:03:22 2021-03-14 23:59:00 Outpatient TERI MENDOZA MDA MDA [id number] MD Shamar beard 2021-03-14 10:53:08 2021-03-14 15:15:28 Outpatient EL TERI FORMAN MDA MDA [id number] MD Shamar beard 2021-03-14 13:13:00 2021-03-14 13:13:00 Outpatient EL DICKSON TERI MDA MDA [id number] MD Shamar beard 2021-03-08 10:07:12 2021-03-08 23:59:00 Outpatient EL BRAEDEN ARNDT MDA MDA [id number] MD Shamar beard 2021-03-08 09:53:11 2021-03-08 12:10:38 Outpatient EL DICKSON TERI MDA MDA [id number] MD Shamar beard 2021-03-01 10:00:00 2021-03-01 23:59:00 Outpatient EL PETE AYALA MDA MDA [id number] MD Shamar beard 2021-03-01 08:14:04 2021-03-01 11:07:13 Outpatient EL YANA ORTIZ MDA MDA [id number] MD Shamar beard 2021-02-17 08:38:33 2021-02-17 09:43:02 Outpatient EL CA, KARLYLORI MDA MDA [id number] MD Shamar beard 2021-02-08 07:17:54 2021-02-08 07:17:54 Outpatient EL ROSEJEFF IVANANURAG MDA MDA [id number] MD Shamar beard 2021-01-28 11:13:15 2021-01-28 23:59:00 Outpatient EL MDA MDA [id number] MD Shamar beard 2021-01-28 10:56:08 2021-01-28 11:12:00 Outpatient EL MDA MDA [id number] MD Shamar beard 2021-01-28 09:00:00 2021-01-28 10:55:00 Outpatient EL KULWINDER RAVI MDA MDA [id number] MD Shamar beard 2021-01-27 13:14:05 2021-01-27 23:59:00 Outpatient EL ALAN MULLER MDA MDA [id number] MD Shamar beard 2021-01-27 10:27:52 2021-01-27 13:13:00 Outpatient EL MDA MDA [id number] MD Shamar beard 2021-01-27 10:27:37 2021-01-27 10:37:38 Outpatient EL MDA MDA [id number] MD Shamar beard 2021-01-27 10:09:42 2021-01-27 10:09:42 Outpatient EL MDA MDA [id number] MD Shamar beard 2021-01-18 12:51:35 2021-01-18 14:28:50 Outpatient EL NESHIRLEYPU, SATTVA MDA MDA [id number] MD Shamar beard 2021-01-17 11:41:31 2021-01-17 23:59:00 Outpatient EL JAMEL MONTERROSOO-EMERY MDA MDA [id number] MD Shamar beard 2021-01-17 11:39:21 2021-01-17 11:40:00 Outpatient EL LOC MIGUEL-EMERY MDA MDA [id number] MD Shamar beard 2020-01-20 07:46:39 2020-01-20 23:59:00 Outpatient EL NESHIRLEYPU, SATTVA MDA MDA [id number] MD Shamar beard 2020-01-20 07:46:09 2020-01-20 23:59:00 Outpatient EL NEELAPU, SATTVA MDA MDA [id number] MD Shamar beard 2020-01-20 11:08:10 2020-01-20 16:44:09 Outpatient EL NESHIRLEYPU, SATTVA MDA MDA [id number] MD Shamar beard 2015-10-12 09:39:22 2015-10-26 15:03:47 Outpatient EL NESHIRLEYPU, SATTVA MDA MDA [id number] MD Shamar beard
[2023-04-13] MEDS ORDERED: ACETAMINOPHEN 500 MG TAB PO PRN ×2 (11:10→13:51)
[2023-04-13] MEDS ORDERED: ONDANSETRON 4 MG/2 ML VIAL IV PRN (11:10)
[2023-04-13 11:20] LABS: Absolute Lymphocytes (CBC) 0.8 K/uL (0.7-4.9); Hematocrit 37.9 % (39.6-49.0); Lymphocytes % 13.5 % (15.3-44.8); MCV 99.2 fL (80-100); MPV 8.7 fL (7.6-11.3); Platelets 153 thou/uL (152-406); RBC Red Blood Cell Count 3.82 M/uL (4.33-5.43)
--- NOTE | 2023-04-13 11:22 | RAD REPORT ---
EXAM DESCRIPTION: RAD - Chest Single View - 04/13/2023 11:17 am CLINICAL HISTORY: PALPITATIONS Chest pain. COMPARISON: Chest Single View dated 04/08/2023; Chest Single View dated 03/18/2023; Chest Single View dated 03/12/2023; Chest Single View dated 10/12/2022 FINDINGS: Portable technique limits examination quality. Mild bilateral interstitial lung opacities may represent pulmonary edema or infection. No focal conso lidation typical of bacterial pneumonia seen. The heart is upper limit of normal in size. No displace d fractures.
[2023-04-13 11:40] LABS: Magnesium 1.9 mg/dL (1.6-2.4); Potassium 4.3 mEq/L (3.5-5.1); Troponin High Sensitivity 34.1 pg/mL (<58.9)
[2023-04-13] MEDS ORDERED: AMIODARONE HCL 150 MG in D5W 100 ML IV ONE (11:45)
[2023-04-13] MEDS: AMIODARONE HCL 900 MG in Dextrose 5%-Water 482 ML IV SCH (12:00)
[2023-04-13] MEDS ORDERED: D5 0.45 NS 1,000 ML IV SCH (12:00)
--- NOTE | 2023-04-13 13:53 | ER ---
Nurse's Notes [facility] Name: Fredi Barth Age: 78 yrs Sex: Male : 1945 Arrival Date: 04/13/2023 Time: 10:18 Bed 15 Private MD: Diagnosis: Unspecified atrial fibrillation-With RVR;Acute upper respiratory infection, unspecified;Nasal congestion Presentation: 04/13 10:38 Chief complaint: Malaise, cough, congestion, sore throat, and chills x 5 days, hb palpitations and HR 90-140s at home today. Coronavirus screen: Client presents with at least one sign or symptom that may indicate coronavirus-19. Provider contacted for isolation considerations. Ebola Screen: No symptoms or risks identified at this time. Resp Distress? No respiratory distress is noted at this time. Initial Sepsis Screen: Does the patient meet any 2 criteria? HR > 90 bpm. No. Patient's initial sepsis screen is negative. Does the patient have a suspected source of infection? No. Patient's initial sepsis screen is negative. Risk Assessment: Do you want to hurt yourself or someone else? Patient reports no desire to harm self or others. Onset of symptoms was April 09, 2023. 10:38 Method Of Arrival: Ambulatory hb 10:38 Acuity: PHYLLIS 2 hb Historical: - Allergies: 10:35 HYDRALAZINE; db 10:35 HYDROCODONE; db 10:41 HYDRALAZINE; hb 10:41 HYDROCODONE; hb - Home Meds: 10:41 Eliquis 10mg Oral tablet once [Active]; famotidine 40 mg Oral tablet [Active]; hb loratadine 10 mg Oral tablet once [Active]; losartan 50 mg Oral tablet once [Active]; metoprolol tartrate 25 mg Oral tablet 2 times per day [Active]; probiotic/prebiotic [Active]; rosuvastatin 5 mg Oral tablet daily [Active]; sotalol 120 mg Oral tablet 2 times per day [Active]; sotalol 80 mg Oral tablet at 11am [Active]; tramadol 50 mg Oral tablet [Active]; Vitamin D3 oral [Active]; - PMHx: 10:41 aortic aneurysm; Atrial Fib; COPD; GERD; GERD; Hypertension; radiation; Sjogren's hb Syndrome; - PSHx: 10:41 ablation for afib; lung aurgery x5; hb - Immunization history:: Adult Immunizations up to date. - Social history:: Smoking status: . Screenin:41 [facility] ED Fall Risk Assessment (Adult) History of falling in the last 3 months, db including since admission No falls in past 3 months (0 pts) Confusion or Disorientation No (0 pts) Intoxicated or Sedated No (0 pts) Impaired Gait No (0 pts) Mobility Assist Device Used No (0 pt) Altered Elimination No (0 pt) Score/Fall Risk Level 0 - 2 = Low Risk Oriented to surroundings, Maintained a safe environment. Abuse screen: Denies threats or abuse. Denies injuries from another. Nutritional screening: No deficits noted. Tuberculosis screening: No symptoms or risk factors identified. Assessment: 10:41 Reassessment: Patient appears in no apparent distress at this time. Patient and/or db family updated on plan of care and expected duration. Pain level reassessed. Patient is alert, oriented x 3, equal unlabored respirations, skin warm/dry/pink. General: Appears in no apparent distress. comfortable, Behavior is calm, cooperative. Pain: Denies pain. Neuro: Level of Consciousness is awake, alert, obeys commands, Oriented to person, place, time, situation, Speech is normal. Cardiovascular: Capillary refill < 3 seconds Patient's skin is warm and dry. Respiratory: Airway is patent Respiratory effort is even, unlabored, Respiratory pattern is regular, symmetrical, Breath sounds are clear bilaterally. 11:40 Reassessment: PENDING PHARMACY FOR AMIODARONE DRIP. db 12:19 Reassessment: Ok to instructor knitting drink/food per Dr. Hedrick, snack provided and lunch tray hb ordered. 16:36 General: Called NIURKA Valentine on tele floor. She is unable to take report at this time. Meme me1 will call me back for report as soon as she can take it. . Vital Signs: 10:38 BP 95 / 77; Pulse 135; Resp 16; Temp 97.4(O); Pulse Ox 97% on R/A; Weight 106.59 kg; hb Height 6 ft. 2 in. ; Pain 3/10; 10:45 BP 117 / 91; Pulse 136; Resp 18; Pulse Ox 95% on R/A; db 11:00 BP 96 / 79; Pulse 137; Resp 18; Pulse Ox 95% on R/A; db 12:00 BP 100 / 66; Pulse 136; Resp 20; Pulse Ox 96% on R/A; me1 13:00 BP 86 / 67; Pulse 135; Resp 19; Pulse Ox 96% on R/A; me1 13:30 BP 97 / 66; Pulse 136; Resp 16; Pulse Ox 95% on R/A; me1 14:11 BP 105 / 82; Pulse 136; Resp 18; Pulse Ox 96% on R/A; me1 15:37 BP 98 / 82; Pulse 138; Resp 18; Pulse Ox 98% on R/A; me1 16:21 BP 129 / 97; Pulse 137; Resp 18; Pulse Ox 100% on R/A; me1 17:38 BP 117 / 98; Pulse 137; Resp 18; Pulse Ox 97% on R/A; me1 18:27 BP 108 / 85; Pulse 137; Resp 17; Pulse Ox 98% on R/A; me1 10:38 Body Mass Index 30.17 (106.59 kg, 187.96 cm) hb 10:38 Pain Scale: Adult hb ED Course: 10:20 Patient arrived in ED. ts1 10:21 Denver Hedrick MD is Attending Physician. kdr 10:27 Ines Nails RN is Primary Nurse. db 10:41 Triage completed. hb 10:41 Patient has correct armband on for positive identification. Bed in low position. Call db light in reach. Side rails up X 1. Warm blanket given. 10:43 Arm band placed on. hb 11:08 Inserted saline lock: 22 gauge in left antecubital area, using aseptic technique. Blood db collected. 11:18 XRAY Chest (1 view) In Process Unspecified. EDMS 13:44 called the [place] notification hotline spoke with [facility] notification ID number is eb [id number]. 13:52 Rustam Levin MD is Hospitalizing Provider. kdr 16:22 No provider procedures requiring assistance completed. Patient admitted, IV remains in me1 place. 18:32 Provided Education on: POC. Verbalized understanding. . me1 Administered Medications: 12:42 Drug: amiodarone IVPB 150 mg 100 ml IVPB once over 10 mins; (mix in D5W) Volume: 100 me1 ml; Route: IVPB; Infused Over: 10 mins; Site: left antecubital; 12:57 Follow up: Response: No adverse reaction; IV Status: Completed infusion; IV Intake: me1 100ml 12:57 Drug: amiodarone IVPB 900 mg, D5W IV 500 ml IVPB at 1 mg/min continuous; for 6 hrs, me1 then change to 0.5 mg/min Route: IVPB; Rate: 1 mg/min; Site: left antecubital; 14:11 Follow up: Response: No adverse reaction me1 18:28 Follow up: IV Status: Infusion continued upon admission me1 Medication: 10:41 VIS not applicable for this client. db Intake: 12:57 IV: 100ml; Total: 100ml. me1 Outcome: 13:53 Decision to Hospitalize by Provider. kdr 18:30 Admitted to Tele accompanied by tech, via wheelchair, room 413, with chart, Report me1 called to NIURKA Valentine 18:30 Condition: stable 18:30 Instructed on the need for admit, 18:44 Patient left the ED. me1 Signatures: Dispatcher [employer] EDDenver Hill MD MD kdr Sabiha Brooks RN RN Evelyn Beavers Danielle, RN RN db Nguyen Miller PAS PAS ts1 Yudy Huang RN RN me1 Corrections: (The following items were deleted from the chart) 10:47 10:38 BP 95 / 77; Pulse 35bpm; Resp 16bpm; Pulse Ox 97% RA; Temp 97.4F Oral; Pain 3/10, hb Adult; hb 10:48 10:38 BP 95 / 77; Pulse 135bpm; Resp 16bpm; Pulse Ox 97% RA; Temp 97.4F Oral; Pain hb 3/10, Adult; hb 16:07 15:42 BP 98 / 82; Pulse 138bpm; Resp 18bpm; Pulse Ox 98% RA; me1 me1
--- NOTE | 2023-04-13 13:53 | EDPHYS ---
Physician Documentation [facility] Name: Fredi Barth Age: 78 yrs Sex: Male : 1945 Arrival Date: 04/13/2023 Time: 10:18 Bed 15 Private MD: ED Physician Denver Hedrick HPI: 04/13 11:34 This 78 yrs old Male presents to ER via Ambulatory with complaints of Possible afib, kdr Congestion. 11:34 Patient presents to the ED with complaint of cough, congestion, sore throat and chills kdr for the last 5 days. Patient is also had palpitations with a heart rate from 90-1 40s at home today. The patient has a history of A-fib with RVR has had several hospital visits and admissions here for the same. The patient has been taking his medications (beta-blockers) as normal but today he had not yet taken his 11:00 dose. Patient is otherwise stable and nonacute. Vital signs are stable with a blood pressure around 100 systolic.. Onset: The symptoms/episode began/occurred gradually, 5 day(s) ago. Severity of symptoms: At their worst the symptoms were mild moderate just prior to arrival, in the emergency department the symptoms are unchanged. The patient has experienced similar episodes in the past, several times. The patient has not recently seen a physician. Historical: - Allergies: 10:35 HYDRALAZINE; db 10:35 HYDROCODONE; db 10:41 HYDRALAZINE; hb 10:41 HYDROCODONE; hb - Home Meds: 10:41 Eliquis 10mg Oral tablet once [Active]; famotidine 40 mg Oral tablet [Active]; hb loratadine 10 mg Oral tablet once [Active]; losartan 50 mg Oral tablet once [Active]; metoprolol tartrate 25 mg Oral tablet 2 times per day [Active]; probiotic/prebiotic [Active]; rosuvastatin 5 mg Oral tablet daily [Active]; sotalol 120 mg Oral tablet 2 times per day [Active]; sotalol 80 mg Oral tablet at 11am [Active]; tramadol 50 mg Oral tablet [Active]; Vitamin D3 oral [Active]; - PMHx: 10:41 aortic aneurysm; Atrial Fib; COPD; GERD; GERD; Hypertension; radiation; Sjogren's hb Syndrome; - PSHx: 10:41 ablation for afib; lung aurgery x5; hb - Immunization history:: Adult Immunizations up to date. - Social history:: Smoking status: . ROS: 11:34 Constitutional: Negative for fever, chills, and weight loss, Eyes: Negative for injury, kdr pain, redness, and discharge, ENT: Negative for injury, pain, and discharge, Neck: Negative for injury, pain, and swelling, Abdomen/GI: Negative for abdominal pain, nausea, vomiting, diarrhea, and constipation, Back: Negative for injury and pain, : Negative for injury, bleeding, discharge, and swelling, MS/Extremity: Negative for injury and deformity, Skin: Negative for injury, rash, and discoloration, Neuro: Negative for headache, weakness, numbness, tingling, and seizure activity. Psych: Negative for depression, anxiety, suicide ideation, homicidal ideation, and hallucinations, Allergy/Immunology: Negative for hives, rash, and allergies, Endocrine: Negative for neck swelling, polydipsia, polyuria, polyphagia, and marked weight changes, Hematologic/Lymphatic: Negative for swollen nodes, abnormal bleeding, and unusual bruising, 11:34 Cardiovascular: Positive for palpitations, Negative for chest pain, orthopnea, paroxysmal nocturnal dyspnea, 11:34 Respiratory: Positive for cough, with no reported sputum, dyspnea on exertion, shortness of breath, Negative for hemoptysis, orthopnea, pleurisy, wheezing, Exam: 11:34 Constitutional: This is a well developed, well nourished patient who is awake, alert, kdr and in no acute distress. Head/Face: Normocephalic, atraumatic. Eyes: Pupils equal round and reactive to light, extra-ocular motions intact. Lids and lashes normal. Conjunctiva and sclera are non-icteric and not injected. Cornea within normal limits. Periorbital areas with no swelling, redness, or edema. Neck: Trachea midline, no thyromegaly or masses palpated, and no cervical lymphadenopathy. Supple, full range of motion without nuchal rigidity, or vertebral point tenderness. No Meningismus. Chest/axilla: Normal chest wall appearance and motion. Nontender with no deformity. No lesions are appreciated. Respiratory: Lungs have equal breath sounds bilaterally, clear to auscultation and percussion. No rales, rhonchi or wheezes noted. No increased work of breathing, no retractions or nasal flaring. Abdomen/GI: Soft, non-tender, with normal bowel sounds. No distension or tympany. No guarding or rebound. No evidence of tenderness throughout. Back: No spinal tenderness. No costovertebral tenderness. Full range of motion. Skin: Warm, dry with normal turgor. Normal color with no rashes, no lesions, and no evidence of cellulitis. MS/ Extremity: Pulses equal, no cyanosis. Neurovascular intact. Full, normal range of motion. Neuro: Awake and alert, GCS 15, oriented to person, place, time, and situation. Cranial nerves II-XII grossly intact. Motor strength 5/5 in all extremities. Sensory grossly intact. Cerebellar exam normal. Normal gait. Psych: Awake, alert, with orientation to person, place and time. Behavior, mood, and affect are within normal limits. 11:34 Cardiovascular: Rate: tachycardic, Rhythm: irregularly irregular, Pulses: no pulse deficits are appreciated, Heart sounds: normal, Edema: 1+ edema to level of left midcalf, left ankle, right midcalf, right ankle and right foot, Vital Signs: 10:38 BP 95 / 77; Pulse 135; Resp 16; Temp 97.4(O); Pulse Ox 97% on R/A; Weight 106.59 kg; hb Height 6 ft. 2 in. ; Pain 3/10; 10:45 BP 117 / 91; Pulse 136; Resp 18; Pulse Ox 95% on R/A; db 11:00 BP 96 / 79; Pulse 137; Resp 18; Pulse Ox 95% on R/A; db 12:00 BP 100 / 66; Pulse 136; Resp 20; Pulse Ox 96% on R/A; me1 13:00 BP 86 / 67; Pulse 135; Resp 19; Pulse Ox 96% on R/A; me1 13:30 BP 97 / 66; Pulse 136; Resp 16; Pulse Ox 95% on R/A; me1 14:11 BP 105 / 82; Pulse 136; Resp 18; Pulse Ox 96% on R/A; me1 15:37 BP 98 / 82; Pulse 138; Resp 18; Pulse Ox 98% on R/A; me1 16:21 BP 129 / 97; Pulse 137; Resp 18; Pulse Ox 100% on R/A; me1 17:38 BP 117 / 98; Pulse 137; Resp 18; Pulse Ox 97% on R/A; me1 18:27 BP 108 / 85; Pulse 137; Resp 17; Pulse Ox 98% on R/A; me1 10:38 Body Mass Index 30.17 (106.59 kg, 187.96 cm) hb 10:38 Pain Scale: Adult hb MDM: 11:34 Data reviewed: vital signs, nurses notes, lab test result(s), radiologic studies. kdr 11:36 ED course: I discussed the patient's presentation and current vital signs with Dr. lamine Israel. He requested that I administer amiodarone 150 mg loading dose followed by the standard drip. Patient was informed of the discussion and intent to administer amiodarone.. 13:53 [facility]. [facility] 04/13 10:47 Order name: Basic Metabolic Panel; Complete Time: 13:34 [facility] 04/13 10:47 Order name: CBC with Diff; Complete Time: 13:34 [facility] 04/13 10:47 Order name: D-Dimer; Complete Time: 13:34 [facility] 04/13 10:47 Order name: Magnesium; Complete Time: 13:34 [facility] 04/13 10:47 Order name: NT PRO-BNP; Complete Time: 13:34 [facility] 04/13 10:47 Order name: Troponin HS; Complete Time: 13:34 [facility] 04/13 10:47 Order name: Flu; Complete Time: 13:34 [facility] 04/13 10:47 Order name: COVID-19 SARS RT PCR; Complete Time: 13:34 [facility] 04/13 10:47 Order name: XRAY Chest (1 view); Complete Time: 13:34 [facility] 04/13 10:47 Order name: EKG; Complete Time: 10:47 [facility] 04/13 10:47 Order name: Cardiac monitoring; Complete Time: 14:13 [facility] 04/13 10:47 Order name: EKG - Nurse/Tech; Complete Time: 11:04 [facility] 04/13 10:47 Order name: IV Saline Lock; Complete Time: 14:12 kdr 04/13 10:47 Order name: Labs collected and sent; Complete Time: 14:12 kdr 04/13 10:47 Order name: O2 Per Protocol; Complete Time: 14:12 [facility] 04/13 10:47 Order name: O2 Sat Monitoring; Complete Time: 14:12 kdr Administered Medications: 12:42 Drug: amiodarone IVPB 150 mg 100 ml IVPB once over 10 mins; (mix in D5W) Volume: 100 me1 ml; Route: IVPB; Infused Over: 10 mins; Site: left antecubital; 12:57 Follow up: Response: No adverse reaction; IV Status: Completed infusion; IV Intake: me1 100ml 12:57 Drug: amiodarone IVPB 900 mg, D5W IV 500 ml IVPB at 1 mg/min continuous; for 6 hrs, me1 then change to 0.5 mg/min Route: IVPB; Rate: 1 mg/min; Site: left antecubital; 14:11 Follow up: Response: No adverse reaction me1 18:28 Follow up: IV Status: Infusion continued upon admission me1 Disposition Summary: 04/13/23 13:53 Hospitalization Ordered Notes: Hospitalization Status: Inpatient Admission kdr Provider: Rustam Levin Location: Telemetry/[facility] (Inpatient) kdr Condition: Fair kdr Problem: new kdr Symptoms: have improved kdr Bed/Room Type: Standard kdr Room Assignment: [id number](04/13/23 16:16) iw Diagnosis - Unspecified atrial fibrillation - With RVR kdr - Acute upper respiratory infection, unspecified kdr - Nasal congestion kdr Forms: - Medication Reconciliation Form kdr - SBAR form kdr - Leadership Thank You Letter kdr Signatures: Dispatcher [employer] Denver Wallace MD MD kdr Leeann Holder RN RN Sabiha Brooks RN RN Evelyn Beavers Danielle RN NIURKA Yudy Huang RN RN me1 Corrections: (The following items were deleted from the chart) 11:16 11:13 Basic Metabolic Panel ordered. EDMS EDMS 11:16 11:13 Basic Metabolic Panel ordered. EDMS EDMS 11:16 11:13 CBC with Automated Diff ordered. EDMS EDMS 11:16 11:13 CBC with Automated Diff ordered. EDMS EDMS 11:16 11:13 Lipase ordered. EDMS EDMS 11:17 11:13 Lipase ordered. EDMS EDMS 11:17 11:13 Liver (Hepatic) Function ordered. EDMS EDMS 11:17 11:13 Liver (Hepatic) Function ordered. EDUT EDMS 14:17 13:53 kdr eb 16:16 14:17 419 eb iw
[2023-04-13] MEDS ORDERED: AMIODARONE HCL 450 MG in D5W 241 ML IV SCH (14:00)
--- NOTE | 2023-04-13 17:18 | P.HP ---
Certification for Inpatient Patient admitted to: Inpatient With expected LOS: >2 Midnights Practitioner: I am a practitioner with admitting privileges, knowledge of patient current condition, hospital course, and medical plan of care. Services: Services provided to patient in accordance with Admission requirements found in Title 42 Section 412.3 of the Code of Federal Regulations Patient History Date of Service: 04/13/23 Reason for admission: RAPID A FIB History of Present Illness: MR. TERRELL HAS HAD RECURRENT A FIB OVER LAST 3 YEARS. LATELY HE IS MORE OFTEN IN HOSPITAL DESPITE BEING ON HIGH DOSE OF SOTALOL AND LATER ADDITION OF SMALL DOSE OF METOPROLOL. HE HAS 3 EPISODES IN LAST ONE WEEK AND HE IS BACK IN [facility] AGAIN. HE IS NOW ON AMIODARONE IV. THIS HAS FAILED BEFORE I BELIEVE. HE UAS SOME URI SS BUT NEG FOR COVID. FOLLOWING IS HISTORY FROM MY EMR AT OFFICE 2018 Benign hypertension [I10] stable on losatan 50mg stable on losatan 50mg 2018 Sjogren's disease [M35.00 0.4] resulting in chronic pain. managed with tramadol 50mg bID resulting in chronic pain. 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 DR. DAMON. on sotalol 120mg BID and additonal 60mg at noon counseled on what to watch out for for unstable afib on eeliquis 5mg bID ABLATION. DR. DAMON. on sotalol 120mg BID and additonal 60mg at noon counseled on what to watch out for for unstable afib on eeliquis 5mg bID 2018 AA (aortic aneurysm) [I71.9 0.3] 4.9 CM. BY MDA. 2022 4.9 CM. BY MDA. 2022 2018 COPD (chronic obstructive pulmonary disease) [J44.9 0.3] 2018 Carotid bruit [R09.89] 30% L. DR SINHA. 30% L. DR SINHA. 2018 Chronic constipation [K59.09] managed with laxative. titrate to daily bm managed with laxative. 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 RADIATION I FOOT. FOOT TO LUNG. MD BARBER RECURRENCE 2021, SMALL, CLEAR CELL SRACOMA NO CHEMO. RADIATION I FOOT. FOOT TO LUNG. 2022 Rapid atrial fibrillation [I48.91 0.3] 2022 Environmental and seasonal allergies [J30.89] trial NOW quercetin zn combined w nexabiotic for sinupro substitute trial NOW quercetin zn combined w nexabiotic for sinupro substitute 2016 COPD, bronchitic without exacerbation 2017 Inguinal hernia [K40.90] -- resolved on 08/02/20222019 AAA (abdominal aortic aneurysm) [I71.40 0.3] -- resolved on 03/23/2023 [address] SINHA 4.[address] SINHA Allergies hydrocodone Allergy (Verified 01/19/21 07:55) Unknown Home medications list reviewed: Yes Home Medications: Rosuvastatin Calcium [Crestor] 5 mg PO DAILY 01/19/21 Loratadine [Claritin*] 10 mg PO DAILY 06/26/22 Losartan Potassium 50 mg PO DAILY #90 tab 06/26/22 Apixaban [Eliquis] 5 mg PO BID #60 07/26/22 Famotidine [Pepcid*] 40 mg PO BEDTIME tab 03/13/23 Metoprolol Tartrate [Lopressor*] 25 mg PO BID 6AM 6PM 14 Days #28 tab 03/13/23 Sotalol HCl [Betapace*] 120 mg PO BID 6AM 6PM #60 tab 03/13/23 - Past Medical/Surgical History Diabetic: No -: A-fib -: Lung CA -: COPD -: GERD -: HTN -: Sjogren's Syndrome -: Radiation Therapy -: Heart Ablation -: Lung SX x 5 - Social History Alcohol use: No CD- Drugs: No Caffeine use: No Review of Systems 10-point ROS is otherwise unremarkable Physical Examination - Physical Exam General: Alert, In no apparent distress HEENT: Atraumatic, PERRLA, Mucous membr. moist/pink, EOMI, Sclerae nonicteric Neck: Supple, 2+ carotid pulse no bruit, No LAD, Without JVD or thyroid abnormality Respiratory: Clear to auscultation bilaterally, Normal air movement Cardiovascular: Abnormal S1 S2 Gastrointestinal: Normal bowel sounds, No tenderness Musculoskeletal: No tenderness Integumentary: No rashes Neurological: Normal gait, Normal speech, Normal strength at 5/5 x4 extr, Normal tone, Normal affect Lymphatics: No axilla or inguinal lymphadenopathy - Studies Laboratory Data (last 24 hrs) 04/13/23 04/13/23 11:08 11:08 WBC 6.30 Hgb 13.1 L Hct 37.9 L Plt Count 153 Sodium 134 L Potassium 4.3 BUN 13 Creatinine 1.04 Glucose 109 H Magnesium 1.9 Microbiology Data (last 24 hrs): 04/13/23 11:03 Nasopharnyx Influenza Type A Antigen Screen - Final 04/13/23 11:03 Nasopharnyx Influenza Type B Antigen Screen - Final Assessment and Plan - Problems (Diagnosis) (1) Rapid atrial fibrillation Current Visit: No Status: Acute Plan: SALO HAS HAD MANY EPISODES. HE MAY NEED ABALTION WITH PPM. DR DAMIAN OR EPS WILL DECIDE. PROGNOSIS IS GUARDED. CONTINUE XARELTO. 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
[2023-04-13] MEDS ORDERED: METOPROLOL TARTRATE 5 MG/5 ML INJ IV STA (19:42)
[2023-04-13] MEDS ORDERED: METOPROLOL TAR 25 MG TAB PO SCH (19:45)
[2023-04-13 19:57] VITALS: BMI 29.5
[2023-04-13] MEDS ORDERED: IPRATROPIUM BROM 0.5MG/2.5ML ONE (21:24)
[2023-04-13] MEDS: IPRATROPIUM BROM 0.5MG/2.5ML NEB SCH (21:25)
[2023-04-13] MEDS ORDERED: TRAMADOL HCL 50 MG TAB PO PRN (21:35)
[2023-04-14] MEDS ORDERED: METOPROLOL TAR 25 MG TAB PO ONE (00:22)
[2023-04-14] MEDS: METOPROLOL TARTRATE 5 MG/5 ML INJ IV PRN ×4 (00:31→12:17)
[2023-04-14] MEDS: IPRATROPIUM BROM 0.5MG/2.5ML NEB SCH ×4 (01:00→19:00)
[2023-04-14] MEDS ORDERED: METOPROLOL TAR 25 MG TAB PO SCH (06:00)
[2023-04-14 07:54] LABS: Potassium 3.9 mEq/L (3.5-5.1)
[2023-04-14] MEDS ORDERED: ASPIRIN EC 81 MG TAB PO SCH (09:00)
[2023-04-14] MEDS ORDERED: LORATADINE 10 MG TAB PO SCH (09:00)
[2023-04-14] MEDS ORDERED: APIXABAN 5 MG TABLET PO SCH (09:00)
[2023-04-14] MEDS ORDERED: ROSUVASTATIN 5 MG TAB PO SCH (09:00)
[2023-04-14] MEDS ORDERED: LOSARTAN POTASSIUM 50 MG TABLET PO SCH (09:00)
[2023-04-14 10:05] VITALS: O2SAT 95
--- NOTE | 2023-04-14 11:57 | P.PN ---
Subjective Date of Service: 04/14/23 Chief Complaint: RAPID A FIB Subjective: No new changes HE IS GOING FROM 78 TO 89 DESPITE BEING ON AMIODARONE. DR DAMIAN IS WORKING ON TRANSFER TO EPS. PATIENT IS AWARE. Review of Systems 10-point ROS is otherwise unremarkable Physical Examination - Vital Signs Temperature: 96.9 F Blood Pressure: 121/77 Pulse: 82 Respirations: 18 Pulse Ox (%): 97 - Physical Exam General: Mild distress HEENT: Atraumatic, PERRLA, EOMI Neck: Supple, JVD not distended Respiratory: Clear to auscultation bilaterally, Normal air movement Cardiovascular: Irregular heart rate/rhythm, Abnormal S1 S2 Gastrointestinal: Normal bowel sounds, No tenderness Musculoskeletal: No tenderness Integumentary: No rashes Neurological: Normal speech, Normal tone, Normal affect Lymphatics: No axilla or inguinal lymphadenopathy - Studies Microbiology Data (last 24 hrs): 04/13/23 11:03 Nasopharnyx Influenza Type A Antigen Screen - Final 04/13/23 11:03 Nasopharnyx Influenza Type B Antigen Screen - Final Medications List Reviewed: Yes Assessment And Plan - Current Problems (Diagnosis) (1) Rapid atrial fibrillation Current Visit: No Status: Acute Plan: SALO HAS HAD MANY EPISODES. HE MAY NEED ABALTION WITH PPM. DR DAMIAN OR EPS MD WILL DECIDE. PROGNOSIS IS GUARDED. CONTINUE XARELTO. HPI AMIO IS NOT WORKING YET. MAY NEED ABLATION AND PPM. HE HAS TOO MANY EPISODES OF RECURRENCE. 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
[2023-04-14] MEDS: AMIODARONE HCL 900 MG in Dextrose 5%-Water 482 ML IV SCH (12:03)
[2023-04-14 15:03] LABS: Absolute Lymphocytes (CBC) 1.2 K/uL (0.7-4.9); Lymphocytes % 18.9 % (15.3-44.8); MCV 99.7 fL (80-100); MPV 8.6 fL (7.6-11.3); Platelets 139 thou/uL (152-406); RBC Red Blood Cell Count 3.61 M/uL (4.33-5.43)
[2023-04-14] MEDS ORDERED: METOPROLOL TAR 50 MG TAB PO SCH (15:06)
[2023-04-14 16:28] VITALS: BP 168/88; TEMP 98.2
[2023-04-14] MEDS ORDERED: FAMOTIDINE 20 MG TAB PO SCH (21:00)
--- NOTE | 2023-04-16 11:37 | P.DS ---
Admission Date: 04/13/23 Discharge Date: 04/16/23 Disposition: TRANSFER TO [facility] Reason for Admission: RAPID A FIB - Problems (1) Rapid atrial fibrillation Status: Acute (2) Metastatic sarcoma to lung Status: Chronic Brief History of Present Illness: MR. TERRELL HAS HAD RECURRENT A FIB OVER LAST 3 YEARS. LATELY HE IS MORE OFTEN IN HOSPITAL DESPITE BEING ON HIGH DOSE OF SOTALOL AND LATER ADDITION OF SMALL DOSE OF METOPROLOL. HE HAS 3 EPISODES IN LAST ONE WEEK AND HE IS BACK IN [facility] AGAIN. HE IS NOW ON AMIODARONE IV. THIS HAS FAILED BEFORE I BELIEVE. HE UAS SOME URI SS BUT NEG FOR COVID. FOLLOWING IS HISTORY FROM MY EMR AT OFFICE 2018 Benign hypertension [I10] stable on losatan 50mg stable on losatan 50mg 2018 Sjogren's disease [M35.00 0.4] resulting in chronic pain. managed with tramadol 50mg bID resulting in chronic pain. 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 DR. DAMON. on sotalol 120mg BID and additonal 60mg at noon counseled on what to watch out for for unstable afib on eeliquis 5mg bID ABLATION. DR. DAMON. on sotalol 120mg BID and additonal 60mg at noon counseled on what to watch out for for unstable afib on eeliquis 5mg bID 2018 AA (aortic aneurysm) [I71.9 0.3] 4.9 CM. BY MDA. 2022 4.9 CM. BY MDA. 2022 2018 COPD (chronic obstructive pulmonary disease) [J44.9 0.3] 2018 Carotid bruit [R09.89] 30% L. DR SINHA. 30% L. DR SINHA. 2018 Chronic constipation [K59.09] managed with laxative. titrate to daily bm managed with laxative. 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 RADIATION I FOOT. FOOT TO LUNG. MD BARBER RECURRENCE 2021, SMALL, CLEAR CELL SRACOMA NO CHEMO. RADIATION I FOOT. FOOT TO LUNG. 2022 Rapid atrial fibrillation [I48.91 0.3] 2022 Environmental and seasonal allergies [J30.89] trial NOW quercetin zn combined w nexabiotic for sinupro substitute trial NOW quercetin zn combined w nexabiotic for sinupro substitute 2016 COPD, bronchitic without exacerbation 2017 Inguinal hernia [K40.90] -- resolved on 08/02/20222019 AAA (abdominal aortic aneurysm) [I71.40 0.3] -- resolved on 03/23/[address] SINHA 4.[address] SINHA [facility] Course: SALO HAS HAD RECURRENT A FIB FOR MANY TIMES. SOTALOL WITH METOP DID NOT WORK. AMIODARONE DID NOT CONTROL IT. HE IS SENT TO [facility] FOR ABLATION AND PPM IF POSSIBLE. Vital Signs/Physical Exam: Temp Pulse Resp BP Pulse Ox 98.2 F 127 H 16 168/88 H 95 04/14/23 16:00 04/14/23 16:25 04/14/23 16:00 04/14/23 16:25 04/14/23 16:00 Laboratory Data at Discharge: WBC 6.30 thou/uL (4.3-10.9) 04/14/23 14:47 Hgb 12.3 g/dL (13.6-17.9) L 04/14/23 14:47 Hct 36.0 % (39.6-49.0) L 04/14/23 14:47 Plt Count 139 thou/uL (152-406) L 04/14/23 14:47 Sodium 130 mEq/L (136-145) L 04/14/23 07:27 Potassium 3.9 mEq/L (3.5-5.1) 04/14/23 07:27 BUN 13 mg/dL (7-18) 04/14/23 07:27 Creatinine 0.93 mg/dL (0.70-1.30) 04/14/23 07:27 Glucose 134 mg/dL (74-106) H 04/14/23 07:27 Magnesium 1.9 mg/dL (1.6-2.4) 04/13/23 11:08 Home Medications: Rosuvastatin Calcium [Crestor] 5 mg PO DAILY 01/19/21 Loratadine [Claritin*] 10 mg PO DAILY 06/26/22 Losartan Potassium 50 mg PO DAILY #90 tab 06/26/22 Apixaban [Eliquis] 5 mg PO BID #60 07/26/22 Famotidine [Pepcid*] 40 mg PO BEDTIME tab 03/13/23 Metoprolol Tartrate [Lopressor*] 25 mg PO BID 6AM 6PM 14 Days #28 tab 03/13/23 Sotalol HCl [Betapace*] 120 mg PO BID 6AM 6PM #60 tab 03/13/23 Tramadol HCl [Ultram] 1 tab PO BID PRN 04/13/23 Followup: Rustam Levin MD [Primary Care Provider] -
--- NOTE | 2023-04-20 14:05 | EKG ---
Test Date: 2023-04-13 Test Time: 10:57:41 [facility]: [facility] MEASUREMENT RESULTS: Intervals: Rate: 136 VT: QRSD: 76 QT: 344 QTc: 517 [place]: P: VT: QRS: 50 T: 76 INTERPRETIVE STATEMENTS: Supraventricular tachycardia Otherwise normal ECG Compared to ECG 04/08/2023 10:11:02 Atrial fibrillation no longer present Electronically Signed On 04-20-23 13:48:17 COMPUTER GAME [employer]GRAM[employer] by Christian Israel
== END 2023-04-14 20:45 | disposition short-term general hospital (02) | DRG 309 ==
LOC: ER 10:18 → UNDOADMOB 11:10 → ERHOLD 11:10 → 4TH 16:12
PROVIDERS: ADMIT Internal Medicine; ATTEND Internal Medicine
DX: I48.91 Unspecified atrial fibrillation (principal); C78.00 Secondary malignant neoplasm of unspecified lung; J44.9 Chronic obstructive pulmonary disease, unspecified; K21.9 Gastro-esophageal reflux disease without esophagitis; I10 Essential (primary) hypertension; J06.9 Acute upper respiratory infection, unspecified; Z88.5 Allergy status to narcotic agent; Z11.52 Encounter for screening for COVID-19; Z79.01 Long term (current) use of anticoagulants; Z79.899 Other long term (current) drug therapy
CPT/HCPCS: 36415; 71045; 80048; 83735; 83880; 84484; 85025; 85379; 87635; 87804; 93005; 94640; 96365; 96366; 99285; J0282; J7060; J7644

== ENCOUNTER → 2023-06-03 | Emergency (ER) | payer OTHER, BC ==
[~2023-06-03] MED LIST: ACETAMINOPHEN 500 MG TAB ONE; D5 0.45 NS 1,000 ML IV ONE; FENTANYL CITR 100 MCG/2 ML ONE; LACTULOSE 20 GM/30 ML UCUP ONE
--- NOTE | 2023-06-03 05:25 | ER ---
Nurse's Notes [facility] Name: Fredi Barth Age: 78 yrs Sex: Male : 1945 Arrival Date: 06/03/2023 Time: 04:56 Bed 17 Private MD: Rustam Levin V Diagnosis: Constipation, unspecified Presentation: 06/03 05:09 Chief complaint: Patient states: On I underwent surgery for placing a stent in tm6 my abdomen to remedy an Aortic Abdominal Aneurysm at [facility] in [place]. Just prior to my release on the it was discovered I had a blockage in the iliac by xray. I have attempted to treat the blockage by liquid diet, taking senna/stool softener but have been unsuccessful in removing the blockage. As of 06/03 I am having lower back pain and unable to pass stools. I am unable to strain because of the stent. I have not had a bowel movement since May 30. Coronavirus screen: Vaccine status: Patient reports being unvaccinated. Ebola Screen: Patient negative for fever greater than or equal to 101.5 degrees Fahrenheit, and additional compatible Ebola Virus Disease symptoms Patient denies exposure to infectious person. Patient denies travel to an Ebola-affected area in the 21 days before illness onset. No symptoms or risks identified at this time. Initial Sepsis Screen: Does the patient meet any 2 criteria? No. Patient's initial sepsis screen is negative. Does the patient have a suspected source of infection? No. Patient's initial sepsis screen is negative. Risk Assessment: Do you want to hurt yourself or someone else? Patient reports no desire to harm self or others. Onset of symptoms was May 30, 2023. 05:09 Method Of Arrival: Ambulatory tm6 05:09 Acuity: PHYLLIS 4 tm6 Triage Assessment: 05:13 General: Appears in no apparent distress. Behavior is calm, cooperative. Pain: Denies tm6 pain. EENT: No signs and/or symptoms were reported regarding the EENT system. Neuro: Level of Consciousness is awake, alert, obeys commands, Oriented to person, place, time, situation. Cardiovascular: Capillary refill < 3 seconds Patient's skin is warm and dry. Respiratory: Airway is patent Respiratory effort is even, unlabored, Respiratory pattern is regular, symmetrical. GI: Abdomen is flat, non-distended, Reports constipation. : No signs and/or symptoms were reported regarding the genitourinary system. Derm: No signs and/or symptoms reported regarding the dermatologic system. Musculoskeletal: No signs and/or symptoms reported regarding the musculoskeletal system. Historical: - Allergies: 05:13 HYDRALAZINE; tm6 05:13 HYDROCODONE; tm6 - PMHx: 05:13 aortic aneurysm; Atrial Fib; COPD; GERD; GERD; Hypertension; radiation; Sjogren's tm6 Syndrome; - PSHx: 05:13 ablation for afib; lung aurgery x5; Stented artery; AAA; tm6 - Immunization history:: Adult Immunizations up to date, Client reports having NOT received the Covid vaccine. Flu vaccine status is unknown. - Social history:: Smoking status: Patient denies any tobacco usage or history of. Patient/guardian denies using alcohol. Screenin:16 [facility] ED Fall Risk Assessment (Adult) History of falling in the last 3 months, tm6 including since admission No falls in past 3 months (0 pts). Abuse screen: Denies threats or abuse. Denies injuries from another. Nutritional screening: No deficits noted. Tuberculosis screening: No symptoms or risk factors identified. Assessment: 05:16 Reassessment: see triage assessment. tm6 05:38 GI: Bowel sounds Abd is soft and non tender. tm6 Vital Signs: 05:09 BP 139 / 88; Resp 19; Temp 97.7(O); Weight 105.23 kg; Height 6 ft. 2 in. ; Pain 0/10; tm6 05:25 Pulse 61; Pulse Ox 96% on R/A; tm6 05:09 Body Mass Index 29.79 (105.23 kg, 187.96 cm) tm6 05:09 Pain Scale: Adult tm6 ED Course: 04:59 Patient arrived in ED. gm2 05:00 Adeel Hull MD is Private Physician. gm2 05:00 Rustam Levin MD is Private Physician. gm2 05:01 Hiram Martinez MD is Attending Physician. ec2 05:09 Rosenda Jones, NIURKA is Primary Nurse. tm6 05:13 Triage completed. tm6 05:13 Arm band placed on left wrist. tm6 05:16 Patient has correct armband on for positive identification. Bed in low position. Call tm6 light in reach. Provided Education on: plan of care. Client placed on continuous cardiac and pulse oximetry monitoring. NIBP monitoring applied. Door closed. Noise minimized. Warm blanket given. 05:16 No provider procedures requiring assistance completed. tm6 05:39 Patient did not have IV access during this emergency room visit. tm6 Administered Medications: 05:38 Drug: Lactulose PO 30 grams 45 ml PO once Volume: 45 ml; Route: PO; tm6 Medication: 05:16 VIS not applicable for this client. tm6 Outcome: 05:25 Discharge ordered by MD. ec2 05:38 Discharged to home ambulatory, with family, tm6 05:38 Condition: stable 05:38 Discharge instructions given to patient, family, Instructed on discharge instructions, follow up and referral plans. medication usage, Demonstrated understanding of instructions, follow-up care, medications, Prescriptions given X 1, 05:39 Patient left the ED. tm6 Signatures: Hiram Martinez MD MD ec2 Adilia Reich 2 Rosenda Jones, RN RN tm6 Corrections: (The following items were deleted from the chart) 05:15 05:13 PSHx: stented AAA (lung aurgery x5); tm6 tm6
--- NOTE | 2023-06-03 05:25 | EDPHYS ---
Physician Documentation [facility] Name: Fredi Barth Age: 78 yrs Sex: Male : 1945 Arrival Date: 06/03/2023 Time: 04:56 Bed 17 Private MD: Rustam Levin V ED Physician Hiram Martinez HPI: 06/03 05:22 This 78 yrs old Male presents to ER via Ambulatory with complaints of ec2 Constipation, pt has not had bm since 05-30-23. 05:22 Patient arrives today d/t concern for constipation. Patient reports that he recently ec2 had a surgery, is on tramadol. States that he has not had a bowel movement in 4 days. Patient reports no issues with p.o. intake, no nausea or vomiting. Patient reports no significant abdominal pain. Patient reports he is on docusate with no bowel movement. Denies abdominal pain.. Historical: - Allergies: 05:13 HYDRALAZINE; tm6 05:13 HYDROCODONE; tm6 - PMHx: 05:13 aortic aneurysm; Atrial Fib; COPD; GERD; GERD; Hypertension; radiation; Sjogren's tm6 Syndrome; - PSHx: 05:13 ablation for afib; lung aurgery x5; Stented artery; AAA; tm6 - Immunization history:: Adult Immunizations up to date, Client reports having NOT received the Covid vaccine. Flu vaccine status is unknown. - Social history:: Smoking status: Patient denies any tobacco usage or history of. Patient/guardian denies using alcohol. ROS: 05:22 Constitutional: as per hpi ec2 Exam: 05:22 Constitutional: GEN: NAD Head: atraumatic Eyes: EOMI Ears: External ears are ec2 normal. CV: regular rate LUNGS: no respiratory distress ABD: non-distended, soft, nontender SKIN: no evidence of rashes MSK: no evidence of trauma NEURO: moves all extremities equally Vital Signs: 05:09 BP 139 / 88; Resp 19; Temp 97.7(O); Weight 105.23 kg; Height 6 ft. 2 in. ; Pain 0/10; tm6 05:25 Pulse 61; Pulse Ox 96% on R/A; tm6 05:09 Body Mass Index 29.79 (105.23 kg, 187.96 cm) tm6 05:09 Pain Scale: Adult tm6 MDM: 05:02 Patient medically screened. ec2 05:24 Data reviewed: vital signs. ED course: Patient arrives today for constipation. ec2 Examination remarkable for well-appearing nontoxic individual is otherwise in no acute distress with a reassuring abdominal examination. Will start the patient on lactulose for his constipation. Instructed him on tramadol cessation given the patient's constipation. Low suspicion for process such as small bowel obstruction given the patient's benign abdomen as well as his p.o. tolerance, currently will defer any lab work such as CBC or BMP, will currently defer CT imaging of the abdomen pelvis.. Administered Medications: 05:38 Drug: Lactulose PO 30 grams 45 ml PO once Volume: 45 ml; Route: PO; tm6 Disposition Summary: 06/03/23 05:25 Discharge Ordered Notes: Location: Home ec2 Condition: Stable ec2 Diagnosis - Constipation, unspecified ec2 Followup: ec2 - With: Private Physician - When: - Reason: Re-evaluation by your physician Discharge Instructions: - Discharge Summary Sheet ec2 - Constipation, Adult ec2 Forms: - Medication Reconciliation Form ec2 - Thank You Letter ec2 - Antibiotic Education ec2 - Prescription Opioid Use ec2 - Patient Portal Instructions ec2 - Leadership Thank You Letter ec2 Prescriptions: - Lactulose 10 gram/15 mL Oral solution - take 30 milliliters ORAL route every 8 hours; 300 milliliter; Refills: 0, ec2 Product Selection Permitted Signatures: Hiram Martinez MD MD ec2 Rosenda Jones RN RN tm6 Corrections: (The following items were deleted from the chart) 05:15 05:13 PSHx: stented AAA (lung aurgery x5); tm6 tm6
[2023-06-03 05:57] VITALS: BP 139/88; TEMP 97.7; O2SAT 96
== END ==
LOC: ER 04:56
DX: K59.00 Constipation, unspecified (principal); Z98.890 Other specified postprocedural states; Z88.5 Allergy status to narcotic agent; Z88.8 Allergy status to other drugs, medicaments and biological substances; Z28.310 Unvaccinated for COVID-19

== ENCOUNTER 2023-06-05 03:20 | Observation (INO) | payer OTHER, BC ==
[2023-06-05 04:59] LABS: Absolute Lymphocytes (CBC) 0.6 K/uL (0.7-4.9); Hematocrit 29.3 % (39.6-49.0); Lymphocytes % 12.1 % (15.3-44.8); MCV 97.7 fL (80-100); MPV 9.3 fL (7.6-11.3); Platelets 111 thou/uL (152-406); Protime INR 1.54
[2023-06-05] MEDS ORDERED: DICYCLOMINE HCL 10 MG CAP ONE (04:59)
[2023-06-05] MEDS ORDERED: METOCLOPRAMIDE 10 MG/2mL INJ ONE (05:00)
[2023-06-05] MEDS ORDERED: FENTANYL CITR 100 MCG/2 ML ONE (05:00)
[2023-06-05 05:03] LABS: Bilirubin Total 0.7 mg/dL (0.2-1.0); Potassium 3.3 mEq/L (3.5-5.1); Protein, Total 7.3 g/dL (6.4-8.2); Troponin High Sensitivity 26.1 pg/mL (<58.9)
[2023-06-05 05:32] LABS: Specific Gravity 1.024 (1.005-1.030); Urine Bacteria <20 /HPF (<20); Urine Bilirubin NEGATIVE (Negative); Urine Blood Negative (Negative); Urine Clarity Clear (Clear); Urine Color Yellow (Yellow); Urine Glucose NEGATIVE (Negative); Urine Mucus 2+ /HPF (None Seen); Urine Protein 2+ (Negative); Urine RBC None Seen /HPF (None Seen); Urine Urobilinogen 2+ (Normal)
[2023-06-05] MEDS ORDERED: SIMETHICONE 80 MG CHEWABLE TAB ONE (06:58)
--- NOTE | 2023-06-05 08:16 | ER ---
Nurse's Notes [facility] Name: Fredi Barth Age: 78 yrs Sex: Male : 1945 Arrival Date: 06/05/2023 Time: 03:20 Bed 20 Private MD: Diagnosis: Ileus, unspecified;Back pain Presentation: 06/05 03:43 Chief complaint: Patient states: lower back pain of 9 with constipation and bloating pf1 for 6 days. Patient stated was seen here on Sunday, prescribed Lactulose, but the medication has not worked. Patient stated had AAA repair on 05/31/23 at [facility] in [place]. 03:43 Coronavirus screen: Vaccine status: Patient reports being unvaccinated. Client denies pf1 travel out of the [place] in the last 14 days. At this time, the client does not indicate any symptoms associated with coronavirus-19. Ebola Screen: Patient negative for fever greater than or equal to 101.5 degrees Fahrenheit, and additional compatible Ebola Virus Disease symptoms. Initial Sepsis Screen: Does the patient meet any 2 criteria? No. Patient's initial sepsis screen is negative. Does the patient have a suspected source of infection? No. Patient's initial sepsis screen is negative. Risk Assessment: Do you want to hurt yourself or someone else? Patient reports no desire to harm self or others. 03:43 Method Of Arrival: Ambulatory pf1 03:43 Acuity: PHYLLIS 3 pf1 07:19 Onset of symptoms was June 05, 2023. mb9 Historical: - Allergies: 04:15 HYDRALAZINE; pf1 04:15 HYDROCODONE; pf1 - PMHx: 04:15 aortic aneurysm; Atrial Fib; COPD; GERD; Hypertension; radiation; Sjogren's Syndrome; pf1 - PSHx: 04:15 ablation for afib; lung aurgery x5; Stented artery; AAA; pf1 04:16 pacemaker; AAA repair; pf1 - Immunization history:: Adult Immunizations not up to date, Client reports having NOT received the Covid vaccine. Last tetanus immunization: < 10 years ago Flu vaccine is not up to date. - Social history:: Smoking status: Patient denies any tobacco usage or history of. Patient/guardian denies using alcohol, street drugs. - Family history:: not pertinent. Screenin:17 [facility] ED Fall Risk Assessment (Adult) History of falling in the last 3 months, pf1 including since admission No falls in past 3 months (0 pts) Confusion or Disorientation No (0 pts) Intoxicated or Sedated No (0 pts) Impaired Gait No (0 pts) Mobility Assist Device Used No (0 pt) Altered Elimination No (0 pt) Score/Fall Risk Level 0 - 2 = Low Risk Oriented to surroundings, Maintained a safe environment, Educated pt \T\ family on fall prevention, incl call for assistance when getting out of bed, Assessed \T\ reinforced patient's understanding of fall precautions, Provided non-skid footwear, Hourly rounding (assess needs \T\ fall precautionary measures) done, Used ambulatory aids as needed (educated on \T\ assisted with), Used gait belt as appropriate. Abuse screen: Denies threats or abuse. Nutritional screening: No deficits noted. Tuberculosis screening: No symptoms or risk factors identified. Assessment: 04:00 General: Appears in no apparent distress. uncomfortable, well groomed, well developed, pf1 Behavior is calm, cooperative, appropriate for age, quiet. 04:00 Pain: Complains of pain in back Pain currently is 9 out of 10 on a pain scale. Neuro: pf1 No deficits noted. Level of Consciousness is awake, alert, obeys commands, Oriented to person, place, time, situation. Cardiovascular: No deficits noted. Capillary refill < 3 seconds Patient's skin is warm and dry. Respiratory: No deficits noted. Airway is patent Respiratory effort is even, unlabored, Respiratory pattern is regular, symmetrical. GI: Abdomen is round distended, Reports bloating, constipation. : No deficits noted. No signs and/or symptoms were reported regarding the genitourinary system. EENT: No deficits noted. No signs and/or symptoms were reported regarding the EENT system. 05:00 Reassessment: Patient appears in no apparent distress at this time. Patient and/or pf1 family updated on plan of care and expected duration. Pain level reassessed. Patient is alert, oriented x 3, equal unlabored respirations, skin warm/dry/pink. 06:00 Reassessment: Patient appears in no apparent distress at this time. Patient and/or pf1 family updated on plan of care and expected duration. Pain level reassessed. Patient is alert, oriented x 3, equal unlabored respirations, skin warm/dry/pink. Patient states feeling better. Patient states symptoms have improved. 07:18 General: Appears uncomfortable, Behavior is calm, cooperative. Pain: Complains of pain mb9 in back Pain currently is 8 out of 10 on a pain scale. Quality of pain is described as throbbing, Is continuous. Neuro: Maldonado Agitation-Sedation Scale (RASS): 0 - Alert and Calm Level of Consciousness is awake, alert, obeys commands, Oriented to person, place, time, situation. Cardiovascular: Patient's skin is warm and dry. Respiratory: Airway is patent Respiratory effort is even, unlabored, Respiratory pattern is regular, symmetrical. GI: Abdomen is round distended, Bowel sounds present X 4 quads. Abd is soft Abdomen is tender to palpation X 4 quads. Reports bloating, constipation. : No signs and/or symptoms were reported regarding the genitourinary system. EENT: No signs and/or symptoms were reported regarding the EENT system. Derm: Skin is pink, warm \T\ dry. Musculoskeletal: Range of motion: intact in all extremities. 09:00 Reassessment: No changes from previously documented assessment. Patient and/or family mb9 updated on plan of care and expected duration. Pain level reassessed. Patient is alert, oriented x 3, equal unlabored respirations, skin warm/dry/pink. 10:35 Reassessment: No changes from previously documented assessment. Patient and/or family mb9 updated on plan of care and expected duration. Pain level reassessed. Patient is alert, oriented x 3, equal unlabored respirations, skin warm/dry/pink. 12:00 Reassessment: No changes from previously documented assessment. Patient and/or family mb9 updated on plan of care and expected duration. Pain level reassessed. Patient is alert, oriented x 3, equal unlabored respirations, skin warm/dry/pink. 12:51 Reassessment: Patient appears in no apparent distress at this time. Patient and/or ph family updated on plan of care and expected duration. Pain level reassessed. Patient is alert, oriented x 3, equal unlabored respirations, skin warm/dry/pink. Pt ambulatory to restroom, attempted to call report to [facility], no answer. 14:45 Reassessment: No changes from previously documented assessment. Patient and/or family mb9 updated on plan of care and expected duration. Pain level reassessed. Patient is alert, oriented x 3, equal unlabored respirations, skin warm/dry/pink. 15:38 Reassessment: Report given to [facility]. mb9 Vital Signs: 03:43 BP 171 / 66; Pulse 67; Resp 18; Temp 99.4; Pulse Ox 100% on R/A; Weight 105.23 kg; pf1 Height 6 ft. 2 in. ; Pain 9/10; 04:00 BP 164 / 68; Pulse 64; Resp 16; Pulse Ox 99% on R/A; pf1 05:00 BP 174 / 66; Pulse 59; Resp 16; Pulse Ox 98% ; pf1 06:09 BP 163 / 68; Pulse 60; Resp 17; Pulse Ox 100% ; jj7 07:17 BP 168 / 68; Pulse 60; Resp 18; Pulse Ox 100% on R/A; Pain 8/10; mb9 08:56 BP 167 / 75; Pulse 70; Resp 18; Pulse Ox 98% on R/A; mb9 11:00 BP 154 / 74; Pulse 70; Resp 18; Pulse Ox 100% on R/A; mb9 13:00 BP 143 / 82; Pulse 71; Resp 18; Pulse Ox 100% on R/A; mb9 03:43 Body Mass Index 29.79 (105.23 kg, 187.96 cm) pf1 03:43 Pain Scale: Adult pf1 07:17 Pain Scale: Adult mb9 ED Course: 03:24 Patient arrived in ED. jj6 03:41 Ricardo Sabillon MD is Attending Physician. sp4 03:50 Arm band placed on right wrist. pf1 04:14 Triage completed. pf1 04:19 No provider procedures requiring assistance completed. pf1 04:26 Inserted saline lock: 20 gauge in left antecubital area, using aseptic technique. Blood vc1 collected. Accessed peripheral vein via ultrasound, utilizing dynamic ultrasound technique. 04:27 CBC with Diff Sent. vc1 04:27 CMP Sent. vc1 04:27 Lipase Sent. vc1 04:27 Troponin HS Sent. vc1 04:27 PT-INR Sent. vc1 04:27 NT PRO-BNP Sent. vc1 04:55 Urinalysis w/ reflexes Sent. pf1 05:36 CT Abd/Pelvis - IV Contrast Only In Process Unspecified. EDMS 06:15 Charity Jones, RN is Primary Nurse. pf1 07:19 Monique Aden, NIURKA is Primary Nurse. mb9 07:19 Placed in gown. Bed in low position. Call light in reach. Side rails up X 1. Client mb9 placed on continuous cardiac and pulse oximetry monitoring. NIBP monitoring applied. personnel monitor on. 08:15 Rustam Levin MD is Hospitalizing Provider. ms3 08:33 Attending Physician role handed off by Ricardo Sabillon MD ms3 08:33 Edwin Chandra DO is Attending Physician. ms3 13:[address] [facility]. bd 13:13 pt accepted in transfer to [facility] by dr Mariscal, admin approval given by Sally Conley. 13:29 Patient transferred, IV remains in place. mb9 Administered Medications: 05:10 Drug: fentaNYL (PF) IVP 50 mcg IVP once Route: IVP; Site: left antecubital; pf1 06:00 Follow up: Response: No adverse reaction; Marked relief of symptoms; Pain is decreased; pf1 RASS: Alert and Calm (0) 05:10 Drug: metoCLOPramide IVP 10 mg IVP once; over 1 to 2 minutes Route: IVP; Site: left pf1 antecubital; 06:00 Follow up: Response: No adverse reaction pf1 05:10 Drug: Dicyclomine PO 20 mg PO once Route: PO; pf1 06:00 Follow up: Response: No adverse reaction pf1 07:17 Drug: fentaNYL (PF) IVP 50 mcg IVP once Route: IVP; Site: left antecubital; mb9 08:12 Follow up: Response: No adverse reaction mb9 07:17 Drug: Simethicone PO 160 mg PO once Route: PO; mb9 08:12 Follow up: Response: No adverse reaction mb9 08:12 Drug: Acetaminophen PO 1000 mg PO once Route: PO; mb9 08:34 Follow up: Response: No adverse reaction mb9 Medication: 07:19 VIS not applicable for this client. mb9 Outcome: 08:15 Decision to Hospitalize by Provider. ms3 12:21 ER care complete, transfer ordered by . ms3 13:29 Transferred by ground EMS Transfer form completed. mb9 13:29 Transferred Note: Report given to transferring nurse NIURKA Verduzco 13:29 Condition: stable 13:29 Instructed on the need for transfer, 15:43 Patient left the ED. mb9 Signatures: Dispatcher [employer] EDMS Rachele Reed Patricia RN RN Edwin Chandra, DO ms3 Sally Sultana jj6 Nicolle Perez RN RN vc1 Davey Barth RN RN jj7 Monique Aden RN RN mb9 Charity Jones RN RN pf1 Ricardo Sabillon MD MD sp4
--- NOTE | 2023-06-05 08:16 | EDPHYS ---
Physician Documentation [facility] Name: Fredi Barth Age: 78 yrs Sex: Male : 1945 Arrival Date: 06/05/2023 Time: 03:20 Bed 20 Private MD: ED Physician Edwin Chandra HPI: 06/05 03:43 This 78 yrs old Male presents to ER via Unassigned with complaints of PT sp4 states he has a small bowel obstruction and is having severe abdominal pain. 04:36 Patient was here on 06/03/2023 and was prescribed - Lactulose 10 gram/15 mL Oral sp4 solution - take 30 milliliters ORAL route every 8 hours; 300 milliliter . 04:47 78-year-old male presents with worsening constipation associated with recent sp4 endovascular aortic aneurysm repair at [facility].. Patient reports diffuse abdominal pain nausea absence of bowel movement since 05/30/2023. Patient was prescribed lactulose on 06/03/2023 which did not assist with bowel movements. . Historical: - Allergies: 04:15 HYDRALAZINE; pf1 04:15 HYDROCODONE; pf1 - PMHx: 04:15 aortic aneurysm; Atrial Fib; COPD; GERD; Hypertension; radiation; Sjogren's Syndrome; pf1 - PSHx: 04:15 ablation for afib; lung aurgery x5; Stented artery; AAA; pf1 04:16 pacemaker; AAA repair; pf1 - Immunization history:: Adult Immunizations not up to date, Client reports having NOT received the Covid vaccine. Last tetanus immunization: < 10 years ago Flu vaccine is not up to date. - Social history:: Smoking status: Patient denies any tobacco usage or history of. Patient/guardian denies using alcohol, street drugs. - Family history:: not pertinent. ROS: 04:47 Constitutional: Negative for fever, chills, and weight loss, positive abdominal pain sp4 and constipation. 04:47 All other systems are negative, Exam: 04:47 Constitutional: This is a well developed, well nourished patient who is awake, alert, sp4 and in no acute distress. Head/Face: Normocephalic, atraumatic. Eyes: Pupils equal round and reactive to light, extra-ocular motions intact. Lids and lashes normal. Conjunctiva and sclera are not injected. Cornea within normal limits. Periorbital areas with no swelling, redness, or edema. ENT: Nares patent. No nasal discharge, no septal abnormalities noted. Tympanic membranes are normal and external auditory canals are clear. Oropharynx with no redness, swelling, or masses, exudates, or evidence of obstruction, uvula midline. Mucous membranes moist. Neck: Trachea midline, no thyromegaly or masses palpated, and no cervical lymphadenopathy. Supple, full range of motion without nuchal rigidity, or vertebral point tenderness. Chest/axilla: Normal chest wall appearance and motion. Nontender with no deformity. No lesions are appreciated. Cardiovascular: Regular rate and rhythm with a normal S1 and S2. No gallops, murmurs, or rubs. Normal PMI, no JVD. No pulse deficits. Respiratory: Lungs have equal breath sounds bilaterally, clear to auscultation and percussion. No rales, rhonchi or wheezes noted. No increased work of breathing, no retractions or nasal flaring. Abdomen/GI: Soft, with normal bowel sounds. No distension or tympany. No guarding or rebound. No evidence of tenderness throughout. Back: No spinal tenderness. No costovertebral tenderness. Skin: Warm, dry with normal turgor. Normal color with no rashes, no lesions, and no evidence of cellulitis. MS/ Extremity: Pulses equal, no cyanosis. Neurovascular intact. Full, normal range of motion. Neuro: Awake and alert, GCS 15, oriented to person, place, time, and situation. Cranial nerves II-XII grossly intact. Motor strength 5/5 in all extremities. Sensory grossly intact. Psych: Awake, alert, with orientation to person, place and time. Behavior, mood, and affect are within normal limits 04:47 Abdomen/GI: Rectal exam reveals no signs of fecal impaction, no mass, no bleeding, no other significant findings. Normal anal tone., 04:47 ECG was reviewed by the Attending Physician. Positive electronic ventricular pacemaker sp4 at the rate of 63, EKG time 04:12 Vital Signs: 03:43 BP 171 / 66; Pulse 67; Resp 18; Temp 99.4; Pulse Ox 100% on R/A; Weight 105.23 kg; pf1 Height 6 ft. 2 in. ; Pain 9/10; 04:00 BP 164 / 68; Pulse 64; Resp 16; Pulse Ox 99% on R/A; pf1 05:00 BP 174 / 66; Pulse 59; Resp 16; Pulse Ox 98% ; pf1 06:09 BP 163 / 68; Pulse 60; Resp 17; Pulse Ox 100% ; jj7 07:17 BP 168 / 68; Pulse 60; Resp 18; Pulse Ox 100% on R/A; Pain 8/10; mb9 08:56 BP 167 / 75; Pulse 70; Resp 18; Pulse Ox 98% on R/A; mb9 11:00 BP 154 / 74; Pulse 70; Resp 18; Pulse Ox 100% on R/A; mb9 13:00 BP 143 / 82; Pulse 71; Resp 18; Pulse Ox 100% on R/A; mb9 03:43 Body Mass Index 29.79 (105.23 kg, 187.96 cm) pf1 03:43 Pain Scale: Adult pf1 07:17 Pain Scale: Adult mb9 MDM: 03:51 Patient medically screened. sp4 06:17 ED course: COMPARISON: CT angiography aorta July 26, 2022. FINDINGS: Lung bases: Right sp4 basilar pleuroparenchymal scarring with evidence of prior surgery. No consolidation. ABDOMEN: Liver: Fatty liver. Gallbladder and bile ducts: Unremarkable. No calcified stones. No ductal dilation. Pancreas: No findings to suggest acute pancreatitis. No mass visualized. No ductal dilation. Spleen: Unremarkable. No splenomegaly. Adrenals: Unremarkable. No mass. Kidneys and ureters: No findings to suggest pyelonephritis. No hydronephrosis or ureter stone. Stomach and bowel: Moderate gas and fluid in the colon lumen from the cecum to the mid distal left colon. No findings to suggest colitis. No small bowel dilatation or obstruction. PELVIS: Appendix: No findings to suggest acute appendicitis. Bladder: Unremarkable. No mass. Reproductive: Unremarkable as visualized. ABDOMEN and PELVIS: Intraperitoneal space: Unremarkable. No free air. No significant fluid collection. Bones/joints: Multilevel degenerative changes in the lower lumbar spine. No acute fracture. No dislocation. Soft tissues: Unremarkable. Vasculature: Endovascular stent graft in the abdominal aorta. [place] infrarenal abdominal aortic aneurysm is 4.8 x 4.7 cm similar to the previous study. There is faint fat stranding adjacent to the distal infrarenal abdominal aorta, with slight heterogeneity in the lumen raising suspicion for subtle graft leak. Lymph nodes: No pathologically enlarged lymph nodes. Tubes, lines and devices: Intracardiac pacer leads. IMPRESSION: 1. Previous endovascular stent graft placement in the abdominal aorta. There is faint fat stranding adjacent to the distal infrarenal abdominal aorta, with slight heterogeneity in the lumen raising suspicion for subtle graft leak. [place] infrarenal abdominal aortic aneurysm is 4.8 x 4.7 cm similar to the previous study. CT angiography aorta follow-up recommended. 2. Moderate gas and fluid in the colon lumen from the cecum to the mid distal left colon. No findings to suggest colitis. . 11:55 ED course: Dr Acosta in the ED and recommends transfer at this time. Patient with ms3 possible REDD occlusion causing ileus.. 12:20 Differential Diagnosis Post op pain vs Ileus vs AAA. Data reviewed: vital signs, nurses ms3 notes, and as a result, I will transfer. Management of patient was discussed with the following: Seam Presser: Dr Marroquin- Patient's physician at [facility]. Historians other than the Patient: Spouse/Significant Other: Patient's . Counseling: I had a detailed discussion with the patient and/or guardian regarding the historical points, exam findings, and any diagnostic results supporting the discharge/admit diagnosis, lab results, the need to transfer to another facility. 06/05 03:42 Order name: CBC with Diff; Complete Time: 06:28 sp4 06/05 03:42 Order name: CMP; Complete Time: 06:28 sp4 06/05 03:42 Order name: Lipase; Complete Time: 06:28 sp4 06/05 03:42 Order name: Urinalysis w/ reflexes; Complete Time: 06:28 sp4 06/05 03:42 Order name: NT PRO-BNP; Complete Time: 06:28 sp4 06/05 03:42 Order name: PT-INR; Complete Time: 06:28 sp4 06/05 03:42 Order name: Troponin HS; Complete Time: 06:28 sp4 06/05 03:42 Order name: CT Abd/Pelvis - IV Contrast Only; Complete Time: 14:54 sp4 06/05 08:57 Order name: CT; Complete Time: 08:59 EDOK 06/05 03:42 Order name: EKG; Complete Time: 03:42 sp4 06/05 08:08 Order name: CONS Physician Consult EDOK 06/05 03:42 Order name: IV Saline Lock; Complete Time: 04:27 sp4 06/05 03:42 Order name: Labs collected and sent; Complete Time: : sp4 06/05 03:42 Order name: EKG - Nurse/Tech; Complete Time: 04:27 sp4 06/05 03:42 Order name: O2 Per Protocol; Complete Time: 04:06 sp4 06/05 03:42 Order name: O2 Sat Monitoring; Complete Time: : sp4 EC:49 Rate is 63 beats/min. Rhythm is regular, Paced. Interpreted by me. Reviewed by me. sp4 Administered Medications: 05:10 Drug: fentaNYL (PF) IVP 50 mcg IVP once Route: IVP; Site: left antecubital; pf1 06:00 Follow up: Response: No adverse reaction; Marked relief of symptoms; Pain is decreased; pf1 RASS: Alert and Calm (0) 05:10 Drug: metoCLOPramide IVP 10 mg IVP once; over 1 to 2 minutes Route: IVP; Site: left pf1 antecubital; 06:00 Follow up: Response: No adverse reaction pf1 05:10 Drug: Dicyclomine PO 20 mg PO once Route: PO; pf1 06:00 Follow up: Response: No adverse reaction pf1 07:17 Drug: fentaNYL (PF) IVP 50 mcg IVP once Route: IVP; Site: left antecubital; mb9 08:12 Follow up: Response: No adverse reaction mb9 07:17 Drug: Simethicone PO 160 mg PO once Route: PO; mb9 08:12 Follow up: Response: No adverse reaction mb9 08:12 Drug: Acetaminophen PO 1000 mg PO once Route: PO; mb9 08:34 Follow up: Response: No adverse reaction mb9 Disposition Summary: 06/05/23 12:21 Transfer Ordered Notes: Transfer Location: Other Acute Care Facility ms3 Reason: Higher level of care ms3 Condition: Stable(06/05/23 12:21) ms3 Problem: new(06/05/23 12:21) ms3 Symptoms: have improved(06/05/23 12:21) ms3 Accepting Physician: ER (06/05/23 15:43) mb9 Diagnosis - Ileus, unspecified ms3 - Back pain ms3 Forms: - Medication Reconciliation Form ms3 - SBAR form ms3 Signatures: Dispatcher [employer] EDMS Derek, Rachele bd Chandra, Edwin, DO DO ms3 Monique Aden, RN RN mb9 Charity Jones RN RN pf1 Ricardo Sabillon MD MD sp4 Corrections: (The following items were deleted from the chart) 09:46 08:15 Telemetry/MedSurg (observation) ms3 bd 09:46 08:15 ms3 bd 12:20 08:15 Observation ms3 ms3 12:20 08:15 Ollie, Rustam ms3 ms3 12:20 08:15 Stable ms3 ms3 12:20 08:15 new ms3 ms3 12:20 08:15 are unchanged ms3 ms3 12:20 08:15 Standard ms3 ms3 12:20 08:15 Ileus ms3 ms3 12:20 08:15 Intractable abdominal pain ms3 ms3 12:20 09:46 [facility] ER HOLD bd ms3 12:20 09:46 ERHOLD- bd ms3 15:43 12:21 ER ms3 mb9
--- NOTE | 2023-06-05 08:57 | RAD REPORT ---
EXAM DESCRIPTION: CT - Angio Aorta For Dissection - 06/05/2023 8:45 am CLINICAL HISTORY: Chest pain radiating to the back. ABD PAIN COMPARISON: Angio Aorta For Dissection dated 07/26/2022 TECHNIQUE: CT angiography of the aorta was performed with MIPs. All CT scans are performed using dose optimization technique as appropriate and may include automated exposure control or mA/KV adjustment according to patient size. FINDINGS: A left aortic arch is present with normal branching pattern of the great vessels.No acute aortic finding is seen such as aneurysm, penetrating ulcer or dissection. Pacemaker wires are present . Infrarenal abdominal aortic endograft is in place. No finding to suggest the presence of an endolea k. No evidence of pulmonary embolism. Mild diffuse COPD. The liver demonstrates no focal mass or biliary dilatation.The spleen, pancreas, adrenal glands are w ithin normal limits for arterial phase imaging.No hydronephrosis. Benign renal cysts. No bowel obstruction, free fluid or abscess.Moderate fat containing right inguinal hernia.No patholog ic enlarged lymphadenopathy identified. No fracture or worrisome bone lesion seen. IMPRESSION: No evidence of endoleak seen.
[2023-06-05] MEDS ORDERED: ALBUTEROL 2.5 MG/3 ML NEB SOL NEB PRN (09:46)
[2023-06-05] MEDS ORDERED: ALPRAZOLAM 1 MG TABLET PO PRN (09:46)
[2023-06-05] MEDS ORDERED: ACETAMINOPHEN 325 MG TABLET PO PRN (09:46)
[2023-06-05] MEDS ORDERED: ONDANSETRON 4 MG/2 ML VIAL IV PRN (09:46)
[2023-06-05] MEDS: D5 0.45 NS 1,000 ML IV SCH (09:46)
[2023-06-05] MEDS ORDERED: FENTANYL CITR 100 MCG/2 ML IV PRN (09:46)
[2023-06-05 09:54] VITALS: BMI 29.6
[2023-06-05 09:55] VITALS: O2SAT 100
--- NOTE | 2023-06-05 11:27 | RAD REPORT ---
EXAM DESCRIPTION: CT Abdomen and Pelvis With Intravenous Contrast CLINICAL HISTORY: The patient is 78 years old and is Male; ABD PAIN TECHNIQUE: Axial computed tomography images of the abdomen and pelvis with intravenous contrast. S agittal and coronal reformatted images were created and reviewed. This CT exam was performed using one or more of the following dose reduction techniques: automated exposure control, adjustment of t he mA and/or kV according to patient size, and/or use of iterative reconstruction technique. COMPARISON CT angiography aorta July 26, 2022. FINDINGS: Lung bases: Right basilar pleuroparenchymal scarring with evidence of prior surgery. No consolidation. ABDOMEN: Liver: Fatty liver. Gallbladder and bile ducts: Unremarkable. No calcified stones. No ductal dilation. Pancreas: No findings to suggest acute pancreatitis. No mass visualized. No ductal dilation. Spleen: Unremarkable. No splenomegaly. Adrenals: Unremarkable. No mass. Kidneys and ureters: No findings to suggest pyelonephritis. No hydronephrosis or ureter stone. Stomach and bowel: Moderate gas and fluid in the colon lumen from the cecum to the mid distal lef t colon. No findings to suggest colitis. No small bowel dilatation or obstruction. PELVIS: Appendix: No findings to suggest acute appendicitis. Bladder: Unremarkable. No mass. Reproductive: Unremarkable as visualized. ABDOMEN and PELVIS: Intraperitoneal space: Unremarkable. No free air. No significant fluid collection. Bones/joints: Multilevel degenerative changes in the lower lumbar spine. No acute fracture. No dislocation. Soft tissues: Unremarkable. Vasculature: Endovascular stent graft in the abdominal aorta. [place] infrarenal abdominal aortic aneurysm is 4.8 x 4.7 cm similar to the previous study. There is faint fat stranding adjacent to the distal infrarenal abdominal aorta, with slight heterogeneity in the lumen raising suspicion for subtl e graft leak. Lymph nodes: No pathologically enlarged lymph nodes. Tubes, lines and devices: Intracardiac pacer leads. IMPRESSION: 1. Previous endovascular stent graft placement in the abdominal aorta. There is faint fa t stranding adjacent to the distal infrarenal abdominal aorta, with slight heterogeneity in the lumen raising suspicion for subtle graft leak. [place] infrarenal abdominal aortic aneurysm is 4.8 x 4.7 cm similar to the previous study. CT angiography aorta follow-up recommended. 2. Moderate gas and fluid in the colon lumen from the cecum to the mid distal left colon. No findin gs to suggest colitis. Electronically signed by: María Wills MD 06/05/2023 06:10 AM STRAINER TENDER Due to temporary technical issues with the PACS/Fluency reporting system, reports are being signed by the in house radiologists without review as a courtesy to insure prompt reporting. The interpreting radiologist is fully responsible for the content of the report.
--- NOTE | 2023-06-05 13:10 | P.SSS ---
Patient History Date of Service: 06/05/23 Reason for admission: ABDOMEN DISTENSION SP AORTIC GRAFT PLACEMENT History of Present Illness: SALO IS A PATIENT WITH 3 CANCERS AND A FIB. HE HAD AAA STENT BY DR CALVIN IN [place] ABOUT A WEEK AGO. SINCE THEN HE HAS DISTENSION OF ABDOMEN AND NOT HAVING GOOD BM. LACTULOSE IS NOT WORKING. THERE WAS A SUSPICION OF GRAFT LEAK BUT THAT WAS RULED OUT. THE AAA GRAFT IS EXTENDING INTO THE MOUTH OF SUP MESENTRIC ARTERY PER DR PEREZ GIVING RISE TO ISCHEMIA. HE NEEDS TO GO BACK TO DR. CALVIN AND DR. MAJOR IS WORKING ON IT. Allergies hydrocodone Allergy (Verified 01/19/21 07:55) Unknown Home medications list reviewed: Yes Home Medications: Rosuvastatin Calcium [Crestor] 5 mg PO DAILY 01/19/21 Loratadine [Claritin*] 10 mg PO DAILY 06/26/22 Losartan Potassium 50 mg PO DAILY #90 tab 06/26/22 Apixaban [Eliquis] 5 mg PO BID #60 07/26/22 Famotidine [Pepcid*] 40 mg PO BEDTIME tab 03/13/23 Metoprolol Tartrate [Lopressor*] 25 mg PO BID 6AM 6PM 14 Days #28 tab 03/13/23 Sotalol HCl [Betapace*] 120 mg PO BID 6AM 6PM #60 tab 03/13/23 Tramadol HCl [Ultram] 1 tab PO BID PRN 04/13/23 - Past Medical/Surgical History Has patient received pneumonia vaccine in the past: Yes Diabetic: No -: A-fib -: Lung CA -: COPD -: GERD -: HTN -: Sjogren's Syndrome -: Radiation Therapy -: Heart Ablation -: Lung SX x 5 - Social History Smoking Status: Never smoker Alcohol use: No CD- Drugs: No Caffeine use: No Review of Systems General: Weakness, As per HPI Physical Examination - Physical Exam General: Alert, Moderate distress HEENT: Atraumatic, PERRLA, Mucous membr. moist/pink, EOMI, Sclerae nonicteric Neck: Supple, 2+ carotid pulse no bruit, No LAD, Without JVD or thyroid abnormality Respiratory: Clear to auscultation bilaterally, Normal air movement Cardiovascular: Regular rate/rhythm, Normal S1 S2 Gastrointestinal: Normal bowel sounds, Hypoactive, No tenderness, Distended Musculoskeletal: No tenderness Integumentary: No rashes Neurological: Normal gait, Normal speech, Normal strength at 5/5 x4 extr, Normal tone, Normal affect Lymphatics: No axilla or inguinal lymphadenopathy - Studies Laboratory Data (last 24 hrs) 06/05/23 06/05/23 06/05/23 04:21 04:21 04:21 WBC 5.20 Hgb 10.0 L Hct 29.3 L Plt Count 111 L PT 16.7 H INR 1.54 Sodium 133 L Potassium 3.3 L BUN 7 Creatinine 0.79 Glucose 103 Total Bilirubin 0.7 AST 29 ALT 31 Alkaline Phosphatase 115 Lipase 41 - Diagnosis (Problem(s)) (1) Mesenteric ischemia Current Visit: Yes Status: Acute Plan: ABOVE POSSIBLE COMPLICATION OF AORTIC STENT. SEND BACK TO [facility] DR. MAJOR WORKING ON THIS. PROGNOSIS GUARDED. - Disposition Disposition: ROUTINE DISCHARGE
[2023-06-05 16:03] VITALS: BP 143/82; TEMP 99.4
--- NOTE | 2023-06-07 16:15 | EKG ---
Test Date: 2023-06-05 Test Time: 04:12:44 Pharmacy Operations Coordinator: MONICA MEASUREMENT RESULTS: Intervals: Rate: 63 NM: QRSD: 156 QT: 470 QTc: 480 [place]: P: NM: QRS: 105 T: 120 INTERPRETIVE STATEMENTS: Electronic ventricular pacemaker Compared to ECG 04/13/2023 10:57:41 Supraventricular tachycardia no longer present Electronically Signed On 06-07-23 16:07:14 [employer]ING [employer] by Christian Israel
== END 2023-06-05 13:29 | disposition short-term general hospital (02) ==
LOC: ER 03:20 → ERHOLD 08:03
PROVIDERS: ADMIT Internal Medicine; ATTEND Internal Medicine
DX: K55.059 Acute (reversible) ischemia of intestine, part and extent unspecified (principal); I48.11 Longstanding persistent atrial fibrillation; I10 Essential (primary) hypertension; C34.90 Malignant neoplasm of unspecified part of unspecified bronchus or lung; Z95.5 Presence of coronary angioplasty implant and graft; Z79.01 Long term (current) use of anticoagulants; Z98.890 Other specified postprocedural states; Z88.5 Allergy status to narcotic agent; Z95.0 Presence of cardiac pacemaker
CPT/HCPCS: 93005; 85025; 81001; 36415; 85610; 84484; 83690; 80053; 83880; 71275; 74175; 74177; Q9967 ×2; J2765; J3010; G0378 ×2